=== PATIENT | female | born 1960 | race Hispanic/Latino ===

== ENCOUNTER 2023-05-26 12:09 | Emergency (ER) | payer OTHER ==
[~2023-05-26] VITALS: Ht 157.5 cm; Wt 76.2 kg
[2023-05-26 12:48] LABS: APPEARANCE,URINE CLOUDY (CLEAR); BILIRUBIN,URINE NEGATIVE (NEGATIVE); COLOR,URINE YELLOW (YELLOW); GLUCOSE, URINE (UA) NEGATIVE (NEGATIVE); KETONES,URINE 5 mg/dL (NEGATIVE); LEUKOCYTE ESTERASE ,URINE 500 Leu/uL (NEGATIVE); NITRATE,URINE 2+ (NEGATIVE); OCCULT BLOOD,URINE MODERATE (NEGATIVE); PROTEIN,URINE 30 mg/dL (NEGATIVE); UROBILINOGEN,URINE 0.2 mg/dL (0.2-1.0)
[2023-05-26 12:52] LABS: ADD UA MICROSCOPIC YES
[2023-05-26 12:54] LABS: HEMATOCRIT 42.5 % (36-48); MEAN CORPUSCULAR HEMOGLOBIN 29.3 pg (27.0-33.0); MEAN CORPUSCULAR HGB CONC 34.4 g/dL (32.0-36.0); MEAN CORPUSCULAR VOLUME 85.3 fL (79-99); RED BLOOD CELL COUNT(AUTO) 4.98 MIL/uL (4.00-5.50); RED CELL DISTRIBUTION WIDTH 13.9 % (11.0-15.5); WHITE BLOOD COUNT (AUTO) 14.8 K/uL (4.8-10.8)
[2023-05-26 13:06] LABS: BACTERIA,URINE MANY /HPF (None Seen); MUCUS,URINE RARE LPF (None Seen); SQUAMOUS EPITHELIAL CELL,UR MANY /HPF (0-2); WBC CLUMP FEW /HPF (0-1); WBC,URINE TNTC /HPF (0-1)
[2023-05-26 13:06] LABS: CREATININE 1.2 mg/dL (0.5-1.5); POTASSIUM 3.8 mmol/L (3.5-5.1)
[2023-05-26 14:07] LABS: INR 1.07 (0.85-1.15); PROTHROMBIN TIME 12.4 SEC (9.6-11.6)
[2023-05-26 14:08] LABS: PARTIAL THROMBOPLASTIN TIME 33.6 SEC (26.3-35.5)
[2023-05-26 14:24] LABS: ALBUMIN 3.4 g/dL (3.5-5.0); BILIRUBIN,DIRECT 0.2 mg/dL (0.0-0.3); BILIRUBIN,TOTAL 0.6 mg/dL (0.2-1.0); TOTAL PROTEIN, SERUM 7.2 g/dL (6.0-8.3)
[2023-05-26] MEDS: 0.9%NACL 1000ML 1,503 ML IV ONE (15:46)
[2023-05-26] MEDS: CEFTRIAXONE 1G VIAL IVPB ONE (15:46)
[2023-05-26] MEDS: ACETAMINOPHEN 325 MG TAB PO ONE (15:47)
[2023-05-26] MEDS: TAMSULOSIN HCL 0.4 MG CAP.ER.24H PO SCH (17:00)
[2023-05-26] MEDS: IBUPROFEN 600 MG TABLET PO ONE (17:42)
[2023-05-26] MEDS: TAMSULOSIN HCL 0.4 MG CAP.ER.24H ONE (17:43)
[2023-05-26] MEDS ORDERED: IBUP-2076 PO (18:12)
[2023-05-26] MEDS ORDERED: TAMS-1 PO (18:12)
[2023-05-26] MEDS ORDERED: LEVO750T68 PO (18:12)
[2023-05-26 18:24] VITALS: BP 112/56; PULSE 94; RESP 18; O2SAT 98
== END 2023-05-26 18:50 | disposition home or self-care (01) ==
LOC: EDH 12:09
DX: N39.0 Urinary tract infection, site not specified (principal); N13.2 Hydronephrosis with renal and ureteral calculous obstruction; I10 Essential (primary) hypertension; Z90.49 Acquired absence of other specified parts of digestive tract; Z90.710 Acquired absence of both cervix and uterus
CPT/HCPCS: 99285; 74176; 96365; 82550; 80076; 84484; 80048; 85027; 85610; 85730; 87040 ×2; 87077; 87088; 87186; 83605; 81001; 36415; J7030; J0696

== ENCOUNTER 2024-08-16 13:35 | Inpatient (IN) | payer OTHER ==
[~2024-08-16] VITALS: Ht 152.4 cm; Wt 72.3 kg
[~2024-08-16 13:35] MED LIST: IBUP-2076 PO; LEVO750T68 PO; TAMS-55 PO
[2024-08-16 13:58] LABS: BASOPHILS # (AUTO) 0.06 K/uL (0.00-0.20); BASOPHILS % (AUTO) 0.7 % (0.0-5.0); HEMATOCRIT 40.2 % (36-48); IMMATURE GRANULOCYTE ABSOLUTE 0.08 K/uL (0-1); LYMPHOCYTES # (AUTO) 0.7 K/uL (1.0-4.8); LYMPHOCYTES % (AUTO) 7.7 % (21.0-51.0); MEAN CORPUSCULAR HEMOGLOBIN 28.8 pg (27.0-33.0); MEAN CORPUSCULAR HGB CONC 34.6 g/dL (32.0-36.0); MEAN CORPUSCULAR VOLUME 83.4 fL (79-99); MONOCYTES # (AUTO) 0.2 K/uL (0.1-1.0); MONOCYTES % (AUTO) 1.8 % (3.0-13.0); NEUTROPHILS % (AUTO) 88.9 % (40.0-77.0); PLATELET COUNT (AUTO) 82 K/uL (130-400); RED BLOOD CELL COUNT(AUTO) 4.82 MIL/uL (4.00-5.50); RED CELL DISTRIBUTION WIDTH 14.7 % (11.0-15.5)
[2024-08-16 14:07] LABS: RAPID GROUP A STREP negative (NEGATIVE)
[2024-08-16] MEDS: acetaMINOPHEN 500 MG TABLET PO ONE (14:09)
[2024-08-16] MEDS: 0.9%NACL 1000ML 2,448 ML IV ONE (14:09)
[2024-08-16 14:17] LABS: INFLUENZA TYPE A Negative For Type A (NEGATIVE); INFLUENZA TYPE B Negative For Type B (NEGATIVE)
[2024-08-16 14:18] LABS: COVID19 (SARS ANTIGEN RAPID) PRESUMPTIVE NEGATIVE (NEGATIVE)
[2024-08-16 14:34] LABS: CREATININE 1.2 mg/dL (0.5-1.0); POTASSIUM 3.3 mmol/L (3.5-5.1)
[2024-08-16 14:42] LABS: APPEARANCE,URINE TURBID (CLEAR); BACTERIA,URINE MOD /HPF (None Seen); BILIRUBIN,URINE NEGATIVE (NEGATIVE); COLOR,URINE YELLOW (YELLOW); GLUCOSE, URINE (UA) NEGATIVE (NEGATIVE); KETONES,URINE 10 mg/dL (NEGATIVE); LEUKOCYTE ESTERASE ,URINE 250 Leu/uL (NEGATIVE); MUCUS,URINE FEW LPF (None Seen); NITRATE,URINE NEGATIVE (NEGATIVE); OCCULT BLOOD,URINE LARGE (NEGATIVE); OTHER CASTS, URINE 9 /LPF (None Seen); PROTEIN,URINE 200 mg/dL (NEGATIVE); RBC,URINE 51-100 /HPF (0-1); SQUAMOUS EPITHELIAL CELL,UR FEW /HPF (0-2); UNCLASSIFIED CRYSTAL 5 /HPF (None Seen); YEAST,URINE BUDDING RARE /HPF (None Seen)
[2024-08-16 14:52] LABS: BAND NEUTROPHILS % (MANUAL) 14 % (0-2); EOSINOPHILS % (MANUAL) 1 % (1-6); LYMPHOCYTES % (MANUAL) 3 % (22-44); MAN.DIFF COMMENT-IMPRESSION MANUAL DIFFERENTIAL; MONOCYTES % (MANUAL) 2 % (2-9); REACTIVE LYMPHOCYTES 5 % (0-0); SEGMENTED NEUTROPHILS % 75 % (40-70); TOTAL CELLS COUNTED 100
--- NOTE | 2024-08-16 15:01 | HMCIMG ---
Exam Type: CHEST 1VW Clinical Information: SOB Comparison: None Findings: The lungs are clear of infiltrates. The heart is enlarged. Bony and soft tissue structures of the chest wall are unremarkable. IMPRESSION: Cardiomegaly. Clear lungs.
--- NOTE | 2024-08-16 16:20 | ERN ---
General Chief Complaint: Flu Symptoms Stated Complaint: FLU LIKE SYMPTOMS Time Seen by MD: 13:40 Time Seen by Midlevel: 13:40 Source: patient History of Present Illness Initial Comments 63-year-old female who presents to the emergency department referred by PCP for further evaluation. Patient was diagnosed with influenza one week ago. Patient reports decreased appetite, fever, and generalized weakness. Denies any chest pain, shortness of breath, nausea, vomiting, or further associated symptoms. PMHx HTN Allergies: Coded Allergies: No Known Drug Allergies (Unverified Allergy, Unknown, 05/26/23) Home Meds Active Scripts Ibuprofen (Ibuprofen) 400 Mg Tablet, 400 MG PO TID, #30 TAB Prov:RAMA UMANA V [facility] 05/26/23 Tamsulosin HCl (Flomax) 0.4 Mg Cap.er.24h, 0.4 MG PO DAILY, #30 CAPSULE. Prov:RAMA UMANA V [employer] 05/26/23 Levofloxacin (Levaquin 750Mg Tabs) 750 Mg Tablet, 750 MG PO DAILY for 7 Days, #7 TAB Prov:RAMA UMANA V [facility] 05/26/23 Past Medical History Past Medical History: Hypertension Past Surgical History: Hysterectomy, Cholecystectomy Surgical History Other: CATARACT ROS Dictation Constitutional: Positive for generalized weakness, decreased appetite, fever Negative for chills, and weight loss Eyes: Negative for injury, pain,redness, and discharge ENT: Negative for injury,pain or swelling Cardiovascular: Negative for chest pain, palpitations, and edema Respiratory: Negative for shortness of breath, cough, and wheezing, Abdomen/GI: Negative for abdominal pain, nausea, vomiting, diarrhea, and constipation Back: Negative for injury and pain : Negative for painful urination, bleeding or discharge MS/Extremity: Negative for injury and deformity Skin: Negative for rash, and discoloration Neuro: Negative for headache, weakness, numbness, tingling, and seizure Psych: Negative for suicide ideation, homicidal ideation, and hallucinations Physical Exam Physical Exam Dictation General: awake, alert, no acute distress Head/Face: Normocephalic, atraumatic Eyes: PERRL, EOMI, normal conjunctiva ENT: oral cavity clear, oral mucosa moist Neck: Supple, normal range of motion Cardiovascular: RRR, normal S1/S2 Respiratory: CTAB, no respiratory distress, no rales or wheezes Abdomen: Soft, non-tender, non-distended, no guarding or rebound. Skin: Warm, dry, normal turgor, no rash MS/Extremity: Pulses equal, no cyanosis, neurovascular intact, FROM Neuro: COAx4, GCS 15, strength 5/5, CN 2-12 intact, normal cerebellar exam, normal gait Psych: Normal behavior, mood, and affect normal Results Laboratory and Microbiology Lab and Micro Result Laboratory Tests Test 08/16/24 13:45 08/16/24 13:48 08/16/24 14:04 Influenza Type A Antigen Negative For Type A Influenza Type B Antigen Negative For Type B SARS-CoV-2 Antigen (Rapid) PRESUMPTIVE NEGATIVE Group A Streptococcus Rapid negative (NEGATIVE) White Blood Count 9.0 K/uL (4.8-10.8) Red Blood Count 4.82 MIL/uL (4.00-5.50) Hemoglobin 13.9 g/dL (12.0-16.0) Hematocrit 40.2 % (36-48) Mean Corpuscular Volume 83.4 fL (79-99) Mean Corpuscular Hemoglobin 28.8 pg (27.0-33.0) Mean Corpuscular Hemoglobin Concent 34.6 g/dL (32.0-36.0) Red Cell Distribution Width 14.7 % (11.0-15.5) Platelet Count 82 K/uL (130-400) L Mean Platelet Volume 12.2 fL (7.5-10.5) H Immature Granulocyte % (Auto) 0.9 % (0-1) Neutrophils (%) (Auto) 88.9 % (40.0-77.0) H Lymphocytes (%) (Auto) 7.7 % (21.0-51.0) L Monocytes (%) (Auto) 1.8 % (3.0-13.0) L Eosinophils (%) (Auto) 0.0 % (0.0-8.0) Basophils (%) (Auto) 0.7 % (0.0-5.0) Neutrophils # (Auto) 8.0 K/uL (1.8-7.7) H Lymphocytes # (Auto) 0.7 K/uL (1.0-4.8) L Monocytes # (Auto) 0.2 K/uL (0.1-1.0) Eosinophils # (Auto) 0.00 K/uL (0.00-0.70) Basophils # (Auto) 0.06 K/uL (0.00-0.20) Absolute Immature Granulocyte (auto 0.08 K/uL (0-1) Segmented Neutrophils % 75 % (40-70) H Band Neutrophils % 14 % (0-2) H Lymphocytes % (Manual) 3 % (22-44) L Monocytes % (Manual) 2 % (2-9) Eosinophils % (Manual) 1 % (1-6) Nucleated Red Blood Cells 0.0 % (0.0-0.19) Differential Comment MANUAL DIFFERENTIAL Reactive Lymphocytes 5 % (0-0) H White Cell Morphology Comment See comments Platelet Morphology Comment See comments Red Blood Cell Morphology OVALOCYTES 1+ Sodium Level 133 mmol/L (136-145) L Potassium Level 3.3 mmol/L (3.5-5.1) L Chloride Level 93 mmol/L (101-111) L Carbon Dioxide Level 29 mmol/L (21-32) Blood Urea Nitrogen 14 mg/dL (7-18) Creatinine 1.2 mg/dL (0.5-1.0) H Glomerular Filtration Rate Calc 51 mL/min (>90) Random Glucose 101 mg/dL (70-105) Lactic Acid Level 1.8 mmol/L (0.8-2.5) Total Calcium 7.8 mg/dL (8.5-10.1) L Troponin I High Sensitivity 18 ng/L (4-50) Urine Color YELLOW (YELLOW) Urine Appearance TURBID (CLEAR) Urine pH 6.0 (5.0-8.0) Urine Specific [place] 1.021 (1.001-1.031) Urine Protein 200 mg/dL (NEGATIVE) H Urine Glucose (UA) NEGATIVE mg/dL (NEGATIVE) Urine Ketones 10 mg/dL (NEGATIVE) H Urine Occult Blood LARGE (NEGATIVE) H Urine Nitrate NEGATIVE (NEGATIVE) Urine Bilirubin NEGATIVE mg/dL (NEGATIVE) Urine Urobilinogen 4.0 mg/dL (0.2-1.0) H Urine Leukocyte Esterase 250 Héctor/uL (NEGATIVE) H Urine RBC 51-100 /HPF (0-1) H Urine WBC 11-25 /HPF (0-1) H Urine Squamous Epithelial Cells FEW /HPF (0-2) Urine Other Crystals (Auto) 5 /HPF (None Seen) Urine Bacteria MOD /HPF (None Seen) Urine Granular Casts (Auto) 2-5 /LPF (None Seen) H Urine Other Casts 9 /LPF (None Seen) Urine Yeast RARE /HPF (None Seen) Labs Reviewed?: Yes EKG/XRAY/US/CT/MRI X-RAY Comment REASON: SOB ORDERING PHYSICIAN: CARLOS SHAW MD PROCEDURE: CXR1VW - CHEST 1VW Exam Type: CHEST 1VW Clinical Information: SOB Comparison: None Findings: The lungs are clear of infiltrates. The heart is enlarged. Bony and soft tissue structures of the chest wall are unremarkable. IMPRESSION: Cardiomegaly. Clear lungs. DICTATED BY: LAURA BARRAZA MD DATE: 08/16/24 1456 MDM MDM: Differential diagnosis: Sepsis, viral illness, pneumonia, dehydration, UTI Rationale: 63-year-old female who presents to the emergency department referred by PCP for further evaluation. Patient was diagnosed with influenza one week ago. Patient reports decreased appetite, fever, and generalized weakness. Denies any chest pain, shortness of breath, nausea, vomiting, or further associated symptoms. PMHx HTN Labs obtained CBC nonspecific, chemistry indicates hyponatremia 133, hypokalemia 3.3, hypochloremia 93, creatinine of 1.2, indicating dehydration. UA positive for urinary tract infection 250 leukocyte esterase with WBCs. Serology negative for influenza, SARs, strep. Chest x-ray obtained indicating cardiomegaly with clear lungs. Per patient's initial vitals sepsis criteria was met with tachycardia and fever. Patient was administered IV fluids, acetaminophen, and Rocephin. Patient was educated on findings, diagnosis, decision for admission. Patient verbalized understanding and agrees with admission. Case discussed with hospitalist who accepts admission. Previous outside records reviewed: Old ER visits. Risk of complication and/or morbidity or mortality of patient management: None Medications-Per medication reconciliation Need for hospitalization: Patient does meet criteria for hospitalization. Need for emergency major/minor surgery: No There are no social concerns with this patient. Prescription drug management Prescriptions will include symptomatic care Patient's prior external medical records from other ER visits were reviewed by me as indicated. Prior testing and results from previous visits were reviewed. Prior tests were taken into account with medical decision making and resource utilization, independent historian/historians were used to obtain complete medical history. I independently interpreted the test that were performed, results were reviewed by me and considered findings on radiology if ordered. Medical management and examination interpretation discussions were had by me with other qualified healthcare professionals as indicated for the patient's care. ED Course Orders Procedure Category Date Status Time Influenza Type A & B, LAB 08/16/24 Complete Rapid 13:39 Covid19 (Sars Antigen LAB 08/16/24 Complete Rapid) 13:39 Rapid (Group A Strep) LAB 08/16/24 Complete 13:39 Chest 1vw RAD 08/16/24 Resulted 13:39 Cbc With Differential LAB 08/16/24 Complete 13:41 Basic Metabolic Panel LAB 08/16/24 Complete 13:41 Urinalysis LAB 08/16/24 Complete W/Microscopic 13:41 Lactic Acid LAB 08/16/24 Complete 13:41 Blood Cult GILBERT 08/16/24 In Process 13:41 Troponin I High LAB 08/16/24 Complete Sensitivity 13:41 12 Lead Ekg Tracing- EKG 08/16/24 Logged Technical 13:41 0.9%Nacl 1000ml (Ns PHA 08/16/24 In Process 1000ml) 14:00 Acetaminophen 500mg PHA 08/16/24 Complete Tab (Tylenol 500mg T 14:00 Manual Differential LAB 08/16/24 Complete 13:48 Culture Urine GILBERT 08/16/24 Logged 14:47 Ceftriaxone 1g Vial PHA 08/16/24 Complete (Rocephine 1g Inj) 15:30 Vital Signs(Adult CPOE 08/16/24 Transmitted Hospitalist) 15:17 Nurse To Enter Home CPOE 08/16/24 Transmitted Medication 15:17 Admit Orders ADM 08/16/24 Transmitted 15:17 Initiate Hypoglycemia FAINA 08/16/24 In Process Protocol 16:04 Dextrose 50%-Water PHA 08/16/24 In Process (D50w) 16:30 Glucagon 1mg Kit PHA 08/16/24 In Process (Glucagon 1mg Kit) 16:30 Initiate FAINA 08/16/24 In Process Hyperglycemia Protoco 16:04 Insulin Regular, PHA 08/16/24 In Process Human 3ml (Humulin R 16:30 Initiate Hypokalemia CPOE 08/16/24 Transmitted Po Half 16:04 Potassium Chloride PHA 08/16/24 In Process 10meq/100ml ([place] 16:30 Potassium Chl 10% PHA 08/16/24 In Process Elixir 20meq (Kcl 10% 16:30 Potassium Chloride PHA 08/16/24 In Process 20meq Er (K-Dur/Klor- 16:30 Notify Physician If CPOE 08/16/24 Transmitted There Is 16:04 Notify Md On The Next CPOE 08/16/24 Transmitted 16:04 Notify Md On The CPOE 08/16/24 Transmitted Next(Cont.) 16:04 Magnesium 2gm Premix PHA 08/16/24 In Process 50ml (Magnesium 2gm 16:30 Ammonia LAB 08/17/24 Verified 04:00 B-Type Natriuretic LAB 08/17/24 Verified Peptide 04:00 Cbc With Differential LAB 08/17/24 Verified 04:00 Comprehensive LAB 08/17/24 Verified Metabolic Panel 04:00 Creatine Kinase, Total LAB 08/17/24 Verified 04:00 Hemoglobin A1c LAB 08/17/24 Verified 04:00 Hepatic Function Panel LAB 08/17/24 Verified 04:00 Lactic Acid LAB 08/17/24 Verified 04:00 Lipase LAB 08/17/24 Verified 04:00 Magnesium LAB 08/17/24 Verified 02:00 Procalcitonin LAB 08/17/24 Verified 04:00 Vital Signs(Adult CPOE 08/16/24 Transmitted Hospitalist) 16:05 Nurse To Enter Home CPOE 08/16/24 Transmitted Medication 16:05 Admit Orders ADM 08/16/24 Transmitted 16:05 Vital Signs(Adult CPOE 08/16/24 Transmitted Hospitalist) 16:05 Vital Signs(Adult CPOE 08/16/24 Transmitted Hospitalist) 16:07 Daily Weights CPOE 08/16/24 Transmitted 16:07 I&O Q Shift CPOE 08/16/24 Transmitted 16:07 Fever: Blood Cx X 2 CPOE 08/16/24 Transmitted 16:07 Diphenhydramine Hcl PHA 08/16/24 In Process (Benadryl Inj) 16:30 Acetaminophen 325 Tab PHA 08/16/24 In Process (Tylenol 325mg Tab 16:30 Acetaminophen 325 Tab PHA 08/16/24 In Process (Tylenol 325mg Tab 16:30 Ondansetron 4mg Inj PHA 08/16/24 In Process (Zofran 4mg Inj) 16:30 Zolpidem Tartrate 5 PHA 08/16/24 In Process Mg Tab (Ambien) 16:30 Mag/Alum/Simeth 30ml PHA 08/16/24 In Process (Maalox Plus 30ml) 16:30 Lactulose 20 Gm/30 Ml PHA 08/16/24 In Process Udcup (Constulose 16:30 Nitroglycerin 0.4mg PHA 08/16/24 In Process Sl Tab (Nitrostat) 16:30 Guaifenesin-Dm PHA 08/16/24 In Process 200/20mg 10ml 16:30 Famotidine 20mg Vial PHA 08/16/24 In Process (Pepcid 20mg Vial) 16:30 Nurse To Enter Home CPOE 08/16/24 Transmitted Medication 16:07 Activity: Ad Connie CPOE 08/16/24 Transmitted 16:07 Consistent Carb DIET 08/16/24 Transmitted Dinner Heparin 5,000 Unit PHA 08/16/24 In Process Vial (Heparin 5,000 U 21:00 Apply Scds CPOE 08/16/24 Transmitted 16:07 Acetaminophen 325 Tab PHA 08/16/24 In Process (Tylenol 325mg Tab 16:30 Ketorolac PHA 08/16/24 In Process Tromethamine 15mg/Ml 16:30 Oxycodone/Acetamin PHA 08/16/24 In Process 5/325mg Tab (Percocet 16:30 Echo 2-D Complete ECHO 08/16/24 Logged 16:07 Case Management CM 08/16/24 Transmitted Evaluation 16:07 Pt Eval Request PT 08/16/24 Transmitted 16:07 Vancomycin Protocol PHA 08/16/24 In Process (Vancomycin Protocol 16:30 Zosyn 3.375gm+Ns 50ml PHA 08/16/24 In Process (Zosyn 3.375gm+Ns 21:00 0.9%Nacl 1000ml (Ns PHA 08/16/24 In Process 1000ml) 16:30 Hydralazine 20mg Inj PHA 08/16/24 In Process (Apresoline 20mg In 16:30 Famotidine 20mg Vial PHA 08/16/24 In Process (Pepcid 20mg Vial) 21:00 Current Medications Medications (Trade) Dose Ordered Sig/Amy Route PRN Reason Start Time Stop Time Status Last Admin Dose Admin Acetaminophen (TYLenol 325MG TAB) 650 mg Q4H PRN PO MILD PAIN (1-3) 08/16/24 16:30 09/15/24 16:29 Acetaminophen (TYLenol 325MG TAB) 650 mg Q6H PRN PO MILD PAIN (1-3) 08/16/24 16:30 09/15/24 16:29 Acetaminophen (TYLenol 325MG TAB) 650 mg Q6H PRN PO TEMPERATURE GREATER THAN 101.5 08/16/24 16:30 09/15/24 16:29 Acetaminophen (TYLenol 500MG TAB) 1,000 mg ONCE ONCE PO 08/16/24 14:00 08/16/24 14:01 DC 08/16/24 14:09 Al Hydroxide/Mg Hydroxide (MAALox PLUS 30ML) 30 ml Q6H PRN PO INDIGESTION 08/16/24 16:30 09/15/24 16:29 Ceftriaxone Sodium (ROCEphine 1G INJ) 1 gm ONCE ONCE IVPB 08/16/24 15:30 08/16/24 15:31 DC Dextrose (D50w) 50 ml AD PRN IV HYPOGLYCEMIA PROTOCOL 08/16/24 16:30 09/15/24 16:29 Diphenhydramine HCl (BENAdryl INJ) 25 mg Q6H PRN IV SEVERE ITCHING/RASH 08/16/24 16:30 09/15/24 16:29 Famotidine (Pepcid 20mg Vial) 20 mg HS IV 08/16/24 21:00 09/15/24 20:59 Famotidine (Pepcid 20mg Vial) 20 mg HS PRN IV NAUSEA/VOMITING 08/16/24 16:30 09/15/24 16:29 Glucagon (Glucagon 1mg Kit) 1 mg AD PRN IM HYPOGLYCEMIA PROTOCOL 08/16/24 16:30 09/15/24 16:29 Guaifenesin/ Dextromethorphan (RobiTUSSin DM 200/20MG 10ML) 10 ml Q4H PRN PO COUGH 08/16/24 16:30 09/15/24 16:29 Heparin Sodium (Porcine) (HEParin 5,000 UNIT VIAL) 5,000 unit BID SQ 08/16/24 21:00 09/15/24 20:59 Hydralazine HCl (APRESOLine 20MG INJ) 10 mg Q6H PRN IV For:SBP above 160;DBP above 90 08/16/24 16:30 09/15/24 16:29 Insulin Human Regular (humuLIN R 100 UNIT/ML 3ML) INSULIN SLIDING SCAL... ACHS SQ 08/16/24 16:30 09/15/24 16:29 Ketorolac Tromethamine (toRADol) 15 mg Q8H PRN IV MODERATE PAIN (4-6) 08/16/24 16:30 08/21/24 16:29 Lactulose (Constulose 20gm/ 30ml Udcup) 20 gm BID PRN PO CONSTIPATION 08/16/24 16:30 09/15/24 16:29 Magnesium Sulfate 50 ml @ 0 mls/hr PROTOCOL PRN IV other 08/16/24 16:30 09/15/24 16:29 Nitroglycerin (Nitrostat) 0.4 mg PROTOCOL PRN SL CHEST PAIN 08/16/24 16:30 09/15/24 16:29 Ondansetron HCl (zoFRAN 4MG INJ) 4 mg Q6H PRN IV NAUSEA/VOMITING 08/16/24 16:30 09/15/24 16:29 Oxycodone/ Acetaminophen (perCOCET) 1 tab Q6H PRN PO SEVERE PAIN (7-10) 08/16/24 16:30 08/23/24 16:29 Piperacillin Sod/ Tazobactam Sod 50 ml @ 12.5 mls/hr ZOSY8 IV 08/16/24 21:00 08/26/24 20:59 Potassium Chloride 100 ml @ 100 mls/hr AD PRN IV POTASSIUM PROTOCOL 08/16/24 16:30 09/15/24 16:29 Potassium Chloride (K-Dur/Klor-Con 20meq) 10 meq AD PRN PO POTASSIUM PROTOCOL 08/16/24 16:30 09/15/24 16:29 Potassium Chloride (KCl 10% Elixir 20meq/15ml) 10 meq AD PRN PO POTASSIUM PROTOCOL 08/16/24 16:30 09/15/24 16:29 Sodium Chloride 1,000 ml @ 100 mls/hr Q10H IV 08/16/24 16:30 09/15/24 16:29 Sodium Chloride 2,448 ml @ 816 mls/hr ONCE ONCE IV 08/16/24 14:00 08/16/24 16:59 08/16/24 14:09 Vancomycin HCl (Vancomycin Protocol) 1 each PROTOCOL PRN IV VANCOMYCIN PROTOCOL 08/16/24 16:30 08/30/24 16:29 Zolpidem Tartrate (AmbIEN) 5 mg HS PRN PO INSOMNIA 08/16/24 16:30 09/15/24 16:29 Vital Signs Date Time Temp Pulse Resp B/P (MAP) Pulse Ox O2 Delivery O2 Flow Rate FiO2 08/16/24 13:36 102.9 122 20 128/60 96 Room Air 0 Critical Care Note Critical Time: 30 minutes Comments Critical Care Procedure Note Authorized and Performed by: me Total critical care time: Approximately 36 minutes Due to a high probability of clinically significant, life threatening deterioration, the patient required my highest level of preparedness to intervene emergently and I personally spent this critical care time directly and personally managing the patient. This critical care time included obtaining a history; examining the patient; pulse oximetry; ordering and review of studies; arranging urgent treatment with development of a management plan; evaluation of patient's response to treatment; frequent reassessment; and, discussions with other providers. This critical care time was performed to assess and manage the high probability of imminent, life-threatening deterioration that could result in multi-organ failure. It was exclusive of separately billable procedures and treating other patients and teaching time. Please see MDM section and the rest of the note for further information on patient assessment and treatment. DX & DISP Disposition: Inpatient Decision to Admit Date: August 16, 2024 Departure Impression: Primary Impression: UTI (urinary tract infection) Additional Impression: Dehydration Condition: Stable Referrals: CAN FARRIS (PCP) I performed the substantive portion of the visit. I have reviewed and personally made and approve the management plan that is documented in the notes by myself or the LUZ MARINA. I acknowledge full responsibility for the patient's m anagement plan. CADENCE SOLOMON August 16, 2024 16:20
[2024-08-16] MEDS ORDERED: NITROGLYCERIN 0.4 MG SL TAB SL PRN (16:30)
[2024-08-16] MEDS: INSULIN humuLIN R 100 UNIT/ML 3ML SQ SCH (16:30)
[2024-08-16] MEDS ORDERED: guaiFENesin-DM 200/20MG 10ML PO PRN (16:30)
[2024-08-16] MEDS ORDERED: LACTULOSE 20 GM/30 ML UDCUP PO PRN (16:30)
[2024-08-16] MEDS ORDERED: FAMOTIDINE 20MG VIAL IV PRN (16:30)
[2024-08-16] MEDS ORDERED: GLUCAGON 1MG KIT 1 MG ML IM PRN (16:30)
[2024-08-16] MEDS ORDERED: DEXTROSE 50%-WATER 50 ML DISP.SYRIN IV PRN (16:30)
[2024-08-16] MEDS ORDERED: hydrALAZine 20MG/ML VIAL IV PRN (16:30)
[2024-08-16] MEDS ORDERED: MAG/ALUM/SIMETH 30 ML UDCUP PO PRN (16:30)
[2024-08-16] MEDS ORDERED: VANCOMYCIN PROTOCOL PER PHARMACY IV PRN (16:30)
[2024-08-16] MEDS ORDERED: ZOLPidem TARTrate 5 MG TAB PO PRN (16:30)
[2024-08-16] MEDS ORDERED: acetaMINOPHEN 325 MG TAB PO PRN ×2 (16:30)
[2024-08-16] MEDS: cefTRIAXone 1G VIAL IVPB ONE (16:48)
[2024-08-16] MEDS: 0.9%NACL 1000ML 1,000 ML IV SCH (16:48)
[2024-08-16] MEDS: PoTASSium chloRIDE 20MEQ ER 20 MEQ ERTAB PO PRN (16:54)
[2024-08-16] MEDS: VANCOMYCIN 1.25 GM/250 ML BAG 250 ML IV SCH (17:40)
--- NOTE | 2024-08-16 18:30 | HP ---
[facility] HISTORY AND PHYSICAL Date of Service: August 16, 2024 Time of Service: 18:17 PCP:DR BRENTON GARCÍA Admitting: Dr Garvin, Allergies: No Allergy Information Available, No Known Drug Allergies HISTORY OF PRESENT ILLNESS: [PATIENT IS 63 YEARS OLD FEMALE WITH A PAST MEDICAL HISTORY OF HYPERTENSION, FLU, CATARACT, CHOLECYSTECTOMY, HYSTERECTOMY, WHO CAME TO EMERGENCY DEPARTMENT WITH A COMPLAINT OF DECREASED APPETITE, FEVER, GENERALIZED BODY WEAKNESS. PATIENT STATED THAT SHE WENT TO HER PCP AFTER SHE WAS DIAGNOSED WITH INFLUENZA ABOUT A WEEK AGO, WHERE SHE COMPLAINED ABOUT ABOVE-STATED COMPLAINTS AND SHE WAS SENT TO EMERGENCY DEPARTMENT FOR FURTHER EVALUATION/RECOMMENDATION. PATIENT DENIES ANY CHEST PAIN, NAUSEA, VOMITING, SHORTNESS OF BREATHS OR ANY OTHER SYMPTOMS OTHER THAN STATED ABOVE. ] MOST RECENT VITAL SIGNS TEMPERATURE 97.9 ON ADMISSION IN ER WAS 102.9, PULSE 84 RESPIRATION 22 BLOOD PRESSURE 90/50 PATIENT IS ON ROOM AIR SATTING 93%. UA POSITIVE FOR LEUKOCYTOSIS. WBC 9.0 HEMATOCRIT 40.2 HEMOGLOBIN 13.9 PLATELETS 82. SODIUM 133 POTASSIUM 3.3 CO2 29 BUN 14 CREATININE 1.2 GFR 5 GLUCOS 106 LACTIC 1.8 CALCIUM 7.8 TROPONIN NEGATIVE X1. CHEST X-RAY SHOWED CLEAR LUNGS CARDIOMEGALY. 2D ECHO IS PENDING. PATIENT WILL BE ADMITTED UNDER HOSPITALIST CARE FOR FURTHER EVALUATION/RECOMMENDATION. PATIENT WAS PLACED ON VANCOMYCIN AND ZOSYN FOR THE SEPSIS. A.M. LABS. REVIEW OF SYSTEMS CONSTITUTIONAL: Denies , chills, or night sweats. No unintentional weight loss reported. GENERALIZED BODY WEAKNESS ,FEVERS AND DECREASED APPETITE NEUROLOGICAL: Denies headache, amaurosis fugax, motor weakness, sensory deficit, vertigo/spinning sensation, gait abnormalities, or tremors. ENT: No hearing loss, otalgia, otorrhea, rhinitis, rhinorrhea, hoarseness, or sore throat. CARDIOVASCULAR: Denies any exertional angina, dyspnea on exertion, orthopnea, paroxysmal nocturnal dyspnea, palpitations, life-threatening arrhythmias, claudication. PULMONARY: Denies any shortness of breath, cough, phlegm/sputum, hemoptysis, pleuritic chest pain. SLEEP: Denies morning headaches, daytime somnolence or napping. Denies difficulty falling asleep, staying asleep, waking from sleep. Denies knowledge of snoring. GASTROINTESTINAL: Denies any type of dysphagia to either liquids or solids. Denies nausea, vomiting, pyrosis, early satiety, abdominal pain, diarrhea, constipation, or changes in stool consistency or caliber. Denies coffee-ground emesis, hematemesis, hematochezia, or melanotic stools. GENITOURINARY: Denies frequency, urgency, nocturia, hematuria or incontinence (Storage/Irritative symptoms.) Low urinary stream, straining to void, urinary intermittency or hesitancy, splitting of the voiding stream, terminal dribbling. ENDOCRINOLOGIC: Denies polyuria, polydipsia, polyphagia or heat/cold intolerances. HEMATOLOGIC: Denies thrombophilia/previous clots, or coagulopathy/bleeding disorders. ONCOLOGIC: Denies personal history of malignancy. DERMATOLOGIC: Denies rashes or pruritus. PSYCHIATRIC: Denies any suicidal or homicidal ideation. Denies hallucinations. PAST MEDICAL HISTORY: [ HYPERTENSION, FLU ] PAST SURGICAL HISTORY: [CATARACT, CHOLECYSTECTOMY, HYSTERECTOMY ] PAST SOCIAL HISTORY: [ PATIENT DENIES SMOKING. PATIENT DENIES ANY DRUG ILLICIT. PATIENT DENIES ANY ALCOHOL USE ] FAMILY HISTORY: [ PATIENT LIVES AT HOME WITH THE FAMILY ] Coded Allergies: No Known Drug Allergies (Unverified Allergy, Unknown, 05/26/23) PHYSICAL EXAM GENERAL APPEARANCE: The patient is awake, alert, and oriented, in no acute cardiopulmonary distress. NEUROLOGICAL: Cranial nerves II-XII grossly intact. Motor is 5/5 in bilateral upper and lower extremities proximal to distal. No sensory deficits. HEENT: Face is symmetric. Pupils are equal and reactive. Extraocular movements are intact. NECK: Supple. No JVD. No thyromegaly. No submental, submandibular, pre- /postauricular, occipital or supraclavicular lymphadenopathy. CHEST: Normal chest expansion. No Telemetry. LUNGS: Absence of any rales, rhonchi or any wheezing. CARDIOVASCULAR: Regular. S1 and S2 normal. No appreciable rubs, murmurs or gallops. ABDOMEN: Soft, nontender, and nondistended. There is no rebound, voluntary guarding, or rigidity. : Deferred. No Hobbs. EXTREMITIES: Non-edematous and not cyanotic. No clubbing. Good capillary r efill. SKIN: No skin breakdown. Vital Sign (Last 24 Hours) 08/16/24 16:36 Temp 97.7 Pulse 84 Resp 22 B/P (MAP) 90/50 Pulse Ox 93 O2 Delivery Room Air* O2 Flow Rate 0 FiO2 21 LABS: Laboratory: Test 08/16/24 16:47 08/16/24 14:04 08/16/24 13:48 08/16/24 13:45 Range/Units Whole Blood Glucose 106 70-110 MG/DL Urine Color YELLOW YELLOW Urine Appearance TURBID CLEAR Urine pH 6.0 5.0-8.0 Urine Specific [place] 1.021 1.001-1.031 Urine Protein 200 H NEGATIVE mg/dL Urine Glucose (UA) NEGATIVE NEGATIVE mg/dL Urine Ketones 10 H NEGATIVE mg/dL Urine Occult Blood LARGE H NEGATIVE Urine Nitrate NEGATIVE NEGATIVE Urine Bilirubin NEGATIVE NEGATIVE mg/dL Urine Urobilinogen 4.0 H 0.2-1.0 mg/dL Urine Leukocyte Esterase 250 H NEGATIVE Héctor/uL Urine RBC 51-100 H 0-1 /HPF Urine WBC 11-25 H 0-1 /HPF Urine Squamous Epithelial Cells FEW 0-2 /HPF Urine Other Crystals (Auto) 5 None Seen /HPF Urine Bacteria MOD None Seen /HPF Urine Granular Casts (Auto) 2-5 H None Seen /LPF Urine Other Casts 9 None Seen /LPF Urine Yeast RARE None Seen /HPF White Blood Count 9.0 4.8-10.8 K/uL Red Blood Count 4.82 4.00-5.50 MIL/uL Hemoglobin 13.9 12.0-16.0 g/dL Hematocrit 40.2 36-48 % Mean Corpuscular Volume 83.4 79-99 fL Mean Corpuscular Hemoglobin 28.8 27.0-33.0 pg Mean Corpuscular Hemoglobin Concent 34.6 32.0-36.0 g/dL Red Cell Distribution Width 14.7 11.0-15.5 % Platelet Count 82 L 130-400 K/uL Mean Platelet Volume 12.2 H 7.5-10.5 fL Immature Granulocyte % (Auto) 0.9 0-1 % Neutrophils (%) (Auto) 88.9 H 40.0-77.0 % Lymphocytes (%) (Auto) 7.7 L 21.0-51.0 % Monocytes (%) (Auto) 1.8 L 3.0-13.0 % Eosinophils (%) (Auto) 0.0 0.0-8.0 % Basophils (%) (Auto) 0.7 0.0-5.0 % Neutrophils # (Auto) 8.0 H 1.8-7.7 K/uL Lymphocytes # (Auto) 0.7 L 1.0-4.8 K/uL Monocytes # (Auto) 0.2 0.1-1.0 K/uL Eosinophils # (Auto) 0.00 0.00-0.70 K/uL Basophils # (Auto) 0.06 0.00-0.20 K/uL Absolute Immature Granulocyte (auto 0.08 0-1 K/uL Segmented Neutrophils % 75 H 40-70 % Band Neutrophils % 14 H 0-2 % Lymphocytes % (Manual) 3 L 22-44 % Monocytes % (Manual) 2 2-9 % Eosinophils % (Manual) 1 1-6 % Nucleated Red Blood Cells 0.0 0.0-0.19 % Differential Comment MANUAL DIFFERENTIAL Reactive Lymphocytes 5 H 0-0 % White Cell Morphology Comment See comments Platelet Morphology Comment See comments Red Blood Cell Morphology OVALOCYTES 1+ Sodium Level 133 L 136-145 mmol/L Potassium Level 3.3 L 3.5-5.1 mmol/L Chloride Level 93 L 101-111 mmol/L Carbon Dioxide Level 29 21-32 mmol/L Blood Urea Nitrogen 14 7-18 mg/dL Creatinine 1.2 H 0.5-1.0 mg/dL Glomerular Filtration Rate Calc 51 >90 mL/min Random Glucose 101 70-105 mg/dL Lactic Acid Level 1.8 0.8-2.5 mmol/L Total Calcium 7.8 L 8.5-10.1 mg/dL Troponin I High Sensitivity 18 4-50 ng/L Influenza Type A Antigen Negative For Type A NEGATIVE Influenza Type B Antigen Negative For Type B NEGATIVE SARS-CoV-2 Antigen (Rapid) PRESUMPTIVE NEGATIVE NEGATIVE Group A Streptococcus Rapid negative NEGATIVE Current Medications Medications (Trade) Dose Ordered Sig/Amy Route PRN Reason Start Time Stop Time Status Last Admin Dose Admin Acetaminophen (TYLenol 325MG TAB) 650 mg Q4H PRN PO MILD PAIN (1-3) 08/16/24 16:30 09/15/24 16:29 Acetaminophen (TYLenol 325MG TAB) 650 mg Q6H PRN PO MILD PAIN (1-3) 08/16/24 16:30 09/15/24 16:29 Acetaminophen (TYLenol 325MG TAB) 650 mg Q6H PRN PO TEMPERATURE GREATER THAN 101.5 08/16/24 16:30 09/15/24 16:29 Al Hydroxide/Mg Hydroxide (MAALox PLUS 30ML) 30 ml Q6H PRN PO INDIGESTION 08/16/24 16:30 09/15/24 16:29 Dextrose (D50w) 50 ml AD PRN IV HYPOGLYCEMIA PROTOCOL 08/16/24 16:30 09/15/24 16:29 Diphenhydramine HCl (BENAdryl INJ) 25 mg Q6H PRN IV SEVERE ITCHING/RASH 08/16/24 16:30 09/15/24 16:29 Famotidine (Pepcid 20mg Vial) 20 mg HS IV 08/16/24 21:00 09/15/24 20:59 Famotidine (Pepcid 20mg Vial) 20 mg HS PRN IV NAUSEA/VOMITING 08/16/24 16:30 09/15/24 16:29 Glucagon (Glucagon 1mg Kit) 1 mg AD PRN IM HYPOGLYCEMIA PROTOCOL 08/16/24 16:30 09/15/24 16:29 Guaifenesin/ Dextromethorphan (RobiTUSSin DM 200/20MG 10ML) 10 ml Q4H PRN PO COUGH 08/16/24 16:30 09/15/24 16:29 Heparin Sodium (Porcine) (HEParin 5,000 UNIT VIAL) 5,000 unit BID SQ 08/16/24 21:00 09/15/24 20:59 Hydralazine HCl (APRESOLine 20MG INJ) 10 mg Q6H PRN IV For:SBP above 160;DBP above 90 08/16/24 16:30 09/15/24 16:29 Insulin Human Regular (humuLIN R 100 UNIT/ML 3ML) INSULIN SLIDING SCAL... ACHS SQ 08/16/24 16:30 09/15/24 16:29 Ketorolac Tromethamine (toRADol) 15 mg Q8H PRN IV MODERATE PAIN (4-6) 08/16/24 16:30 08/21/24 16:29 Lactulose (Constulose 20gm/ 30ml Udcup) 20 gm BID PRN PO CONSTIPATION 08/16/24 16:30 09/15/24 16:29 Magnesium Sulfate 50 ml @ 0 mls/hr PROTOCOL PRN IV other 08/16/24 16:30 09/15/24 16:29 Nitroglycerin (Nitrostat) 0.4 mg PROTOCOL PRN SL CHEST PAIN 08/16/24 16:30 09/15/24 16:29 Ondansetron HCl (zoFRAN 4MG INJ) 4 mg Q6H PRN IV NAUSEA/VOMITING 08/16/24 16:30 09/15/24 16:29 Oxycodone/ Acetaminophen (perCOCET) 1 tab Q6H PRN PO SEVERE PAIN (7-10) 08/16/24 16:30 08/23/24 16:29 Piperacillin Sod/ Tazobactam Sod 50 ml @ 12.5 mls/hr ZOSY8 IV 08/16/24 21:00 08/26/24 20:59 Potassium Chloride 100 ml @ 100 mls/hr AD PRN IV POTASSIUM PROTOCOL 08/16/24 16:30 09/15/24 16:29 Potassium Chloride (K-Dur/Klor-Con 20meq) 10 meq AD PRN PO POTASSIUM PROTOCOL 08/16/24 16:30 09/15/24 16:29 08/16/24 16:54 10 MEQ Potassium Chloride (KCl 10% Elixir 20meq/15ml) 10 meq AD PRN PO POTASSIUM PROTOCOL 08/16/24 16:30 09/15/24 16:29 Sodium Chloride 1,000 ml @ 100 mls/hr Q10H IV 08/16/24 16:30 09/15/24 16:29 08/16/24 16:48 100 MLS/HR Vancomycin HCl 250 ml @ 125 mls/hr Q24H IV 08/16/24 17:00 08/26/24 16:59 08/16/24 17:40 125 MLS/HR Vancomycin HCl (Vancomycin Protocol) 1 each PROTOCOL PRN IV VANCOMYCIN PROTOCOL 08/16/24 16:30 08/30/24 16:29 Zolpidem Tartrate (AmbIEN) 5 mg HS PRN PO INSOMNIA 08/16/24 16:30 09/15/24 16:29 DIAGNOSTICS / RADIOLOGY: [ ] ASSESSMENT: [ ACUTE SEPSIS POA GENERALIZED BODY WEAKNESS POA ACUTE KIDNEY INJURY POA ACUTE DEHYDRATION POA ACUTE COMPLICATED CYSTITIS POA ELECTROLYTE IMBALANCE HYPONATREMIA NA 133, HYPOKALEMIA 3.3 HYPOCALCEMIA 7.8 POA UNCONTROLLED HYPERTENSION POA THROMBOCYTOPENIA POA HISTORY OF CATARACT HISTORY OF CHOLECYSTECTOMY HISTORY OF HYSTERECTOMY HISTORY OF KIDNEY STONES HISTORY OF HYDRONEPHROSIS] PLAN: [ ADMIT TO: MEDICAL-SURGICAL FLOOR WITH TELEMETRY CONSULTS: NONE ANTIBIOTICS: VANCOMYCIN, ZOSYN TESTS: 2D ECHO FLUIDS NORMAL SALINE AT 100 ML/HOUR NEURO: MINIMIZE CENTRAL ACTING MEDICATIONS POSSIBLE. FALL PRECAUTIONS. WELL LIGHTED ROOM THROUGH THE DAY AND MINIMIZE INTERRUPTIONS THROUGH THE NIGHT TO PREVENT ACUTE DELIRIUM. PULMONARY: CHEST X-RAY CLEARED CARDIOMEGALY SUPPLEMENTAL 02 NEEDED BIPAP NECESSARY, FOR RESPIRATORY DISTRESS TITRATE FIO2 TO KEEP SPO2 > OR = 90% DUONEBS AND CPT NEEDED IS HOURLY WHILE AWAKE FOR PULMONARY HYGIENE OUT OF BED TO CHAIR TOLERATED VAP BUNDLE MAINTAIN ASPIRATION PRECAUTIONS AT ALL TIMES CARDIOVASCULAR: FOLLOW HEMODYNAMICS. VITAL SIGNS PER FACILITY PROTOCOL GI & NUTRITION: CONTINUE NUTRITIONAL SUPPORT ASPIRATIONS PRECAUTIONS PROKINETIC AGENTS AND LAXATIVES NEEDED KIDNEYS & ELECTROLYTES: STRICT MONITORING OF INTAKE AND OUTPUT DAILY WEIGHTS AVOID NEPHROTOXIC AGENTS MONITOR ELECTROLYTES AND REPLACE NEEDED GOAL URINE OUTPUT OF 30ML/HR OR 0.5ML/KG/HR MEDICATIONS TO BE DOSED ACCORDING TO RENAL FUNCTION. AVOID CONTRAST IF POSSIBLE ENDOCRINE: MAINTAIN BLOOD GLUCOSE BETWEEN 100-180 AT ALL TIMES. INSULIN SLIDING SCALE FOR BLOOD GLUCOSE MANAGEMENT HYPOGLYCEMIA AND HYPERGLYCEMIA PROTOCOL IN PLACE INFECTIOUS DISEASE: TREND TEMPERATURE, WBC AND PROCALCITONIN LEVEL FOLLOW CULTURES, DEESCALATE ANTIBIOTICS SOON POSSIBLE. PANCULTURE IF NEW ONSET FEVER HEMATOLOGY & COAGULATION: MONITOR H&H. KEEP HGB > 7 TRANSFUSE 1 UNIT OF PRBC FOR HGB < 7 TRANSFUSE 1 PACK OF PLATELETS OF PLATELETS < 20, 000 WATCH FOR ANY SIGNS AND SYMPTOMS OF BLEEDING SKIN: PRESSURE ULCER PREVENTION PER FACILITY PROTOCOL SPECIALTY MATTRESS NEEDED TREATMENT PLAN DISCUSSED WITH PATIENT AND FAMILY AT THE BEDSIDE MEDICATIONS TO BE RECONCILED ONCE OBTAINED BY PATIENT AND/OR FAMILY AND AVAILABLE TO BE RECONCILED IN COMPUTER P.R.N. MEDICATION FOR PAIN NAUSEA AND VOMITING QUESTIONS WERE ANSWERED WE WILL CONTINUE TO MONITOR THE PATIENT CLOSELY SAP ARCHITECT FOR DISPOSITION REHAB: PT/OT GI: PPI DVT: SCD'S CODE STATUS: FULL RESUSCITATION DISPOSITION: TBD PROGNOSIS: GUARDED] ADVANCED CARE PLANNING 1. Which of the following were discussed? Hospice Care - Yes / No Therapeutic options - Yes / No Advance Directives - Yes / No Other discussions - 2. Discussed with who? PATIENT 3. Voluntary nature of this service was explained to the patient? Yes / No 4. Amount of time spent - __ MORE THAN 35 MINUTES 5. Reviewed by Physician? (if this service was performed by NPP) Yes / No ADDENDUM: ATTENDING PHYSICIAN ATTESTATION: I have reviewed the [facility]'s plan. I have independently seen, reviewed the chart and made my own assessment of the patient. See my addendum for updates to the [facility]'s medical plan MD ALEX Bell KATARZYNA B STEELWORKER August 16, 2024 18:30 CARY GARVIN MD August 18, 2024 12:46
[2024-08-16] MEDS ORDERED: PHEN-308 PO (21:32)
[2024-08-16] MEDS ORDERED: OLME40TA18 PO (21:32)
[2024-08-16] MEDS ORDERED: PREG50CA64 PO (21:32)
[2024-08-16] MEDS ORDERED: MELO5CAP PO (21:32)
[2024-08-16] MEDS ORDERED: TRAZ-187 PO (21:32)
--- NOTE | 2024-08-16 21:32 | NUR ---
REPORT GIVEN TO LUKAS FITZGERALD
[2024-08-16] MEDS: ZOSYN 3.375GM+NS 50ML 50 ML IV SCH (21:34)
[2024-08-16] MEDS: FAMOTIDINE 20MG VIAL IV SCH (21:35)
[2024-08-16] MEDS: HEParin 5,000 UNIT VIAL SQ SCH (21:35)
[2024-08-16 21:45] VITALS: BP 125/41; PULSE 43; RESP 20; TEMP 98
[2024-08-16] MEDS: oxyCODONE/aceTAMIN 5/325MG TAB PO PRN (23:04)
[2024-08-17] VITALS (7 sets, daily range): BP systolic 85–141; BP diastolic 45–63; PULSE 74–118; RESP 18–20; TEMP 97.4–100.6; O2SAT 90–92
[2024-08-17] MEDS: acetaMINOPHEN 325 MG TAB PO PRN (03:32)
[2024-08-17 04:56] LABS: BASOPHILS # (AUTO) 0.07 K/uL (0.00-0.20); BASOPHILS % (AUTO) 0.7 % (0.0-5.0); EOSINOPHILS # (AUTO) 0.03 K/uL (0.00-0.70); EOSINOPHILS % (AUTO) 0.3 % (0.0-8.0); HEMATOCRIT 35.4 % (36-48); IMMATURE GRANULOCYTE ABSOLUTE 0.17 K/uL (0-1); LYMPHOCYTES # (AUTO) 0.7 K/uL (1.0-4.8); LYMPHOCYTES % (AUTO) 6.8 % (21.0-51.0); MEAN CORPUSCULAR HEMOGLOBIN 28.4 pg (27.0-33.0); MEAN CORPUSCULAR HGB CONC 34.5 g/dL (32.0-36.0); MEAN CORPUSCULAR VOLUME 82.5 fL (79-99); MONOCYTES # (AUTO) 0.1 K/uL (0.1-1.0); MONOCYTES % (AUTO) 1.3 % (3.0-13.0); NEUTROPHILS # (AUTO) 8.7 K/uL (1.8-7.7); NEUTROPHILS % (AUTO) 89.2 % (40.0-77.0); PLATELET COUNT (AUTO) 52 K/uL (130-400); RED BLOOD CELL COUNT(AUTO) 4.29 MIL/uL (4.00-5.50); RED CELL DISTRIBUTION WIDTH 14.6 % (11.0-15.5); WHITE BLOOD COUNT (AUTO) 9.8 K/uL (4.8-10.8)
[2024-08-17 05:13] LABS: ALANINE AMINOTRANSFERASE 71 U/L (12-78); ASPARTATE AMINOTRANSFERASE 116 U/L (10-37); BILIRUBIN,DIRECT 0.6 mg/dL (0.0-0.3); BILIRUBIN,TOTAL 0.9 mg/dL (0.2-1.0); CARBON DIOXIDE 26 mmol/L (21-32); CHLORIDE 100 mmol/L (101-111); CREATINE KINASE, TOTAL 199 U/L (21-232); CREATININE 1.2 mg/dL (0.5-1.0); GLOMERULAR FILTR. RATE CALC 51 mL/min (>90); GLUCOSE,RANDOM 99 mg/dL (70-105); SODIUM SERUM 137 mmol/L (136-145); UREA NITROGEN, BLOOD 19 mg/dL (7-18)
[2024-08-17 05:24] LABS: AMMONIA < 10 umol/L (11-32); POTASSIUM 2.8 mmol/L (3.5-5.1)
[2024-08-17] MEDS: PoTASSium chloRIDE 10MEQ/100ML 100 ML IV PRN (05:28)
[2024-08-17 05:40] LABS: HEMOGLOBIN A1C 5.8 % (4.0-6.0)
--- NOTE | 2024-08-17 10:06 | NUR ---
DCP: HOME SW was able to get information from sister Esha Turpin [phone]. Pt currently lives alone in her home. Pt does not have any DME, provider, or home health services. Pt is currently working and is able to complete ADLs independently. PCP is Harris Rankin. At [place] pt will return home and family will assist with transportation. Addendum: 08/17/24 at 1010 by WALESKA SOTO SS Amended: Links added.
[2024-08-17] MEDS: PoTASSium chloRIDE 20MEQ ER 20 MEQ ERTAB PO ONE ×2 (11:00→13:27)
--- NOTE | 2024-08-17 13:16 | PN ---
[facility] PROGRESS NOTE Date of Service: August 17, 2024 Time of Service: 13:13 Attending doctor Tip SUBJECTIVE: [ PATIENT IS 63 YEARS OLD FEMALE WITH A PAST MEDICAL HISTORY OF HYPERTENSION, FLU, CATARACT, CHOLECYSTECTOMY, HYSTERECTOMY, WHO CAME TO [facility] WITH A COMPLAINT OF DECREASED APPETITE, FEVER, GENERALIZED BODY WEAKNESS. PATIENT STATED THAT SHE WENT TO HER PCP AFTER SHE WAS DIAGNOSED WITH INFLUENZA ABOUT A WEEK AGO, WHERE SHE COMPLAINED ABOUT ABOVE-STATED COMPLAINTS AND SHE WAS SENT TO EMERGENCY DEPARTMENT FOR FURTHER EVALUATION/RECOMMENDATION. PATIENT DENIES ANY CHEST PAIN, NAUSEA, VOMITING, SHORTNESS OF BREATHS OR ANY OTHER SYMPTOMS OTHER THAN STATED ABOVE. ] MOST RECENT VITAL SIGNS TEMPERATURE 97.9 ON ADMISSION IN ER WAS 102.9, PULSE 84 RESPIRATION 22 BLOOD PRESSURE 90/50 PATIENT IS ON ROOM AIR SATTING 93%. UA POSITIVE FOR LEUKOCYTOSIS. WBC 9.0 HEMATOCRIT 40.2 HEMOGLOBIN 13.9 PLATELETS 82. SODIUM 133 POTASSIUM 3.3 CO2 29 BUN 14 CREATININE 1.2 GFR 5 GLUCOS 106 LACTIC 1.8 CALCIUM 7.8 TROPONIN NEGATIVE X1. CHEST X-RAY SHOWED CLEAR LUNGS CARDIOMEGALY. 2D ECHO IS PENDING. PATIENT WILL BE ADMITTED UNDER HOSPITALIST CARE FOR FURTHER EVALUATION/RECOMMENDATION. PATIENT WAS PLACED ON VANCOMYCIN AND ZOSYN FOR THE SEPSIS. A.M. LABS. 08/17 patient was seen by nurse practitioner and physician during rounding in room 304. Urinalysis was positive on admission. Blood culture and urine culture pending at this moment. Patient continues to be on Zosyn and vancomycin. We will increase fluids from 100 mL/hour 220 mL/hour. Patient's A1c is 5.8. We will discontinue insulin sliding scale per protocol. Also patient's blood pressure has been on lower side. We will discontinue losartan. Home medication reconciled. 2D echo showed EF 55 to 60% normal diastolic function no pericardial effusion. Potassium today is 2.8. Patient received already two 20 mEq through IV potassium. Patient will also receive 40 mEq of potassium as well. We will continue to monitor patient in the meantime. A.m. labs. ] REVIEW OF SYSTEMS CONSTITUTIONAL: Denies , chills, or night sweats. No unintentional weight loss reported. GENERALIZED BODY WEAKNESS ,fevers AND DECREASED APPETITE NEUROLOGICAL: Denies headache, amaurosis fugax, motor weakness, sensory deficit, vertigo/spinning sensation, gait abnormalities, or tremors. ENT: No hearing loss, otalgia, otorrhea, rhinitis, rhinorrhea, hoarseness, or sore throat. CARDIOVASCULAR: Denies any exertional angina, dyspnea on exertion, orthopnea, paroxysmal nocturnal dyspnea, palpitations, life-threatening arrhythmias, claudication. PULMONARY: Denies any shortness of breath, cough, phlegm/sputum, hemoptysis, pleuritic chest pain. SLEEP: Denies morning headaches, daytime somnolence or napping. Denies difficulty falling asleep, staying asleep, waking from sleep. Denies knowledge of snoring. GASTROINTESTINAL: Denies any type of dysphagia to either liquids or solids. Denies nausea, vomiting, pyrosis, early satiety, abdominal pain, diarrhea, constipation, or changes in stool consistency or caliber. Denies coffee-ground emesis, hematemesis, hematochezia, or melanotic stools. GENITOURINARY: Denies frequency, urgency, nocturia, hematuria or incontinence (Storage/Irritative symptoms.) Low urinary stream, straining to void, urinary intermittency or hesitancy, splitting of the voiding stream, terminal dribbling. ENDOCRINOLOGIC: Denies polyuria, polydipsia, polyphagia or heat/cold intolerances. HEMATOLOGIC: Denies thrombophilia/previous clots, or coagulopathy/bleeding disorders. ONCOLOGIC: Denies personal history of malignancy. DERMATOLOGIC: Denies rashes or pruritus. PSYCHIATRIC: Denies any suicidal or homicidal ideation. Denies hallucinations. PHYSICAL EXAM GENERAL APPEARANCE: The patient is awake, alert, and oriented, in no acute cardiopulmonary distress. NEUROLOGICAL: Cranial nerves II-XII grossly intact. Motor is 5/5 in bilateral upper and lower extremities proximal to distal. No sensory deficits. HEENT: Face is symmetric. Pupils are equal and reactive. Extraocular movements are intact. NECK: Supple. No JVD. No thyromegaly. No submental, submandibular, pre-/postauricular, occipital or supraclavicular lymphadenopathy. CHEST: Normal chest expansion. No Telemetry. LUNGS: Absence of any rales, rhonchi or any wheezing. CARDIOVASCULAR: Regular. S1 and S2 normal. No appreciable rubs, murmurs or gallops. ABDOMEN: Soft, nontender, and nondistended. There is no rebound, voluntary guarding, or rigidity. : Deferred. No Hobbs. EXTREMITIES: Non-edematous and not cyanotic. No clubbing. Good capillary refill. SKIN: No skin breakdown. Vital Signs (last 8hr) Date Time Temp Pulse Resp B/P (MAP) Pulse Ox O2 Delivery O2 Flow Rate FiO2 08/17/24 12:00 97.9 89 18 109/51 92 Room Air 21 08/17/24 08:00 97.3 79 18 85/45 91 Room Air 21 LABS: Laboratory: Test 08/17/24 11:24 08/17/24 04:43 08/16/24 14:04 08/16/24 13:48 Range/Units Whole Blood Glucose 104 70-110 MG/DL White Blood Count 9.8 4.8-10.8 K/uL Red Blood Count 4.29 4.00-5.50 MIL/uL Hemoglobin 12.2 12.0-16.0 g/dL Hematocrit 35.4 L 36-48 % Mean Corpuscular Volume 82.5 79-99 fL Mean Corpuscular Hemoglobin 28.4 27.0-33.0 pg Mean Corpuscular Hemoglobin Concent 34.5 32.0-36.0 g/dL Red Cell Distribution Width 14.6 11.0-15.5 % Platelet Count 52 #L 130-400 K/uL Mean Platelet Volume 12.4 H 7.5-10.5 fL Immature Granulocyte % (Auto) 1.7 H 0-1 % Neutrophils (%) (Auto) 89.2 H 40.0-77.0 % Lymphocytes (%) (Auto) 6.8 L 21.0-51.0 % Monocytes (%) (Auto) 1.3 L 3.0-13.0 % Eosinophils (%) (Auto) 0.3 0.0-8.0 % Basophils (%) (Auto) 0.7 0.0-5.0 % Neutrophils # (Auto) 8.7 H 1.8-7.7 K/uL Lymphocytes # (Auto) 0.7 L 1.0-4.8 K/uL Monocytes # (Auto) 0.1 0.1-1.0 K/uL Eosinophils # (Auto) 0.03 0.00-0.70 K/uL Basophils # (Auto) 0.07 0.00-0.20 K/uL Absolute Immature Granulocyte (auto 0.17 0-1 K/uL Nucleated Red Blood Cells 0.0 0.0-0.19 % Sodium Level 137 136-145 mmol/L Potassium Level 2.8 *L 3.5-5.1 mmol/L Chloride Level 100 L 101-111 mmol/L Carbon Dioxide Level 26 21-32 mmol/L Blood Urea Nitrogen 19 H 7-18 mg/dL Creatinine 1.2 H 0.5-1.0 mg/dL Glomerular Filtration Rate Calc 51 >90 mL/min Random Glucose 99 70-105 mg/dL Hemoglobin A1c 5.8 4.0-6.0 % Estimated Average Glucose (eAG) 120 70-126 mg/dL Lactic Acid Level 1.6 0.8-2.5 mmol/L Total Calcium 7.5 L 8.5-10.1 mg/dL Magnesium Level 1.90 1.80-2.40 mg/dL Total Bilirubin 0.9 0.2-1.0 mg/dL Direct Bilirubin 0.6 H 0.0-0.3 mg/dL Aspartate Amino Transf (AST/SGOT) 116 H 10-37 U/L Alanine Aminotransferase (ALT/SGPT) 71 12-78 U/L Alkaline Phosphatase 91 50-136 U/L Ammonia < 10 L 11-32 umol/L Total Creatine Kinase 199 # 21-232 U/L B-Type Natriuretic Peptide 26 0-100 pg/mL Total Protein 6.0 6.0-8.3 g/dL Albumin 2.0 L 3.5-5.0 g/dL Lipase 62 16-77 U/L Procalcitonin 9.44 H 0.05-0.5 ng/mL Urine Color YELLOW YELLOW Urine Appearance TURBID CLEAR Urine pH 6.0 5.0-8.0 Urine Specific [place] 1.021 1.001-1.031 Urine Protein 200 H NEGATIVE mg/dL Urine Glucose (UA) NEGATIVE NEGATIVE mg/dL Urine Ketones 10 H NEGATIVE mg/dL Urine Occult Blood LARGE H NEGATIVE Urine Nitrate NEGATIVE NEGATIVE Urine Bilirubin NEGATIVE NEGATIVE mg/dL Urine Urobilinogen 4.0 H 0.2-1.0 mg/dL Urine Leukocyte Esterase 250 H NEGATIVE Héctor/uL Urine RBC 51-100 H 0-1 /HPF Urine WBC 11-25 H 0-1 /HPF Urine Squamous Epithelial Cells FEW 0-2 /HPF Urine Other Crystals (Auto) 5 None Seen /HPF Urine Bacteria MOD None Seen /HPF Urine Granular Casts (Auto) 2-5 H None Seen /LPF Urine Other Casts 9 None Seen /LPF Urine Yeast RARE None Seen /HPF Segmented Neutrophils % 75 H 40-70 % Band Neutrophils % 14 H 0-2 % Lymphocytes % (Manual) 3 L 22-44 % Monocytes % (Manual) 2 2-9 % Eosinophils % (Manual) 1 1-6 % Differential Comment MANUAL DIFFERENTIAL Reactive Lymphocytes 5 H 0-0 % White Cell Morphology Comment See comments Platelet Morphology Comment See comments Red Blood Cell Morphology OVALOCYTES 1+ Troponin I High Sensitivity 18 4-50 ng/L Test 08/16/24 13:45 Range/Units Influenza Type A Antigen Negative For Type A NEGATIVE Influenza Type B Antigen Negative For Type B NEGATIVE SARS-CoV-2 Antigen (Rapid) PRESUMPTIVE NEGATIVE NEGATIVE Group A Streptococcus Rapid negative NEGATIVE Current Medications Medications (Trade) Dose Ordered Sig/Amy Route PRN Reason Start Time Stop Time Status Last Admin Dose Admin Acetaminophen (TYLenol 325MG TAB) 650 mg Q4H PRN PO MILD PAIN (1-3) 08/16/24 16:30 09/15/24 16:29 Acetaminophen (TYLenol 325MG TAB) 650 mg Q6H PRN PO MILD PAIN (1-3) 08/16/24 16:30 08/17/24 09:03 DC Acetaminophen (TYLenol 325MG TAB) 650 mg Q6H PRN PO TEMPERATURE GREATER THAN 101.5 08/16/24 16:30 09/15/24 16:29 08/17/24 03:32 650 MG Al Hydroxide/Mg Hydroxide (MAALox PLUS 30ML) 30 ml Q6H PRN PO INDIGESTION 08/16/24 16:30 09/15/24 16:29 Dextrose (D50w) 50 ml AD PRN IV HYPOGLYCEMIA PROTOCOL 08/16/24 16:30 09/15/24 16:29 Diphenhydramine HCl (BENAdryl INJ) 25 mg Q6H PRN IV SEVERE ITCHING/RASH 08/16/24 16:30 09/15/24 16:29 Famotidine (Pepcid 20mg Vial) 20 mg HS IV 08/16/24 21:00 09/15/24 20:59 08/16/24 21:35 20 MG Famotidine (Pepcid 20mg Vial) 20 mg HS PRN IV NAUSEA/VOMITING 08/16/24 16:30 08/17/24 09:03 DC Glucagon (Glucagon 1mg Kit) 1 mg AD PRN IM HYPOGLYCEMIA PROTOCOL 08/16/24 16:30 09/15/24 16:29 Guaifenesin/ Dextromethorphan (RobiTUSSin DM 200/20MG 10ML) 10 ml Q4H PRN PO COUGH 08/16/24 16:30 09/15/24 16:29 Heparin Sodium (Porcine) (HEParin 5,000 UNIT VIAL) 5,000 unit BID SQ 08/16/24 21:00 09/15/24 20:59 08/16/24 21:35 5,000 UNIT Home Med (Home Medication) (Meloxicam, Submicronized (Vivlodex... DAILY PO 08/18/24 09:00 09/17/24 08:59 Hydralazine HCl (APRESOLine 20MG INJ) 10 mg Q6H PRN IV For:SBP above 160;DBP above 90 08/16/24 16:30 09/15/24 16:29 Insulin Human Regular (humuLIN R 100 UNIT/ML 3ML) INSULIN SLIDING SCAL... ACHS SQ 08/16/24 16:30 09/15/24 16:29 Ketorolac Tromethamine (toRADol) 15 mg Q8H PRN IV MODERATE PAIN (4-6) 08/16/24 16:30 08/21/24 16:29 Lactulose (Constulose 20gm/ 30ml Udcup) 20 gm BID PRN PO CONSTIPATION 08/16/24 16:30 09/15/24 16:29 Losartan Potassium (CozAAR 100MG TAB) 100 mg DAILY PO 08/18/24 09:00 08/17/24 13:09 DC Magnesium Sulfate 50 ml @ 0 mls/hr PROTOCOL PRN IV other 08/16/24 16:30 09/15/24 16:29 Nitroglycerin (Nitrostat) 0.4 mg PROTOCOL PRN SL CHEST PAIN 08/16/24 16:30 09/15/24 16:29 Ondansetron HCl (zoFRAN 4MG INJ) 4 mg Q6H PRN IV NAUSEA/VOMITING 08/16/24 16:30 09/15/24 16:29 Oxycodone/ Acetaminophen (perCOCET) 1 tab Q6H PRN PO SEVERE PAIN (7-10) 08/16/24 16:30 08/23/24 16:29 08/16/24 23:04 1 TAB Piperacillin Sod/ Tazobactam Sod 50 ml @ 12.5 mls/hr ZOSY8 IV 08/16/24 21:00 08/26/24 20:59 08/17/24 05:18 12.5 MLS/HR Potassium Chloride 100 ml @ 100 mls/hr AD PRN IV POTASSIUM PROTOCOL 08/16/24 16:30 09/15/24 16:29 08/17/24 05:28 100 MLS/HR Potassium Chloride (K-Dur 10meq Sr Tab) 10 meq AD PRN PO POTASSIUM PROTOCOL 08/17/24 09:30 09/15/24 16:29 Potassium Chloride (K-Dur/Klor-Con 20meq) 10 meq AD PRN PO POTASSIUM PROTOCOL 08/16/24 16:30 08/17/24 09:04 DC 08/17/24 08:12 10 MEQ Potassium Chloride (KCl 10% Elixir 20meq/15ml) 10 meq AD PRN PO POTASSIUM PROTOCOL 08/16/24 16:30 09/15/24 16:29 Pregabalin (LYRica 25MG) 50 mg BID PO 08/17/24 21:00 09/16/24 20:59 Sodium Chloride 1,000 ml @ 120 mls/hr Q8H20M IV 08/16/24 16:30 09/15/24 16:29 08/16/24 16:48 100 MLS/HR Trazodone HCl (DesyREL/OlepTRO) 100 mg HS PO 08/17/24 21:00 09/16/24 20:59 Vancomycin HCl 250 ml @ 125 mls/hr Q24H IV 08/16/24 17:00 08/26/24 16:59 08/16/24 17:40 125 MLS/HR Vancomycin HCl (Vancomycin Protocol) 1 each PROTOCOL PRN IV VANCOMYCIN PROTOCOL 08/16/24 16:30 08/30/24 16:29 Zolpidem Tartrate (AmbIEN) 5 mg HS PRN PO INSOMNIA 08/16/24 16:30 09/15/24 16:29 DIAGNOSTICS / RADIOLOGY: [ ] ASSESSMENT: [ ACUTE SEPSIS POA GENERALIZED BODY WEAKNESS POA ACUTE KIDNEY INJURY POA ACUTE DEHYDRATION POA ACUTE COMPLICATED CYSTITIS POA ELECTROLYTE IMBALANCE HYPONATREMIA NA 133, HYPOKALEMIA 3.3 HYPOCALCEMIA 7.8 POA UNCONTROLLED HYPERTENSION POA THROMBOCYTOPENIA POA HISTORY OF CATARACT HISTORY OF CHOLECYSTECTOMY HISTORY OF HYSTERECTOMY HISTORY OF KIDNEY STONES HISTORY OF HYDRONEPHROSIS] PLAN: [ ADMIT TO: MEDICAL-SURGICAL FLOOR WITH TELEMETRY CONSULTS: NONE ANTIBIOTICS: VANCOMYCIN, ZOSYN TESTS: None at this moment FLUIDS NORMAL SALINE AT 120 ML/HOUR NEURO: MINIMIZE CENTRAL ACTING MEDICATIONS POSSIBLE. FALL PRECAUTIONS. WELL LIGHTED ROOM THROUGH THE DAY AND MINIMIZE INTERRUPTIONS THROUGH THE NIGHT TO PREVENT ACUTE DELIRIUM. PULMONARY: CHEST X-RAY CLEARED CARDIOMEGALY SUPPLEMENTAL 02 NEEDED BIPAP NECESSARY, FOR RESPIRATORY DISTRESS TITRATE FIO2 TO KEEP SPO2 > OR = 90% DUONEBS AND CPT NEEDED IS HOURLY WHILE AWAKE FOR PULMONARY HYGIENE OUT OF BED TO CHAIR TOLERATED VAP BUNDLE MAINTAIN ASPIRATION PRECAUTIONS AT ALL TIMES CARDIOVASCULAR: 2D echo EF 55 to 60% normal diastolic function FOLLOW HEMODYNAMICS. VITAL SIGNS PER FACILITY PROTOCOL GI & NUTRITION: CONTINUE NUTRITIONAL SUPPORT ASPIRATIONS PRECAUTIONS PROKINETIC AGENTS AND LAXATIVES NEEDED KIDNEYS & ELECTROLYTES: STRICT MONITORING OF INTAKE AND OUTPUT DAILY WEIGHTS AVOID NEPHROTOXIC AGENTS MONITOR ELECTROLYTES AND REPLACE NEEDED GOAL URINE OUTPUT OF 30ML/HR OR 0.5ML/KG/HR MEDICATIONS TO BE DOSED ACCORDING TO RENAL FUNCTION. AVOID CONTRAST IF POSSIBLE ENDOCRINE: MAINTAIN BLOOD GLUCOSE BETWEEN 100-180 AT ALL TIMES. INSULIN SLIDING SCALE FOR BLOOD GLUCOSE MANAGEMENT HYPOGLYCEMIA AND HYPERGLYCEMIA PROTOCOL IN PLACE INFECTIOUS DISEASE: Pending blood culture Pending urine culture TREND TEMPERATURE, WBC AND PROCALCITONIN LEVEL FOLLOW CULTURES, DEESCALATE ANTIBIOTICS SOON POSSIBLE. PANCULTURE IF NEW ONSET FEVER HEMATOLOGY & COAGULATION: MONITOR H&H. KEEP HGB > 7 TRANSFUSE 1 UNIT OF PRBC FOR HGB < 7 TRANSFUSE 1 PACK OF PLATELETS OF PLATELETS < 20, 000 WATCH FOR ANY SIGNS AND SYMPTOMS OF BLEEDING SKIN: PRESSURE ULCER PREVENTION PER FACILITY PROTOCOL SPECIALTY MATTRESS NEEDED TREATMENT PLAN DISCUSSED WITH PATIENT AND FAMILY AT THE BEDSIDE MEDICATIONS TO BE RECONCILED ONCE OBTAINED BY PATIENT AND/OR FAMILY AND AVAILABLE TO BE RECONCILED IN COMPUTER P.R.N. MEDICATION FOR PAIN NAUSEA AND VOMITING QUESTIONS WERE ANSWERED WE WILL CONTINUE TO MONITOR THE PATIENT CLOSELY NURSE INSTRUCTOR FOR DISPOSITION REHAB: PT/OT GI: PPI DVT: SCD'S CODE STATUS: FULL RESUSCITATION DISPOSITION: Home ADDENDUM: ATTENDING PHYSICIAN ATTESTATION: I have reviewed the midlevel's plan. I have independently seen, reviewed the chart and made my own assessment of the patient. See my addendum for updates to the midlevel's medical plan MD ALEX Bell KATARZYNA B APRN August 17, 2024 13:16 CARY GARVIN MD August 18, 2024 12:46
--- NOTE | 2024-08-17 16:30 | NUR ---
SPEECH TRIGGER COMPLETED / SEPSIS Pt IS A 63 Y.O. FEMALE ADMITTED SECONDARY TO SEPSIS AND UTI. Pt HAS A PAST MEDICAL HISTORY SIGNIFICANT FOR HYPERTENSION, FLU, CATARACT, CHOLECYSTECTOMY, AND HYSTERECTOMY. PATIENT PRESENTED WITH NO PULMONARY INFILTRATES ON MOST RECENT CHEST X-RAY (08/16/2024). Pt CURRENTLY ON CONSISTENT CARB DIET (REGULAR TEXTURE AND THIN LIQUIDS). PER NURSE TONG, Pt TOLERATING DIET WITH NO OVERT S/S OF ASPIRATION. PLEASE REQUEST SPEECH THERAPY SERVICES FOR SKILLED BEDSIDE SWALLOW EVALUATION IF Pt PRESENTS WITH +S/S OF ASPIRATION SUCH COUGH RESPONSE, THROAT CLEAR, OR WET VOCAL QUALITY DURING ORAL INTAKE. ALL QUESTIONS ANSWERED AT THIS TIME. Addendum: 08/17/[address] LORENA WEEMS Amended: Links added.
--- NOTE | 2024-08-17 20:15 | HMCSR ---
APPROVED REPORT EXAM: Two-dimensional and M-mode echocardiogram with Doppler and color Doppler. INDICATION ICD: Congestive heart failure 2D Dimensions RVDd2.8 cmLVEF(%)58.8 (>50%)LVED Vol(simp.)52.0 mL IVSd0.8 (0.7-1.1cm)FS(%)31 %LVES Vol(simp.)22.0 mL LVDd4.4 (3.8-5.6cm)LA (2D)3.4 (1.6-4.0cm)LVEF(%, simp.)58 % PWd0.8 (0.7-1.1cm)Ao Root(2D)2.8 (2.0-3.7cm)LA ESV INDEX (BP)17.84 mL/m2 IVSs0.8 cmLVOT diam2.0 (1.8-2.4cm) LVDs3.0 (2.5-4.0cm)IVC diam1.2 cm PWs1.1 cm Deformation Strain Apical 4-22.5 % Apical 2-18.2 % Apical 3-18.5 % Global Strain-19.8 % M-Mode Dimensions EPSS0.5 cm LA (MM)3.3 (1.6-4.0cm) Ao Root(MM)3.1 (2.0-3.7cm) Aortic Valve AoV Vmax1.4 m/Loly Peak GR7.4 mmHgLVOT Vmax1.3 m/s AoV VTI0.3 mAo Mean GR3.8 mmHgLVOT VTI0.23 m B[place] (VMAX)2.82 cm2AVA (VTI) 2.3 cm2 Mitral Valve MV E Vmax76.1 cm/sDECEL Gtgf915 ms MV A Vmax66.8 cm/sP 1/2 T66 ms E/A ratio1.1MVA (PHT)3.3 cm2 TDI E/E' Medial9.3E/E' Lateral6.6 Medial E' Peak V8.14 cm/sLateral E' Peak V11.46 cm/s Pulmonary Valve PV Vmax0.7 m/sPV VTI0.12 mPV Mean GR1.3 mmHg PV Peak GR2.2 mmHgPI End Ree. Stefano 110.0 cm/s Tricuspid Valve TR Vmax1.6 m/sRAP (EST) 3 khHlGMVR50.8 mmHg TR Peak GR10.8 mmHg Left Ventricle The left ventricle is normal size. There is normal left ventricular wall thickness. LVEF is 55-60%. T he left ventricular diastolic function is normal. Right Ventricle The right ventricle is normal size. The right ventricular systolic function is normal. Atria The left atrium size is normal. The right atrium size is normal. Aortic Valve The aortic valve is normal in structure. No aortic regurgitation is present. There is no aortic valvu lar stenosis. Mitral Valve The mitral valve is normal in structure. There is no mitral valve regurgitation noted. There is no mi tral valve stenosis. Tricuspid Valve The tricuspid valve is normal in structure. There is trace of tricuspid valve regurgitation noted. Pulmonic Valve The pulmonary valve is normal in structure. There is no pulmonic valvular regurgitation. Great Vessels The aortic root is normal in size. The IVC is normal in size and collapses >50% with inspiration. Pericardium There is no pericardial effusion. Other Information Quality : Adequate Conclusion The left ventricle is normal size. LVEF is 55-60%. The left ventricular diastolic function is normal. The right ventricle is normal size. The right ventricular systolic function is normal. The left atrium size is normal. The right atrium size is normal. No valvular pathology. There is no pericardial effusion.
[2024-08-17] MEDS: trAZOdone HCL 100 MG TABLET PO SCH (20:26)
[2024-08-17] MEDS: pregABALin 25 MG CAP PO SCH (20:26)
[2024-08-18] VITALS (9 sets, daily range): BP systolic 92–121; BP diastolic 46–73; PULSE 89–121; RESP 18–21; TEMP 98–99.2; O2SAT 94–97
[2024-08-18 06:38] LABS: BASOPHILS # (AUTO) 0.06 K/uL (0.00-0.20); BASOPHILS % (AUTO) 0.7 % (0.0-5.0); EOSINOPHILS # (AUTO) 0.05 K/uL (0.00-0.70); EOSINOPHILS % (AUTO) 0.6 % (0.0-8.0); IMMATURE GRANULOCYTE ABSOLUTE 0.15 K/uL (0-1); LYMPHOCYTES # (AUTO) 0.7 K/uL (1.0-4.8); LYMPHOCYTES % (AUTO) 8.3 % (21.0-51.0); MEAN CORPUSCULAR HEMOGLOBIN 28.5 pg (27.0-33.0); MEAN CORPUSCULAR HGB CONC 34.6 g/dL (32.0-36.0); MEAN CORPUSCULAR VOLUME 82.4 fL (79-99); MONOCYTES # (AUTO) 0.1 K/uL (0.1-1.0); MONOCYTES % (AUTO) 1.6 % (3.0-13.0); NEUTROPHILS # (AUTO) 7.8 K/uL (1.8-7.7); NEUTROPHILS % (AUTO) 87.1 % (40.0-77.0); PLATELET COUNT (AUTO) 37 K/uL (130-400); RED BLOOD CELL COUNT(AUTO) 4.25 MIL/uL (4.00-5.50); RED CELL DISTRIBUTION WIDTH 15.2 % (11.0-15.5)
[2024-08-18 07:08] LABS: ALBUMIN 1.8 g/dL (3.5-5.0); CREATININE 1.5 mg/dL (0.5-1.0); MAGNESIUM 2.1 mg/dL (1.80-2.40); POTASSIUM 3.7 mmol/L (3.5-5.1); THYROID STIMULATING HORMONE 0.76 uIU/mL (0.36-3.74); TOTAL PROTEIN, SERUM 5.6 g/dL (6.0-8.3)
[2024-08-18] MEDS: PoTASSium chloRIDE 10MEQ SR 10 MEQ/TAB TAB.SR.24H PO PRN (08:26)
[2024-08-18 08:29] LABS: BAND NEUTROPHILS % (MANUAL) 6 % (0-2); LYMPHOCYTES % (MANUAL) 4 % (22-44); MAN.DIFF COMMENT-IMPRESSION MANUAL DIFFERENTIAL; MONOCYTES % (MANUAL) 1 % (2-9); SEGMENTED NEUTROPHILS % 89 % (40-70); TOTAL CELLS COUNTED 100
[2024-08-18 08:30] LABS: PLATELET MORPHOLOGY COMMENT DECREASED
[2024-08-18] MEDS ORDERED: MELOXICAM SUBMICRONIZED PO SCH (09:00)
[2024-08-18] MEDS ORDERED: LoSARTan 100 MG TABLET PO SCH (09:00)
--- NOTE | 2024-08-18 09:03 | NUR ---
Pt's HR at rest while sitting in chair was 124 bpm and notified LIA Weiner. Pt requested assistance to transfer back to bed. PT provided assistance and checked HR again in supine while pt was in bed. HR was 108 bpm.
--- NOTE | 2024-08-18 09:24 | HMCIMG ---
PORTABLE CHEST RADIOGRAPH INDICATION: shortness of breath COMPARISON: 08/16/2024 FINDINGS: court recording monitor leads overlie the field of view. Heart size is normal. Mild calcific plaque is present along the aortic arch reyes. The pulmonary vascularity and ann appear normal. No abnormal pulmonary parenchymal opacity or consolidation identified. No significant pleural effusion noted. No pneumothorax detected. IMPRESSION: No radiographic evidence for any acute cardiopulmonary process.
[2024-08-18] MEDS: DOXYCYCLINE 100MG+NS 250ML 250 ML IV SCH (09:57)
[2024-08-18] MEDS: miDODRine HCL 5 MG TABLET PO SCH (13:06)
--- NOTE | 2024-08-18 13:34 | PN ---
[facility] PROGRESS NOTE Date of Service: August 18, 2024 Time of Service: 12:47 SUBJECTIVE: [ PATIENT IS 63 YEARS OLD FEMALE WITH A PAST MEDICAL HISTORY OF HYPERTENSION, FLU, CATARACT, CHOLECYSTECTOMY, HYSTERECTOMY, WHO CAME TO EMERGENCY DEPARTMENT WITH A COMPLAINT OF DECREASED APPETITE, FEVER, GENERALIZED BODY WEAKNESS. PATIENT STATED THAT SHE WENT TO HER PCP AFTER SHE WAS DIAGNOSED WITH INFLUENZA ABOUT A WEEK AGO, WHERE SHE COMPLAINED ABOUT ABOVE-STATED COMPLAINTS AND SHE WAS SENT TO EMERGENCY DEPARTMENT FOR FURTHER EVALUATION/RECOMMENDATION. PATIENT DENIES ANY CHEST PAIN, NAUSEA, VOMITING, SHORTNESS OF BREATHS OR ANY OTHER SYMPTOMS OTHER THAN STATED ABOVE. ] MOST RECENT VITAL SIGNS TEMPERATURE 97.9 ON ADMISSION IN ER WAS 102.9, PULSE 84 RESPIRATION 22 BLOOD PRESSURE 90/50 PATIENT IS ON ROOM AIR SATTING 93%. UA POSITIVE FOR LEUKOCYTOSIS. WBC 9.0 HEMATOCRIT 40.2 HEMOGLOBIN 13.9 PLATELETS 82. SODIUM 133 POTASSIUM 3.3 CO2 29 BUN 14 CREATININE 1.2 GFR 5 GLUCOS 106 LACTIC 1.8 CALCIUM 7.8 TROPONIN NEGATIVE X1. CHEST X-RAY SHOWED CLEAR LUNGS CARDIOMEGALY. 2D ECHO IS PENDING. PATIENT WILL BE ADMITTED UNDER HOSPITALIST CARE FOR FURTHER EVALUATION/RECOMMENDATION. PATIENT WAS PLACED ON VANCOMYCIN AND ZOSYN FOR THE SEPSIS. A.M. LABS. 08/17 patient was seen by nurse practitioner and physician during rounding in room 304. Urinalysis was positive on admission. Blood culture and urine cul ture pending at this moment. Patient continues to be on Zosyn and vancomycin. We will increase fluids from 100 mL/hour 220 mL/hour. Patient's A1c is 5.8. We will discontinue insulin sliding scale per protocol. Also patient's blood pressure has been on lower side. We will discontinue losartan. Home medication reconciled. 2D echo showed EF 55 to 60% normal diastolic function no pericardial effusion. Potassium today is 2.8. Patient received already two 20 mEq through IV potassium. Patient will also receive 40 mEq of potassium as well. We will continue to monitor patient in the meantime. A.m. labs. 08/18 at bedside, she had a low-grade fever overnight, this morning she is tachycardic. Urine and blood cultures have been no growth to date, platelets have decreased from 52 down to 37, AST mildly elevated, creatinine increased from 1.2 up to 1.5. Given that she is still having fevers on vancomycin and Zosyn she may have an atypical infection, we will order a murine typhus panel and start doxycycline. Discontinue vancomycin at this time. Infectious workup has been negative this time we will assess for possible underlying PE or DIC, we will order D-dimer, V/Q scan, fibrinogen, PT and PTT and follow up REVIEW OF SYSTEMS CONSTITUTIONAL: Denies , chills, or night sweats. No unintentional weight loss reported. GENERALIZED BODY WEAKNESS ,fevers AND DECREASED APPETITE NEUROLOGICAL: Denies headache, amaurosis fugax, motor weakness, sensory deficit, vertigo/spinning sensation, gait abnormalities, or tremors. ENT: No hearing loss, otalgia, otorrhea, rhinitis, rhinorrhea, hoarseness, or sore throat. CARDIOVASCULAR: Denies any exertional angina, dyspnea on exertion, orthopnea, paroxysmal nocturnal dyspnea, palpitations, life-threatening arrhythmias, claudication. PULMONARY: Denies any shortness of breath, cough, phlegm/sputum, hemoptysis, pleuritic chest pain. SLEEP: Denies morning headaches, daytime somnolence or napping. Denies difficulty falling asleep, staying asleep, waking from sleep. Denies knowledge of snoring. GASTROINTESTINAL: Denies any type of dysphagia to either liquids or solids. Denies nausea, vomiting, pyrosis, early satiety, abdominal pain, diarrhea, constipation, or changes in stool consistency or caliber. Denies coffee-ground emesis, hematemesis, hematochezia, or melanotic stools. GENITOURINARY: Denies frequency, urgency, nocturia, hematuria or incontinence (Storage/Irritative symptoms.) Low urinary stream, straining to void, urinary intermittency or hesitancy, splitting of the voiding stream, terminal dribbling. ENDOCRINOLOGIC: Denies polyuria, polydipsia, polyphagia or heat/cold intolerances. HEMATOLOGIC: Denies thrombophilia/previous clots, or coagulopathy/bleeding disorders. ONCOLOGIC: Denies personal history of malignancy. DERMATOLOGIC: Denies rashes or pruritus. PSYCHIATRIC: Denies any suicidal or homicidal ideation. Denies hallucinations. PHYSICAL EXAM GENERAL APPEARANCE: The patient is awake, alert, and oriented, in no acute cardiopulmonary distress. NEUROLOGICAL: Cranial nerves II-XII grossly intact. Motor is 5/5 in bilateral upper and lower extremities proximal to distal. No sensory deficits. HEENT: Face is symmetric. Pupils are equal and reactive. Extraocular movements are intact. NECK: Supple. No JVD. No thyromegaly. No submental, submandibular, pre- /postauricular, occipital or supraclavicular lymphadenopathy. CHEST: Normal chest expansion. No Telemetry. LUNGS: Absence of any rales, rhonchi or any wheezing. CARDIOVASCULAR: Regular. S1 and S2 normal. No appreciable rubs, murmurs or gallops. ABDOMEN: Soft, nontender, and nondistended. There is no rebound, voluntary guarding, or rigidity. : Deferred. No Hobbs. EXTREMITIES: Non-edematous and not cyanotic. No clubbing. Good capillary refill. SKIN: No skin breakdown. Vital Signs (last 8hr) Date Time Temp Pulse Resp B/P (MAP) Pulse Ox O2 Delivery O2 Flow Rate FiO2 08/18/24 11:35 98.8 103 19 93/46 93 Nasal Cannula 2.0 08/18/24 08:00 99.1 121 19 99/47 94 Nasal Cannula 2.0 LABS: Laboratory: Test 08/18/24 11:08 08/18/24 06:30 08/17/24 04:43 08/16/24 14:04 Range/Units Whole Blood Glucose 159 #H 70-110 MG/DL White Blood Count 9.0 4.8-10.8 K/uL Red Blood Count 4.25 4.00-5.50 MIL/uL Hemoglobin 12.1 12.0-16.0 g/dL Hematocrit 35.0 L 36-48 % Mean Corpuscular Volume 82.4 79-99 fL Mean Corpuscular Hemoglobin 28.5 27.0-33.0 pg Mean Corpuscular Hemoglobin Concent 34.6 32.0-36.0 g/dL Red Cell Distribution Width 15.2 11.0-15.5 % Platelet Count 37 #L 130-400 K/uL Mean Platelet Volume 13.4 H 7.5-10.5 fL Immature Granulocyte % (Auto) 1.7 H 0-1 % Neutrophils (%) (Auto) 87.1 H 40.0-77.0 % Lymphocytes (%) (Auto) 8.3 L 21.0-51.0 % Monocytes (%) (Auto) 1.6 L 3.0-13.0 % Eosinophils (%) (Auto) 0.6 0.0-8.0 % Basophils (%) (Auto) 0.7 0.0-5.0 % Neutrophils # (Auto) 7.8 H 1.8-7.7 K/uL Lymphocytes # (Auto) 0.7 L 1.0-4.8 K/uL Monocytes # (Auto) 0.1 0.1-1.0 K/uL Eosinophils # (Auto) 0.05 0.00-0.70 K/uL Basophils # (Auto) 0.06 0.00-0.20 K/uL Absolute Immature Granulocyte (auto 0.15 0-1 K/uL Segmented Neutrophils % 89 H 40-70 % Band Neutrophils % 6 H 0-2 % Lymphocytes % (Manual) 4 L 22-44 % Monocytes % (Manual) 1 L 2-9 % Nucleated Red Blood Cells 0.0 0.0-0.19 % Differential Comment MANUAL DIFFERENTIAL White Cell Morphology Comment Platelet Morphology Comment DECREASED Red Blood Cell Morphology ANISO 1+ Sodium Level 137 136-145 mmol/L Potassium Level 3.7 3.5-5.1 mmol/L Chloride Level 103 101-111 mmol/L Carbon Dioxide Level 28 21-32 mmol/L Blood Urea Nitrogen 21 H 7-18 mg/dL Creatinine 1.5 H 0.5-1.0 mg/dL Glomerular Filtration Rate Calc 39 >90 mL/min Random Glucose 90 70-105 mg/dL Total Calcium 7.5 L 8.5-10.1 mg/dL Magnesium Level 2.10 1.80-2.40 mg/dL Total Bilirubin 1.0 0.2-1.0 mg/dL Aspartate Amino Transf (AST/SGOT) 96 H 10-37 U/L Alanine Aminotransferase (ALT/SGPT) 54 12-78 U/L Alkaline Phosphatase 96 50-136 U/L Total Protein 5.6 L 6.0-8.3 g/dL Albumin 1.8 L 3.5-5.0 g/dL Thyroid Stimulating Hormone (TSH) 0.76 0.36-3.74 uIU/mL Hemoglobin A1c 5.8 4.0-6.0 % Estimated Average Glucose (eAG) 120 70-126 mg/dL Lactic Acid Level 1.6 0.8-2.5 mmol/L Direct Bilirubin 0.6 H 0.0-0.3 mg/dL Ammonia < 10 L 11-32 umol/L Total Creatine Kinase 199 # 21-232 U/L B-Type Natriuretic Peptide 26 0-100 pg/mL Lipase 62 16-77 U/L Procalcitonin 9.44 H 0.05-0.5 ng/mL Urine Color YELLOW YELLOW Urine Appearance TURBID CLEAR Urine pH 6.0 5.0-8.0 Urine Specific [place] 1.021 1.001-1.031 Urine Protein 200 H NEGATIVE mg/dL Urine Glucose (UA) NEGATIVE NEGATIVE mg/dL Urine Ketones 10 H NEGATIVE mg/dL Urine Occult Blood LARGE H NEGATIVE Urine Nitrate NEGATIVE NEGATIVE Urine Bilirubin NEGATIVE NEGATIVE mg/dL Urine Urobilinogen 4.0 H 0.2-1.0 mg/dL Urine Leukocyte Esterase 250 H NEGATIVE Héctor/uL Urine RBC 51-100 H 0-1 /HPF Urine WBC 11-25 H 0-1 /HPF Urine Squamous Epithelial Cells FEW 0-2 /HPF Urine Other Crystals (Auto) 5 None Seen /HPF Urine Bacteria MOD None Seen /HPF Urine Granular Casts (Auto) 2-5 H None Seen /LPF Urine Other Casts 9 None Seen /LPF Urine Yeast RARE None Seen /HPF Test 08/16/24 13:48 08/16/24 13:45 Range/Units Eosinophils % (Manual) 1 1-6 % Reactive Lymphocytes 5 H 0-0 % Troponin I High Sensitivity 18 4-50 ng/L Influenza Type A Antigen Negative For Type A NEGATIVE Influenza Type B Antigen Negative For Type B NEGATIVE SARS-CoV-2 Antigen (Rapid) PRESUMPTIVE NEGATIVE NEGATIVE Group A Streptococcus Rapid negative NEGATIVE Current Medications Medications (Trade) Dose Ordered Sig/Amy Route PRN Reason Start Time Stop Time Status Last Admin Dose Admin Acetaminophen (TYLenol 325MG TAB) 650 mg Q4H PRN PO MILD PAIN (1-3) 08/16/24 16:30 09/15/24 16:29 Acetaminophen (TYLenol 325MG TAB) 650 mg Q6H PRN PO MILD PAIN (1-3) 08/16/24 16:30 08/17/24 09:03 DC Acetaminophen (TYLenol 325MG TAB) 650 mg Q6H PRN PO TEMPERATURE GREATER THAN 101.5 08/16/24 16:30 09/15/24 16:29 08/17/24 03:32 650 MG Al Hydroxide/Mg Hydroxide (MAALox PLUS 30ML) 30 ml Q6H PRN PO INDIGESTION 08/16/24 16:30 09/15/24 16:29 Dextrose (D50w) 50 ml AD PRN IV HYPOGLYCEMIA PROTOCOL 08/16/24 16:30 09/15/24 16:29 Diphenhydramine HCl (BENAdryl INJ) 25 mg Q6H PRN IV SEVERE ITCHING/RASH 08/16/24 16:30 09/15/24 16:29 Doxycycline Hyclate 250 ml @ 125 mls/hr Q12H IV 08/18/24 09:00 08/28/24 08:59 08/18/24 09:57 125 MLS/HR Famotidine (Pepcid 20mg Vial) 20 mg HS IV 08/16/24 21:00 09/15/24 20:59 08/17/24 20:26 20 MG Famotidine (Pepcid 20mg Vial) 20 mg HS PRN IV NAUSEA/VOMITING 08/16/24 16:30 08/17/24 09:03 DC Glucagon (Glucagon 1mg Kit) 1 mg AD PRN IM HYPOGLYCEMIA PROTOCOL 08/16/24 16:30 09/15/24 16:29 Guaifenesin/ Dextromethorphan (RobiTUSSin DM 200/20MG 10ML) 10 ml Q4H PRN PO COUGH 08/16/24 16:30 09/15/24 16:29 Heparin Sodium (Porcine) (HEParin 5,000 UNIT VIAL) 5,000 unit BID SQ 08/16/24 21:00 08/18/24 07:05 DC 08/16/24 21:35 5,000 UNIT Home Med (Home Medication) (Meloxicam, Submicronized (Vivlodex... DAILY PO 08/18/24 09:00 08/18/24 07:05 DC Hydralazine HCl (APRESOLine 20MG INJ) 10 mg Q6H PRN IV For:SBP above 160;DBP above 90 08/16/24 16:30 09/15/24 16:29 Insulin Human Regular (humuLIN R 100 UNIT/ML 3ML) INSULIN SLIDING SCAL... ACHS SQ 08/16/24 16:30 09/15/24 16:29 Ketorolac Tromethamine (toRADol) 15 mg Q8H PRN IV MODERATE PAIN (4-6) 08/16/24 16:30 08/21/24 16:29 Lactulose (Constulose 20gm/ 30ml Udcup) 20 gm BID PRN PO CONSTIPATION 08/16/24 16:30 09/15/24 16:29 Losartan Potassium (CozAAR 100MG TAB) 100 mg DAILY PO 08/18/24 09:00 08/17/24 13:09 DC Magnesium Sulfate 50 ml @ 0 mls/hr PROTOCOL PRN IV other 08/16/24 16:30 09/15/24 16:29 Nitroglycerin (Nitrostat) 0.4 mg PROTOCOL PRN SL CHEST PAIN 08/16/24 16:30 09/15/24 16:29 Ondansetron HCl (zoFRAN 4MG INJ) 4 mg Q6H PRN IV NAUSEA/VOMITING 08/16/24 16:30 09/15/24 16:29 Oxycodone/ Acetaminophen (perCOCET) 1 tab Q6H PRN PO SEVERE PAIN (7-10) 08/16/24 16:30 08/23/24 16:29 08/16/24 23:04 1 TAB Piperacillin Sod/ Tazobactam Sod 50 ml @ 12.5 mls/hr ZOSY8 IV 08/16/24 21:00 08/26/24 20:59 08/18/24 04:42 12.5 MLS/HR Potassium Chloride 100 ml @ 100 mls/hr AD PRN IV POTASSIUM PROTOCOL 08/16/24 16:30 09/15/24 16:29 08/17/24 05:28 100 MLS/HR Potassium Chloride (K-Dur 10meq Sr Tab) 10 meq AD PRN PO POTASSIUM PROTOCOL 08/17/24 09:30 09/15/24 16:29 08/18/24 08:26 10 MEQ Potassium Chloride (K-Dur/Klor-Con 20meq) 10 meq AD PRN PO POTASSIUM PROTOCOL 08/16/24 16:30 08/17/24 09:04 DC 08/17/24 08:12 10 MEQ Potassium Chloride (KCl 10% Elixir 20meq/15ml) 10 meq AD PRN PO POTASSIUM PROTOCOL 08/16/24 16:30 09/15/24 16:29 Pregabalin (LYRica 25MG) 50 mg BID PO 08/17/24 21:00 6/15/25 20:59 08/18/24 08:25 50 MG Sodium Chloride 1,000 ml @ 120 mls/hr Q8H20M IV 08/16/24 16:30 09/15/24 16:29 08/18/24 04:42 120 MLS/HR Trazodone HCl (DesyREL/OlepTRO) 100 mg HS PO 08/17/24 21:00 09/16/24 20:59 08/17/24 20:26 100 MG Vancomycin HCl 250 ml @ 125 mls/hr Q24H IV 08/16/24 17:00 08/18/24 08:48 DC 08/17/24 18:11 125 MLS/HR Vancomycin HCl (Vancomycin Protocol) 1 each PROTOCOL PRN IV VANCOMYCIN PROTOCOL 08/16/24 16:30 08/18/24 08:48 DC Zolpidem Tartrate (AmbIEN) 5 mg HS PRN PO INSOMNIA 08/16/24 16:30 09/15/24 16:29 DIAGNOSTICS / RADIOLOGY: [ ] ASSESSMENT: [ ACUTE SEPSIS POA GENERALIZED BODY WEAKNESS POA ACUTE KIDNEY INJURY POA ACUTE DEHYDRATION POA ACUTE COMPLICATED CYSTITIS POA ELECTROLYTE IMBALANCE HYPONATREMIA NA 133, HYPOKALEMIA 3.3 HYPOCALCEMIA 7.8 POA UNCONTROLLED HYPERTENSION POA THROMBOCYTOPENIA POA HISTORY OF CATARACT HISTORY OF CHOLECYSTECTOMY HISTORY OF HYSTERECTOMY HISTORY OF KIDNEY STONES HISTORY OF HYDRONEPHROSIS] PLAN: Discontinue vancomycin Start doxycycline 100 mg b.i.d. Continue Zosyn We will order D-dimer, fibrinogen and PT/PTT Start midodrine five t.i.d. V/Q scan ordered, we will follow up Continue IV fluids at 120 cc/hour Continue to follow up with urine and blood cultures We will order a murine typhus panel Disposition: Pending improvement in clinical status CARY GARVIN MD August 18, 2024 13:34
[2024-08-18 14:20] LABS: FIBRINOGEN 339 mg/dL (180-350)
[2024-08-18 14:21] LABS: INR 1.28 (0.85-1.15); PROTHROMBIN TIME 13.2 SEC (9.6-11.6)
[2024-08-18 14:22] LABS: PARTIAL THROMBOPLASTIN TIME 40.4 SEC (26.3-35.5)
--- NOTE | 2024-08-18 15:01 | EKG ---
[facility] Test Date: 2024-08-17 Test Time: 15:26:51 Pat Name: ANTHONY CAAL Department: [facility] Room: 216 Gender: F Line Up Worker: [id number] [phone] [id number] Requested By: CADENCE SOLOMON Order Number: [id number] Reading MD: Lola Crawley Measurements Intervals [place] Rate: 122 P: 47 GA: 102 QRS: 38 QRSD: 76 T: 25 QT: 298 QTc: 424 Interpretive Statements Sinus tachycardia with short GA with premature supraventricular complexes No previous ECG available for comparison Electronically Signed On 08-20-2024 14:19:41 CDT by Lola Crawley Please click the below link to view image of tracing.
[2024-08-18 15:13] LABS: D-DIMER > 10000 ng/mL (0-500)
[2024-08-18] MEDS: HEParin 25,000 UNITS/250ML D5W 250 ML IV SCH (16:20)
[2024-08-18] MEDS: HEParin 5,000 UNIT VIAL IV PRN (16:21)
--- NOTE | 2024-08-18 16:47 | NUR ---
RAD V/Q @ 1640HRS PER LIA GERONIMO; HEAPRIN DRIP HAS BEEN INITIATED. ONLY ONE LIVE AVAILABLE. CENTRAL LINE SCHEDULED FOR INSERTION. PER LIA GERONIMO; MANAGER OF SUSTAINABILITY WILL CALL MANUFACTURING CHIEF ENGINEER TECH WHEN LINE IS INSERTED. DEMETRIO
[2024-08-18] MEDS: ketOROlac 15MG/ML VIAL (15MG/ML) IV PRN (19:15)
--- NOTE | 2024-08-18 19:50 | NUR ---
VQ SCAN PATIENT ALERT AND ORIENTED, CRUZ NEELY HERE TO SENIOR COMPUTER SPECIALIST PATIENT FOR VQ SCAN, FAMILY AT BEDSIDE MADE AWARE, PLAN OF CARE ONGOING AT THIS TIME
--- NOTE | 2024-08-18 20:37 | NUR ---
NURSING NOTE PATIENT BROUGHT BACK FROM V/Q SCAN PROCEDURE, PATIENT ALERT AND ORIENTED, BED LOCKED IN LOWEST POSITION, SIDE RAILS UP X 2, CALL LIGHT LEFT WITHIN REACH, PLAN OF CARE ONGOING
--- NOTE | 2024-08-18 20:54 | NUR ---
UPDATE AT 1253 PTS BP WAS 85/43 HR 93 93% O2 ON 2L NC. PATIENT WAS RUNNING NS AT 120MLS/HR. PATIENT WAS ALERT AND ORIENTED, FOLLOWING COMMANDS, WITH NO COMPLAINTS OF PAIN. PATIENT WAS SITTING IN BED EATING HER LUNCH. SHE ATE IT LATE DUE TO BEING ASLEEP PRIOR. MIDODRINE WAS ORDERED AND ADMINISTERED. AT 1328 DR. GARVIN ORDERED A NM VQSCAN. [facility] NOTIFIED CA TECH MEDICAL RECORD LIBRARIAN. IT WOULD TAKE AT LEAST 2 HOURS TO OBTAIN THE ISOTOPES FOR THE NM SCAN. AT [address] GARVIN OF A D DIMER > 10,000. HE ORDERED A HEPARIN DRIP, HE WAS AWARE OF THE PLATELET COUNT OF 37. I ASKED HIM IF HE WANTED TO WAIT FOR THE HEPARIN DRIP AFTER THE VQ SCAN OR PRIOR SINCE WE ONLY HAD ONE PIV AND THE PATIENT IS A HARD STICK. SHAHIDA FITZGERALD AND I HAD TRIED SEVERAL TIMES TO PLACE A PIV AND WERE UNSUCCESSFUL. DR. GARVIN ORDERED A MIDLINE. HEPARIN DRIP AND BOLUS WERE ADMINISTERED AT 1620. SHORTLY AFTER STARTING THE HEPARIN DRIP CA CALLED TO TAKE THE PATIENT AROUND 1640. PATIENT WAS RUNNING THE HEPARIN DRIP ON HER SOLE IV ON THE RIGHT HAND. THE CA TECH ASKED IF HE COULD FLUSH THE LINE AND THEN ADMINISTER THE ISOTOPE AND CONTINUE THE DRIP TO WHICH I NOTIFIED HIM THAT WE CANNOT FLUSH THE LINE BECAUSE THEN THE PATIENT WOULD BE RECEIVING A BOLUS OF HEPARIN THAT IS CURRENTLY IN THE LINE. TAIL EDGER WAS NOTIFIED THAT I NEEDED TO WAIT UNTIL I HAD ANOTHER ACCESS PRIOR TO SENDING THE PATIENT TO CA. AT 1814 I CHARTED THE CHARGE FOR THE MIDLINE SO BY THAT TIME THE MIDLINE WAS PLACED AND CARDWELL HAD NOTIFIED THE CA TECH THAT THE PATIENT WAS READY TO GO DOWN FOR THE VQ SCAN.
--- NOTE | 2024-08-18 20:57 | HMCIMG ---
NM PULMONARY/LUNG VQ SCAN HISTORY: Pulmonary embolism COMPARISON: None TECHNIQUE: Ventilation study was performed with 6.5 mCi of Xenon gas through inhalation route. Perfusion lung imaging study was performed with 4.5 mCi of technetium macroaggregated through intravenous route. FINDINGS: There is no evidence of segmental or subsegmental perfusion defect. Nonsegmental perfusion defects are also present. IMPRESSION: 1. Normal ventilation perfusion lung imaging study.
[2024-08-19] VITALS (89 sets, daily range): BP systolic 79–133; BP diastolic 31–79; PULSE 72–108; RESP 13–37; TEMP 96.5–97.9; O2SAT 95–98
--- NOTE | 2024-08-19 00:14 | NUR ---
HEPARIN DRIP NEW PTT BACK AT 50.3, PER PROTOCOL, NO CHANGES NEEDED AT THIS TIME, HEPARIN BAG AMOUNT ADEQUATE, NEXT PTT DRAW ON 08/19/24 AT 0600
[2024-08-19] MEDS: ALBUMIN HUMAN 25% 100 ML IV ONE (01:26)
[2024-08-19] MEDS: PHARMACY COMMUNICATION MISC ONE (01:30)
[2024-08-19] MEDS ORDERED: ALBUMIN (HUMAN) 25% 50 ML IV SCH (01:30)
--- NOTE | 2024-08-19 01:30 | NUR ---
LATE ENTRY TANK RIVETER PHYSICIAN MADE AWARE OF PATIENT'S STATUS AT THIS TIME, SBP REMAINING LOW, ORDERS FOR ALBUMIN 25GMS X 1 DOSE RECEIVED AND CARRIED OUT, PATIENT ALERT AND AROUSABLE, PLAN OF CARE ONGOING
[2024-08-19] MEDS: NOREPINEPHRIN 4MG/NS 250ML 250 ML IV SCH (03:59)
[2024-08-19 05:08] LABS: ABG BASE EXCESS -2.6 mmol/L (-2.0-3.0); ABG HCO3 21.7 mmol/L (21.0-28.0); ABG OXYGEN SATURATION 97.3 % (94.0-98.0); ABG PCO2 36 mmHg (32-45); ABG PH 7.398 (7.350-7.450); CARBON MONOXIDE 0.5 % (0.5-1.5); DEVICE COMMENT RR; HHb 2.7; PO2, ARTERIAL BG 94.5 mmHg (83.0-108.0); VENT MODE, BG CANNULA (ROOM AIR)
[2024-08-19 06:42] LABS: BASOPHILS # (AUTO) 0.09 K/uL (0.00-0.20); EOSINOPHILS # (AUTO) 0.08 K/uL (0.00-0.70); EOSINOPHILS % (AUTO) 0.9 % (0.0-8.0); HEMATOCRIT 34.5 % (36-48); IMMATURE GRANULOCYTE ABSOLUTE 0.14 K/uL (0-1); LYMPHOCYTES # (AUTO) 1.1 K/uL (1.0-4.8); MEAN CORPUSCULAR HEMOGLOBIN 28.3 pg (27.0-33.0); MEAN CORPUSCULAR VOLUME 85.6 fL (79-99); MONOCYTES # (AUTO) 0.1 K/uL (0.1-1.0); MONOCYTES % (AUTO) 1.4 % (3.0-13.0); NEUTROPHILS # (AUTO) 7.6 K/uL (1.8-7.7); NEUTROPHILS % (AUTO) 83.2 % (40.0-77.0); NUCLEATED RED BLOOD CELLS 0.3 % (0.0-0.19); PLATELET COUNT (AUTO) 48 K/uL (130-400); RED BLOOD CELL COUNT(AUTO) 4.03 MIL/uL (4.00-5.50); WHITE BLOOD COUNT (AUTO) 9.2 K/uL (4.8-10.8)
[2024-08-19 06:50] LABS: INR 1.14 (0.85-1.15); PROTHROMBIN TIME 11.9 SEC (9.6-11.6)
[2024-08-19 06:52] LABS: ALBUMIN 1.9 g/dL (3.5-5.0); BILIRUBIN,TOTAL 0.9 mg/dL (0.2-1.0); CREATININE 2.2 mg/dL (0.5-1.0); POTASSIUM 3.5 mmol/L (3.5-5.1); TOTAL PROTEIN, SERUM 5.5 g/dL (6.0-8.3)
[2024-08-19 07:15] LABS: PARTIAL THROMBOPLASTIN TIME > 139.0 SEC (26.3-35.5)
--- NOTE | 2024-08-19 07:54 | NUR ---
LATE ENTRY 08/19/24 025 SPOKE WITH MARINE PROPULSION TECHNICIAN PHYSICIAN ABOUT POST ALBUMIN ADMINISTRATION AND PATIENT'S STATUS AT THIS TIME, ORDERS RECEIVED TO UPGRADE PATIENT TO ICU FOR HIGHER LEVEL OF CARE, AND LEVOPHED TO BE STARTED IN ICU PER PROTOCOL 08/19/24 025 NIGHT HOUSE AND NIGHT CN MADE AWARE OF NEW ORDERS 08/19/24 025 MARINE PROPULSION TECHNICIAN PHYSICIAN AT BEDSIDE ROUNDING ON PATIENT, MARINE PROPULSION TECHNICIAN PHYSICIAN EXPLAINED TO PATIENT AND FAMILY MEMBER OF NEED TO UPGRADE TO ICU, BOTH VERBALIZED UNDERSTANDING 08/19/24 0301 REPORT GIVEN TO DEPUTY COUNTY CLERK LAURA AT THIS TIME, PATIENT ALERT AND ORIENTED, PATIENT AND FAMILY MADE AWARE OF UPGRADE STATUS FOR HIGHER LEVEL OF CARE, PATIENT AND FAMILY MEMBER VERBALIZED UNDERSTANDING 08/19/24 0330 PATIENT TRANSFERRED TO ICU RM 216, ALL PATIENT BELONGINGS TAKEN WITH PATIENT
[2024-08-19 08:47] LABS: HIV 1&2 ANTIBODY Non-Reactive (Negative); HIV-1 p24 Antigen Non-Reactive (Negative)
--- NOTE | 2024-08-19 11:30 | HMCIMG ---
ULTRASOUND VENOUS DOPPLER, BILATERAL LOWER EXTREMITIES INDICATION: Bilateral lower extremity pain and swelling TECHNIQUE: Routine grayscale and color Doppler ultrasound of the bilateral lower extremity veins performed. COMPARISON: No priors. FINDINGS: The demonstrated veins of the bilateral lower extremity including the common femoral vein, femoral vein, and popliteal vein are associated with normal compressibility, augmentation, and flow. Normal respiratory variation was identified. No evidence for echogenic intraluminal thrombus formation. IMPRESSION: No sonographic evidence for deep venous thrombosis within the bilateral lower extremity veins.
--- NOTE | 2024-08-19 11:30 | HMCIMG ---
ULTRASOUND VENOUS DOPPLER LEFT UPPER EXTREMITY INDICATION: Swelling. TECHNIQUE: Routine grayscale and color and spectral Doppler ultrasound of the left upper extremity veins performed in real-time, and images subsequently made available for review. COMPARISON: None FINDINGS: PICC is present. Normal compression, vascular antegrade flow, respiratory variation and spectral waveforms identified within the left internal jugular vein, subclavian vein, axillary vein, brachial vein, cephalic vein, and basilic vein. No evidence for an intraluminal thrombus. No soft tissue abnormalities demonstrated. IMPRESSION: No evidence for left upper extremity venous thrombosis.
--- NOTE | 2024-08-19 11:32 | HMCIMG ---
ULTRASOUND ABDOMEN COMPLETE INDICATION: Abdominal Pain COMPARISON: None. FINDINGS: The liver is normal in size and increased in echogenicity; no focal lesion demonstrated. Main portal vein is patent, and normal direction of vascular flow demonstrated. The common bile duct caliber measures 5.0 mm. Gallbladder is surgically absent. The spleen is normal in size and echotexture. The spleen measures 11.1 cm. Pancreas is obscured by overlying bowel gas. The right kidney measures 10.4 x 5.1 x 4.5 cm,and is normal in echogenicity, without evidence for hydronephrosis or shadowing stones. The left kidney measures 11.4 x 5.8 x 4.1 cm,and is normal in echogenicity, without evidence for hydronephrosis. Multiple subcentimeter nonobstructing calculi within the left kidney, largest of which measures up to 1.8 cm. Visible portions of the abdominal aorta are within normal limits. Visible portions of the inferior vena cava are within normal limits. No free fluid demonstrated. IMPRESSION: Limitations as reported. Nonobstructing left nephrolithiasis.
--- NOTE | 2024-08-19 12:28 | PN ---
[facility] PROGRESS NOTE Date of Service: August 19, 2024 Time of Service: 12:21 SUBJECTIVE: [ PATIENT IS 63 YEARS OLD FEMALE WITH A PAST MEDICAL HISTORY OF HYPERTENSION, FLU, CATARACT, CHOLECYSTECTOMY, HYSTERECTOMY, WHO CAME TO EMERGENCY DEPARTMENT WITH A COMPLAINT OF DECREASED APPETITE, FEVER, GENERALIZED BODY WEAKNESS. PATIENT STATED THAT SHE WENT TO HER PCP AFTER SHE WAS DIAGNOSED WITH INFLUENZA ABOUT A WEEK AGO, WHERE SHE COMPLAINED ABOUT ABOVE-STATED COMPLAINTS AND SHE WAS SENT TO EMERGENCY DEPARTMENT FOR FURTHER EVALUATION/RECOMMENDATION. PATIENT DENIES ANY CHEST PAIN, NAUSEA, VOMITING, SHORTNESS OF BREATHS OR ANY OTHER SYMPTOMS OTHER THAN STATED ABOVE. ] MOST RECENT VITAL SIGNS TEMPERATURE 97.9 ON ADMISSION IN ER WAS 102.9, PULSE 84 RESPIRATION 22 BLOOD PRESSURE 90/50 PATIENT IS ON ROOM AIR SATTING 93%. UA POSITIVE FOR LEUKOCYTOSIS. WBC 9.0 HEMATOCRIT 40.2 HEMOGLOBIN 13.9 PLATELETS 82. SODIUM 133 POTASSIUM 3.3 CO2 29 BUN 14 CREATININE 1.2 GFR 5 GLUCOS 106 LACTIC 1.8 CALCIUM 7.8 TROPONIN NEGATIVE X1. CHEST X-RAY SHOWED CLEAR LUNGS CARDIOMEGALY. 2D ECHO IS PENDING. PATIENT WILL BE ADMITTED UNDER HOSPITALIST CARE FOR FURTHER EVALUATION/RECOMMENDATION. PATIENT WAS PLACED ON VANCOMYCIN AND ZOSYN FOR THE SEPSIS. A.M. LABS. 08/17 patient was seen by nurse practitioner and physician during rounding in room 304. Urinalysis was positive on admission. Blood culture and urine cul ture pending at this moment. Patient continues to be on Zosyn and vancomycin. We will increase fluids from 100 mL/hour 220 mL/hour. Patient's A1c is 5.8. We will discontinue insulin sliding scale per protocol. Also patient's blood pressure has been on lower side. We will discontinue losartan. Home medication reconciled. 2D echo showed EF 55 to 60% normal diastolic function no pericardial effusion. Potassium today is 2.8. Patient received already two 20 mEq through IV potassium. Patient will also receive 40 mEq of potassium as well. We will continue to monitor patient in the meantime. A.m. labs. 08/18 at bedside, she had a low-grade fever overnight, this morning she is tachycardic. Urine and blood cultures have been no growth to date, platelets have decreased from 52 down to 37, AST mildly elevated, creatinine increased from 1.2 up to 1.5. Given that she is still having fevers on vancomycin and Zosyn she may have an atypical infection, we will order a murine typhus panel and start doxycycline. Discontinue vancomycin at this time. Infectious workup has been negative this time we will assess for possible underlying PE or DIC, we will order D-dimer, V/Q scan, fibrinogen, PT and PTT and follow up 08/19 patient seen at bedside, yesterday her blood pressure started to drop despite being on fluids and broad-spectrum antibiotics. She was also tachycardic. D-dimer was elevated as her platelets were low and she was assessed for DIC however fibrinogen was normal. A V/Q scan was done that did not show evidence of pulmonary embolism. She was moved to the ICU and started on pressor support. Creatinine increased from 1.5 up to 2.2 however she has been adequately perfused and she has not been receiving any nephrotoxic medications, bladder scan was ordered showing greater than 500 cc within the bladder concerning for postobstructive uropathy. Borges catheter was placed and approximately 800 cc drained immediately. She has swelling and bruising to the left upper extremity where the midline was placed, we will order a venous Doppler to rule out DVT. REVIEW OF SYSTEMS 12 point ROS negative unless noted in HPI PHYSICAL EXAM GENERAL APPEARANCE: The patient is awake, alert, and oriented, in no acute cardiopulmonary distress. NEUROLOGICAL: Cranial nerves II-XII grossly intact. Motor is 5/5 in bilateral upper and lower extremities proximal to distal. No sensory deficits. HEENT: Face is symmetric. Pupils are equal and reactive. Extraocular movements are intact. NECK: Supple. No JVD. No thyromegaly. No submental, submandibular, pre- /postauricular, occipital or supraclavicular lymphadenopathy. CHEST: Normal chest expansion. No Telemetry. LUNGS: Absence of any rales, rhonchi or any wheezing. CARDIOVASCULAR: Regular. S1 and S2 normal. No appreciable rubs, murmurs or gallops. ABDOMEN: Soft, nontender, and nondistended. There is no rebound, voluntary guarding, or rigidity. : Deferred. No Borges. EXTREMITIES: Non-edematous and not cyanotic. No clubbing. Good capillary refill. SKIN: No skin breakdown. Vital Signs (last 8hr) Date Time Temp Pulse Resp B/P (MAP) Pulse Ox O2 Delivery O2 Flow Rate FiO2 5/18/25 10:30 89 17 104/52 (69) 98 08/19/24 10:15 88 18 99/48 (65) 99 08/19/24 10:00 86 15 102/57 (72) 99 08/19/24 09:45 84 16 115/50 (71) 98 08/19/24 09:30 83 14 117/51 (73) 98 08/19/24 09:15 83 17 133/50 (77) 99 08/19/24 09:00 87 16 110/52 (71) 99 08/19/24 08:45 85 13 131/54 (79) 98 08/19/24 08:30 89 17 132/79 (96) 99 08/19/24 08:15 87 18 109/55 (73) 99 08/19/24 08:00 96.6 84 16 114/66 (82) 98 08/19/24 08:00 98 Nasal Cannula* 2 28 08/19/24 07:45 84 17 102/51 (68) 99 08/19/24 07:30 91 17 120/65 (83) 97 08/19/24 07:15 83 24 121/57 (78) 99 08/19/24 07:00 86 19 117/55 (75) 96 08/19/24 06:45 84 33 110/54 (72) 96 08/19/24 06:30 86 21 118/58 (78) 97 08/19/24 06:15 84 20 109/49 (69) 97 08/19/24 06:00 83 18 111/52 (71) 96 08/19/24 05:45 82 17 90/45 (60) 96 08/19/24 05:30 76 17 105/49 (67) 95 08/19/24 05:15 76 17 105/49 (67) 96 08/19/24 05:00 79 20 113/57 (75) 95 08/19/24 04:45 77 20 101/49 (66) 95 08/19/24 04:30 76 20 106/50 (68) 94 LABS: Laboratory: Test 08/19/24 11:27 08/19/24 07:52 08/19/24 06:28 08/19/24 05:07 Range/Units Whole Blood Glucose 106 70-110 MG/DL HIV (1&2) Antibody Non-Reactive Negative HIV P24 Antigen, Qualitative Non-Reactive Negative White Blood Count 9.2 4.8-10.8 K/uL Red Blood Count 4.03 4.00-5.50 MIL/uL Hemoglobin 11.4 L 12.0-16.0 g/dL Hematocrit 34.5 L 36-48 % Mean Corpuscular Volume 85.6 79-99 fL Mean Corpuscular Hemoglobin 28.3 27.0-33.0 pg Mean Corpuscular Hemoglobin Concent 33.0 32.0-36.0 g/dL Red Cell Distribution Width 16.0 H 11.0-15.5 % Platelet Count 48 #L 130-400 K/uL Mean Platelet Volume 7.5-10.5 fL Immature Granulocyte % (Auto) 1.5 H 0-1 % Neutrophils (%) (Auto) 83.2 H 40.0-77.0 % Lymphocytes (%) (Auto) 12.0 L 21.0-51.0 % Monocytes (%) (Auto) 1.4 L 3.0-13.0 % Eosinophils (%) (Auto) 0.9 0.0-8.0 % Basophils (%) (Auto) 1.0 0.0-5.0 % Neutrophils # (Auto) 7.6 1.8-7.7 K/uL Lymphocytes # (Auto) 1.1 1.0-4.8 K/uL Monocytes # (Auto) 0.1 0.1-1.0 K/uL Eosinophils # (Auto) 0.08 0.00-0.70 K/uL Basophils # (Auto) 0.09 0.00-0.20 K/uL Absolute Immature Granulocyte (auto 0.14 0-1 K/uL Nucleated Red Blood Cells 0.3 H 0.0-0.19 % Prothrombin Time 11.9 H 9.6-11.6 SEC Prothromb Time International Ratio 1.14 0.85-1.15 Activated Partial Thromboplast Time > 139.0 #*H 26.3-35.5 SEC Sodium Level 134 L 136-145 mmol/L Potassium Level 3.5 3.5-5.1 mmol/L Chloride Level 102 101-111 mmol/L Carbon Dioxide Level 21 21-32 mmol/L Blood Urea Nitrogen 32 H 7-18 mg/dL Creatinine 2.2 H 0.5-1.0 mg/dL Glomerular Filtration Rate Calc 24 >90 mL/min Random Glucose 104 70-105 mg/dL Lactic Acid Level 1.5 0.8-2.5 mmol/L Total Calcium 7.5 L 8.5-10.1 mg/dL Total Bilirubin 0.9 0.2-1.0 mg/dL Aspartate Amino Transf (AST/SGOT) 119 H 10-37 U/L Alanine Aminotransferase (ALT/SGPT) 52 12-78 U/L Alkaline Phosphatase 93 50-136 U/L Total Protein 5.5 L 6.0-8.3 g/dL Albumin 1.9 L 3.5-5.0 g/dL Blood Gas Specimen Type Arterial Arterial Blood pH 7.398 7.350-7.450 Arterial Blood Partial Pressure CO2 36 32-45 mmHg Arterial Blood Partial Pressure O2 94.5 83.0-108.0 mmHg Arterial Blood HCO3 21.7 21.0-28.0 mmol/L Arterial Blood Oxygen Saturation 97.3 94.0-98.0 % Arterial Blood Base Excess -2.6 L -2.0-3.0 mmol/L Hemoglobin (Blood Gas) 12.3 12.0-16.0 g/dL Sodium (Blood Gas) 132 L 136-145 MMOL/L Bedside Potassium (Blood Gas) 3.1 L 3.4-4.5 MMOL/L Bedside Chloride (Blood Gas) 103 98-107 MMOL/L Bedside Glucose (Blood Gas) 111 H 65-95 MG/DL Bedside Ionized Calcium (Blood Gas) 1.10 L 1.15-1.33 MMOL/L Bedside Lactic Acid (Blood Gas) 1.11 H 0.36-0.75 MMOL/L Blood Gas Temperature 37.0 35.5-37.0 CELSIUS Blood Gas Flow-by 2.00 0.00-15.00 L/min Blood Gas Vent Mode CANNULA ROOM AIR FiO2 28.0 % Blood Gas Specimen Comment RR Test 08/18/24 13:58 08/18/24 06:30 Range/Units Fibrinogen 339 180-350 mg/dL D-Dimer Quantitative (PE/DVT) > 28020 *H 0-500 ng/mL Segmented Neutrophils % 89 H 40-70 % Band Neutrophils % 6 H 0-2 % Lymphocytes % (Manual) 4 L 22-44 % Monocytes % (Manual) 1 L 2-9 % Differential Comment MANUAL DIFFERENTIAL White Cell Morphology Comment Platelet Morphology Comment DECREASED Red Blood Cell Morphology ANISO 1+ Magnesium Level 2.10 1.80-2.40 mg/dL Thyroid Stimulating Hormone (TSH) 0.76 0.36-3.74 uIU/mL Current Medications Medications (Trade) Dose Ordered Sig/Amy Route PRN Reason Start Time Stop Time Status Last Admin Dose Admin Acetaminophen (TYLenol 325MG TAB) 650 mg Q4H PRN PO MILD PAIN (1-3) 08/16/24 16:30 09/15/24 16:29 Acetaminophen (TYLenol 325MG TAB) 650 mg Q6H PRN PO MILD PAIN (1-3) 08/16/24 16:30 08/17/24 09:03 DC Acetaminophen (TYLenol 325MG TAB) 650 mg Q6H PRN PO TEMPERATURE GREATER THAN 101.5 08/16/24 16:30 09/15/24 16:29 08/17/24 03:32 650 MG Al Hydroxide/Mg Hydroxide (MAALox PLUS 30ML) 30 ml Q6H PRN PO INDIGESTION 08/16/24 16:30 09/15/24 16:29 Albumin Human 50 ml @ 100 mls/hr AD IV 08/19/24 01:30 08/19/24 01:21 DC Dextrose (D50w) 50 ml AD PRN IV HYPOGLYCEMIA PROTOCOL 08/16/24 16:30 09/15/24 16:29 Diphenhydramine HCl (BENAdryl INJ) 25 mg Q6H PRN IV SEVERE ITCHING/RASH 08/16/24 16:30 09/15/24 16:29 Doxycycline Hyclate 250 ml @ 125 mls/hr Q12H IV 08/18/24 09:00 08/28/24 08:59 08/19/24 08:31 125 MLS/HR Famotidine (Pepcid 20mg Vial) 20 mg HS IV 08/16/24 21:00 09/15/24 20:59 08/18/24 22:02 20 MG Famotidine (Pepcid 20mg Vial) 20 mg HS PRN IV NAUSEA/VOMITING 08/16/24 16:30 08/17/24 09:03 DC Glucagon (Glucagon 1mg Kit) 1 mg AD PRN IM HYPOGLYCEMIA PROTOCOL 08/16/24 16:30 09/15/24 16:29 Guaifenesin/ Dextromethorphan (RobiTUSSin DM 200/20MG 10ML) 10 ml Q4H PRN PO COUGH 08/16/24 16:30 09/15/24 16:29 Heparin Sodium (Porcine) (HEParin 5,000 UNIT VIAL) *calculation based on ACTUAL B... AD PRN IV HEPARIN PROTOCOL 08/18/24 16:30 08/19/24 04:54 DC 08/18/24 16:21 6,000 UNIT Heparin Sodium (Porcine) (HEParin 5,000 UNIT VIAL) 5,000 unit BID SQ 08/16/24 21:00 08/18/24 07:05 DC 08/16/24 21:35 5,000 UNIT Heparin Sodium/ Dextrose 250 ml @ 0 mls/hr Q6H IV 08/18/24 16:30 08/19/24 06:01 DC 08/18/24 16:20 13.98 MLS/HR Home Med (Home Medication) (Meloxicam, Submicronized (Vivlodex... DAILY PO 08/18/24 09:00 08/18/24 07:05 DC Hydralazine HCl (APRESOLine 20MG INJ) 10 mg Q6H PRN IV For:SBP above 160;DBP above 90 08/16/24 16:30 09/15/24 16:29 Insulin Human Regular (humuLIN R 100 UNIT/ML 3ML) INSULIN SLIDING SCAL... ACHS SQ 08/16/24 16:30 09/15/24 16:29 Ketorolac Tromethamine (toRADol) 15 mg Q8H PRN IV MODERATE PAIN (4-6) 08/16/24 16:30 08/21/24 16:29 08/18/24 19:15 15 MG Lactulose (Constulose 20gm/ 30ml Udcup) 20 gm BID PRN PO CONSTIPATION 08/16/24 16:30 09/15/24 16:29 Losartan Potassium (CozAAR 100MG TAB) 100 mg DAILY PO 08/18/24 09:00 08/17/24 13:09 DC Magnesium Sulfate 50 ml @ 0 mls/hr PROTOCOL PRN IV other 08/16/24 16:30 09/15/24 16:29 Midodrine (PROAMatine 5 MG TABLET) 5 mg TID PO 08/18/24 13:00 09/17/24 12:59 08/19/24 08:32 5 MG Nitroglycerin (Nitrostat) 0.4 mg PROTOCOL PRN SL CHEST PAIN 08/16/24 16:30 09/15/24 16:29 Norepinephrine 250 ml @ 0 mls/hr PROTOCOL IV 08/19/24 03:00 09/18/24 02:59 08/19/24 03:59 30.63 MLS/HR Ondansetron HCl (zoFRAN 4MG INJ) 4 mg Q6H PRN IV NAUSEA/VOMITING 08/16/24 16:30 09/15/24 16:29 Oxycodone/ Acetaminophen (perCOCET) 1 tab Q6H PRN PO SEVERE PAIN (7-10) 08/16/24 16:30 08/23/24 16:29 08/16/24 23:04 1 TAB Piperacillin Sod/ Tazobactam Sod 50 ml @ 12.5 mls/hr ZOSY8 IV 08/16/24 21:00 08/26/24 20:59 08/19/24 05:07 12.5 MLS/HR Potassium Chloride 100 ml @ 100 mls/hr AD PRN IV POTASSIUM PROTOCOL 08/16/24 16:30 09/15/24 16:29 08/17/24 05:28 100 MLS/HR Potassium Chloride (K-Dur 10meq Sr Tab) 10 meq AD PRN PO POTASSIUM PROTOCOL 08/17/24 09:30 09/15/24 16:29 08/18/24 08:26 10 MEQ Potassium Chloride (K-Dur/Klor-Con 20meq) 10 meq AD PRN PO POTASSIUM PROTOCOL 08/16/24 16:30 08/17/24 09:04 DC 08/17/24 08:12 10 MEQ Potassium Chloride (KCl 10% Elixir 20meq/15ml) 10 meq AD PRN PO POTASSIUM PROTOCOL 08/16/24 16:30 09/15/24 16:29 Pregabalin (LYRica 25MG) 50 mg BID PO 08/17/24 21:00 09/16/24 20:59 08/19/24 08:32 50 MG Sodium Chloride 1,000 ml @ 120 mls/hr Q8H20M IV 08/16/24 16:30 09/15/24 16:29 08/18/24 13:08 120 MLS/HR Trazodone HCl (DesyREL/OlepTRO) 100 mg HS PO 08/17/24 21:00 09/16/24 20:59 08/17/24 20:26 100 MG Vancomycin HCl 250 ml @ 125 mls/hr Q24H IV 08/16/24 17:00 08/18/24 08:48 DC 08/17/24 18:11 125 MLS/HR Vancomycin HCl (Vancomycin Protocol) 1 each PROTOCOL PRN IV VANCOMYCIN PROTOCOL 08/16/24 16:30 08/18/24 08:48 DC Zolpidem Tartrate (AmbIEN) 5 mg HS PRN PO INSOMNIA 08/16/24 16:30 09/15/24 16:29 DIAGNOSTICS / RADIOLOGY: [ ] ASSESSMENT: ACUTE SEPSIS POA GENERALIZED BODY WEAKNESS POA ACUTE KIDNEY INJURY POA urinary retention Post obstructive uropathy ACUTE DEHYDRATION POA ACUTE COMPLICATED CYSTITIS POA ELECTROLYTE IMBALANCE HYPONATREMIA NA 133, HYPOKALEMIA 3.3 HYPOCALCEMIA 7.8 POA UNCONTROLLED HYPERTENSION POA THROMBOCYTOPENIA POA HISTORY OF CATARACT HISTORY OF CHOLECYSTECTOMY HISTORY OF HYSTERECTOMY HISTORY OF KIDNEY STONES HISTORY OF HYDRONEPHROSIS] PLAN: Insert borges catheter, monitor urine output Continue pressors, wean as able Continue doxycycline 100 mg b.i.d. Continue Zosyn V/Q scan normal Discontinue heparin drip Continue IV fluids at 120 cc/hour Continue to follow up with urine and blood cultures We will order a murine typhus panel Disposition: Pending improvement in clinical status CARY GARVIN MD August 19, 2024 12:28
[2024-08-19] MEDS: miDODRine HCL 5 MG TABLET PO SCH (13:13)
[2024-08-19] MEDS: miDODRine HCL 5 MG TABLET ONE (13:26)
--- NOTE | 2024-08-19 19:51 | CONS ---
[facility] CONSULTATION NOTE Date Patient Seen: August 19, 2024 Time of Visit: 19:47 Supervising Physician: Dr. Leonardo Reason for Consultation: Acute sepsis and shock Primary Care Physician: Harris Rankin Outpatient Specialists: [ ] Inpatient Consults: [ ] PROBLEM LIST Acute sepsis and shock suspected from the urinary tract source. Acute complicated cystitis, final culture showing mixed franci contamination. Acute urinary retention status post Hobbs catheter insertion. Elevated D-dimer V/Q scan negative for PE. YULIA subtherapeutic from obstructive uropathy. Electrolyte imbalance. Hypertension. Thrombocytopenia. Recent diagnosis of influenza, repeat serology was negative. HPI: This is a 63-year-old female patient who has past medical history that is significant for hypertension,. She initially presented to the emergency department with complaint of generalized body weakness with decreased appetite and fever. Per the patient report, she initially went to visit with her PCP where she was diagnosed with influenza and was started on management. The patient was subsequently admitted with diagnosis of sepsis suspected from the urinary tract source, acute dehydration leading to YULIA and electrolyte imbalance. The patient was started on antibiotic therapy for management and was also given IV fluid resuscitation. During his stay, the patient began to drop her blood pressure despite fluid resuscitation and broad-spectrum antibiotic therapy. D-dimer was collected and resulted elevated for which pulmonary embolism was ruled out via a V/Q scan. The patient was later moved to ICU to start pressor therapy. Upon assessment in the ICU a bladder scan was ordered and showed retention greater than 500 cc for which a Hobbs catheter was inserted and drained 800 cc. At the time of my visit, the patient was lying in bed. The staff nurse reports no acute events otherwise. No other complaint. PAST MEDICAL HX: see above PAST SURGICAL HX: noncontributory SOCIAL HISTORY: No tobacco, ETOH, or illicit drug use Coded Allergies: No Known Drug Allergies (Unverified Allergy, Unknown, 05/26/23) REVIEW OF SYSTEMS: 12 point ROS reviewed with patient. Pertinent positives mentioned above. Otherwise negative. PHYSICAL EXAM: GENERAL: alert, weak, awake oriented x 3 HEENT: EOMI, Sclera non icteric, moist mucosa NECK: Supple, no JVD, trachea midline LUNGS: Clear breath sounds bilaterally. No wheezes HEART: Regular rate and rhythm. Normal S1 and S2, without murmurs ABD: Abdomen soft, nontender. Bowel sounds present EXT: No clubbing cyanosis or edema NEURO: Alert and oriented to person, follows commands Vital Signs (last 8hr) Date Time Temp Pulse Resp B/P (MAP) Pulse Ox O2 Delivery O2 Flow Rate FiO2 08/19/24 18:45 89 16 107/50 (69) 97 08/19/24 18:30 89 17 104/57 (73) 96 08/19/24 18:15 83 17 107/54 (71) 96 08/19/24 18:00 94 17 110/60 (77) 96 08/19/24 17:45 91 18 113/61 (78) 96 08/19/24 17:30 96 17 111/57 (75) 96 08/19/24 17:15 90 16 98/45 (62) 94 08/19/24 17:00 97 17 95/56 (69) 97 08/19/24 16:45 88 15 86/45 (59) 99 08/19/24 16:30 88 16 87/53 (64) 99 08/19/24 16:15 92 17 96/51 (66) 99 08/19/24 16:00 97.9 85 18 112/56 (74) 99 08/19/24 16:00 97 Nasal Cannula* 2 28 08/19/24 15:45 90 16 98/58 (71) 97 08/19/24 15:30 93 18 127/54 (78) 97 08/19/24 15:15 95 18 105/52 (69) 96 08/19/24 15:00 97 16 112/58 (76) 96 08/19/24 14:45 96 17 115/64 (81) 98 08/19/24 14:30 101 16 105/62 (76) 97 08/19/24 14:15 95 17 111/55 (73) 96 08/19/24 14:00 98 17 107/53 (71) 97 08/19/24 13:45 105 16 117/57 (77) 97 08/19/24 13:30 107 17 106/41 (62) 96 08/19/24 13:15 108 18 108/57 (74) 96 08/19/24 13:00 99 17 105/52 (69) 100 08/19/24 12:45 102 16 96/58 (71) 99 08/19/24 12:30 97 18 99/54 (69) 99 5/18/25 12:15 103 17 103/59 (74) 99 08/19/24 12:00 98 Nasal Cannula* 2 28 08/19/24 12:00 97.3 99 18 103/53 (70) 99 LABS: Hematology Labs: Test 08/19/24 06:28 08/18/24 06:30 Range/Units White Blood Count 9.2 4.8-10.8 K/uL Red Blood Count 4.03 4.00-5.50 MIL/uL Hemoglobin 11.4 L 12.0-16.0 g/dL Hematocrit 34.5 L 36-48 % Mean Corpuscular Volume 85.6 79-99 fL Mean Corpuscular Hemoglobin 28.3 27.0-33.0 pg Mean Corpuscular Hemoglobin Concent 33.0 32.0-36.0 g/dL Red Cell Distribution Width 16.0 H 11.0-15.5 % Platelet Count 48 #L 130-400 K/uL Mean Platelet Volume 7.5-10.5 fL Immature Granulocyte % (Auto) 1.5 H 0-1 % Neutrophils (%) (Auto) 83.2 H 40.0-77.0 % Lymphocytes (%) (Auto) 12.0 L 21.0-51.0 % Monocytes (%) (Auto) 1.4 L 3.0-13.0 % Eosinophils (%) (Auto) 0.9 0.0-8.0 % Basophils (%) (Auto) 1.0 0.0-5.0 % Neutrophils # (Auto) 7.6 1.8-7.7 K/uL Lymphocytes # (Auto) 1.1 1.0-4.8 K/uL Monocytes # (Auto) 0.1 0.1-1.0 K/uL Eosinophils # (Auto) 0.08 0.00-0.70 K/uL Basophils # (Auto) 0.09 0.00-0.20 K/uL Absolute Immature Granulocyte (auto 0.14 0-1 K/uL Nucleated Red Blood Cells 0.3 H 0.0-0.19 % Segmented Neutrophils % 89 H 40-70 % Band Neutrophils % 6 H 0-2 % Lymphocytes % (Manual) 4 L 22-44 % Monocytes % (Manual) 1 L 2-9 % Differential Comment MANUAL DIFFERENTIAL White Cell Morphology Comment Platelet Morphology Comment DECREASED Red Blood Cell Morphology ANISO 1+ Chemistry Labs: Test 08/19/24 15:46 08/19/24 06:28 08/18/24 06:30 Range/Units Whole Blood Glucose 119 H 70-110 MG/DL Sodium Level 134 L 136-145 mmol/L Potassium Level 3.5 3.5-5.1 mmol/L Chloride Level 102 101-111 mmol/L Carbon Dioxide Level 21 21-32 mmol/L Blood Urea Nitrogen 32 H 7-18 mg/dL Creatinine 2.2 H 0.5-1.0 mg/dL Glomerular Filtration Rate Calc 24 >90 mL/min Random Glucose 104 70-105 mg/dL Lactic Acid Level 1.5 0.8-2.5 mmol/L Total Calcium 7.5 L 8.5-10.1 mg/dL Total Bilirubin 0.9 0.2-1.0 mg/dL Aspartate Amino Transf (AST/SGOT) 119 H 10-37 U/L Alanine Aminotransferase (ALT/SGPT) 52 12-78 U/L Alkaline Phosphatase 93 50-136 U/L Total Protein 5.5 L 6.0-8.3 g/dL Albumin 1.9 L 3.5-5.0 g/dL Magnesium Level 2.10 1.80-2.40 mg/dL Thyroid Stimulating Hormone (TSH) 0.76 0.36-3.74 uIU/mL Coagulation Labs: Test 08/19/24 06:28 08/18/24 13:58 Range/Units Prothrombin Time 11.9 H 9.6-11.6 SEC Prothromb Time International Ratio 1.14 0.85-1.15 Activated Partial Thromboplast Time > 139.0 #*H 26.3-35.5 SEC Fibrinogen 339 180-350 mg/dL D-Dimer Quantitative (PE/DVT) > 70150 *H 0-500 ng/mL DIAGNOSTICS / RADIOLOGY RESULTS: [ ] PLAN For now, we are going to continue current management for the patient. We are going to to continue pressor therapy and we will add midodrine 20 mg p.o. t.i.d. and once blood pressure stabilized we will wean off the pressor therapy. The patient is going to continue on antibiotic coverage with Zosyn and doxy. We will continue assessing the renal parameters for improvement. Hobbs catheter will remain in place. We will replace electrolyte imbalance as necessary. We will monitor the patient's progress and response to management. We will continue to provide general supportive care, GI and DVT prophylaxis. Thank you for allowing us to participate in patient care. NEURO: Minimize central acting medications as possible. Fall Precautions. Well lighted room through the day and minimize interruptions through the night to prevent acute delirium. PULMONARY: Supplemental 02 as needed Titrate Fio2 to keep Spo2 > or = 90% DuoNebs and CPT as needed IS hourly while awake for pulmonary hygiene Out of bed to chair as tolerated VAP Bundle CARDIOVASCULAR: Follow hemodynamics. Titrate vasopressor to keep MAP >65 or systolic blood pressure >95mmHg DIPS: Levophed LINES: Zosyn/Doxy GI & NUTRITION: Continue nutritional support Aspirations precautions Prokinetic agents and laxatives as needed KIDNEYS & ELECTROLYTES: Strict monitoring of intake and output Daily weights Avoid nephrotoxic agents Monitor electrolytes and replace as needed Goal urine output of 30mL/hr or 0.5mL/kg/hr Urine output: [ ] Fluid Balance: [ ] ENDOCRINE: Maintain blood glucose between 100-180 at all times. Insulin sliding scale for blood glucose management INFECTIOUS DISEASE: Trend temperature. Spencer-culture if febrile. Micro: [ ] Antibiotics: [ ] HEMATOLOGY & COAGULATION: Monitor H&H. Keep Hgb > 7 Transfuse 1 unit of PRBC for Hgb < 7 Transfuse 1 pack of platelets of platelets < 20, 000 Watch for any signs and symptoms of bleeding SKIN: Pressure ulcer prevention per facility protocol Rehab: PT/OT Prophylaxis: GI: [ ] DVT: [ ] Code Status: Full Resuscitation Disposition: ICU Other: I personally spent 50 minutes of critical care time in treatment of this patient. This includes patient management, time at bedside, time reviewing tests, labs, appropriate images and studies, documentation, and patient care coordination. This time excludes separately billable procedures. Patient was seen and case discussed with shanelle TAYLOR. Plan of care was discussed and agreed upon REYMUNDO WALKER NP August 19, 2024 19:51
[2024-08-19] MEDS: SIMETHICONE 80 MG TAB.CHEW PO PRN (21:43)
[2024-08-20] VITALS (71 sets, daily range): BP systolic 82–140; BP diastolic 39–77; PULSE 69–99; RESP 15–36; TEMP 97.5–98.8; O2SAT 96–99
--- NOTE | 2024-08-20 10:27 | NUR ---
Nutritional Note: Pt reported poor appetite for one week prior to admit. Pt currently on 75gm cc diet and tolerating. No s/s of PCM as evidence by no unintentional wt loss(as per pt ) and no physical s/s of significant muscle/fat loss. Pt is at risk of malnutrition due to poor energy intake > 1 week. Recommend: -Glucenra 1 can PRN and/or if PO intake <75% of meals taken. -ProStat BID (30 ml) JELLO to improve kcal and protein intake. - Electrolyte replacements per protocol -Monitor feeding tolerance, %, wt, and labs -Document PO intake and wt daily. -If No BM >3days consider bowel stimulant. -Schedule outpatient RD f/u for long-term nutrition care. - Notify RD if additional nutrition concerns arise. SEE RD Nutritional Assessment for additional assessment information. Addendum: 08/20/24 at [address] Amended: Links added.
[2024-08-20 10:33] LABS: HEMATOCRIT 33.7 % (36-48); MEAN CORPUSCULAR HEMOGLOBIN 28.3 pg (27.0-33.0); MEAN CORPUSCULAR HGB CONC 33.2 g/dL (32.0-36.0); MEAN CORPUSCULAR VOLUME 85.1 fL (79-99); RED BLOOD CELL COUNT(AUTO) 3.96 MIL/uL (4.00-5.50); RED CELL DISTRIBUTION WIDTH 16.4 % (11.0-15.5); WHITE BLOOD COUNT (AUTO) 11.3 K/uL (4.8-10.8)
[2024-08-20 10:43] LABS: CREATININE 2.4 mg/dL (0.5-1.0); MAGNESIUM 1.9 mg/dL (1.80-2.40); POTASSIUM 3.6 mmol/L (3.5-5.1)
[2024-08-20] MEDS: MAGNESIUM 2GM PREMIX 50ML 50 ML IV PRN (10:49)
--- NOTE | 2024-08-20 11:15 | PN ---
[facility] PROGRESS NOTE Date of Service: August 20, 2024 Time of Service: 11:09 SUBJECTIVE: [ PATIENT IS 63 YEARS OLD FEMALE WITH A PAST MEDICAL HISTORY OF HYPERTENSION, FLU, CATARACT, CHOLECYSTECTOMY, HYSTERECTOMY, WHO CAME TO EMERGENCY DEPARTMENT WITH A COMPLAINT OF DECREASED APPETITE, FEVER, GENERALIZED BODY WEAKNESS. PATIENT STATED THAT SHE WENT TO HER PCP AFTER SHE WAS DIAGNOSED WITH INFLUENZA ABOUT A WEEK AGO, WHERE SHE COMPLAINED ABOUT ABOVE-STATED COMPLAINTS AND SHE WAS SENT TO EMERGENCY DEPARTMENT FOR FURTHER EVALUATION/RECOMMENDATION. PATIENT DENIES ANY CHEST PAIN, NAUSEA, VOMITING, SHORTNESS OF BREATHS OR ANY OTHER SYMPTOMS OTHER THAN STATED ABOVE. ] MOST RECENT VITAL SIGNS TEMPERATURE 97.9 ON ADMISSION IN ER WAS 102.9, PULSE 84 RESPIRATION 22 BLOOD PRESSURE 90/50 PATIENT IS ON ROOM AIR SATTING 93%. UA POSITIVE FOR LEUKOCYTOSIS. WBC 9.0 HEMATOCRIT 40.2 HEMOGLOBIN 13.9 PLATELETS 82. SODIUM 133 POTASSIUM 3.3 CO2 29 BUN 14 CREATININE 1.2 GFR 5 GLUCOS 106 LACTIC 1.8 CALCIUM 7.8 TROPONIN NEGATIVE X1. CHEST X-RAY SHOWED CLEAR LUNGS CARDIOMEGALY. 2D ECHO IS PENDING. PATIENT WILL BE ADMITTED UNDER HOSPITALIST CARE FOR FURTHER EVALUATION/RECOMMENDATION. PATIENT WAS PLACED ON VANCOMYCIN AND ZOSYN FOR THE SEPSIS. A.M. LABS. 08/17 patient was seen by nurse practitioner and physician during rounding in room 304. Urinalysis was positive on admission. Blood culture and urine cul ture pending at this moment. Patient continues to be on Zosyn and vancomycin. We will increase fluids from 100 mL/hour 220 mL/hour. Patient's A1c is 5.8. We will discontinue insulin sliding scale per protocol. Also patient's blood pressure has been on lower side. We will discontinue losartan. Home medication reconciled. 2D echo showed EF 55 to 60% normal diastolic function no pericardial effusion. Potassium today is 2.8. Patient received already two 20 mEq through IV potassium. Patient will also receive 40 mEq of potassium as well. We will continue to monitor patient in the meantime. A.m. labs. 08/18 at bedside, she had a low-grade fever overnight, this morning she is tachycardic. Urine and blood cultures have been no growth to date, platelets have decreased from 52 down to 37, AST mildly elevated, creatinine increased from 1.2 up to 1.5. Given that she is still having fevers on vancomycin and Zosyn she may have an atypical infection, we will order a murine typhus panel and start doxycycline. Discontinue vancomycin at this time. Infectious workup has been negative this time we will assess for possible underlying PE or DIC, we will order D-dimer, V/Q scan, fibrinogen, PT and PTT and follow up 08/19 patient seen at bedside, yesterday her blood pressure started to drop despite being on fluids and broad-spectrum antibiotics. She was also tachycardic. D-dimer was elevated as her platelets were low and she was assessed for DIC however fibrinogen was normal. A V/Q scan was done that did not show evidence of pulmonary embolism. She was moved to the ICU and started on pressor support. Creatinine increased from 1.5 up to 2.2 however she has been adequately perfused and she has not been receiving any nephrotoxic medications, bladder scan was ordered showing greater than 500 cc within the bladder concerning for postobstructive uropathy. Hobbs catheter was placed and approximately 800 cc drained immediately. She has swelling and bruising to the left upper extremity where the midline was placed, we will order a venous Doppler to rule out DVT. 08/20 patient is seen and examined, power chart reviewed, vital signs, laboratory tests and imaging tests reviewed. Discussed with the RN, patient off Levophed since earlier this morning. She is awake, following commands, alert oriented x3. Patient noted to have elevated D-dimer and thrombocytopenia, concern for DIC was raised, however fibrinogen was normal. A V/Q scan was negative for PE. The patient was upgraded to the ICU as the patient was getting tachycardic, with a hypotension. Patient had a maximum temperature 102.9 08/16/2024. Patient noted to have worsening renal function with a creatinine of 2.2 as of yesterday, bladder scan was done, showing greater than 500 cc of urine concerning for possible obstructive uropathy, Hobbs catheter inserted, proximally 800 cc was drained immediately. Today still elevated at 2.4, bicarbonate of 23. Patient is also noted to have some swollen and present to left upper extremity we will midline was placed, a venous Doppler of left upper extremity was done, no evidence of DVT. Doppler of both lower extremities also negative for DVT. Urine culture negative, blood culture negative. Patient had loose stools yesterday. at bedside. REVIEW OF SYSTEMS 12 point ROS negative unless noted in HPI PHYSICAL EXAM GENERAL APPEARANCE: The patient is awake, alert, and oriented, in no acute cardiopulmonary distress. NEUROLOGICAL: Cranial nerves II-XII grossly intact. Motor is 5/5 in bilateral upper and lower extremities proximal to distal. No sensory deficits. HEENT: Face is symmetric. Pupils are equal and reactive. Extraocular movements are intact. NECK: Supple. No JVD. No thyromegaly. No submental, submandibular, pre-/postauricular, occipital or supraclavicular lymphadenopathy. CHEST: Normal chest expansion. No Telemetry. LUNGS: Absence of any rales, rhonchi or any wheezing. CARDIOVASCULAR: Regular. S1 and S2 normal. No appreciable rubs, murmurs or gallops. ABDOMEN: Soft, nontender, and nondistended. There is no rebound, voluntary guarding, or rigidity. : Deferred. No Hobbs. EXTREMITIES: Non-edematous and not cyanotic. No clubbing. Good capillary refill. SKIN: No skin breakdown. Vital Signs (last 8hr) Date Time Temp Pulse Resp B/P (MAP) Pulse Ox O2 Delivery O2 Flow Rate FiO2 08/20/24 10:30 74 16 106/61 (76) 96 08/20/24 10:15 75 15 123/60 (81) 98 08/20/24 10:05 77 20 129/59 (82) 97 08/20/24 10:00 87 18 123/67 (85) 97 08/20/24 09:45 82 19 120/61 (80) 97 08/20/24 09:40 78 18 130/66 (87) 97 08/20/24 09:25 87 19 111/54 (73) 97 08/20/24 09:20 79 18 132/63 (86) 96 08/20/24 09:15 81 18 124/62 (82) 96 08/20/24 09:05 79 19 119/61 (80) 95 08/20/24 09:00 78 18 122/55 (77) 96 08/20/24 08:50 85 18 120/58 (78) 96 08/20/24 08:45 84 19 122/61 (81) 96 08/20/24 08:35 86 18 124/61 (82) 95 08/20/24 08:30 87 19 127/65 (85) 96 08/20/24 08:15 88 19 112/56 (74) 95 08/20/24 08:00 98.8 08/20/24 08:00 98.8 83 20 125/63 (83) 98 08/20/24 08:00 96 Room Air* 0 21 08/20/24 07:45 84 17 122/68 (86) 97 08/20/24 07:30 86 23 112/60 (77) 96 08/20/24 07:15 85 18 117/57 (77) 96 08/20/24 07:00 91 18 109/64 (79) 97 08/20/24 06:45 85 22 111/64 (80) 96 08/20/24 06:30 82 16 96/49 (65) 97 08/20/24 06:15 85 17 104/53 (70) 96 08/20/24 06:00 93 19 119/63 (81) 97 08/20/24 05:45 84 15 106/57 (73) 97 08/20/24 05:30 85 19 113/59 (77) 96 08/20/24 05:15 87 20 116/60 (78) 97 08/20/24 05:00 99 36 110/55 (73) 95 08/20/24 04:45 91 28 96/52 (67) 95 08/20/24 04:30 92 32 105/48 (67) 95 08/20/24 04:15 98 27 92/39 (56) 95 08/20/24 04:00 96 Room Air* 0 21 08/20/24 04:00 89 21 94/42 (59) 95 08/20/24 04:00 97.9 08/20/24 03:45 91 24 99/39 (59) 94 08/20/24 03:30 91 24 97/48 (64) 95 08/20/24 03:15 92 26 100/50 (67) 95 LABS: Laboratory: Test 08/20/24 10:26 08/19/24 19:33 08/19/24 07:52 08/19/24 06:28 Range/Units White Blood Count 11.3 H 4.8-10.8 K/uL Red Blood Count 3.96 L 4.00-5.50 MIL/uL Hemoglobin 11.2 L 12.0-16.0 g/dL Hematocrit 33.7 L 36-48 % Mean Corpuscular Volume 85.1 79-99 fL Mean Corpuscular Hemoglobin 28.3 27.0-33.0 pg Mean Corpuscular Hemoglobin Concent 33.2 32.0-36.0 g/dL Red Cell Distribution Width 16.4 H 11.0-15.5 % Platelet Count 53 L 130-400 K/uL Mean Platelet Volume 12.8 H 7.5-10.5 fL Nucleated Red Blood Cells 0.0 0.0-0.19 % Sodium Level 143 136-145 mmol/L Potassium Level 3.6 3.5-5.1 mmol/L Chloride Level 110 101-111 mmol/L Carbon Dioxide Level 23 21-32 mmol/L Blood Urea Nitrogen 32 H 7-18 mg/dL Creatinine 2.4 H 0.5-1.0 mg/dL Glomerular Filtration Rate Calc 22 >90 mL/min Random Glucose 97 70-105 mg/dL Total Calcium 7.6 L 8.5-10.1 mg/dL Magnesium Level 1.90 1.80-2.40 mg/dL Whole Blood Glucose 120 H 70-110 MG/DL HIV (1&2) Antibody Non-Reactive Negative HIV P24 Antigen, Qualitative Non-Reactive Negative Immature Granulocyte % (Auto) 1.5 H 0-1 % Neutrophils (%) (Auto) 83.2 H 40.0-77.0 % Lymphocytes (%) (Auto) 12.0 L 21.0-51.0 % Monocytes (%) (Auto) 1.4 L 3.0-13.0 % Eosinophils (%) (Auto) 0.9 0.0-8.0 % Basophils (%) (Auto) 1.0 0.0-5.0 % Neutrophils # (Auto) 7.6 1.8-7.7 K/uL Lymphocytes # (Auto) 1.1 1.0-4.8 K/uL Monocytes # (Auto) 0.1 0.1-1.0 K/uL Eosinophils # (Auto) 0.08 0.00-0.70 K/uL Basophils # (Auto) 0.09 0.00-0.20 K/uL Absolute Immature Granulocyte (auto 0.14 0-1 K/uL Prothrombin Time 11.9 H 9.6-11.6 SEC Prothromb Time International Ratio 1.14 0.85-1.15 Activated Partial Thromboplast Time > 139.0 #*H 26.3-35.5 SEC Lactic Acid Level 1.5 0.8-2.5 mmol/L Total Bilirubin 0.9 0.2-1.0 mg/dL Aspartate Amino Transf (AST/SGOT) 119 H 10-37 U/L Alanine Aminotransferase (ALT/SGPT) 52 12-78 U/L Alkaline Phosphatase 93 50-136 U/L Total Protein 5.5 L 6.0-8.3 g/dL Albumin 1.9 L 3.5-5.0 g/dL Test 08/19/24 05:07 08/18/24 13:58 Range/Units Blood Gas Specimen Type Arterial Arterial Blood pH 7.398 7.350-7.450 Arterial Blood Partial Pressure CO2 36 32-45 mmHg Arterial Blood Partial Pressure O2 94.5 83.0-108.0 mmHg Arterial Blood HCO3 21.7 21.0-28.0 mmol/L Arterial Blood Oxygen Saturation 97.3 94.0-98.0 % Arterial Blood Base Excess -2.6 L -2.0-3.0 mmol/L Hemoglobin (Blood Gas) 12.3 12.0-16.0 g/dL Sodium (Blood Gas) 132 L 136-145 MMOL/L Bedside Potassium (Blood Gas) 3.1 L 3.4-4.5 MMOL/L Bedside Chloride (Blood Gas) 103 98-107 MMOL/L Bedside Glucose (Blood Gas) 111 H 65-95 MG/DL Bedside Ionized Calcium (Blood Gas) 1.10 L 1.15-1.33 MMOL/L Bedside Lactic Acid (Blood Gas) 1.11 H 0.36-0.75 MMOL/L Blood Gas Temperature 37.0 35.5-37.0 CELSIUS Blood Gas Flow-by 2.00 0.00-15.00 L/min Blood Gas Vent Mode CANNULA ROOM AIR FiO2 28.0 % Blood Gas Specimen Comment RR Fibrinogen 339 180-350 mg/dL D-Dimer Quantitative (PE/DVT) > 93639 *H 0-500 ng/mL Current Medications Medications (Trade) Dose Ordered Sig/Amy Route PRN Reason Start Time Stop Time Status Last Admin Dose Admin Acetaminophen (TYLenol 325MG TAB) 650 mg Q4H PRN PO MILD PAIN (1-3) 08/16/24 16:30 09/15/24 16:29 Acetaminophen (TYLenol 325MG TAB) 650 mg Q6H PRN PO MILD PAIN (1-3) 08/16/24 16:30 08/17/24 09:03 DC Acetaminophen (TYLenol 325MG TAB) 650 mg Q6H PRN PO TEMPERATURE GREATER THAN 101.5 08/16/24 16:30 09/15/24 16:29 08/17/24 03:32 650 MG Al Hydroxide/Mg Hydroxide (MAALox PLUS 30ML) 30 ml Q6H PRN PO INDIGESTION 08/16/24 16:30 09/15/24 16:29 Albumin Human 50 ml @ 100 mls/hr AD IV 08/19/24 01:30 08/19/24 01:21 DC Dextrose (D50w) 50 ml AD PRN IV HYPOGLYCEMIA PROTOCOL 08/16/24 16:30 09/15/24 16:29 Diphenhydramine HCl (BENAdryl INJ) 25 mg Q6H PRN IV SEVERE ITCHING/RASH 08/16/24 16:30 09/15/24 16:29 Doxycycline Hyclate 250 ml @ 125 mls/hr Q12H IV 08/18/24 09:00 08/28/24 08:59 08/20/24 08:43 125 MLS/HR Famotidine (Pepcid 20mg Vial) 20 mg HS IV 08/16/24 21:00 09/15/24 20:59 08/19/24 20:26 20 MG Famotidine (Pepcid 20mg Vial) 20 mg HS PRN IV NAUSEA/VOMITING 08/16/24 16:30 08/17/24 09:03 DC Glucagon (Glucagon 1mg Kit) 1 mg AD PRN IM HYPOGLYCEMIA PROTOCOL 08/16/24 16:30 09/15/24 16:29 Guaifenesin/ Dextromethorphan (RobiTUSSin DM 200/20MG 10ML) 10 ml Q4H PRN PO COUGH 08/16/24 16:30 09/15/24 16:29 Heparin Sodium (Porcine) (HEParin 5,000 UNIT VIAL) *calculation based on ACTUAL B... AD PRN IV HEPARIN PROTOCOL 08/18/24 16:30 08/19/24 04:54 DC 08/18/24 16:21 6,000 UNIT Heparin Sodium (Porcine) (HEParin 5,000 UNIT VIAL) 5,000 unit BID SQ 08/16/24 21:00 08/18/24 07:05 DC 08/16/24 21:35 5,000 UNIT Heparin Sodium/ Dextrose 250 ml @ 0 mls/hr Q6H IV 08/18/24 16:30 08/19/24 06:01 DC 08/18/24 16:20 13.98 MLS/HR Home Med (Home Medication) (Meloxicam, Submicronized (Vivlodex... DAILY PO 08/18/24 09:00 08/18/24 07:05 DC Hydralazine HCl (APRESOLine 20MG INJ) 10 mg Q6H PRN IV For:SBP above 160;DBP above 90 08/16/24 16:30 09/15/24 16:29 Insulin Human Regular (humuLIN R 100 UNIT/ML 3ML) INSULIN SLIDING SCAL... ACHS SQ 08/16/24 16:30 09/15/24 16:29 Ketorolac Tromethamine (toRADol) 15 mg Q8H PRN IV MODERATE PAIN (4-6) 08/16/24 16:30 08/21/24 16:29 08/18/24 19:15 15 MG Lactulose (Constulose 20gm/ 30ml Udcup) 20 gm BID PRN PO CONSTIPATION 08/16/24 16:30 09/15/24 16:29 Losartan Potassium (CozAAR 100MG TAB) 100 mg DAILY PO 08/18/24 09:00 08/17/24 13:09 DC Magnesium Sulfate 50 ml @ 0 mls/hr PROTOCOL PRN IV other 08/16/24 16:30 09/15/24 16:29 08/20/24 10:49 25 MLS/HR Midodrine (PROAMatine 5 MG TABLET) 5 mg TID PO 08/18/24 13:00 08/19/24 13:02 DC 08/19/24 08:32 5 MG Midodrine (PROAMatine 5 MG TABLET) 20 mg TID PO 08/19/24 13:30 09/18/24 13:29 08/20/24 08:42 20 MG Nitroglycerin (Nitrostat) 0.4 mg PROTOCOL PRN SL CHEST PAIN 08/16/24 16:30 09/15/24 16:29 Norepinephrine 250 ml @ 0 mls/hr PROTOCOL IV 08/19/24 03:00 09/18/24 02:59 08/19/24 15:55 15.31 MLS/HR Ondansetron HCl (zoFRAN 4MG INJ) 4 mg Q6H PRN IV NAUSEA/VOMITING 08/16/24 16:30 09/15/24 16:29 Oxycodone/ Acetaminophen (perCOCET) 1 tab Q6H PRN PO SEVERE PAIN (7-10) 08/16/24 16:30 08/23/24 16:29 08/16/24 23:04 1 TAB Piperacillin Sod/ Tazobactam Sod 50 ml @ 12.5 mls/hr ZOSY8 IV 08/16/24 21:00 08/26/24 20:59 08/20/24 05:26 12.5 MLS/HR Potassium Chloride 100 ml @ 100 mls/hr AD PRN IV POTASSIUM PROTOCOL 08/16/24 16:30 09/15/24 16:29 08/17/24 05:28 100 MLS/HR Potassium Chloride (K-Dur 10meq Sr Tab) 10 meq AD PRN PO POTASSIUM PROTOCOL 08/17/24 09:30 09/15/24 16:29 08/18/24 08:26 10 MEQ Potassium Chloride (K-Dur/Klor-Con 20meq) 10 meq AD PRN PO POTASSIUM PROTOCOL 08/16/24 16:30 08/17/24 09:04 DC 08/17/24 08:12 10 MEQ Potassium Chloride (KCl 10% Elixir 20meq/15ml) 10 meq AD PRN PO POTASSIUM PROTOCOL 08/16/24 16:30 09/15/24 16:29 Pregabalin (LYRica 25MG) 50 mg BID PO 08/17/24 21:00 09/16/24 20:59 08/19/24 20:27 50 MG Simethicone (Mylicon) 80 mg Q8H PRN PO GI GAS 08/19/24 21:00 09/18/24 20:59 08/19/24 21:43 80 MG Sodium Chloride 1,000 ml @ 120 mls/hr Q8H20M IV 08/16/24 16:30 09/15/24 16:29 08/20/24 05:26 120 MLS/HR Trazodone HCl (DesyREL/OlepTRO) 100 mg HS PO 08/17/24 21:00 09/16/24 20:59 08/19/24 20:27 100 MG Vancomycin HCl 250 ml @ 125 mls/hr Q24H IV 08/16/24 17:00 08/18/24 08:48 DC 08/17/24 18:11 125 MLS/HR Vancomycin HCl (Vancomycin Protocol) 1 each PROTOCOL PRN IV VANCOMYCIN PROTOCOL 08/16/24 16:30 08/18/24 08:48 DC Zolpidem Tartrate (AmbIEN) 5 mg HS PRN PO INSOMNIA 08/16/24 16:30 09/15/24 16:29 DIAGNOSTICS / RADIOLOGY: [ ] ASSESSMENT: ACUTE SEPSIS POA SEPTIC SHOCK GENERALIZED BODY WEAKNESS POA ACUTE KIDNEY INJURY POA URINARY RETENTION POSTOBSTRUCTIVE UROPATHY ACUTE DEHYDRATION POA ACUTE COMPLICATED CYSTITIS POA ELECTROLYTE IMBALANCE HYPONATREMIA NA 133, HYPOKALEMIA 3.3 HYPOCALCEMIA 7.8 POA UNCONTROLLED HYPERTENSION POA THROMBOCYTOPENIA POA HISTORY OF CATARACT HISTORY OF CHOLECYSTECTOMY HISTORY OF HYSTERECTOMY HISTORY OF KIDNEY STONES HISTORY OF HYDRONEPHROSIS PLAN: PATIENT REMAINS ADMITTED TO THE ICU CRITICAL CARE CONSULTATION REQUESTED, INPUT NOTED AND APPRECIATED WEAN OFF PRESSORS NEEDED CONTINUE BROAD-SPECTRUM IV ANTIBIOTICS REQUEST ID CONSULTATION FOR CONCERNS OF POSSIBLE SEPTIC SHOCK ULTRASOUND ABDOMEN NONOBSTRUCTING LEFT NEPHROLITHIASIS ECHOCARDIOGRAM LVEF 55-60%. REQUESTED STOOL STUDIES. NEURO: MINIMIZE CENTRAL ACTING MEDICATIONS POSSIBLE. FALL PRECAUTIONS. WELL LIGHTED ROOM THROUGH THE DAY AND MINIMIZE INTERRUPTIONS THROUGH THE NIGHT TO PREVENT ACUTE DELIRIUM. PULMONARY: SUPPLEMENTAL 02 NEEDED BIPAP NECESSARY, FOR RESPIRATORY DISTRESS TITRATE FIO2 TO KEEP SPO2 > OR = 90% DUONEBS AND CPT NEEDED IS HOURLY WHILE AWAKE FOR PULMONARY HYGIENE PRN OUT OF BED TO CHAIR TOLERATED MAINTAIN ASPIRATION PRECAUTIONS AT ALL TIMES CARDIOVASCULAR: FOLLOW HEMODYNAMICS. VITAL SIGNS PER FACILITY PROTOCOL GI & NUTRITION: CONTINUE NUTRITIONAL SUPPORT ASPIRATIONS PRECAUTIONS PROKINETIC AGENTS AND LAXATIVES NEEDED KIDNEYS & ELECTROLYTES: STRICT MONITORING OF INTAKE AND OUTPUT DAILY WEIGHTS AVOID NEPHROTOXIC AGENTS MONITOR ELECTROLYTES AND REPLACE NEEDED GOAL URINE OUTPUT OF 30ML/HR OR 0.5ML/KG/HR MEDICATIONS TO BE DOSED ACCORDING TO RENAL FUNCTION. AVOID CONTRAST IF POSSIBLE ENDOCRINE: MAINTAIN BLOOD GLUCOSE BETWEEN 100-180 AT ALL TIMES. INSULIN SLIDING SCALE FOR BLOOD GLUCOSE MANAGEMENT HYPOGLYCEMIA AND HYPERGLYCEMIA PROTOCOL IN PLACE INFECTIOUS DISEASE: TREND TEMPERATURE, WBC AND PROCALCITONIN LEVEL FOLLOW CULTURES, DEESCALATE ANTIBIOTICS SOON POSSIBLE. PANCULTURE IF NEW ONSET FEVER HEMATOLOGY & COAGULATION: MONITOR H&H. KEEP HGB > 7 TRANSFUSE 1 UNIT OF PRBC FOR HGB < 7 TRANSFUSE 1 PACK OF PLATELETS OF PLATELETS < 20, 000 WATCH FOR ANY SIGNS AND SYMPTOMS OF BLEEDING SKIN: PRESSURE ULCER PREVENTION PER FACILITY PROTOCOL SPECIALTY MATTRESS NEEDED ORTHO/REHAB CONTINUE PT/OT PRN: MEDICATIONS TYLENOL 650 MG PO EVERY 4 HRS FOR FEVER ZOFRAN 4 MG IV EVERY 6 HRS FOR N/V HYDRALAZINE 5 MG IV EVERY 4 HRS SYSTOLIC PRESSURE > 160 BOWEL REGIMENT: LACTULOSE 20 GM PO BID PRN CONSTIPATION SUPPORTIVE MEASURES: CONTINUE GI AND DVT PROPHYLAXIS DISPOSITION: PENDING IMPROVEMENT IN CLINICAL CONDITION ALL QUESTIONS ANSWERED TIME SPENT: > 35 MIN JUANITO PENNY MD August 20, 2024 11:15
[2024-08-20] MEDS ORDERED: [UNRECOGNIZED DRUG - CODE] PO (11:36)
[2024-08-20] MEDS ORDERED: VITAD50000 PO (11:36)
[2024-08-20] MEDS ORDERED: OSEL75CA17 PO (11:36)
[2024-08-20] MEDS ORDERED: AMOX500C2 PO (11:36)
[2024-08-20] MEDS: furoSEMIDE 40MG VIAL IV ONE (12:42)
--- NOTE | 2024-08-20 13:00 | PN ---
[facility] PROGRESS NOTE Date Patient Seen: August 20, 2024 Time of Visit: 13:00 Supervising Physician: Dr. Castellon Primary Care Physician: Harris Rankin Outpatient Specialists: [ ] Inpatient Consults: [ ] PROBLEM LIST Acute sepsis and shock suspected from the urinary tract source. Acute complicated cystitis, final culture showing mixed franci contamination. Acute urinary retention status post Hobbs catheter insertion. Elevated D-dimer V/Q scan negative for PE. YULIA subtherapeutic from obstructive uropathy. Electrolyte imbalance. Hypertension. Thrombocytopenia. Recent diagnosis of influenza, repeat serology was negative. INTERVAL HISTORY: 08/20/2024: At the time of my evaluation, the patient was lying in bed. The staff nurse reports no acute events overnight. Blood pressure macias, the major changes of concern. Laboratory data showed no changes of concern. Chest x-ray today showed small bilateral pleural effusion. Cultures are in progress. Patient on levophed and on p.o. midodrine. She is also on antibiotic therapy as ordered. No other complaint REVIEW OF SYSTEMS: 12 point ROS reviewed with patient. Pertinent positives mentioned above. Othe rwise negative. PHYSICAL EXAM: GENERAL: alert, weak, awake oriented x 3 HEENT: EOMI, Sclera non icteric, moist mucosa NECK: Supple, no JVD, trachea midline LUNGS: Clear breath sounds bilaterally. No wheezes HEART: Regular rate and rhythm. Normal S1 and S2, without murmurs ABD: Abdomen soft, nontender. Bowel sounds present EXT: No clubbing cyanosis or edema NEURO: Alert and oriented to person, follows commands Vital Signs (last 8hr) Date Time Temp Pulse Resp B/P (MAP) Pulse Ox O2 Delivery O2 Flow Rate FiO2 08/20/24 12:43 82 19 135/67 99 Room Air 08/20/24 12:00 84 18 140/66 99 Room Air 08/20/24 12:00 99 Room Air* 0 21 08/20/24 11:45 83 19 126/74 98 Room Air 08/20/24 11:30 97.5 80 17 119/58 99 Room Air 08/20/24 11:15 86 18 125/68 97 Room Air 08/20/24 11:00 82 18 122/72 (89) 97 08/20/24 10:45 80 17 129/55 (79) 97 08/20/24 10:30 74 16 106/61 (76) 96 08/20/24 10:15 75 15 123/60 (81) 98 08/20/24 10:05 77 20 129/59 (82) 97 08/20/24 10:00 87 18 123/67 (85) 97 08/20/24 09:45 82 19 120/61 (80) 97 08/20/24 09:40 78 18 130/66 (87) 97 08/20/24 09:25 87 19 111/54 (73) 97 08/20/24 09:20 79 18 132/63 (86) 96 08/20/24 09:15 81 18 124/62 (82) 96 08/20/24 09:05 79 19 119/61 (80) 95 08/20/24 09:00 78 18 122/55 (77) 96 08/20/24 08:50 85 18 120/58 (78) 96 08/20/24 08:45 84 19 122/61 (81) 96 08/20/24 08:35 86 18 124/61 (82) 95 08/20/24 08:30 87 19 127/65 (85) 96 08/20/24 08:15 88 19 112/56 (74) 95 08/20/24 08:00 98.8 08/20/24 08:00 98.8 83 20 125/63 (83) 98 08/20/24 08:00 96 Room Air* 0 21 08/20/24 07:45 84 17 122/68 (86) 97 08/20/24 07:30 86 23 112/60 (77) 96 08/20/24 07:15 85 18 117/57 (77) 96 08/20/24 07:00 91 18 109/64 (79) 97 08/20/24 06:45 85 22 111/64 (80) 96 08/20/24 06:30 82 16 96/49 (65) 97 08/20/24 06:15 85 17 104/53 (70) 96 08/20/24 06:00 93 19 119/63 (81) 97 08/20/24 05:45 84 15 106/57 (73) 97 08/20/24 05:30 85 19 113/59 (77) 96 08/20/24 05:15 87 20 116/60 (78) 97 LABS: Hematology Labs: Test 08/20/24 10:26 08/19/24 06:28 Range/Units White Blood Count 11.3 H 4.8-10.8 K/uL Red Blood Count 3.96 L 4.00-5.50 MIL/uL Hemoglobin 11.2 L 12.0-16.0 g/dL Hematocrit 33.7 L 36-48 % Mean Corpuscular Volume 85.1 79-99 fL Mean Corpuscular Hemoglobin 28.3 27.0-33.0 pg Mean Corpuscular Hemoglobin Concent 33.2 32.0-36.0 g/dL Red Cell Distribution Width 16.4 H 11.0-15.5 % Platelet Count 53 L 130-400 K/uL Mean Platelet Volume 12.8 H 7.5-10.5 fL Nucleated Red Blood Cells 0.0 0.0-0.19 % Immature Granulocyte % (Auto) 1.5 H 0-1 % Neutrophils (%) (Auto) 83.2 H 40.0-77.0 % Lymphocytes (%) (Auto) 12.0 L 21.0-51.0 % Monocytes (%) (Auto) 1.4 L 3.0-13.0 % Eosinophils (%) (Auto) 0.9 0.0-8.0 % Basophils (%) (Auto) 1.0 0.0-5.0 % Neutrophils # (Auto) 7.6 1.8-7.7 K/uL Lymphocytes # (Auto) 1.1 1.0-4.8 K/uL Monocytes # (Auto) 0.1 0.1-1.0 K/uL Eosinophils # (Auto) 0.08 0.00-0.70 K/uL Basophils # (Auto) 0.09 0.00-0.20 K/uL Absolute Immature Granulocyte (auto 0.14 0-1 K/uL Chemistry Labs: Test 08/20/24 10:26 08/19/24 19:33 08/19/24 06:28 Range/Units Sodium Level 143 136-145 mmol/L Potassium Level 3.6 3.5-5.1 mmol/L Chloride Level 110 101-111 mmol/L Carbon Dioxide Level 23 21-32 mmol/L Blood Urea Nitrogen 32 H 7-18 mg/dL Creatinine 2.4 H 0.5-1.0 mg/dL Glomerular Filtration Rate Calc 22 >90 mL/min Random Glucose 97 70-105 mg/dL Total Calcium 7.6 L 8.5-10.1 mg/dL Magnesium Level 1.90 1.80-2.40 mg/dL Whole Blood Glucose 120 H 70-110 MG/DL Lactic Acid Level 1.5 0.8-2.5 mmol/L Total Bilirubin 0.9 0.2-1.0 mg/dL Aspartate Amino Transf (AST/SGOT) 119 H 10-37 U/L Alanine Aminotransferase (ALT/SGPT) 52 12-78 U/L Alkaline Phosphatase 93 50-136 U/L Total Protein 5.5 L 6.0-8.3 g/dL Albumin 1.9 L 3.5-5.0 g/dL Coagulation Labs: Test 08/19/24 06:28 08/18/24 13:58 Range/Units Prothrombin Time 11.9 H 9.6-11.6 SEC Prothromb Time International Ratio 1.14 0.85-1.15 Activated Partial Thromboplast Time > 139.0 #*H 26.3-35.5 SEC Fibrinogen 339 180-350 mg/dL D-Dimer Quantitative (PE/DVT) > 01567 *H 0-500 ng/mL DIAGNOSTICS / RADIOLOGY RESULTS: [ ] PLAN For now, we are going to continue current management for the patient. We are going to to continue pressor therapy and we will add midodrine 20 mg p.o. t.i.d. and once blood pressure stabilized we will wean off the pressor therapy. The patient is going to continue on antibiotic coverage with Zosyn and doxy. We will continue assessing the renal parameters for improvement. Hobbs catheter will remain in place. We will replace electrolyte imbalance as necessary. We will monitor the patient's progress and response to management. We will continue to provide general supportive care, GI and DVT prophylaxis. Thank you for allowing us to participate in patient care. 08/20/2024: For now, we are going to continue current management for the patient. Patient will discontinue levophed and continue on midodrine. We will monitor the blood pressure trend. We are going to continue antibiotic therapy as ordered. We will repeat surveillance labs in the morning. We will monitor the patient's progress and response to management. We will continue to provide general supportive care, GI and DVT prophylaxis. Further orders per attending MD and hospital course. NEURO: Minimize central acting medications as possible. Fall Precautions. Well lighted room through the day and minimize interruptions through the night to prevent acute delirium. PULMONARY: Supplemental 02 as needed Titrate Fio2 to keep Spo2 > or = 90% DuoNebs and CPT as needed IS hourly while awake for pulmonary hygiene Out of bed to chair as tolerated VAP Bundle CARDIOVASCULAR: Follow hemodynamics. Titrate vasopressor to keep MAP >65 or systolic blood pressure >95mmHg DIPS: Levophed LINES: Zosyn/Doxy GI & NUTRITION: Continue nutritional support Aspirations precautions Prokinetic agents and laxatives as needed KIDNEYS & ELECTROLYTES: Strict monitoring of intake and output Daily weights Avoid nephrotoxic agents Monitor electrolytes and replace as needed Goal urine output of 30mL/hr or 0.5mL/kg/hr Urine output: [ ] Fluid Balance: [ ] ENDOCRINE: Maintain blood glucose between 100-180 at all times. Insulin sliding scale for blood glucose management INFECTIOUS DISEASE: Trend temperature. Spencer-culture if febrile. Micro: [ ] Antibiotics: [ ] HEMATOLOGY & COAGULATION: Monitor H&H. Keep Hgb > 7 Transfuse 1 unit of PRBC for Hgb < 7 Transfuse 1 pack of platelets of platelets < 20, 000 Watch for any signs and symptoms of bleeding SKIN: Pressure ulcer prevention per facility protocol Rehab: PT/OT Prophylaxis: GI: [ ] DVT: [ ] Code Status: Full Resuscitation Disposition: ICU Other: I personally spent 40 minutes of critical care time in treatment of this patient. This includes patient management, time at bedside, time reviewing tests, labs, appropriate images and studies, documentation, and patient care coordination. This time excludes separately billable procedures. Patient was seen and case discussed with shanelle TAYLOR. Plan of care was discussed and agreed upon REYMUNDO WALKER NP August 20, 2024 13:00
--- NOTE | 2024-08-20 14:34 | HMCIMG ---
Exam Type: CHEST 1VW Clinical Information: SOB Comparison: None Findings and impression: Cardiomegaly. Small bilateral pleural effusions. Lungs clear of infiltrates.
--- NOTE | 2024-08-20 14:57 | PN ---
INFECTIOUS DISEASE PROGRESS NOTE SUBJECTIVE: [ ] Vital Sign (Last 12 Hours) 08/20/24 08/20/24 08/20/24 08/20/24 03:00 03:15 03:30 03:45 Pulse 81 92 91 91 Resp 17 26 24 24 B/P (MAP) 92/48 (63) 100/50 (67) 97/48 (64) 99/39 (59) Pulse Ox 95 95 95 94 08/20/24 08/20/24 08/20/24 08/20/24 04:00 04:00 04:00 04:15 Temp 97.9 Pulse 89 98 Resp 21 27 B/P (MAP) 94/42 (59) 92/39 (56) Pulse Ox 95 96 95 O2 Delivery Room Air* O2 Flow Rate 0 FiO2 21 08/20/24 08/20/24 08/20/24 08/20/24 04:30 04:45 05:00 05:15 Pulse 92 91 99 87 Resp 32 28 36 20 B/P (MAP) 105/48 (67) 96/52 (67) 110/55 (73) 116/60 (78) Pulse Ox 95 95 95 97 08/20/24 08/20/24 08/20/24 08/20/24 05:30 05:45 06:00 06:15 Pulse 85 84 93 85 Resp 19 15 19 17 B/P (MAP) 113/59 (77) 106/57 (73) 119/63 (81) 104/53 (70) Pulse Ox 96 97 97 96 08/20/24 08/20/24 08/20/24 08/20/24 06:30 06:45 07:00 07:15 Pulse 82 85 91 85 Resp 16 22 18 18 B/P (MAP) 96/49 (65) 111/64 (80) 109/64 (79) 117/57 (77) Pulse Ox 97 96 97 96 08/20/24 08/20/24 08/20/24 08/20/24 07:30 07:45 08:00 08:00 Temp 98.8 Pulse 86 84 83 Resp 23 17 20 B/P (MAP) 112/60 (77) 122/68 (86) 125/63 (83) Pulse Ox 96 97 96 98 O2 Delivery Room Air* O2 Flow Rate 0 FiO2 21 08/20/24 08/20/24 08/20/24 08/20/24 08:00 08:15 08:30 08:35 Temp 98.8 Pulse 88 87 86 Resp 19 19 18 B/P (MAP) 112/56 (74) 127/65 (85) 124/61 (82) Pulse Ox 95 96 95 08/20/24 08/20/24 08/20/24 08/20/24 08:45 08:50 09:00 09:05 Pulse 84 85 78 79 Resp 19 18 18 19 B/P (MAP) 122/61 (81) 120/58 (78) 122/55 (77) 119/61 (80) Pulse Ox 96 96 96 95 08/20/24 08/20/24 08/20/24 08/20/24 09:15 09:20 09:25 09:40 Pulse 81 79 87 78 Resp 18 18 19 18 B/P (MAP) 124/62 (82) 132/63 (86) 111/54 (73) 130/66 (87) Pulse Ox 96 96 97 97 08/20/24 08/20/24 08/20/24 08/20/24 09:45 10:00 10:05 10:15 Pulse 82 87 77 75 Resp 19 18 20 15 B/P (MAP) 120/61 (80) 123/67 (85) 129/59 (82) 123/60 (81) Pulse Ox 97 97 97 98 08/20/24 08/20/24 08/20/24 08/20/24 10:30 10:45 11:00 11:15 Pulse 74 80 82 86 Resp 16 17 18 18 B/P (MAP) 106/61 (76) 129/55 (79) 122/72 (89) 125/68 Pulse Ox 96 97 97 97 O2 Delivery Room Air 08/20/24 08/20/24 08/20/24 08/20/24 11:30 11:45 12:00 12:00 Temp 97.5 Pulse 80 83 84 Resp 17 19 18 B/P (MAP) 119/58 126/74 140/66 Pulse Ox 99 98 99 99 O2 Delivery Room Air Room Air Room Air* Room Air O2 Flow Rate 0 FiO2 21 08/20/24 08/20/24 08/20/24 08/20/24 12:43 12:45 13:00 13:15 Pulse 82 76 85 85 Resp 19 16 19 18 B/P (MAP) 135/67 133/68 132/66 131/63 Pulse Ox 99 98 97 97 O2 Delivery Room Air Room Air Room Air Room Air Intake & Output (last 24hrs) 08/19/24 08/19/24 08/20/24 15:00 23:00 07:00 Intake Total 1851.5 ml 1619.4 ml 1082.8 ml Output Total 1300 ml 700 ml Balance 1851.5 ml 319.4 ml 382.8 ml LABS: Laboratory: Test 08/20/24 10:26 08/19/24 19:33 08/19/24 07:52 08/19/24 06:28 Range/Units White Blood Count 11.3 H 4.8-10.8 K/uL Red Blood Count 3.96 L 4.00-5.50 MIL/uL Hemoglobin 11.2 L 12.0-16.0 g/dL Hematocrit 33.7 L 36-48 % Mean Corpuscular Volume 85.1 79-99 fL Mean Corpuscular Hemoglobin 28.3 27.0-33.0 pg Mean Corpuscular Hemoglobin Concent 33.2 32.0-36.0 g/dL Red Cell Distribution Width 16.4 H 11.0-15.5 % Platelet Count 53 L 130-400 K/uL Mean Platelet Volume 12.8 H 7.5-10.5 fL Nucleated Red Blood Cells 0.0 0.0-0.19 % Sodium Level 143 136-145 mmol/L Potassium Level 3.6 3.5-5.1 mmol/L Chloride Level 110 101-111 mmol/L Carbon Dioxide Level 23 21-32 mmol/L Blood Urea Nitrogen 32 H 7-18 mg/dL Creatinine 2.4 H 0.5-1.0 mg/dL Glomerular Filtration Rate Calc 22 >90 mL/min Random Glucose 97 70-105 mg/dL Total Calcium 7.6 L 8.5-10.1 mg/dL Magnesium Level 1.90 1.80-2.40 mg/dL Whole Blood Glucose 120 H 70-110 MG/DL HIV (1&2) Antibody Non-Reactive Negative HIV P24 Antigen, Qualitative Non-Reactive Negative Immature Granulocyte % (Auto) 1.5 H 0-1 % Neutrophils (%) (Auto) 83.2 H 40.0-77.0 % Lymphocytes (%) (Auto) 12.0 L 21.0-51.0 % Monocytes (%) (Auto) 1.4 L 3.0-13.0 % Eosinophils (%) (Auto) 0.9 0.0-8.0 % Basophils (%) (Auto) 1.0 0.0-5.0 % Neutrophils # (Auto) 7.6 1.8-7.7 K/uL Lymphocytes # (Auto) 1.1 1.0-4.8 K/uL Monocytes # (Auto) 0.1 0.1-1.0 K/uL Eosinophils # (Auto) 0.08 0.00-0.70 K/uL Basophils # (Auto) 0.09 0.00-0.20 K/uL Absolute Immature Granulocyte (auto 0.14 0-1 K/uL Prothrombin Time 11.9 H 9.6-11.6 SEC Prothromb Time International Ratio 1.14 0.85-1.15 Activated Partial Thromboplast Time > 139.0 #*H 26.3-35.5 SEC Lactic Acid Level 1.5 0.8-2.5 mmol/L Total Bilirubin 0.9 0.2-1.0 mg/dL Aspartate Amino Transf (AST/SGOT) 119 H 10-37 U/L Alanine Aminotransferase (ALT/SGPT) 52 12-78 U/L Alkaline Phosphatase 93 50-136 U/L Total Protein 5.5 L 6.0-8.3 g/dL Albumin 1.9 L 3.5-5.0 g/dL Test 08/19/24 05:07 Range/Units Blood Gas Specimen Type Arterial Arterial Blood pH 7.398 7.350-7.450 Arterial Blood Partial Pressure CO2 36 32-45 mmHg Arterial Blood Partial Pressure O2 94.5 83.0-108.0 mmHg Arterial Blood HCO3 21.7 21.0-28.0 mmol/L Arterial Blood Oxygen Saturation 97.3 94.0-98.0 % Arterial Blood Base Excess -2.6 L -2.0-3.0 mmol/L Hemoglobin (Blood Gas) 12.3 12.0-16.0 g/dL Sodium (Blood Gas) 132 L 136-145 MMOL/L Bedside Potassium (Blood Gas) 3.1 L 3.4-4.5 MMOL/L Bedside Chloride (Blood Gas) 103 98-107 MMOL/L Bedside Glucose (Blood Gas) 111 H 65-95 MG/DL Bedside Ionized Calcium (Blood Gas) 1.10 L 1.15-1.33 MMOL/L Bedside Lactic Acid (Blood Gas) 1.11 H 0.36-0.75 MMOL/L Blood Gas Temperature 37.0 35.5-37.0 CELSIUS Blood Gas Flow-by 2.00 0.00-15.00 L/min Blood Gas Vent Mode CANNULA ROOM AIR FiO2 28.0 % Blood Gas Specimen Comment RR DIAGNOSTICS / RADIOLOGY: [ ] S[employer] August 20, 2024 14:56
--- NOTE | 2024-08-20 15:13 | CONS ---
INFECTIOUS DISEASE CONSULTATION NOTE Date of Service: August 20, 2024 Reason for Consultation: Septic shock. Requesting Physician: Dr. Pollo Emery. HISTORY OF PRESENT ILLNESS: This is a 63-year-old female patient with past medical history of hypertension and fibromyalgia who presented to the emergency room for chief complaint of fever, generalized body weakness and decreased appetite. Patient reported having frequent urination and nonproductive cough. Patient had seen her PCP a week prior to this admission and was diagnosed with influenza viral infection and was prescribed Tamiflu but did not completed the course of treatment. On admission to the hospital patient had a fever of 102.9, the WBC was 9.0 and a lactic acid of 1.8. [place] [address], a V/Q scan was negative for PE and a venous Doppler was negative for DVT. A urinalysis was positive. On the patient was transferred to the ICU for vasopressor support which was stopped this morning. Patient has been started on doxycycline and Zosyn. On examination today in the ICU room 216 patient is awake, alert and oriented x3. Observed patient has a maculopapular rash to upper and lower extremities, chest and her back area. Denied having pets at home or being bitten by fleas. Stated that she recently went on a cruise trip back in June to [facility] and [facility] but does not recall being bitten by mosquitoes while on the trip. Patient's WBC this morning was 11.3 but has remained afebrile for the past 48 hours, current temperature is 97.5. We will continue doxycycline and Zosyn as currently ordered and start [id number] mg p.o. b.i.d. Will obtain [place] and spotted fever IgG and IgM serology and we will follow up on the blood cultures and urine cultures results. REVIEW OF SYSTEMS CONSTITUTIONAL: Positive for fever and chills. HEAD/FACE: No signs of trauma. EENT: Denies eye pain, blurred vision, double vision, or light sensitivity. RESPIRATORY: Denies shortness of breath, cough, wheezing. Nonproductive cough POA. CARDIOVASCULAR: Denies chest pain, palpitation, syncope GASTROINTESTINAL/ABDOMINAL: Denies abdominal pain, constipation, diarrhea, nausea or vomiting GENITOURINARY: Denies dysuria or hematuria. Frequent urination. MUSCULOSKELETAL: Denies joint pain, tenderness, or trauma. Weakness. INTEGUMENTARY: Denies rash or itchiness NEUROLOGICAL/PSYCH: Denies anxiety, depression, heat or cold intolerance. PAST MEDICAL HISTORY: Fibromyalgia. Hypertension. PAST SURGICAL HISTORY: Cholecystectomy. Hysterectomy. Cataract surgery lateral. PAST SOCIAL HISTORY: Denies current use of tobacco, alcohol or any other illicit drug. FAMILY HISTORY: Noncontributory. Coded Allergies: No Known Drug Allergies (Unverified Allergy, Unknown, 05/26/23) PHYSICAL EXAM EYES: Anicteric. Pupils equal and reactive. HENT: No oral thrush seen, moist Oral mucosa. NECK: Supple, no JVD or thyromegaly. LUNGS: Good air entry. No rales, no rhonchi. Nonproductive cough. CARDIOVASCULAR: S1, S2 regular. No murmur heard. ABDOMEN: Soft, non tender, bowel sounds present, no organomegaly. CENTRAL NERVOUS SYSTEM: Awake, alert, oriented x 3. SKIN: No rashes, no swelling. Maculopapular rash. LYMPHATICS: No peripheral lymphadenopathy. MUSCULOSKELETAL: No joint swelling, erythema or tenderness. EXTREMITIES: No cyanosis or clubbing. BACK: No deformity, no pressure ulcer. GENITOURINARY: No dysuria or hematuria. Vital Sign (Last 24 Hours) 08/20/24 08/20/24 08/20/24 11:30 12:00 13:15 Temp 97.5 Pulse 85 Resp 18 B/P (MAP) 131/63 Pulse Ox 97 O2 Delivery Room Air O2 Flow Rate 0 FiO2 21 Intake & Output (last 24hrs) 08/19/24 08/19/24 08/20/24 15:00 23:00 07:00 Intake Total 1851.5 ml 1619.4 ml 1082.8 ml Output Total 1300 ml 700 ml Balance 1851.5 ml 319.4 ml 382.8 ml LABS: Laboratory: Test 08/20/24 10:26 08/19/24 19:33 08/19/24 07:52 08/19/24 06:28 Range/Units White Blood Count 11.3 H 4.8-10.8 K/uL Red Blood Count 3.96 L 4.00-5.50 MIL/uL Hemoglobin 11.2 L 12.0-16.0 g/dL Hematocrit 33.7 L 36-48 % Mean Corpuscular Volume 85.1 79-99 fL Mean Corpuscular Hemoglobin 28.3 27.0-33.0 pg Mean Corpuscular Hemoglobin Concent 33.2 32.0-36.0 g/dL Red Cell Distribution Width 16.4 H 11.0-15.5 % Platelet Count 53 L 130-400 K/uL Mean Platelet Volume 12.8 H 7.5-10.5 fL Nucleated Red Blood Cells 0.0 0.0-0.19 % Sodium Level 143 136-145 mmol/L Potassium Level 3.6 3.5-5.1 mmol/L Chloride Level 110 101-111 mmol/L Carbon Dioxide Level 23 21-32 mmol/L Blood Urea Nitrogen 32 H 7-18 mg/dL Creatinine 2.4 H 0.5-1.0 mg/dL Glomerular Filtration Rate Calc 22 >90 mL/min Random Glucose 97 70-105 mg/dL Total Calcium 7.6 L 8.5-10.1 mg/dL Magnesium Level 1.90 1.80-2.40 mg/dL Whole Blood Glucose 120 H 70-110 MG/DL HIV (1&2) Antibody Non-Reactive Negative HIV P24 Antigen, Qualitative Non-Reactive Negative Immature Granulocyte % (Auto) 1.5 H 0-1 % Neutrophils (%) (Auto) 83.2 H 40.0-77.0 % Lymphocytes (%) (Auto) 12.0 L 21.0-51.0 % Monocytes (%) (Auto) 1.4 L 3.0-13.0 % Eosinophils (%) (Auto) 0.9 0.0-8.0 % Basophils (%) (Auto) 1.0 0.0-5.0 % Neutrophils # (Auto) 7.6 1.8-7.7 K/uL Lymphocytes # (Auto) 1.1 1.0-4.8 K/uL Monocytes # (Auto) 0.1 0.1-1.0 K/uL Eosinophils # (Auto) 0.08 0.00-0.70 K/uL Basophils # (Auto) 0.09 0.00-0.20 K/uL Absolute Immature Granulocyte (auto 0.14 0-1 K/uL Prothrombin Time 11.9 H 9.6-11.6 SEC Prothromb Time International Ratio 1.14 0.85-1.15 Activated Partial Thromboplast Time > 139.0 #*H 26.3-35.5 SEC Lactic Acid Level 1.5 0.8-2.5 mmol/L Total Bilirubin 0.9 0.2-1.0 mg/dL Aspartate Amino Transf (AST/SGOT) 119 H 10-37 U/L Alanine Aminotransferase (ALT/SGPT) 52 12-78 U/L Alkaline Phosphatase 93 50-136 U/L Total Protein 5.5 L 6.0-8.3 g/dL Albumin 1.9 L 3.5-5.0 g/dL Test 08/19/24 05:07 Range/Units Blood Gas Specimen Type Arterial Arterial Blood pH 7.398 7.350-7.450 Arterial Blood Partial Pressure CO2 36 32-45 mmHg Arterial Blood Partial Pressure O2 94.5 83.0-108.0 mmHg Arterial Blood HCO3 21.7 21.0-28.0 mmol/L Arterial Blood Oxygen Saturation 97.3 94.0-98.0 % Arterial Blood Base Excess -2.6 L -2.0-3.0 mmol/L Hemoglobin (Blood Gas) 12.3 12.0-16.0 g/dL Sodium (Blood Gas) 132 L 136-145 MMOL/L Bedside Potassium (Blood Gas) 3.1 L 3.4-4.5 MMOL/L Bedside Chloride (Blood Gas) 103 98-107 MMOL/L Bedside Glucose (Blood Gas) 111 H 65-95 MG/DL Bedside Ionized Calcium (Blood Gas) 1.10 L 1.15-1.33 MMOL/L Bedside Lactic Acid (Blood Gas) 1.11 H 0.36-0.75 MMOL/L Blood Gas Temperature 37.0 35.5-37.0 CELSIUS Blood Gas Flow-by 2.00 0.00-15.00 L/min Blood Gas Vent Mode CANNULA ROOM AIR FiO2 28.0 % Blood Gas Specimen Comment RR ASSESSMENT: Urinary tract infection. Leukocytosis. Maculopapular rash. Recent viral Influenza infection as outpatient. Acute renal failure. Thrombocytopenia. Fibromyalgia. Hypertension. Debility. PLAN: Continue doxycycline as currently ordered. Continue Zosyn IV. Start on Tamiflu 75 mg p.o. b.i.d. Continue GI prophylaxis. Obtain [place] and spotted fever IgG and IgM serology. Avoid nephrotoxic medications. Continue physical therapy. We will monitor electrolytes. Thank you for allowing [facility] to participate in the care of this patient. This case was reviewed and discussed with my supervising physician and the above assessment and plan was formulated and agreed upon. ATTESTATION BY PHYSICIAN I have seen and examined the patient. I reviewed the documentation, medical decision making, and treatment plan as noted by the mid-level provider above. I agree with the findings and plan of care. CRISELDA JACQUES MD, [facility] August 20, 2024 15:13
--- NOTE | 2024-08-20 17:26 | NUR ---
patient had BMs x5 today, all BMs soft and brown.
[2024-08-20] MEDS: DiphenhydrAMINE HCL 50 MG/ML VIAL IV PRN (20:08)
[2024-08-20] MEDS: OSELTAMIVIR PHOSPHATE 75 MG CAP PO SCH (20:09)
[2024-08-21] VITALS (14 sets, daily range): BP systolic 100–143; BP diastolic 49–86; PULSE 77–96; RESP 14–25; TEMP 97.4–98.3; O2SAT 97–99
[2024-08-21 04:18] LABS: HEMATOCRIT 31.6 % (36-48); MEAN CORPUSCULAR HEMOGLOBIN 28.5 pg (27.0-33.0); MEAN CORPUSCULAR HGB CONC 34.5 g/dL (32.0-36.0); MEAN CORPUSCULAR VOLUME 82.5 fL (79-99); RED BLOOD CELL COUNT(AUTO) 3.83 MIL/uL (4.00-5.50); WHITE BLOOD COUNT (AUTO) 9.2 K/uL (4.8-10.8)
[2024-08-21 04:39] LABS: ALBUMIN 1.5 g/dL (3.5-5.0); BILIRUBIN,TOTAL 0.6 mg/dL (0.2-1.0); CREATININE 2.6 mg/dL (0.5-1.0); POTASSIUM 3.7 mmol/L (3.5-5.1); TOTAL PROTEIN, SERUM 5.4 g/dL (6.0-8.3)
--- NOTE | 2024-08-21 09:00 | PN ---
[facility] PROGRESS NOTE Date of Service: August 21, 2024 Time of Service: 08:57 SUBJECTIVE: [ PATIENT IS 63 YEARS OLD FEMALE WITH A PAST MEDICAL HISTORY OF HYPERTENSION, FLU, CATARACT, CHOLECYSTECTOMY, HYSTERECTOMY, WHO CAME TO EMERGENCY DEPARTMENT WITH A COMPLAINT OF DECREASED APPETITE, FEVER, GENERALIZED BODY WEAKNESS. PATIENT STATED THAT SHE WENT TO HER PCP AFTER SHE WAS DIAGNOSED WITH INFLUENZA ABOUT A WEEK AGO, WHERE SHE COMPLAINED ABOUT ABOVE-STATED COMPLAINTS AND SHE WAS SENT TO EMERGENCY DEPARTMENT FOR FURTHER EVALUATION/RECOMMENDATION. PATIENT DENIES ANY CHEST PAIN, NAUSEA, VOMITING, SHORTNESS OF BREATHS OR ANY OTHER SYMPTOMS OTHER THAN STATED ABOVE. ] MOST RECENT VITAL SIGNS TEMPERATURE 97.9 ON ADMISSION IN ER WAS 102.9, PULSE 84 RESPIRATION 22 BLOOD PRESSURE 90/50 PATIENT IS ON ROOM AIR SATTING 93%. UA POSITIVE FOR LEUKOCYTOSIS. WBC 9.0 HEMATOCRIT 40.2 HEMOGLOBIN 13.9 PLATELETS 82. SODIUM 133 POTASSIUM 3.3 CO2 29 BUN 14 CREATININE 1.2 GFR 5 GLUCOS 106 LACTIC 1.8 CALCIUM 7.8 TROPONIN NEGATIVE X1. CHEST X-RAY SHOWED CLEAR LUNGS CARDIOMEGALY. 2D ECHO IS PENDING. PATIENT WILL BE ADMITTED UNDER HOSPITALIST CARE FOR FURTHER EVALUATION/RECOMMENDATION. PATIENT WAS PLACED ON VANCOMYCIN AND ZOSYN FOR THE SEPSIS. A.M. LABS. 08/17 patient was seen by nurse practitioner and physician during rounding in room 304. Urinalysis was positive on admission. Blood culture and urine cul ture pending at this moment. Patient continues to be on Zosyn and vancomycin. We will increase fluids from 100 mL/hour 220 mL/hour. Patient's A1c is 5.8. We will discontinue insulin sliding scale per protocol. Also patient's blood pressure has been on lower side. We will discontinue losartan. Home medication reconciled. 2D echo showed EF 55 to 60% normal diastolic function no pericardial effusion. Potassium today is 2.8. Patient received already two 20 mEq through IV potassium. Patient will also receive 40 mEq of potassium as well. We will continue to monitor patient in the meantime. A.m. labs. 08/18 at bedside, she had a low-grade fever overnight, this morning she is tachycardic. Urine and blood cultures have been no growth to date, platelets have decreased from 52 down to 37, AST mildly elevated, creatinine increased from 1.2 up to 1.5. Given that she is still having fevers on vancomycin and Zosyn she may have an atypical infection, we will order a murine typhus panel and start doxycycline. Discontinue vancomycin at this time. Infectious workup has been negative this time we will assess for possible underlying PE or DIC, we will order D-dimer, V/Q scan, fibrinogen, PT and PTT and follow up 08/19 patient seen at bedside, yesterday her blood pressure started to drop despite being on fluids and broad-spectrum antibiotics. She was also tachycardic. D-dimer was elevated as her platelets were low and she was assessed for DIC however fibrinogen was normal. A V/Q scan was done that did not show evidence of pulmonary embolism. She was moved to the ICU and started on pressor support. Creatinine increased from 1.5 up to 2.2 however she has been adequately perfused and she has not been receiving any nephrotoxic medications, bladder scan was ordered showing greater than 500 cc within the bladder concerning for postobstructive uropathy. Hobbs catheter was placed and approximately 800 cc drained immediately. She has swelling and bruising to the left upper extremity where the midline was placed, we will order a venous Doppler to rule out DVT. 08/20 patient is seen and examined, power chart reviewed, vital signs, laboratory tests and imaging tests reviewed. Discussed with the RN, patient off Levophed since earlier this morning. She is awake, following commands, alert oriented x3. Patient noted to have elevated D-dimer and thrombocytopenia, concern for DIC was raised, however fibrinogen was normal. A V/Q scan was negative for PE. The patient was upgraded to the ICU as the patient was getting tachycardic, with a hypotension. Patient had a maximum temperature 102.9 08/16/2024. Patient noted to have worsening renal function with a creatinine of 2.2 as of yesterday, bladder scan was done, showing greater than 500 cc of urine concerning for possible obstructive uropathy, Hobbs catheter inserted, proximally 800 cc was drained immediately. Today still elevated at 2.4, bicarbonate of 23. Patient is also noted to have some swollen and present to left upper extremity we will midline was placed, a venous Doppler of left upper extremity was done, no evidence of DVT. Doppler of both lower extremities also negative for DVT. Urine culture negative, blood culture negative. Patient had loose stools yesterday. at bedside. 08/21 remains hemodynamically stable, BP 109/52, afebrile, saturating normal on room air. During my visit the patient is sitting comfortable in the chair, eating lunch, Laboratory data, WBC 9.2, hemoglobin 10.9, hematocrit 31.6, platelet count of 94 (discussed with the patient. She has not been told about low platelet count in the past). Repeat urine culture 08/19/2024 no growth. Patient evaluated by ID, patient is here with a UTI, had: Papular rash, recent viral influenza infection treated as an outpatient, continue doxycycline, contin ue IV Zosyn, started on Tamiflu 75 mg p.o. b.i.d.. Obtain routine mountain and spotted fever IgG and IgM serology. Results of stool studies Patient noted to have thrombocytopenia, we will request Hematology consult. Patient is still looks mildly edematous, puffiness still the below both eyes, she is on Bumex 1 mg IV b.i.d., Hobbs catheter in place, we will continue with daily weight, strict monitoring of intake and output. Doppler of the legs negative for DVT. REVIEW OF SYSTEMS 12 point ROS negative unless noted in HPI PHYSICAL EXAM GENERAL APPEARANCE: The patient is awake, alert, and oriented, in no acute cardiopulmonary distress. NEUROLOGICAL: Cranial nerves II-XII grossly intact. Motor is 5/5 in bilateral upper and lower extremities proximal to distal. No sensory deficits. HEENT: Face is symmetric. Pupils are equal and reactive. Extraocular movements are intact. NECK: Supple. No JVD. No thyromegaly. No submental, submandibular, pre- /postauricular, occipital or supraclavicular lymphadenopathy. CHEST: Normal chest expansion. No Telemetry. LUNGS: Absence of any rales, rhonchi or any wheezing. CARDIOVASCULAR: Regular. S1 and S2 normal. No appreciable rubs, murmurs or gallops. ABDOMEN: Soft, nontender, and nondistended. There is no rebound, voluntary guarding, or rigidity. : Deferred. No Hobbs. EXTREMITIES: Non-edematous and not cyanotic. No clubbing. Good capillary refill. SKIN: No skin breakdown. Vital Signs (last 8hr) Date Time Temp Pulse Resp B/P (MAP) Pulse Ox O2 Delivery O2 Flow Rate FiO2 08/21/24 08:00 98.2 91 15 109/52 96 Room Air 08/21/24 05:00 87 18 107/49 94 Room Air 08/21/24 04:00 81 14 100/56 95 Room Air 08/21/24 04:00 97 Room Air* 0 21 08/21/24 04:00 98.2 08/21/24 03:00 88 25 116/54 97 Room Air 08/21/24 02:00 84 15 105/54 96 Room Air 08/21/24 01:00 83 17 105/52 96 Room Air LABS: Laboratory: Test 08/21/24 04:05 08/20/24 15:02 Range/Units White Blood Count 9.2 4.8-10.8 K/uL Red Blood Count 3.83 L 4.00-5.50 MIL/uL Hemoglobin 10.9 L 12.0-16.0 g/dL Hematocrit 31.6 L 36-48 % Mean Corpuscular Volume 82.5 79-99 fL Mean Corpuscular Hemoglobin 28.5 27.0-33.0 pg Mean Corpuscular Hemoglobin Concent 34.5 32.0-36.0 g/dL Red Cell Distribution Width 16.0 H 11.0-15.5 % Platelet Count 94 #L 130-400 K/uL Mean Platelet Volume 12.7 H 7.5-10.5 fL Nucleated Red Blood Cells 0.0 0.0-0.19 % Sodium Level 145 136-145 mmol/L Potassium Level 3.7 3.5-5.1 mmol/L Chloride Level 109 101-111 mmol/L Carbon Dioxide Level 21 21-32 mmol/L Blood Urea Nitrogen 35 H 7-18 mg/dL Creatinine 2.6 H 0.5-1.0 mg/dL Glomerular Filtration Rate Calc 20 >90 mL/min Random Glucose 91 70-105 mg/dL Total Calcium 7.9 L 8.5-10.1 mg/dL Magnesium Level 2.00 1.80-2.40 mg/dL Total Bilirubin 0.6 0.2-1.0 mg/dL Aspartate Amino Transf (AST/SGOT) 78 H 10-37 U/L Alanine Aminotransferase (ALT/SGPT) 46 12-78 U/L Alkaline Phosphatase 97 50-136 U/L Total Protein 5.4 L 6.0-8.3 g/dL Albumin 1.5 L 3.5-5.0 g/dL Whole Blood Glucose 114 H 70-110 MG/DL Current Medications Medications (Trade) Dose Ordered Sig/Amy Route PRN Reason Start Time Stop Time Status Last Admin Dose Admin Acetaminophen (TYLenol 325MG TAB) 650 mg Q4H PRN PO MILD PAIN (1-3) 08/16/24 16:30 09/15/24 16:29 Acetaminophen (TYLenol 325MG TAB) 650 mg Q6H PRN PO MILD PAIN (1-3) 08/16/24 16:30 08/17/24 09:03 DC Acetaminophen (TYLenol 325MG TAB) 650 mg Q6H PRN PO TEMPERATURE GREATER THAN 101.5 08/16/24 16:30 09/15/24 16:29 08/21/24 03:44 650 MG Al Hydroxide/Mg Hydroxide (MAALox PLUS 30ML) 30 ml Q6H PRN PO INDIGESTION 08/16/24 16:30 09/15/24 16:29 Albumin Human 50 ml @ 100 mls/hr AD IV 08/19/24 01:30 08/19/24 01:21 DC Dextrose (D50w) 50 ml AD PRN IV HYPOGLYCEMIA PROTOCOL 08/16/24 16:30 09/15/24 16:29 Diphenhydramine HCl (BENAdryl INJ) 25 mg Q6H PRN IV SEVERE ITCHING/RASH 08/16/24 16:30 09/15/24 16:29 08/20/24 20:08 25 MG Doxycycline Hyclate 250 ml @ 125 mls/hr Q12H IV 08/18/24 09:00 08/28/24 08:59 08/21/24 08:33 125 MLS/HR Famotidine (Pepcid 20mg Vial) 20 mg HS IV 08/16/24 21:00 09/15/24 20:59 08/20/24 19:57 20 MG Famotidine (Pepcid 20mg Vial) 20 mg HS PRN IV NAUSEA/VOMITING 08/16/24 16:30 08/17/24 09:03 DC Glucagon (Glucagon 1mg Kit) 1 mg AD PRN IM HYPOGLYCEMIA PROTOCOL 08/16/24 16:30 09/15/24 16:29 Guaifenesin/ Dextromethorphan (RobiTUSSin DM 200/20MG 10ML) 10 ml Q4H PRN PO COUGH 08/16/24 16:30 09/15/24 16:29 Heparin Sodium (Porcine) (HEParin 5,000 UNIT VIAL) *calculation based on ACTUAL B... AD PRN IV HEPARIN PROTOCOL 08/18/24 16:30 08/19/24 04:54 DC 08/18/24 16:21 6,000 UNIT Heparin Sodium (Porcine) (HEParin 5,000 UNIT VIAL) 5,000 unit BID SQ 08/16/24 21:00 08/18/24 07:05 DC 08/16/24 21:35 5,000 UNIT Heparin Sodium/ Dextrose 250 ml @ 0 mls/hr Q6H IV 08/18/24 16:30 08/19/24 06:01 DC 08/18/24 16:20 13.98 MLS/HR Home Med (Home Medication) (Meloxicam, Submicronized (Vivlodex... DAILY PO 08/18/24 09:00 08/18/24 07:05 DC Hydralazine HCl (APRESOLine 20MG INJ) 10 mg Q6H PRN IV For:SBP above 160;DBP above 90 08/16/24 16:30 09/15/24 16:29 Insulin Human Regular (humuLIN R 100 UNIT/ML 3ML) INSULIN SLIDING SCAL... ACHS SQ 08/16/24 16:30 08/20/24 15:55 DC Ketorolac Tromethamine (toRADol) 15 mg Q8H PRN IV MODERATE PAIN (4-6) 08/16/24 16:30 08/20/24 12:39 DC 08/18/24 19:15 15 MG Lactulose (Constulose 20gm/ 30ml Udcup) 20 gm BID PRN PO CONSTIPATION 08/16/24 16:30 09/15/24 16:29 Losartan Potassium (CozAAR 100MG TAB) 100 mg DAILY PO 08/18/24 09:00 08/17/24 13:09 DC Magnesium Sulfate 50 ml @ 0 mls/hr PROTOCOL PRN IV other 08/16/24 16:30 09/15/24 16:29 08/20/24 10:49 25 MLS/HR Midodrine (PROAMatine 5 MG TABLET) 5 mg TID PO 08/18/24 13:00 08/19/24 13:02 DC 08/19/24 08:32 5 MG Midodrine (PROAMatine 5 MG TABLET) 20 mg TID PO 08/19/24 13:30 09/18/24 13:29 08/21/24 08:33 20 MG Nitroglycerin (Nitrostat) 0.4 mg PROTOCOL PRN SL CHEST PAIN 08/16/24 16:30 09/15/24 16:29 Norepinephrine 250 ml @ 0 mls/hr PROTOCOL IV 08/19/24 03:00 09/18/24 02:59 08/19/24 15:55 15.31 MLS/HR Ondansetron HCl (zoFRAN 4MG INJ) 4 mg Q6H PRN IV NAUSEA/VOMITING 08/16/24 16:30 09/15/24 16:29 Oseltamivir Phosphate (Tamiflu) 75 mg Q24H PO 08/20/24 21:00 08/25/24 20:59 08/20/24 20:09 75 MG Oxycodone/ Acetaminophen (perCOCET) 1 tab Q6H PRN PO SEVERE PAIN (7-10) 08/16/24 16:30 08/23/24 16:29 08/16/24 23:04 1 TAB Piperacillin Sod/ Tazobactam Sod 50 ml @ 12.5 mls/hr ZOSY8 IV 08/16/24 21:00 08/26/24 20:59 08/21/24 05:03 12.5 MLS/HR Potassium Chloride 100 ml @ 100 mls/hr AD PRN IV POTASSIUM PROTOCOL 08/16/24 16:30 09/15/24 16:29 08/17/24 05:28 100 MLS/HR Potassium Chloride (K-Dur 10meq Sr Tab) 10 meq AD PRN PO POTASSIUM PROTOCOL 08/17/24 09:30 09/15/24 16:29 08/18/24 08:26 10 MEQ Potassium Chloride (K-Dur/Klor-Con 20meq) 10 meq AD PRN PO POTASSIUM PROTOCOL 08/16/24 16:30 08/17/24 09:04 DC 08/17/24 08:12 10 MEQ Potassium Chloride (KCl 10% Elixir 20meq/15ml) 10 meq AD PRN PO POTASSIUM PROTOCOL 08/16/24 16:30 09/15/24 16:29 Pregabalin (LYRica 25MG) 50 mg BID PO 08/17/24 21:00 09/16/24 20:59 08/21/24 08:33 50 MG Simethicone (Mylicon) 80 mg Q8H PRN PO GI GAS 08/19/24 21:00 09/18/24 20:59 08/19/24 21:43 80 MG Sodium Chloride 1,000 ml @ 120 mls/hr Q8H20M IV 08/16/24 16:30 08/20/24 12:38 DC 08/20/24 05:26 120 MLS/HR Trazodone HCl (DesyREL/OlepTRO) 100 mg HS PO 08/17/24 21:00 09/16/24 20:59 08/20/24 20:09 100 MG Vancomycin HCl 250 ml @ 125 mls/hr Q24H IV 08/16/24 17:00 08/18/24 08:48 DC 08/17/24 18:11 125 MLS/HR Vancomycin HCl (Vancomycin Protocol) 1 each PROTOCOL PRN IV VANCOMYCIN PROTOCOL 08/16/24 16:30 08/18/24 08:48 DC Zolpidem Tartrate (AmbIEN) 5 mg HS PRN PO INSOMNIA 08/16/24 16:30 09/15/24 16:29 DIAGNOSTICS / RADIOLOGY: [ ] ASSESSMENT: ACUTE SEPSIS POA SEPTIC SHOCK GENERALIZED BODY WEAKNESS POA ACUTE KIDNEY INJURY POA URINARY RETENTION POSTOBSTRUCTIVE UROPATHY ACUTE DEHYDRATION POA ACUTE COMPLICATED CYSTITIS POA ELECTROLYTE IMBALANCE HYPONATREMIA NA 133, HYPOKALEMIA 3.3 HYPOCALCEMIA 7.8 POA UNCONTROLLED HYPERTENSION POA THROMBOCYTOPENIA POA HISTORY OF CATARACT HISTORY OF CHOLECYSTECTOMY HISTORY OF HYSTERECTOMY HISTORY OF KIDNEY STONES HISTORY OF HYDRONEPHROSIS PLAN: Downgraded the patient to the PCU Laboratory data, WBC 9.2, hemoglobin 10.9, hematocrit 31.6, platelet count of 90 full. Repeat urine culture 08/19/2024 no growth. Patient evaluated by ID, patient is here with a UTI, had: maculopapular rash, recent viral influenza infection treated as an outpatient, continue doxycycline, continue IV Zosyn, started on Tamiflu 75 mg p.o. b.i.d.. Obtain routine mountain and spotted fever IgG and IgM serology. Follow Results of stool studies Patient noted to have thrombocytopenia, we will request Hematology consult. NEURO: MINIMIZE CENTRAL ACTING MEDICATIONS POSSIBLE. FALL PRECAUTIONS. WELL LIGHTED ROOM THROUGH THE DAY AND MINIMIZE INTERRUPTIONS THROUGH THE NIGHT TO PREVENT ACUTE DELIRIUM. PULMONARY: SUPPLEMENTAL 02 NEEDED BIPAP NECESSARY, FOR RESPIRATORY DISTRESS TITRATE FIO2 TO KEEP SPO2 > OR = 90% DUONEBS AND CPT NEEDED IS HOURLY WHILE AWAKE FOR PULMONARY HYGIENE PRN OUT OF BED TO CHAIR TOLERATED MAINTAIN ASPIRATION PRECAUTIONS AT ALL TIMES CARDIOVASCULAR: FOLLOW HEMODYNAMICS. VITAL SIGNS PER FACILITY PROTOCOL GI & NUTRITION: CONTINUE NUTRITIONAL SUPPORT ASPIRATIONS PRECAUTIONS PROKINETIC AGENTS AND LAXATIVES NEEDED KIDNEYS & ELECTROLYTES: STRICT MONITORING OF INTAKE AND OUTPUT DAILY WEIGHTS AVOID NEPHROTOXIC AGENTS MONITOR ELECTROLYTES AND REPLACE NEEDED GOAL URINE OUTPUT OF 30ML/HR OR 0.5ML/KG/HR MEDICATIONS TO BE DOSED ACCORDING TO RENAL FUNCTION. AVOID CONTRAST IF POSSIBLE ENDOCRINE: MAINTAIN BLOOD GLUCOSE BETWEEN 100-180 AT ALL TIMES. INSULIN SLIDING SCALE FOR BLOOD GLUCOSE MANAGEMENT HYPOGLYCEMIA AND HYPERGLYCEMIA PROTOCOL IN PLACE INFECTIOUS DISEASE: TREND TEMPERATURE, WBC AND PROCALCITONIN LEVEL FOLLOW CULTURES, DEESCALATE ANTIBIOTICS SOON POSSIBLE. PANCULTURE IF NEW ONSET FEVER HEMATOLOGY & COAGULATION: MONITOR H&H. KEEP HGB > 7 TRANSFUSE 1 UNIT OF PRBC FOR HGB < 7 TRANSFUSE 1 PACK OF PLATELETS OF PLATELETS < 20, 000 WATCH FOR ANY SIGNS AND SYMPTOMS OF BLEEDING SKIN: PRESSURE ULCER PREVENTION PER FACILITY PROTOCOL SPECIALTY MATTRESS NEEDED ORTHO/REHAB CONTINUE PT/OT PRN: MEDICATIONS TYLENOL 650 MG PO EVERY 4 HRS FOR FEVER ZOFRAN 4 MG IV EVERY 6 HRS FOR N/V HYDRALAZINE 5 MG IV EVERY 4 HRS SYSTOLIC PRESSURE > 160 BOWEL REGIMENT: LACTULOSE 20 GM PO BID PRN CONSTIPATION SUPPORTIVE MEASURES: CONTINUE GI AND DVT PROPHYLAXIS DISPOSITION: PENDING IMPROVEMENT IN CLINICAL CONDITION ALL QUESTIONS ANSWERED TIME SPENT: > 35 MIN JUANITO PENNY MD August 21, 2024 09:00
[2024-08-21 09:31] LABS: % IRON SATURATION 64.6 % (22-44)
--- NOTE | 2024-08-21 10:16 | PN ---
[facility] PROGRESS NOTE Date Patient Seen: August 21, 2024 Time of Visit: 10:16 Supervising Physician: Rad Castellon MD Primary Care Physician: Harris Rankin Outpatient Specialists: [ ] Inpatient Consults: [ ] PROBLEM LIST Septic shock requiring pressors POA resolved 2/2 from below Acute complicated cystitis, pending CT Abdomen and pelvis Acute urinary retention status post Hobbs catheter insertion. Elevated D-dimer V/Q scan negative for PE. YULIA subtherapeutic from obstructive uropathy. Electrolyte imbalance. Hypertension. Acute Thrombocytopenia. Rule out systemic disease such as lupus, rheumatoid arthritis or vasculitis. Recent diagnosis of influenza, repeat serology was negative. INTERVAL HISTORY: No major overnight events per RN. Pt is off pressors. She is hemodynamically stable and may downgrade from ICU. Kidneys are not doing better. CR 2.6 and GFR of 20, CT abdomen and pelvis without contrast ordered and pending results. Urine output is minimal and she appears to be edematous, Started Bumex 1mg IVP BID and noted pt diuresing well. HH is stable 10.9/31.6 plt count 94K. Albumin 1.6. She is pending autoimmune panel. She continues on IV antibiotics. we will continue to follow closely along side primary team but she is able to downgrade from ICU. REVIEW OF SYSTEMS: 12 point ROS reviewed with patient. Pertinent positives mentioned above. Otherwise negative. PHYSICAL EXAM: GENERAL: alert, weak, awake oriented x 3 HEENT: EOMI, Sclera non icteric, moist mucosa NECK: Supple, no JVD, trachea midline LUNGS: Clear breath sounds bilaterally. No wheezes HEART: Regular rate and rhythm. Normal S1 and S2, without murmurs ABD: Abdomen soft, nontender. Bowel sounds present EXT: No clubbing cyanosis or edema NEURO: Alert and oriented to person, follows commands Vital Signs (last 8hr) Date Time Temp Pulse Resp B/P (MAP) Pulse Ox O2 Delivery O2 Flow Rate FiO2 08/21/24 10:00 81 15 128/68 98 Room Air 08/21/24 09:00 79 23 131/67 97 Room Air 08/21/24 08:00 98 Room Air* 0 21 08/21/24 08:00 98.2 91 15 109/52 96 Room Air 08/21/24 05:00 87 18 107/49 94 Room Air 08/21/24 04:00 81 14 100/56 95 Room Air 08/21/24 04:00 97 Room Air* 0 21 08/21/24 04:00 98.2 08/21/24 03:00 88 25 116/54 97 Room Air LABS: Hematology Labs: Test 08/21/24 04:05 Range/Units White Blood Count 9.2 4.8-10.8 K/uL Red Blood Count 3.83 L 4.00-5.50 MIL/uL Hemoglobin 10.9 L 12.0-16.0 g/dL Hematocrit 31.6 L 36-48 % Mean Corpuscular Volume 82.5 79-99 fL Mean Corpuscular Hemoglobin 28.5 27.0-33.0 pg Mean Corpuscular Hemoglobin Concent 34.5 32.0-36.0 g/dL Red Cell Distribution Width 16.0 H 11.0-15.5 % Platelet Count 94 #L 130-400 K/uL Mean Platelet Volume 12.7 H 7.5-10.5 fL Nucleated Red Blood Cells 0.0 0.0-0.19 % Chemistry Labs: Test 08/21/24 04:05 08/20/24 15:02 Range/Units Sodium Level 145 136-145 mmol/L Potassium Level 3.7 3.5-5.1 mmol/L Chloride Level 109 101-111 mmol/L Carbon Dioxide Level 21 21-32 mmol/L Blood Urea Nitrogen 35 H 7-18 mg/dL Creatinine 2.6 H 0.5-1.0 mg/dL Glomerular Filtration Rate Calc 20 >90 mL/min Random Glucose 91 70-105 mg/dL Total Calcium 7.9 L 8.5-10.1 mg/dL Magnesium Level 2.00 1.80-2.40 mg/dL Iron Level 64 50-170 mcg/dL Total Iron Binding Capacity 99 L 250-450 mcg/dL Percent Iron Saturation 64.6 H 22-44 % Total Bilirubin 0.6 0.2-1.0 mg/dL Aspartate Amino Transf (AST/SGOT) 78 H 10-37 U/L Alanine Aminotransferase (ALT/SGPT) 46 12-78 U/L Alkaline Phosphatase 97 50-136 U/L Total Protein 5.4 L 6.0-8.3 g/dL Albumin 1.5 L 3.5-5.0 g/dL Whole Blood Glucose 114 H 70-110 MG/DL DIAGNOSTICS / RADIOLOGY RESULTS: [ ] PLAN dose medications to renal function she has been weaned off Levophed monitor kidney function closely, follow hematology recommendations edwige mountain spotted fever testing pending results CT Abdomen and pelvis without contrast urine lytes NEURO: Minimize central acting medications as possible. Fall Precautions. Well lighted room through the day and minimize interruptions through the night to prevent acute delirium. PULMONARY: Supplemental 02 as needed Titrate Fio2 to keep Spo2 > or = 90% DuoNebs and CPT as needed IS hourly while awake for pulmonary hygiene Out of bed to chair as tolerated VAP Bundle CARDIOVASCULAR: Follow hemodynamics. Titrate vasopressor to keep MAP >65 or systolic blood pressure >95mmHg DIPS: Levophed off LINES: Zosyn/Doxy GI & NUTRITION: Continue nutritional support Aspirations precautions Prokinetic agents and laxatives as needed KIDNEYS & ELECTROLYTES: Strict monitoring of intake and output Daily weights Avoid nephrotoxic agents Monitor electrolytes and replace as needed Goal urine output of 30mL/hr or 0.5mL/kg/hr Urine output: [ ] Fluid Balance: [ ] ENDOCRINE: Maintain blood glucose between 100-180 at all times. Insulin sliding scale for blood glucose management INFECTIOUS DISEASE: Trend temperature. Spencer-culture if febrile. Micro: [ ] Antibiotics: [ ] HEMATOLOGY & COAGULATION: Monitor H&H. Keep Hgb > 7 Transfuse 1 unit of PRBC for Hgb < 7 Transfuse 1 pack of platelets of platelets < 20, 000 Watch for any signs and symptoms of bleeding SKIN: Pressure ulcer prevention per facility protocol Rehab: PT/OT Prophylaxis: GI: Protonix DVT: SCDs Code Status: Full Resuscitation Disposition: ICU Other: I personally spent 50 minutes of critical care time in treatment of this patient. This includes patient management, time at bedside, time reviewing tests, labs, appropriate images and studies, documentation, and patient care coordination. This time excludes separately billable procedures. Patient was seen and case discussed with shanelle TAYLOR. Plan of care was discussed and agreed upon ATTESTATION BY PHYSICIAN I reviewed the documentation, medical decision making, and treatment plan as noted by the mid-level provider above. I agree with the findings and plan of care. Rad Castellon MD, NELLY J ARNP August 21, 2024 10:16
[2024-08-21] MEDS: BUMETANIDE 1MG/4ML VIAL IVP SCH (11:09)
[2024-08-21 11:32] LABS: CREATININE,URINE RANDOM 64.27 mg/dL (30-135)
[2024-08-21 13:08] LABS: ALBUMIN 1.6 g/dL (3.5-5.0); BILIRUBIN,DIRECT 0.3 mg/dL (0.0-0.3); BILIRUBIN,TOTAL 0.6 mg/dL (0.2-1.0); TOTAL PROTEIN, SERUM 5.8 g/dL (6.0-8.3)
--- NOTE | 2024-08-21 14:34 | CONS ---
CONSULT NOTE: [PATIENT IS 63 YEARS OLD FEMALE WITH A PAST MEDICAL HISTORY OF HYPERTENSION, FLU, CATARACT, CHOLECYSTECTOMY, HYSTERECTOMY, WHO CAME TO EMERGENCY DEPARTMENT WITH A COMPLAINT OF DECREASED APPETITE, FEVER, GENERALIZED BODY WEAKNESS. PATIENT STATED THAT SHE WENT TO HER PCP AFTER SHE WAS DIAGNOSED WITH INFLUENZA ABOUT A WEEK AGO, WHERE SHE COMPLAINED ABOUT ABOVE-STATED COMPLAINTS AND SHE WAS SENT TO EMERGENCY DEPARTMENT FOR FURTHER EVALUATION/RECOMMENDATION. PATIENT DENIES ANY CHEST PAIN, NAUSEA, VOMITING, SHORTNESS OF BREATHS OR ANY OTHER SYMPTOMS OTHER THAN STATED ABOVE. ] Patient was admitted for sepsis with the patient was started on antibiotic treatment. This patient was found to have thrombocytopenia and anemia. There is no obvious bleeding. Blood cultures so far continue to be negative. REVIEW OF SYSTEMS CONSTITUTIONAL: Denies , chills, or night sweats. No unintentional weight loss reported. GENERALIZED BODY WEAKNESS ,FEVERS AND DECREASED APPETITE NEUROLOGICAL: Denies headache, amaurosis fugax, motor weakness, sensory def icit, vertigo/spinning sensation, gait abnormalities, or tremors. ENT: No hearing loss, otalgia, otorrhea, rhinitis, rhinorrhea, hoarseness, or sore throat. CARDIOVASCULAR: Denies any exertional angina, dyspnea on exertion, orthopnea, paroxysmal nocturnal dyspnea, palpitations, life-threatening arrhythmias, claudication. PULMONARY: Denies any shortness of breath, cough, phlegm/sputum, hemoptysis, pleuritic chest pain. SLEEP: Denies morning headaches, daytime somnolence or napping. Denies difficulty falling asleep, staying asleep, waking from sleep. Denies knowledge of snoring. GASTROINTESTINAL: Denies any type of dysphagia to either liquids or solids. Denies nausea, vomiting, pyrosis, early satiety, abdominal pain, diarrhea, constipation, or changes in stool consistency or caliber. Denies coffee-ground emesis, hematemesis, hematochezia, or melanotic stools. GENITOURINARY: Denies frequency, urgency, nocturia, hematuria or incontinence (Storage/Irritative symptoms.) Low urinary stream, straining to void, urinary intermittency or hesitancy, splitting of the voiding stream, terminal dribbling. ENDOCRINOLOGIC: Denies polyuria, polydipsia, polyphagia or heat/cold intolerances. HEMATOLOGIC: Denies thrombophilia/previous clots, or coagulopathy/bleeding disorders. ONCOLOGIC: Denies personal history of malignancy. DERMATOLOGIC: Denies rashes or pruritus. PSYCHIATRIC: Denies any suicidal or homicidal ideation. Denies hallucinations. PAST MEDICAL HISTORY: [ HYPERTENSION, FLU ] PAST SURGICAL HISTORY: [CATARACT, CHOLECYSTECTOMY, HYSTERECTOMY ] PAST SOCIAL HISTORY: [ PATIENT DENIES SMOKING. PATIENT DENIES ANY DRUG ILLICIT. PATIENT DENIES ANY ALCOHOL USE ] FAMILY HISTORY: [ PATIENT LIVES AT HOME WITH THE FAMILY ] Coded Allergies: No Known Drug Allergies (Unverified Allergy, Unknown, 05/26/23) PHYSICAL EXAM GENERAL APPEARANCE: The patient is awake, alert, and oriented, in no acute cardiopulmonary distress. NEUROLOGICAL: Cranial nerves II-XII grossly intact. Motor is 5/5 in bilateral upper and lower extremities proximal to distal. No sensory deficits. HEENT: Face is symmetric. Pupils are equal and reactive. Extraocular movements are intact. NECK: Supple. No JVD. No thyromegaly. No submental, submandibular, pre- /postauricular, occipital or supraclavicular lymphadenopathy. CHEST: Normal chest expansion. No Telemetry. LUNGS: Absence of any rales, rhonchi or any wheezing. CARDIOVASCULAR: Regular. S1 and S2 normal. No appreciable rubs, murmurs or gallops. ABDOMEN: Soft, nontender, and nondistended. There is no rebound, voluntary guarding, or rigidity. : Deferred. No Hobbs. EXTREMITIES: Non-edematous and not cyanotic. No clubbing. Good capillary refill. SKIN: No skin breakdown. Assessment 1. Anemia 2. Thrombocytopenia 3. Hypertension 4. Possible atypical infection 5. Acute on chronic renal failure 6. History of hysterectomy 7. Possible systemic disease such as lupus, rheumatoid arthritis or vasculitis. Plan 1. Peripheral blood smear showed red blood cells to be normocytic normochromic. There was no fragment cell or schistocyte. There is no teardrop cell. There is no rouleaux phenomena. There is no pelger-Huet cell. White blood cell with no blasts. Platelet was normal in morphology and count. 2. There was hypersegmented neutrophils. This patient to be started on folic acid 1 mg p.o. daily and vitamin B12 1000 mcg p.o. daily. 3. There is rouleaux phenomena. We will ask for SPEP, UPEP and free light chain. If there is monoclonal protein we will do a bone marrow biopsy. 4. There is increased number of large glandular lymphocyte which could be due to leukemia or chronic disease or atypical infection. Will ask for flow cytometry of peripheral blood. If flow cytometry positive this patient will need bone marrow biopsy 5. This patient could have atypical infection. This patient may be should be on doxycycline part of her regimen for antibiotics. 6. We will ask for iron study to be done on this patient. 7. We will ask for direct Ulysses test to be done also. If it is positive then this patient need to start on high-dose dexamethasone Laboratory Tests Test 08/20/24 15:02 08/20/24 15:03 08/21/24 04:05 08/21/24 11:20 Whole Blood Glucose 114 MG/DL (70-110) H Anti-Nuclear Antibody Screen Negative (Negative) Anti-Nuclear Antibody Interpret Pending JENNA-1 Antibody SS-A/Ro Antibody SS-B/La Antibody Sm (Ramirez) IgG Antibody, Quant [employer] IgG Antibody, Quantitative Scl-70 (Scleroderma) Antibody Anti-Double Strand DNA Antibody Chromatin Antibody Pending Anti-Centromere IgG Antibody White Blood Count 9.2 K/uL (4.8-10.8) Red Blood Count 3.83 MIL/uL (4.00-5.50) L Hemoglobin 10.9 g/dL (12.0-16.0) L Hematocrit 31.6 % (36-48) L Mean Corpuscular Volume 82.5 fL (79-99) Mean Corpuscular Hemoglobin 28.5 pg (27.0-33.0) Mean Corpuscular Hemoglobin Concent 34.5 g/dL (32.0-36.0) Red Cell Distribution Width 16.0 % (11.0-15.5) H Platelet Count 94 K/uL (130-400) #L Mean Platelet Volume 12.7 fL (7.5-10.5) H Nucleated Red Blood Cells 0.0 % (0.0-0.19) Sodium Level 145 mmol/L (136-145) Potassium Level 3.7 mmol/L (3.5-5.1) Chloride Level 109 mmol/L (101-111) Carbon Dioxide Level 21 mmol/L (21-32) Blood Urea Nitrogen 35 mg/dL (7-18) H Creatinine 2.6 mg/dL (0.5-1.0) H Glomerular Filtration Rate Calc 20 mL/min (>90) Random Glucose 91 mg/dL (70-105) Total Calcium 7.9 mg/dL (8.5-10.1) L Magnesium Level 2.00 mg/dL (1.80-2.40) Iron Level 64 mcg/dL (50-170) Total Iron Binding Capacity 99 mcg/dL (250-450) L Percent Iron Saturation 64.6 % (22-44) H Total Bilirubin 0.6 mg/dL (0.2-1.0) Aspartate Amino Transf (AST/SGOT) 78 U/L (10-37) H Alanine Aminotransferase (ALT/SGPT) 46 U/L (12-78) Alkaline Phosphatase 97 U/L (50-136) Total Protein 5.4 g/dL (6.0-8.3) L Albumin 1.5 g/dL (3.5-5.0) L Urine Random Creatinine 64.27 mg/dL (30-135) Urine Random Sodium 60 mmol/l (40-220) Test 08/21/24 11:30 Total Bilirubin 0.6 mg/dL (0.2-1.0) Direct Bilirubin 0.3 mg/dL (0.0-0.3) Aspartate Amino Transf (AST/SGOT) 83 U/L (10-37) H Alanine Aminotransferase (ALT/SGPT) 52 U/L (12-78) Alkaline Phosphatase 103 U/L (50-136) Ammonia 16 umol/L (11-32) Total Protein 5.8 g/dL (6.0-8.3) L Albumin 1.6 g/dL (3.5-5.0) L LAB RESULTS 08/21/24 11:30: Total Bilirubin 0.6, Direct Bilirubin 0.3, Aspartate Amino Transf (AST/SGOT) 83H, Alanine Aminotransferase (ALT/SGPT) 52, Alkaline Phosphatase 103, Ammonia 16, Total Protein 5.8L, Albumin 1.6L 08/21/24 11:20: Urine Random Creatinine 64.27, Urine Random Sodium 60 08/21/24 04:05: White Blood Count 9.2, Red Blood Count 3.83L, Hemoglobin 10.9L, Hematocrit 31.6L, Mean Corpuscular Volume 82.5, Mean Corpuscular Hemoglobin 28.5, Mean Corpuscular Hemoglobin Concent 34.5, Red Cell Distribution Width 16.0H, Platelet Count 94#L, Mean Platelet Volume 12.7H, Nucleated Red Blood Cells 0.0, Sodium Level 145, Potassium Level 3.7, Chloride Level 109, Carbon Dioxide Level 21, Blood Urea Nitrogen 35H, Creatinine 2.6H, Glomerular Filtration Rate Calc 20, Random Glucose 91, Total Calcium 7.9L, Magnesium Level 2.00, Iron Level 64, Total Iron Binding Capacity 99L, Percent Iron Saturation 64.6H 08/20/24 15:03: Anti-Nuclear Antibody Screen Negative, JENNA-1 Antibody , SS-A/Ro Antibody , SS- B/La Antibody , Sm (Ramirez) IgG Antibody, Quant , [employer] IgG Antibody, Quantitative , Scl-70 (Scleroderma) Antibody , Anti-Double Strand DNA Antibody , Anti- Centromere IgG Antibody 08/20/24 15:02: Whole Blood Glucose 114H GERALDO YAERS MD August 21, 2024 14:34
[2024-08-21] MEDS: ZOSYN 3.375GM+NS 50ML 50 ML IV SCH (18:17)
[2024-08-21] MEDS ORDERED: miDODRine HCL 5 MG TABLET PO PRN (22:00)
--- NOTE | 2024-08-21 22:30 | PN ---
INFECTIOUS DISEASE PROGRESS NOTE Date of Service: August 21, 2024 SUBJECTIVE: Patient was downgraded to medical surgical unit and was seen and examined at bedside in room 304. Patient is awake, alert and oriented x3. Patient is sitting up to the bedside chair. Renal function continues to decline, BUN of 35 and creatinine of 2.6. No dyspnea observed. Patient is afebrile, temperature is 98.2 and the WBC has trended down to 9.2. We will continue on Zosyn and doxycycline as well as Tamiflu. Platelet improved to 94. Mr Teacher following patient. No other issues reported by nursing. PHYSICAL EXAM EYES: Anicteric. Pupils equal and reactive. HENT: No oral thrush seen, moist Oral mucosa. NECK: Supple, no JVD or thyromegaly. LUNGS: Good air entry. No rales, no rhonchi. Nonproductive cough. CARDIOVASCULAR: S1, S2 regular. No murmur heard. ABDOMEN: Soft, non tender, bowel sounds present, no organomegaly. CENTRAL NERVOUS SYSTEM: Awake, alert, oriented x 3. SKIN: No rashes, no swelling. Maculopapular rash. LYMPHATICS: No peripheral lymphadenopathy. MUSCULOSKELETAL: No joint swelling, erythema or tenderness. EXTREMITIES: No cyanosis or clubbing. BACK: No deformity, no pressure ulcer. GENITOURINARY: No dysuria or hematuria. Vital Sign (Last 12 Hours) 08/21/24 08/21/24 08/21/24 08/21/24 11:00 11:15 16:00 20:32 Temp 97.3 97.5 Pulse 79 80 77 96 Resp B/P (MAP) 133/65 143/67 133/61 141/86 Pulse Ox 96 100 100 99 O2 Delivery Room Air Room Air Room Air Room Air Intake & Output (last 24hrs) 08/20/24 08/20/24 08/21/24 15:00 23:00 07:00 Intake Total 934.3 ml 325.0 ml Output Total 850 ml 650 ml Balance 84.3 ml -325.0 ml LABS: Laboratory: Test 08/21/24 11:30 08/21/24 11:20 08/21/24 04:05 08/20/24 15:03 Range/Units Total Bilirubin 0.6 0.2-1.0 mg/dL Direct Bilirubin 0.3 0.0-0.3 mg/dL Aspartate Amino Transf (AST/SGOT) 83 H 10-37 U/L Alanine Aminotransferase (ALT/SGPT) 52 12-78 U/L Alkaline Phosphatase 103 50-136 U/L Ammonia 16 11-32 umol/L Total Protein 5.8 L 6.0-8.3 g/dL Albumin 1.6 L 3.5-5.0 g/dL Urine Random Creatinine 64.27 30-135 mg/dL Urine Random Sodium 60 40-220 mmol/l White Blood Count 9.2 4.8-10.8 K/uL Red Blood Count 3.83 L 4.00-5.50 MIL/uL Hemoglobin 10.9 L 12.0-16.0 g/dL Hematocrit 31.6 L 36-48 % Mean Corpuscular Volume 82.5 79-99 fL Mean Corpuscular Hemoglobin 28.5 27.0-33.0 pg Mean Corpuscular Hemoglobin Concent 34.5 32.0-36.0 g/dL Red Cell Distribution Width 16.0 H 11.0-15.5 % Platelet Count 94 #L 130-400 K/uL Mean Platelet Volume 12.7 H 7.5-10.5 fL Nucleated Red Blood Cells 0.0 0.0-0.19 % Sodium Level 145 136-145 mmol/L Potassium Level 3.7 3.5-5.1 mmol/L Chloride Level 109 101-111 mmol/L Carbon Dioxide Level 21 21-32 mmol/L Blood Urea Nitrogen 35 H 7-18 mg/dL Creatinine 2.6 H 0.5-1.0 mg/dL Glomerular Filtration Rate Calc 20 >90 mL/min Random Glucose 91 70-105 mg/dL Total Calcium 7.9 L 8.5-10.1 mg/dL Magnesium Level 2.00 1.80-2.40 mg/dL Iron Level 64 50-170 mcg/dL Total Iron Binding Capacity 99 L 250-450 mcg/dL Percent Iron Saturation 64.6 H 22-44 % Anti-Nuclear Antibody Screen Negative Negative Anti-Nuclear Antibody Interpret JENNA-1 Antibody SS-A/Ro Antibody SS-B/La Antibody Sm (Ramirez) IgG Antibody, Quant [employer] IgG Antibody, Quantitative Scl-70 (Scleroderma) Antibody Anti-Double Strand DNA Antibody Anti-Centromere IgG Antibody Test 08/20/24 15:02 Range/Units Whole Blood Glucose 114 H 70-110 MG/DL ASSESSMENT: Urinary tract infection. Leukocytosis. Maculopapular rash. Recent viral Influenza infection as outpatient. Acute renal failure. Thrombocytopenia. Fibromyalgia. Hypertension. Debility. PLAN: Continue doxycycline. Continue Zosyn IV. Continue Tamiflu. Continue GI prophylaxis. We will follow up on serology. Avoid nephrotoxic medications. Continue physical therapy. We will monitor electrolytes. This case was reviewed and discussed with my supervising physician and the above assessment and plan was formulated and agreed upon. ATTESTATION BY PHYSICIAN I have seen and examined the patient. I reviewed the documentation, medical decision making, and treatment plan as noted by the mid-level provider above. I agree with the findings and plan of care. CRISELDA JACQUES MD, [facility] August 21, 2024 22:30
[2024-08-22] VITALS (8 sets, daily range): BP systolic 106–148; BP diastolic 50–75; PULSE 82–97; RESP 17–20; TEMP 97.5–98; O2SAT 95–98
[2024-08-22 04:58] LABS: BASOPHILS # (AUTO) 0.05 K/uL (0.00-0.20); BASOPHILS % (AUTO) 0.6 % (0.0-5.0); EOSINOPHILS % (AUTO) 1.3 % (0.0-8.0); IMMATURE GRANULOCYTE ABSOLUTE 0.12 K/uL (0-1); LYMPHOCYTES # (AUTO) 2.8 K/uL (1.0-4.8); LYMPHOCYTES % (AUTO) 35.1 % (21.0-51.0); MEAN CORPUSCULAR HEMOGLOBIN 28.6 pg (27.0-33.0); MEAN CORPUSCULAR HGB CONC 34.5 g/dL (32.0-36.0); MEAN CORPUSCULAR VOLUME 82.9 fL (79-99); MONOCYTES # (AUTO) 0.3 K/uL (0.1-1.0); MONOCYTES % (AUTO) 4.2 % (3.0-13.0); NEUTROPHILS # (AUTO) 4.6 K/uL (1.8-7.7); NEUTROPHILS % (AUTO) 57.3 % (40.0-77.0); PLATELET COUNT (AUTO) 128 K/uL (130-400); RED CELL DISTRIBUTION WIDTH 16.4 % (11.0-15.5); WHITE BLOOD COUNT (AUTO) 7.9 K/uL (4.8-10.8)
[2024-08-22 05:16] LABS: ALBUMIN 1.6 g/dL (3.5-5.0); BILIRUBIN,TOTAL 0.6 mg/dL (0.2-1.0); CREATININE 2.8 mg/dL (0.5-1.0); MAGNESIUM 1.8 mg/dL (1.80-2.40); POTASSIUM 3.6 mmol/L (3.5-5.1); TOTAL PROTEIN, SERUM 5.7 g/dL (6.0-8.3)
[2024-08-22 05:44] LABS: BAND NEUTROPHILS % (MANUAL) 1 % (0-2); EOSINOPHILS % (MANUAL) 1 % (1-6); LYMPHOCYTES % (MANUAL) 15 % (22-44); MAN.DIFF COMMENT-IMPRESSION MANUAL DIFFERENTIAL; METAMYELOCYTES % 1 % (0-0); MONOCYTES % (MANUAL) 2 % (2-9); REACTIVE LYMPHOCYTES 4 % (0-0); SEGMENTED NEUTROPHILS % 76 % (40-70); TOTAL CELLS COUNTED 100
[2024-08-22 05:46] LABS: PLATELET MORPHOLOGY COMMENT ADEQUATE
[2024-08-22] MEDS: PANTOPrazole 40 MG TAB DR PO SCH (08:55)
[2024-08-22] MEDS: pregABALin 25 MG CAP PO ONE (08:56)
--- NOTE | 2024-08-22 10:10 | HMCIMG ---
CT ABDOMEN/PELVIS W/O CONTRAST HISTORY: Acute renal insufficiency COMPARISON: 05/26/2023 TECHNIQUE: Multiple sequential axial images of the abdomen and pelvis were obtained from the dome of the diaphragm through symphysis pubis. Patient was not given contrast through intravenous route. Oral contrast was not given. FINDINGS: Mild bilateral pleural effusions are seen. There is no evidence of parenchymal disease or pulmonary nodule of the visualized lower lungs. Degenerative changes of the thoracolumbar spine are present. The heart is not enlarged. Liver measures 15 cm. Postcholecystectomy changes are seen. Pancreas is enlarged with peripancreatic fat stranding suggestive of acute pancreatitis in a proper clinical setting. Colonic distention is also seen. There is diverticulosis. The liver, spleen, adrenal glands are unremarkable. No hydronephrosis is seen on the right. There is mild left hydronephrosis with multiple left renal pelvic stones with the largest measuring 3 x 2.5 cm. Fecal material is seen in the colon. There are normal size retroperitoneal and mesenteric lymph nodes. No ascites is seen. No CT evidence of acute appendicitis is seen. Pelvic sidewalls are symmetric bilaterally. Bladder is poorly distended with Hobbs catheter. IMPRESSION: 1. There is mild left hydronephrosis with multiple left renal pelvic stones with the largest measuring 3 x 2.5 cm. Small bilateral pleural effusions. 2. Pancreas is enlarged with peripancreatic fat stranding suggestive of acute pancreatitis in a proper clinical setting. Colonic distention is also seen. There is diverticulosis. CT was performed with one or more following dose reduction techniques: automated exposure control, adjustment of the mA and kv according to patient's size, or use of a iterative reconstruction technique.
--- NOTE | 2024-08-22 12:14 | PN ---
[facility] PROGRESS NOTE Date of Service: August 22, 2024 Time of Service: 12:09 SUBJECTIVE: [ PATIENT IS 63 YEARS OLD FEMALE WITH A PAST MEDICAL HISTORY OF HYPERTENSION, FLU, CATARACT, CHOLECYSTECTOMY, HYSTERECTOMY, WHO CAME TO EMERGENCY DEPARTMENT WITH A COMPLAINT OF DECREASED APPETITE, FEVER, GENERALIZED BODY WEAKNESS. PATIENT STATED THAT SHE WENT TO HER PCP AFTER SHE WAS DIAGNOSED WITH INFLUENZA ABOUT A WEEK AGO, WHERE SHE COMPLAINED ABOUT ABOVE-STATED COMPLAINTS AND SHE WAS SENT TO EMERGENCY DEPARTMENT FOR FURTHER EVALUATION/RECOMMENDATION. PATIENT DENIES ANY CHEST PAIN, NAUSEA, VOMITING, SHORTNESS OF BREATHS OR ANY OTHER SYMPTOMS OTHER THAN STATED ABOVE. ] MOST RECENT VITAL SIGNS TEMPERATURE 97.9 ON ADMISSION IN ER WAS 102.9, PULSE 84 RESPIRATION 22 BLOOD PRESSURE 90/50 PATIENT IS ON ROOM AIR SATTING 93%. UA POSITIVE FOR LEUKOCYTOSIS. WBC 9.0 HEMATOCRIT 40.2 HEMOGLOBIN 13.9 PLATELETS 82. SODIUM 133 POTASSIUM 3.3 CO2 29 BUN 14 CREATININE 1.2 GFR 5 GLUCOS 106 LACTIC 1.8 CALCIUM 7.8 TROPONIN NEGATIVE X1. CHEST X-RAY SHOWED CLEAR LUNGS CARDIOMEGALY. 2D ECHO IS PENDING. PATIENT WILL BE ADMITTED UNDER HOSPITALIST CARE FOR FURTHER EVALUATION/RECOMMENDATION. PATIENT WAS PLACED ON VANCOMYCIN AND ZOSYN FOR THE SEPSIS. A.M. LABS. 08/17 patient was seen by nurse practitioner and physician during rounding in room 304. Urinalysis was positive on admission. Blood culture and urine cul ture pending at this moment. Patient continues to be on Zosyn and vancomycin. We will increase fluids from 100 mL/hour 220 mL/hour. Patient's A1c is 5.8. We will discontinue insulin sliding scale per protocol. Also patient's blood pressure has been on lower side. We will discontinue losartan. Home medication reconciled. 2D echo showed EF 55 to 60% normal diastolic function no pericardial effusion. Potassium today is 2.8. Patient received already two 20 mEq through IV potassium. Patient will also receive 40 mEq of potassium as well. We will continue to monitor patient in the meantime. A.m. labs. 08/18 at bedside, she had a low-grade fever overnight, this morning she is tachycardic. Urine and blood cultures have been no growth to date, platelets have decreased from 52 down to 37, AST mildly elevated, creatinine increased from 1.2 up to 1.5. Given that she is still having fevers on vancomycin and Zosyn she may have an atypical infection, we will order a murine typhus panel and start doxycycline. Discontinue vancomycin at this time. Infectious workup has been negative this time we will assess for possible underlying PE or DIC, we will order D-dimer, V/Q scan, fibrinogen, PT and PTT and follow up 08/19 patient seen at bedside, yesterday her blood pressure started to drop despite being on fluids and broad-spectrum antibiotics. She was also tachycardic. D-dimer was elevated as her platelets were low and she was assessed for DIC however fibrinogen was normal. A V/Q scan was done that did not show evidence of pulmonary embolism. She was moved to the ICU and started on pressor support. Creatinine increased from 1.5 up to 2.2 however she has been adequately perfused and she has not been receiving any nephrotoxic medications, bladder scan was ordered showing greater than 500 cc within the bladder concerning for postobstructive uropathy. Hobbs catheter was placed and approximately 800 cc drained immediately. She has swelling and bruising to the left upper extremity where the midline was placed, we will order a venous Doppler to rule out DVT. 08/20 patient is seen and examined, power chart reviewed, vital signs, laboratory tests and imaging tests reviewed. Discussed with the RN, patient off Levophed since earlier this morning. She is awake, following commands, alert oriented x3. Patient noted to have elevated D-dimer and thrombocytopenia, concern for DIC was raised, however fibrinogen was normal. A V/Q scan was negative for PE. The patient was upgraded to the ICU as the patient was getting tachycardic, with a hypotension. Patient had a maximum temperature 102.9 08/16/2024. Patient noted to have worsening renal function with a creatinine of 2.2 as of yesterday, bladder scan was done, showing greater than 500 cc of urine concerning for possible obstructive uropathy, Hobbs catheter inserted, proximally 800 cc was drained immediately. Today still elevated at 2.4, bicarbonate of 23. Patient is also noted to have some swollen and present to left upper extremity we will midline was placed, a venous Doppler of left upper extremity was done, no evidence of DVT. Doppler of both lower extremities also negative for DVT. Urine culture negative, blood culture negative. Patient had loose stools yesterday. at bedside. 08/21 remains hemodynamically stable, BP 109/52, afebrile, saturating normal on room air. During my visit the patient is sitting comfortable in the chair, eating lunch, Laboratory data, WBC 9.2, hemoglobin 10.9, hematocrit 31.6, platelet count of 94 (discussed with the patient. She has not been told about low platelet count in the past). Repeat urine culture 08/19/2024 no growth. Patient evaluated by ID, patient is here with a UTI, had: Papular rash, recent viral influenza infection treated as an outpatient, continue doxycycline, contin ue IV Zosyn, started on Tamiflu 75 mg p.o. b.i.d.. Obtain routine mountain and spotted fever IgG and IgM serology. Results of stool studies Patient noted to have thrombocytopenia, we will request Hematology consult. Patient is still looks mildly edematous, puffiness still the below both eyes, she is on Bumex 1 mg IV b.i.d., Hobbs catheter in place, we will continue with daily weight, strict monitoring of intake and output. Doppler of the legs negative for DVT. 08/22 patient is seen and examined at bedside, downgraded from the PCU to the medical floor, remains alert oriented x3, getting IV antibiotics, admitted 2-3 loose stools yesterday. Today blood pressure 135/59, afebrile, saturating normal on room air, denies nausea, no vomiting, no abdominal discomfort, she is still feels swollen. Currently on Bumex 1 mg IV b.i.d.. Hemoglobin 10.0, hematocrit 29.0, platelet count improving to 128 today. Creatinine worse at 2.8. Patient will remain admitted to the medical floor Continue the patient on antibiotics, continue to follow ID input and recommendation. Continue Bumex 1 mg IV b.i.d. Renal ultrasound requested Nephrology consultation requested as well Follow mountain and spotted fever IgG and IgM serology Hematology input noted and appreciated, start the patient on folic acid 1 mg p.o. daily and vitamin B12 1000 mcg p.o. daily. There is rule out phenomena, we will ask for SPEP, UPEP and free light chain, if there is monoclonal protein we will do bone marrow biopsy. WBC increased number of large granular lymphocyte which could be due to leukemia or chronic disease or atypical infection. We will ask for flow cytometry of peripheral blood, if flow cytometry positive this patient will need bone marrow biopsy. REVIEW OF SYSTEMS 12 point ROS negative unless noted in HPI PHYSICAL EXAM GENERAL APPEARANCE: The patient is awake, alert, and oriented, in no acute cardiopulmonary distress. NEUROLOGICAL: Cranial nerves II-XII grossly intact. Motor is 5/5 in bilateral upper and lower extremities proximal to distal. No sensory deficits. HEENT: Face is symmetric. Pupils are equal and reactive. Extraocular movements are intact. NECK: Supple. No JVD. No thyromegaly. No submental, submandibular, pre- /postauricular, occipital or supraclavicular lymphadenopathy. CHEST: Normal chest expansion. No Telemetry. LUNGS: Absence of any rales, rhonchi or any wheezing. CARDIOVASCULAR: Regular. S1 and S2 normal. No appreciable rubs, murmurs or gallops. ABDOMEN: Soft, nontender, and nondistended. There is no rebound, voluntary guarding, or rigidity. : Deferred. No Hobbs. EXTREMITIES: BOTH UPPER AND LOWER EXTREMITIES ARE EDEMATOUS. SKIN: No skin breakdown. Vital Signs (last 8hr) Date Time Temp Pulse Resp B/P (MAP) Pulse Ox O2 Delivery O2 Flow Rate FiO2 08/22/24 11:40 97.5 83 19 125/59 99 Room Air 08/22/24 11:07 95 Room Air* 0 21 08/22/24 08:00 97.7 87 17 106/50 95 Room Air 08/22/24 04:20 98.1 97 19 106/51 97 Room Air LABS: Laboratory: Test 08/22/24 04:32 08/21/24 11:30 08/21/24 11:20 08/21/24 04:05 Range/Units White Blood Count 7.9 4.8-10.8 K/uL Red Blood Count 3.50 L 4.00-5.50 MIL/uL Hemoglobin 10.0 L 12.0-16.0 g/dL Hematocrit 29.0 L 36-48 % Mean Corpuscular Volume 82.9 79-99 fL Mean Corpuscular Hemoglobin 28.6 27.0-33.0 pg Mean Corpuscular Hemoglobin Concent 34.5 32.0-36.0 g/dL Red Cell Distribution Width 16.4 H 11.0-15.5 % Platelet Count 128 #L 130-400 K/uL Mean Platelet Volume 11.7 H 7.5-10.5 fL Immature Granulocyte % (Auto) 1.5 H 0-1 % Neutrophils (%) (Auto) 57.3 40.0-77.0 % Lymphocytes (%) (Auto) 35.1 21.0-51.0 % Monocytes (%) (Auto) 4.2 3.0-13.0 % Eosinophils (%) (Auto) 1.3 0.0-8.0 % Basophils (%) (Auto) 0.6 0.0-5.0 % Neutrophils # (Auto) 4.6 1.8-7.7 K/uL Lymphocytes # (Auto) 2.8 1.0-4.8 K/uL Monocytes # (Auto) 0.3 0.1-1.0 K/uL Eosinophils # (Auto) 0.10 0.00-0.70 K/uL Basophils # (Auto) 0.05 0.00-0.20 K/uL Absolute Immature Granulocyte (auto 0.12 0-1 K/uL Segmented Neutrophils % 76 H 40-70 % Band Neutrophils % 1 0-2 % Lymphocytes % (Manual) 15 L 22-44 % Monocytes % (Manual) 2 2-9 % Eosinophils % (Manual) 1 1-6 % Metamyelocytes % 1 H 0-0 % Nucleated Red Blood Cells 0.0 0.0-0.19 % Differential Comment MANUAL DIFFERENTIAL Reactive Lymphocytes 4 H 0-0 % White Cell Morphology Comment See comments Platelet Morphology Comment ADEQUATE Red Blood Cell Morphology NORMAL Sodium Level 143 136-145 mmol/L Potassium Level 3.6 3.5-5.1 mmol/L Chloride Level 110 101-111 mmol/L Carbon Dioxide Level 23 21-32 mmol/L Blood Urea Nitrogen 36 H 7-18 mg/dL Creatinine 2.8 H 0.5-1.0 mg/dL Glomerular Filtration Rate Calc 18 >90 mL/min Random Glucose 86 70-105 mg/dL Total Calcium 7.7 L 8.5-10.1 mg/dL Magnesium Level 1.80 1.80-2.40 mg/dL Total Bilirubin 0.6 0.2-1.0 mg/dL Aspartate Amino Transf (AST/SGOT) 62 H 10-37 U/L Alanine Aminotransferase (ALT/SGPT) 44 12-78 U/L Alkaline Phosphatase 91 50-136 U/L Total Protein 5.7 L 6.0-8.3 g/dL Albumin 1.6 L 3.5-5.0 g/dL Direct Bilirubin 0.3 0.0-0.3 mg/dL Ammonia 16 11-32 umol/L Urine Random Creatinine 64.27 30-135 mg/dL Urine Random Sodium 60 40-220 mmol/l Iron Level 64 50-170 mcg/dL Total Iron Binding Capacity 99 L 250-450 mcg/dL Percent Iron Saturation 64.6 H 22-44 % Test 08/20/24 15:03 08/20/24 15:02 Range/Units Anti-Nuclear Antibody Screen Negative Negative Anti-Nuclear Antibody Interpret JENNA-1 Antibody SS-A/Ro Antibody SS-B/La Antibody Sm (Ramirez) IgG Antibody, Quant LINK TRAINER IgG Antibody, Quantitative Scl-70 (Scleroderma) Antibody Anti-Double Strand DNA Antibody Anti-Centromere IgG Antibody Whole Blood Glucose 114 H 70-110 MG/DL Current Medications Medications (Trade) Dose Ordered Sig/Amy Route PRN Reason Start Time Stop Time Status Last Admin Dose Admin Acetaminophen (TYLenol 325MG TAB) 650 mg Q4H PRN PO MILD PAIN (1-3) 08/16/24 16:30 09/15/24 16:29 Acetaminophen (TYLenol 325MG TAB) 650 mg Q6H PRN PO MILD PAIN (1-3) 08/16/24 16:30 08/17/24 09:03 DC Acetaminophen (TYLenol 325MG TAB) 650 mg Q6H PRN PO TEMPERATURE GREATER THAN 101.5 08/16/24 16:30 09/15/24 16:29 08/22/24 04:15 650 MG Al Hydroxide/Mg Hydroxide (MAALox PLUS 30ML) 30 ml Q6H PRN PO INDIGESTION 08/16/24 16:30 09/15/24 16:29 Albumin Human 50 ml @ 100 mls/hr AD IV 08/19/24 01:30 08/19/24 01:21 DC Bumetanide (Bumex 1mg Vial) 1 mg BID IVP 08/21/24 11:00 09/20/24 10:59 08/22/24 08:54 1 MG Dextrose (D50w) 50 ml AD PRN IV HYPOGLYCEMIA PROTOCOL 08/16/24 16:30 09/15/24 16:29 Diphenhydramine HCl (BENAdryl INJ) 25 mg Q6H PRN IV SEVERE ITCHING/RASH 08/16/24 16:30 09/15/24 16:29 08/20/24 20:08 25 MG Doxycycline Hyclate 250 ml @ 125 mls/hr Q12H IV 08/18/24 09:00 08/28/24 08:59 08/22/24 08:54 125 MLS/HR Famotidine (Pepcid 20mg Vial) 20 mg HS IV 08/16/24 21:00 08/21/24 21:44 DC 08/21/24 20:52 20 MG Famotidine (Pepcid 20mg Vial) 20 mg HS PRN IV NAUSEA/VOMITING 08/16/24 16:30 08/17/24 09:03 DC Folic Acid (FOLic ACID 1 MG TABLET) 1 mg DAILY PO 08/22/24 15:00 09/21/24 14:59 Glucagon (Glucagon 1mg Kit) 1 mg AD PRN IM HYPOGLYCEMIA PROTOCOL 08/16/24 16:30 09/15/24 16:29 Guaifenesin/ Dextromethorphan (RobiTUSSin DM 200/20MG 10ML) 10 ml Q4H PRN PO COUGH 08/16/24 16:30 09/15/24 16:29 Heparin Sodium (Porcine) (HEParin 5,000 UNIT VIAL) *calculation based on ACTUAL B... AD PRN IV HEPARIN PROTOCOL 08/18/24 16:30 08/19/24 04:54 DC 08/18/24 16:21 6,000 UNIT Heparin Sodium (Porcine) (HEParin 5,000 UNIT VIAL) 5,000 unit BID SQ 08/16/24 21:00 08/18/24 07:05 DC 08/16/24 21:35 5,000 UNIT Heparin Sodium/ Dextrose 250 ml @ 0 mls/hr Q6H IV 08/18/24 16:30 08/19/24 06:01 DC 08/18/24 16:20 13.98 MLS/HR Home Med (Home Medication) (Meloxicam, Submicronized (Vivlodex... DAILY PO 08/18/24 09:00 08/18/24 07:05 DC Hydralazine HCl (APRESOLine 20MG INJ) 10 mg Q6H PRN IV For:SBP above 160;DBP above 90 08/16/24 16:30 09/15/24 16:29 Insulin Human Regular (humuLIN R 100 UNIT/ML 3ML) INSULIN SLIDING SCAL... ACHS SQ 08/16/24 16:30 08/20/24 15:55 DC Ketorolac Tromethamine (toRADol) 15 mg Q8H PRN IV MODERATE PAIN (4-6) 08/16/24 16:30 08/20/24 12:39 DC 08/18/24 19:15 15 MG Lactulose (Constulose 20gm/ 30ml Udcup) 20 gm BID PRN PO CONSTIPATION 08/16/24 16:30 09/15/24 16:29 Losartan Potassium (CozAAR 100MG TAB) 100 mg DAILY PO 08/18/24 09:00 08/17/24 13:09 DC Magnesium Sulfate 50 ml @ 0 mls/hr PROTOCOL PRN IV other 08/16/24 16:30 09/15/24 16:29 08/22/24 06:22 20 MLS/HR Midodrine (PROAMatine 5 MG TABLET) 5 mg TID PO 08/18/24 13:00 08/19/24 13:02 DC 08/19/24 08:32 5 MG Midodrine (PROAMatine 5 MG TABLET) 10 mg TID PRN PO SBP < 90 08/21/24 22:00 09/18/24 13:29 Midodrine (PROAMatine 5 MG TABLET) 20 mg TID PO 08/19/24 13:30 08/21/24 21:35 DC 08/21/24 08:33 20 MG Nitroglycerin (Nitrostat) 0.4 mg PROTOCOL PRN SL CHEST PAIN 08/16/24 16:30 09/15/24 16:29 Norepinephrine 250 ml @ 0 mls/hr PROTOCOL IV 08/19/24 03:00 08/22/24 07:20 DC 08/19/24 15:55 15.31 MLS/HR Ondansetron HCl (zoFRAN 4MG INJ) 4 mg Q6H PRN IV NAUSEA/VOMITING 08/16/24 16:30 09/15/24 16:29 Oseltamivir Phosphate (Tamiflu) 75 mg Q24H PO 08/20/24 21:00 08/25/24 20:59 08/21/24 20:53 75 MG Oxycodone/ Acetaminophen (perCOCET) 1 tab Q6H PRN PO SEVERE PAIN (7-10) 08/16/24 16:30 08/21/24 19:29 DC 08/16/24 23:04 1 TAB Pantoprazole Sodium (PROTonix 40MG TAB) 40 mg DAILY PO 08/22/24 09:00 09/21/24 08:59 08/22/24 08:55 40 MG Piperacillin Sod/ Tazobactam Sod 50 ml @ 12.5 mls/hr Q12H IV 08/21/24 17:00 08/31/24 16:59 08/22/24 04:10 12.5 MLS/HR Piperacillin Sod/ Tazobactam Sod 50 ml @ 12.5 mls/hr ZOSY8 IV 08/16/24 21:00 08/21/24 10:27 DC 08/21/24 05:03 12.5 MLS/HR Potassium Chloride 100 ml @ 100 mls/hr AD PRN IV POTASSIUM PROTOCOL 08/16/24 16:30 09/15/24 16:29 08/17/24 05:28 100 MLS/HR Potassium Chloride (K-Dur 10meq Sr Tab) 10 meq AD PRN PO POTASSIUM PROTOCOL 08/17/24 09:30 09/15/24 16:29 08/22/24 08:56 10 MEQ Potassium Chloride (K-Dur/Klor-Con 20meq) 10 meq AD PRN PO POTASSIUM PROTOCOL 08/16/24 16:30 08/17/24 09:04 DC 08/17/24 08:12 10 MEQ Potassium Chloride (KCl 10% Elixir 20meq/15ml) 10 meq AD PRN PO POTASSIUM PROTOCOL 08/16/24 16:30 09/15/24 16:29 Pregabalin (LYRica 25MG) 50 mg BID PO 08/17/24 21:00 08/21/24 10:27 DC 08/21/24 08:33 50 MG Simethicone (Mylicon) 80 mg Q8H PRN PO GI GAS 08/19/24 21:00 09/18/24 20:59 08/19/24 21:43 80 MG Sodium Chloride 1,000 ml @ 120 mls/hr Q8H20M IV 08/16/24 16:30 08/20/24 12:38 DC 08/20/24 05:26 120 MLS/HR Trazodone HCl (DesyREL/OlepTRO) 100 mg HS PO 08/17/24 21:00 09/16/24 20:59 08/21/24 20:52 100 MG Vancomycin HCl 250 ml @ 125 mls/hr Q24H IV 08/16/24 17:00 08/18/24 08:48 DC 08/17/24 18:11 125 MLS/HR Vancomycin HCl (Vancomycin Protocol) 1 each PROTOCOL PRN IV VANCOMYCIN PROTOCOL 08/16/24 16:30 08/18/24 08:48 DC Vitamin B Complex (Vitamin B-12) 1,000 mcg DAILY PO 08/22/24 15:00 09/21/24 14:59 Zolpidem Tartrate (AmbIEN) 5 mg HS PRN PO INSOMNIA 08/16/24 16:30 08/21/24 21:35 DC DIAGNOSTICS / RADIOLOGY: [ ] ASSESSMENT: ACUTE SEPSIS POA SEPTIC SHOCK GENERALIZED BODY WEAKNESS POA ACUTE KIDNEY INJURY POA URINARY RETENTION POSTOBSTRUCTIVE UROPATHY ACUTE DEHYDRATION POA ACUTE COMPLICATED CYSTITIS POA ELECTROLYTE IMBALANCE HYPONATREMIA NA 133, HYPOKALEMIA 3.3 HYPOCALCEMIA 7.8 POA UNCONTROLLED HYPERTENSION POA THROMBOCYTOPENIA POA HISTORY OF CATARACT HISTORY OF CHOLECYSTECTOMY HISTORY OF HYSTERECTOMY HISTORY OF KIDNEY STONES HISTORY OF HYDRONEPHROSIS RECENT INFLUENZA INFECTION THROMBOCYTOPENIA PLAN: Patient will remain admitted to the medical floor Continue the patient on antibiotics, continue to follow ID input and recommendation. Continue Bumex 1 mg IV b.i.d. Renal ultrasound requested Nephrology consultation requested as well Follow mountain and spotted fever IgG and IgM serology Hematology input noted and appreciated, start the patient on folic acid 1 mg p.o. daily and vitamin B12 1000 mcg p.o. daily. There is rule out phenomena, we will ask for SPEP, UPEP and free light chain, if there is monoclonal protein we will do bone marrow biopsy. WBC increased number of large granular lymphocyte which could be due to leukemia or chronic disease or atypical infection. We will ask for flow cytometry of peripheral blood, if flow cytometry positive this patient will need bone marrow biopsy. NEURO: MINIMIZE CENTRAL ACTING MEDICATIONS POSSIBLE. FALL PRECAUTIONS. WELL LIGHTED ROOM THROUGH THE DAY AND MINIMIZE INTERRUPTIONS THROUGH THE NIGHT TO PREVENT ACUTE DELIRIUM. PULMONARY: SUPPLEMENTAL 02 NEEDED BIPAP NECESSARY, FOR RESPIRATORY DISTRESS TITRATE FIO2 TO KEEP SPO2 > OR = 90% DUONEBS AND CPT NEEDED IS HOURLY WHILE AWAKE FOR PULMONARY HYGIENE PRN OUT OF BED TO CHAIR TOLERATED MAINTAIN ASPIRATION PRECAUTIONS AT ALL TIMES CARDIOVASCULAR: FOLLOW HEMODYNAMICS. VITAL SIGNS PER FACILITY PROTOCOL GI & NUTRITION: CONTINUE NUTRITIONAL SUPPORT ASPIRATIONS PRECAUTIONS PROKINETIC AGENTS AND LAXATIVES NEEDED KIDNEYS & ELECTROLYTES: STRICT MONITORING OF INTAKE AND OUTPUT DAILY WEIGHTS AVOID NEPHROTOXIC AGENTS MONITOR ELECTROLYTES AND REPLACE NEEDED GOAL URINE OUTPUT OF 30ML/HR OR 0.5ML/KG/HR MEDICATIONS TO BE DOSED ACCORDING TO RENAL FUNCTION. AVOID CONTRAST IF POSSIBLE ENDOCRINE: MAINTAIN BLOOD GLUCOSE BETWEEN 100-180 AT ALL TIMES. INSULIN SLIDING SCALE FOR BLOOD GLUCOSE MANAGEMENT HYPOGLYCEMIA AND HYPERGLYCEMIA PROTOCOL IN PLACE INFECTIOUS DISEASE: TREND TEMPERATURE, WBC AND PROCALCITONIN LEVEL FOLLOW CULTURES, DEESCALATE ANTIBIOTICS SOON POSSIBLE. PANCULTURE IF NEW ONSET FEVER HEMATOLOGY & COAGULATION: MONITOR H&H. KEEP HGB > 7 TRANSFUSE 1 UNIT OF PRBC FOR HGB < 7 TRANSFUSE 1 PACK OF PLATELETS OF PLATELETS < 20, 000 WATCH FOR ANY SIGNS AND SYMPTOMS OF BLEEDING SKIN: PRESSURE ULCER PREVENTION PER FACILITY PROTOCOL SPECIALTY MATTRESS NEEDED ORTHO/REHAB CONTINUE PT/OT PRN: MEDICATIONS TYLENOL 650 MG PO EVERY 4 HRS FOR FEVER ZOFRAN 4 MG IV EVERY 6 HRS FOR N/V HYDRALAZINE 5 MG IV EVERY 4 HRS SYSTOLIC PRESSURE > 160 BOWEL REGIMENT: LACTULOSE 20 GM PO BID PRN CONSTIPATION SUPPORTIVE MEASURES: CONTINUE GI AND DVT PROPHYLAXIS DISPOSITION: PENDING IMPROVEMENT IN CLINICAL CONDITION ALL QUESTIONS ANSWERED TIME SPENT: > 35 MIN JUANITO PENNY MD August 22, 2024 12:14
[2024-08-22] MEDS ORDERED: CYANOCOBALAMIN (VITAMIN B-12) 1,000 MCG TABLET PO SCH (12:30)
[2024-08-22] MEDS ORDERED: FOLic ACID 1 MG TABLET PO SCH (12:30)
--- NOTE | 2024-08-22 13:23 | CONS ---
NEPHROLOGY CONSULTATION NOTE Date/Time Patient Seen: August 22, 2024 1220 Reason for Consultation: Generalized body weakness, renal failure HISTORY OF PRESENT ILLNESS: This is a 63-year-old female with a past medical history of hypertension, cataract, recent influenza. She presented to emergency room with complaints of decreased appetite, fever, generalized body weakness. She has been in the hospital for several days She continues on antibiotics, Tamiflu and Bumex. Blood cultures has been negative CT of the abdomen and pelvis was noted. She was noted to have elevated BUN/creatinine We have been consulted for renal failure. Renal function remains elevated Electrolytes are stable. Iron panel was noted She was seen in the medical floor, continues to complain of generalized edema No family at the bedside Prognosis remains guarded REVIEW OF SYSTEMS: GENERAL: Positive for generalized weakness and edema NEUROLOGIC: Negative for any blurry vision, blind spots, double vision, facial asymmetry, dysphagia, dysarthria, hemiparesis, hemisensory deficits, vertigo, ataxia. HEENT: Negative for any head trauma, neck trauma, neck stiffness, photophobia, phonophobia, sinusitis, rhinitis. CARDIAC: Negative for any chest pain, dyspnea on exertion, paroxysmal nocturnal dyspnea, peripheral edema. PULMONARY: Negative for any shortness of breath, wheezing, COPD, or TB exposure. GASTROINTESTINAL: Negative for any abdominal pain, nausea, vomiting, bright red blood per rectum, melena. GENITOURINARY: Negative for any dysuria, hematuria, incontinence. INTEGUMENTARY: Negative for any rashes, cuts, insect bites. RHEUMATOLOGIC: Negative for any joint pains, photosensitive rashes, history of vasculitis or kidney problems. HEMATOLOGIC: Negative for any abnormal bruising, frequent infections or bleeding. PAST MEDICAL HISTORY: Hypertension, flu PAST SURGICAL HISTORY: Cholecystectomy Hysterectomy PAST SOCIAL HISTORY: Denies use of alcohol, tobacco or illicit drugs FAMILY HISTORY: Noncontributory PHYSICAL EXAM: GENERAL: Alert and oriented x 3. No acute distress. Well-nourished. EYES: EOMI. Anicteric. HENT: Moist mucous membranes. No scleral icterus. No cervical lymphadenopathy. LUNGS: Clear to auscultation bilaterally. No accessory muscle use. CARDIOVASCULAR: Regular rate and rhythm. No murmur. No JVD. ABDOMEN: Soft, non-tender and non-distended. No palpable masses. EXTREMITIES: 2+ edema. Non-tender. SKIN: No rashes or lesions. Warm. NEUROLOGIC: No focal neurological deficits. CN II-XII grossly intact, but not individually tested. PSYCHIATRIC: Cooperative. Appropriate mood and affect. MEDICATIONS: [ ] Current Medications Medications (Trade) Dose Ordered Sig/Amy Route PRN Reason Start Time Stop Time Status Last Admin Dose Admin Acetaminophen (TYLenol 325MG TAB) 650 mg Q4H PRN PO MILD PAIN (1-3) 08/16/24 16:30 09/15/24 16:29 Acetaminophen (TYLenol 325MG TAB) 650 mg Q6H PRN PO MILD PAIN (1-3) 08/16/24 16:30 08/17/24 09:03 DC Acetaminophen (TYLenol 325MG TAB) 650 mg Q6H PRN PO TEMPERATURE GREATER THAN 101.5 08/16/24 16:30 09/15/24 16:29 08/22/24 04:15 650 MG Al Hydroxide/Mg Hydroxide (MAALox PLUS 30ML) 30 ml Q6H PRN PO INDIGESTION 08/16/24 16:30 09/15/24 16:29 Albumin Human 50 ml @ 100 mls/hr AD IV 08/19/24 01:30 08/19/24 01:21 DC Bumetanide (Bumex 1mg Vial) 1 mg BID IVP 08/21/24 11:00 09/20/24 10:59 08/22/24 08:54 1 MG Dextrose (D50w) 50 ml AD PRN IV HYPOGLYCEMIA PROTOCOL 08/16/24 16:30 09/15/24 16:29 Diphenhydramine HCl (BENAdryl INJ) 25 mg Q6H PRN IV SEVERE ITCHING/RASH 08/16/24 16:30 09/15/24 16:29 08/20/24 20:08 25 MG Doxycycline Hyclate 250 ml @ 125 mls/hr Q12H IV 08/18/24 09:00 08/28/24 08:59 08/22/24 08:54 125 MLS/HR Famotidine (Pepcid 20mg Vial) 20 mg HS IV 08/16/24 21:00 08/21/24 21:44 DC 08/21/24 20:52 20 MG Famotidine (Pepcid 20mg Vial) 20 mg HS PRN IV NAUSEA/VOMITING 08/16/24 16:30 08/17/24 09:03 DC Folic Acid (FOLic ACID 1 MG TABLET) 1 mg DAILY PO 08/22/24 12:30 08/22/24 12:25 DC Folic Acid (FOLic ACID 1 MG TABLET) 1 mg DAILY PO 08/22/24 15:00 09/21/24 14:59 Glucagon (Glucagon 1mg Kit) 1 mg AD PRN IM HYPOGLYCEMIA PROTOCOL 08/16/24 16:30 09/15/24 16:29 Guaifenesin/ Dextromethorphan (RobiTUSSin DM 200/20MG 10ML) 10 ml Q4H PRN PO COUGH 08/16/24 16:30 09/15/24 16:29 Heparin Sodium (Porcine) (HEParin 5,000 UNIT VIAL) *calculation based on ACTUAL B... AD PRN IV HEPARIN PROTOCOL 08/18/24 16:30 08/19/24 04:54 DC 08/18/24 16:21 6,000 UNIT Heparin Sodium (Porcine) (HEParin 5,000 UNIT VIAL) 5,000 unit BID SQ 08/16/24 21:00 08/18/24 07:05 DC 08/16/24 21:35 5,000 UNIT Heparin Sodium/ Dextrose 250 ml @ 0 mls/hr Q6H IV 08/18/24 16:30 08/19/24 06:01 DC 08/18/24 16:20 13.98 MLS/HR Home Med (Home Medication) (Meloxicam, Submicronized (Vivlodex... DAILY PO 08/18/24 09:00 08/18/24 07:05 DC Hydralazine HCl (APRESOLine 20MG INJ) 10 mg Q6H PRN IV For:SBP above 160;DBP above 90 08/16/24 16:30 09/15/24 16:29 Insulin Human Regular (humuLIN R 100 UNIT/ML 3ML) INSULIN SLIDING SCAL... ACHS SQ 08/16/24 16:30 08/20/24 15:55 DC Ketorolac Tromethamine (toRADol) 15 mg Q8H PRN IV MODERATE PAIN (4-6) 08/16/24 16:30 08/20/24 12:39 DC 08/18/24 19:15 15 MG Lactulose (Constulose 20gm/ 30ml Udcup) 20 gm BID PRN PO CONSTIPATION 08/16/24 16:30 09/15/24 16:29 Losartan Potassium (CozAAR 100MG TAB) 100 mg DAILY PO 08/18/24 09:00 08/17/24 13:09 DC Magnesium Sulfate 50 ml @ 0 mls/hr PROTOCOL PRN IV other 08/16/24 16:30 09/15/24 16:29 08/22/24 06:22 20 MLS/HR Midodrine (PROAMatine 5 MG TABLET) 5 mg TID PO 08/18/24 13:00 08/19/24 13:02 DC 08/19/24 08:32 5 MG Midodrine (PROAMatine 5 MG TABLET) 10 mg TID PRN PO SBP < 90 08/21/24 22:00 09/18/24 13:29 Midodrine (PROAMatine 5 MG TABLET) 20 mg TID PO 08/19/24 13:30 08/21/24 21:35 DC 08/21/24 08:33 20 MG Nitroglycerin (Nitrostat) 0.4 mg PROTOCOL PRN SL CHEST PAIN 08/16/24 16:30 09/15/24 16:29 Norepinephrine 250 ml @ 0 mls/hr PROTOCOL IV 08/19/24 03:00 08/22/24 07:20 DC 08/19/24 15:55 15.31 MLS/HR Ondansetron HCl (zoFRAN 4MG INJ) 4 mg Q6H PRN IV NAUSEA/VOMITING 08/16/24 16:30 09/15/24 16:29 Oseltamivir Phosphate (Tamiflu) 75 mg Q24H PO 08/20/24 21:00 08/25/24 20:59 08/21/24 20:53 75 MG Oxycodone/ Acetaminophen (perCOCET) 1 tab Q6H PRN PO SEVERE PAIN (7-10) 08/16/24 16:30 08/21/24 19:29 DC 08/16/24 23:04 1 TAB Pantoprazole Sodium (PROTonix 40MG TAB) 40 mg DAILY PO 08/22/24 09:00 09/21/24 08:59 08/22/24 08:55 40 MG Piperacillin Sod/ Tazobactam Sod 50 ml @ 12.5 mls/hr Q12H IV 08/21/24 17:00 08/31/24 16:59 08/22/24 04:10 12.5 MLS/HR Piperacillin Sod/ Tazobactam Sod 50 ml @ 12.5 mls/hr ZOSY8 IV 08/16/24 21:00 08/21/24 10:27 DC 08/21/24 05:03 12.5 MLS/HR Potassium Chloride 100 ml @ 100 mls/hr AD PRN IV POTASSIUM PROTOCOL 08/16/24 16:30 09/15/24 16:29 08/17/24 05:28 100 MLS/HR Potassium Chloride (K-Dur 10meq Sr Tab) 10 meq AD PRN PO POTASSIUM PROTOCOL 08/17/24 09:30 09/15/24 16:29 08/22/24 08:56 10 MEQ Potassium Chloride (K-Dur/Klor-Con 20meq) 10 meq AD PRN PO POTASSIUM PROTOCOL 08/16/24 16:30 08/17/24 09:04 DC 08/17/24 08:12 10 MEQ Potassium Chloride (KCl 10% Elixir 20meq/15ml) 10 meq AD PRN PO POTASSIUM PROTOCOL 08/16/24 16:30 09/15/24 16:29 Pregabalin (LYRica 25MG) 50 mg BID PO 08/17/24 21:00 08/21/24 10:27 DC 08/21/24 08:33 50 MG Simethicone (Mylicon) 80 mg Q8H PRN PO GI GAS 08/19/24 21:00 09/18/24 20:59 08/19/24 21:43 80 MG Sodium Chloride 1,000 ml @ 120 mls/hr Q8H20M IV 08/16/24 16:30 08/20/24 12:38 DC 08/20/24 05:26 120 MLS/HR Trazodone HCl (DesyREL/OlepTRO) 100 mg HS PO 08/17/24 21:00 09/16/24 20:59 08/21/24 20:52 100 MG Vancomycin HCl 250 ml @ 125 mls/hr Q24H IV 08/16/24 17:00 08/18/24 08:48 DC 08/17/24 18:11 125 MLS/HR Vancomycin HCl (Vancomycin Protocol) 1 each PROTOCOL PRN IV VANCOMYCIN PROTOCOL 08/16/24 16:30 08/18/24 08:48 DC Vitamin B Complex (Vitamin B-12) 1,000 mcg DAILY PO 08/22/24 12:30 08/22/24 12:25 DC Vitamin B Complex (Vitamin B-12) 1,000 mcg DAILY PO 08/22/24 15:00 09/21/24 14:59 Zolpidem Tartrate (AmbIEN) 5 mg HS PRN PO INSOMNIA 08/16/24 16:30 08/21/24 21:35 DC Vital Signs (last 8hr) Date Time Temp Pulse Resp B/P (MAP) Pulse Ox O2 Delivery O2 Flow Rate FiO2 08/22/24 11:40 97.5 83 19 125/59 99 Room Air 08/22/24 11:07 95 Room Air* 0 21 08/22/24 08:00 97.7 87 17 106/50 95 Room Air DIAGNOSTICS / RADIOLOGY: REASON: YULIA ORDERING PHYSICIAN: KALEIGH CEJA PROCEDURE: ABD PEL WO - CT ABDOMEN/PELVIS W/O CONTRAST CT ABDOMEN/PELVIS W/O CONTRAST HISTORY: Acute renal insufficiency COMPARISON: 05/26/2023 TECHNIQUE: Multiple sequential axial images of the abdomen and pelvis were obtained from the dome of the diaphragm through symphysis pubis. Patient was not given contrast through intravenous route. Oral contrast was not given. FINDINGS: Mild bilateral pleural effusions are seen. There is no evidence of parenchymal disease or pulmonary nodule of the visualized lower lungs. Degenerative changes of the thoracolumbar spine are present. The heart is not enlarged. Liver measures 15 cm. Postcholecystectomy changes are seen. Pancreas is enlarged with peripancreatic fat stranding suggestive of acute pancreatitis in a proper clinical setting. Colonic distention is also seen. There is diverticulosis. The liver, spleen, adrenal glands are unremarkable. No hydronephrosis is seen on the right. There is mild left hydronephrosis with multiple left renal pelvic stones with the largest measuring 3 x 2.5 cm. Fecal material is seen in the colon. There are normal size retroperitoneal and mesenteric lymph nodes. No ascites is seen. No CT evidence of acute appendicitis is seen. Pelvic sidewalls are symmetric bilaterally. Bladder is poorly distended with Hobbs catheter. IMPRESSION: 1. There is mild left hydronephrosis with multiple left renal pelvic stones with the largest measuring 3 x 2.5 cm. Small bilateral pleural effusions. 2. Pancreas is enlarged with peripancreatic fat stranding suggestive of acute pancreatitis in a proper clinical setting. Colonic distention is also seen. There is diverticulosis. CT was performed with one or more following dose reduction techniques: automated exposure control, adjustment of the mA and kv according to patient's size, or use of a iterative reconstruction technique. DICTATED BY: CALIXTO HUGHES MD DATE: 08/22/24 1005 REASON: SOB ORDERING PHYSICIAN: REYMUNDO WALKER NP PROCEDURE: CXR1VW - CHEST 1VW Exam Type: CHEST 1VW Clinical Information: SOB Comparison: None Findings and impression: Cardiomegaly. Small bilateral pleural effusions. Lungs clear of infiltrates. DICTATED BY: LAURA BARRAZA MD DATE: 08/20/24 1431 REASON: elevated d-dimer ORDERING PHYSICIAN: REYMUNDO WALKER NP PROCEDURE: VENOUS FRANSISCO - US VENOUS DOPPLER BILATERAL ULTRASOUND VENOUS DOPPLER, BILATERAL LOWER EXTREMITIES INDICATION: Bilateral lower extremity pain and swelling TECHNIQUE: Routine grayscale and color Doppler ultrasound of the bilateral lower extremity veins performed. COMPARISON: No priors. FINDINGS: The demonstrated veins of the bilateral lower extremity including the common femoral vein, femoral vein, and popliteal vein are associated with normal compressibility, augmentation, and flow. Normal respiratory variation was identified. No evidence for echogenic intraluminal thrombus formation. IMPRESSION: No sonographic evidence for deep venous thrombosis within the bilateral lower extremity veins. DICTATED BY: QUENTIN PALACIOS MD DATE: 08/19/24 1127 REASON: left arm swelling ORDERING PHYSICIAN: CARY GARVIN MD PROCEDURE: VENOUS UNI - US VENOUS DOPPLER UNILATERAL ULTRASOUND VENOUS DOPPLER LEFT UPPER EXTREMITY INDICATION: Swelling. TECHNIQUE: Routine grayscale and color and spectral Doppler ultrasound of the left upper extremity veins performed in real-time, and images subsequently made available for review. COMPARISON: None FINDINGS: PICC is present. Normal compression, vascular antegrade flow, respiratory variation and spectral waveforms identified within the left internal jugular vein, subclavian vein, axillary vein, brachial vein, cephalic vein, and basilic vein. No evidence for an intraluminal thrombus. No soft tissue abnormalities demonstrated. IMPRESSION: No evidence for left upper extremity venous thrombosis. DICTATED BY: QUENTIN PALACIOS MD DATE: 08/19/24 1126 REASON: abdominal discomfort ORDERING PHYSICIAN: CARY GARVIN MD PROCEDURE: ABDOMEN - US ABDOMINAL COMPLETE ULTRASOUND ABDOMEN COMPLETE INDICATION: Abdominal Pain COMPARISON: None. FINDINGS: The liver is normal in size and increased in echogenicity; no focal lesion demonstrated. Main portal vein is patent, and normal direction of vascular flow demonstrated. The common bile duct caliber measures 5.0 mm. Gallbladder is surgically absent. The spleen is normal in size and echotexture. The spleen measures 11.1 cm. Pancreas is obscured by overlying bowel gas. The right kidney measures 10.4 x 5.1 x 4.5 cm,and is normal in echogenicity, without evidence for hydronephrosis or shadowing stones. The left kidney measures 11.4 x 5.8 x 4.1 cm,and is normal in echogenicity, without evidence for hydronephrosis. Multiple subcentimeter nonobstructing calculi within the left kidney, largest of which measures up to 1.8 cm. Visible portions of the abdominal aorta are within normal limits. Visible portions of the inferior vena cava are within normal limits. No free fluid demonstrated. IMPRESSION: Limitations as reported. Nonobstructing left nephrolithiasis. DICTATED BY: QUENTIN PALACIOS MD DATE: 08/19/241127 REASON: Rule out PE ORDERING PHYSICIAN: CARY GARVIN MD PROCEDURE: PULM VQ - NM PULMONARY/LUNG VQ SCAN NM PULMONARY/LUNG VQ SCAN HISTORY: Pulmonary embolism COMPARISON: None TECHNIQUE: Ventilation study was performed with 6.5 mCi of Xenon gas through inhalation route. Perfusion lung imaging study was performed with 4.5 mCi of technetium macroaggregated through intravenous route. FINDINGS: There is no evidence of segmental or subsegmental perfusion defect. Nonsegmental perfusion defects are also present. IMPRESSION: 1. Normal ventilation perfusion lung imaging study. DICTATED BY: CALIXTO HUGHES MD DATE: 08/18/242053 REASON: shortness of breath ORDERING PHYSICIAN: CARY GARVNI MD PROCEDURE: CXR1VW - CHEST 1VW PORTABLE CHEST RADIOGRAPH INDICATION: shortness of breath COMPARISON: 08/16/2024 FINDINGS: boat ride operator leads overlie the field of view. Heart size is normal. Mild calcific plaque is present along the aortic arch reyes. The pulmonary vascularity and ann appear normal. No abnormal pulmonary parenchymal opacity or consolidation identified. No significant pleural effusion noted. No pneumothorax detected. IMPRESSION: No radiographic evidence for any acute cardiopulmonary process. DICTATED BY: QUENTIN PALACIOS MD DATE: 08/18/24 0921 REASON: chf ORDERING PHYSICIAN: LETY JOHNSON APRN PROCEDURE: ECHO CMP - ECHO 2-D COMPLETE APPROVED REPORT EXAM: Two-dimensional and M-mode echocardiogram with Doppler and color Doppler. INDICATION ICD: Congestive heart failure 2D Dimensions RVDd 2.8 cm LVEF(%) 58.8 (>50%) LVED Vol(simp.) 52.0 mL IVSd 0.8 (0.7-1.1cm) FS(%) 31 % LVES Vol(simp.) 22.0 mL LVDd 4.4 (3.8-5.6cm) LA (2D) 3.4 (1.6-4.0cm) LVEF(%, simp.) 58 % PWd 0.8 (0.7-1.1cm) Ao Root(2D) 2.8 (2.0-3.7cm) LA ESV INDEX (BP) 17.84 mL/m2 IVSs 0.8 cm LVOT diam 2.0 (1.8-2.4cm) LVDs 3.0 (2.5-4.0cm) IVC diam 1.2 cm PWs 1.1 cm Deformation Strain Apical 4 -22.5 % Apical 2 -18.2 % Apical 3 -18.5 % Global Strain -19.8 % M-Mode Dimensions EPSS 0.5 cm LA (MM) 3.3 (1.6-4.0cm) Ao Root(MM) 3.1 (2.0-3.7cm) Aortic Valve AoV Vmax 1.4 m/s Ao Peak GR 7.4 mmHg LVOT Vmax 1.3 m/s AoV VTI 0.3 m Ao Mean GR 3.8 mmHg LVOT VTI 0.23 m B[place] (VMAX) 2.82 cm2 [place] (VTI) 2.3 cm2 Mitral Valve MV E Vmax 76.1 cm/s DECEL Time 222 ms MV A Vmax 66.8 cm/s P 1/2 T 66 ms E/A ratio 1.1 MVA (PHT) 3.3 cm2 TDI E/E' Medial 9.3 E/E' Lateral 6.6 Medial E' Peak V 8.14 cm/s Lateral E' Peak V 11.46 cm/s Pulmonary Valve PV Vmax 0.7 m/s PV VTI 0.12 m PV Mean GR 1.3 mmHg PV Peak GR 2.2 mmHg PI End Ree. Stefano 110.0 cm/s Tricuspid Valve TR Vmax 1.6 m/s RAP (EST) 3 mmHg RVSP 13.8 mmHg TR Peak GR 10.8 mmHg Left Ventricle The left ventricle is normal size. There is normal left ventricular wall thickness. LVEF is 55-60%. The left ventricular diastolic function is normal. Right Ventricle The right ventricle is normal size. The right ventricular systolic function is normal. Atria The left atrium size is normal. The right atrium size is normal. Aortic Valve The aortic valve is normal in structure. No aortic regurgitation is present. There is no aortic valvular stenosis. Mitral Valve The mitral valve is normal in structure. There is no mitral valve regurgitation noted. There is no mitral valve stenosis. Tricuspid Valve The tricuspid valve is normal in structure. There is trace of tricuspid valve regurgitation noted. Pulmonic Valve The pulmonary valve is normal in structure. There is no pulmonic valvular regurgitation. Great Vessels The aortic root is normal in size. The IVC is normal in size and collapses >50% with inspiration. Pericardium There is no pericardial effusion. Other Information Quality : Adequate Conclusion The left ventricle is normal size. LVEF is 55-60%. The left ventricular diastolic function is normal. The right ventricle is normal size. The right ventricular systolic function is normal. The left atrium size is normal. The right atrium size is normal. No valvular pathology. There is no pericardial effusion. DICTATED BY: IGOR MOSQUEDA MD DATE: 08/17/24 0744 REASON: SOB ORDERING PHYSICIAN: CARLOS SHAW MD PROCEDURE: CXR1VW - CHEST 1VW Exam Type: CHEST 1VW Clinical Information: SOB Comparison: None Findings: The lungs are clear of infiltrates. The heart is enlarged. Bony and soft tissue structures of the chest wall are unremarkable. IMPRESSION: Cardiomegaly. Clear lungs. DICTATED BY: LAURA BARRAZA MD DATE: 08/16/24 1458 LABORATORY: [ ] Hematology Labs: Test 08/22/24 04:32 Range/Units White Blood Count 7.9 4.8-10.8 K/uL Red Blood Count 3.50 L 4.00-5.50 MIL/uL Hemoglobin 10.0 L 12.0-16.0 g/dL Hematocrit 29.0 L 36-48 % Mean Corpuscular Volume 82.9 79-99 fL Mean Corpuscular Hemoglobin 28.6 27.0-33.0 pg Mean Corpuscular Hemoglobin Concent 34.5 32.0-36.0 g/dL Red Cell Distribution Width 16.4 H 11.0-15.5 % Platelet Count 128 #L 130-400 K/uL Mean Platelet Volume 11.7 H 7.5-10.5 fL Immature Granulocyte % (Auto) 1.5 H 0-1 % Neutrophils (%) (Auto) 57.3 40.0-77.0 % Lymphocytes (%) (Auto) 35.1 21.0-51.0 % Monocytes (%) (Auto) 4.2 3.0-13.0 % Eosinophils (%) (Auto) 1.3 0.0-8.0 % Basophils (%) (Auto) 0.6 0.0-5.0 % Neutrophils # (Auto) 4.6 1.8-7.7 K/uL Lymphocytes # (Auto) 2.8 1.0-4.8 K/uL Monocytes # (Auto) 0.3 0.1-1.0 K/uL Eosinophils # (Auto) 0.10 0.00-0.70 K/uL Basophils # (Auto) 0.05 0.00-0.20 K/uL Absolute Immature Granulocyte (auto 0.12 0-1 K/uL Segmented Neutrophils % 76 H 40-70 % Band Neutrophils % 1 0-2 % Lymphocytes % (Manual) 15 L 22-44 % Monocytes % (Manual) 2 2-9 % Eosinophils % (Manual) 1 1-6 % Metamyelocytes % 1 H 0-0 % Nucleated Red Blood Cells 0.0 0.0-0.19 % Differential Comment MANUAL DIFFERENTIAL Reactive Lymphocytes 4 H 0-0 % White Cell Morphology Comment See comments Platelet Morphology Comment ADEQUATE Red Blood Cell Morphology NORMAL Chemistry Labs: Test 08/22/24 04:32 08/21/24 11:30 08/21/24 04:05 08/20/24 15:02 Range/Units Sodium Level 143 136-145 mmol/L Potassium Level 3.6 3.5-5.1 mmol/L Chloride Level 110 101-111 mmol/L Carbon Dioxide Level 23 21-32 mmol/L Blood Urea Nitrogen 36 H 7-18 mg/dL Creatinine 2.8 H 0.5-1.0 mg/dL Glomerular Filtration Rate Calc 18 >90 mL/min Random Glucose 86 70-105 mg/dL Total Calcium 7.7 L 8.5-10.1 mg/dL Magnesium Level 1.80 1.80-2.40 mg/dL Total Bilirubin 0.6 0.2-1.0 mg/dL Aspartate Amino Transf (AST/SGOT) 62 H 10-37 U/L Alanine Aminotransferase (ALT/SGPT) 44 12-78 U/L Alkaline Phosphatase 91 50-136 U/L Total Protein 5.7 L 6.0-8.3 g/dL Albumin 1.6 L 3.5-5.0 g/dL Direct Bilirubin 0.3 0.0-0.3 mg/dL Ammonia 16 11-32 umol/L Iron Level 64 50-170 mcg/dL Total Iron Binding Capacity 99 L 250-450 mcg/dL Percent Iron Saturation 64.6 H 22-44 % Whole Blood Glucose 114 H 70-110 MG/DL ASSESSMENT: Acute on chronic renal failure Acute sepsis Septic shock Generalized body weakness Urinary retention Postobstructive uropathy Acute dehydration Acute complicated cystitis Electrolyte imbalance Uncontrolled hypertension Thrombocytopenia History of kidney stones History of hydronephrosis Recent influenza infection PLAN: Labs, diagnostic, radiologic exams reviewed and interpreted by myself and supervising physician. We have reviewed external records in detail Obtain UA Require close monitoring of renal function and electrolytes Order CBC, CMP, complete iron panel, ferritin, uric acid, TSH and electrolytes in am IV iron/Epogen is needed BiPAP as necessary, for respiratory distress Monitor blood pressure adjust medication doses as needed Avoid hypotensive episodes May use Dilaudid 0.5 mg IV every 6 hours as needed for severe pain Monitor blood sugars Strict intake, output, and daily weight should be monitored Please renally adjust medications Avoid nephrotoxic and nonsteroidal drugs Avoid contrast if possible Will continue to monitor renal function, anemia, electrolytes Treatment plan discussed with patient Questions were answered We have discussed with the other team physicians in detail about the care plan We will continue to monitor the patient closely Thank you for allowing us to participate in the care of this patient ATTESTATION BY PHYSICIAN I have seen and examined the patient. I reviewed the documentation, medical decision making, and treatment plan as noted by the mid-level provider above. I agree with the findings and plan of care. EVAN TEIXEIRA MD, [facility] August 22, 2024 13:23 EVAN TEIXEIRA MD August 22, 2024 20:06
--- NOTE | 2024-08-22 13:23 | PN ---
INFECTIOUS DISEASE PROGRESS NOTE Date of Service: August 22, 2024 SUBJECTIVE: Patient was downgraded to medical surgical unit and was seen and examined at bedside in room 304. Patient is awake, alert and oriented. The stool culture came back positive for Lindy albicans. No growth reported yet on the urine culture. We will continue on Zosyn and doxycycline as well as Tamiflu. PHYSICAL EXAM EYES: Anicteric. Pupils equal and reactive. HENT: No oral thrush seen, moist Oral mucosa. NECK: Supple, no JVD or thyromegaly. LUNGS: Good air entry. No rales, no rhonchi. Nonproductive cough. CARDIOVASCULAR: S1, S2 regular. No murmur heard. ABDOMEN: Soft, non tender, bowel sounds present, no organomegaly. CENTRAL NERVOUS SYSTEM: Awake, alert, oriented x 3. SKIN: No rashes, no swelling. Maculopapular rash. LYMPHATICS: No peripheral lymphadenopathy. MUSCULOSKELETAL: No joint swelling, erythema or tenderness. EXTREMITIES: No cyanosis or clubbing. BACK: No deformity, no pressure ulcer. GENITOURINARY: No dysuria or hematuria. Vital Sign (Last 12 Hours) 08/22/24 08/22/24 08/22/24 08/22/24 04:20 08:00 11:07 11:40 Temp 98.1 97.7 97.5 Pulse 97 87 83 Resp 19 17 19 B/P (MAP) 106/51 106/50 125/59 Pulse Ox 97 95 95 99 O2 Delivery Room Air Room Air Room Air* Room Air O2 Flow Rate 0 FiO2 21 Intake & Output (last 24hrs) 08/21/24 08/21/24 08/22/24 15:00 23:00 07:00 Intake Total 606.0 ml 240 ml Output Total 300 ml 1300 ml Balance 306.0 ml -1060 ml LABS: Laboratory: Test 08/22/24 04:32 08/21/24 11:30 08/21/24 11:20 08/21/24 04:05 Range/Units White Blood Count 7.9 4.8-10.8 K/uL Red Blood Count 3.50 L 4.00-5.50 MIL/uL Hemoglobin 10.0 L 12.0-16.0 g/dL Hematocrit 29.0 L 36-48 % Mean Corpuscular Volume 82.9 79-99 fL Mean Corpuscular Hemoglobin 28.6 27.0-33.0 pg Mean Corpuscular Hemoglobin Concent 34.5 32.0-36.0 g/dL Red Cell Distribution Width 16.4 H 11.0-15.5 % Platelet Count 128 #L 130-400 K/uL Mean Platelet Volume 11.7 H 7.5-10.5 fL Immature Granulocyte % (Auto) 1.5 H 0-1 % Neutrophils (%) (Auto) 57.3 40.0-77.0 % Lymphocytes (%) (Auto) 35.1 21.0-51.0 % Monocytes (%) (Auto) 4.2 3.0-13.0 % Eosinophils (%) (Auto) 1.3 0.0-8.0 % Basophils (%) (Auto) 0.6 0.0-5.0 % Neutrophils # (Auto) 4.6 1.8-7.7 K/uL Lymphocytes # (Auto) 2.8 1.0-4.8 K/uL Monocytes # (Auto) 0.3 0.1-1.0 K/uL Eosinophils # (Auto) 0.10 0.00-0.70 K/uL Basophils # (Auto) 0.05 0.00-0.20 K/uL Absolute Immature Granulocyte (auto 0.12 0-1 K/uL Segmented Neutrophils % 76 H 40-70 % Band Neutrophils % 1 0-2 % Lymphocytes % (Manual) 15 L 22-44 % Monocytes % (Manual) 2 2-9 % Eosinophils % (Manual) 1 1-6 % Metamyelocytes % 1 H 0-0 % Nucleated Red Blood Cells 0.0 0.0-0.19 % Differential Comment MANUAL DIFFERENTIAL Reactive Lymphocytes 4 H 0-0 % White Cell Morphology Comment See comments Platelet Morphology Comment ADEQUATE Red Blood Cell Morphology NORMAL Sodium Level 143 136-145 mmol/L Potassium Level 3.6 3.5-5.1 mmol/L Chloride Level 110 101-111 mmol/L Carbon Dioxide Level 23 21-32 mmol/L Blood Urea Nitrogen 36 H 7-18 mg/dL Creatinine 2.8 H 0.5-1.0 mg/dL Glomerular Filtration Rate Calc 18 >90 mL/min Random Glucose 86 70-105 mg/dL Total Calcium 7.7 L 8.5-10.1 mg/dL Magnesium Level 1.80 1.80-2.40 mg/dL Total Bilirubin 0.6 0.2-1.0 mg/dL Aspartate Amino Transf (AST/SGOT) 62 H 10-37 U/L Alanine Aminotransferase (ALT/SGPT) 44 12-78 U/L Alkaline Phosphatase 91 50-136 U/L Total Protein 5.7 L 6.0-8.3 g/dL Albumin 1.6 L 3.5-5.0 g/dL Direct Bilirubin 0.3 0.0-0.3 mg/dL Ammonia 16 11-32 umol/L Urine Random Creatinine 64.27 30-135 mg/dL Urine Random Sodium 60 40-220 mmol/l Iron Level 64 50-170 mcg/dL Total Iron Binding Capacity 99 L 250-450 mcg/dL Percent Iron Saturation 64.6 H 22-44 % Test 08/20/24 15:03 08/20/24 15:02 Range/Units Anti-Nuclear Antibody Screen Negative Negative Anti-Nuclear Antibody Interpret JENNA-1 Antibody SS-A/Ro Antibody SS-B/La Antibody Sm (Ramirez) IgG Antibody, Quant PSYCHOLOGY PHYSICIAN IgG Antibody, Quantitative Scl-70 (Scleroderma) Antibody Anti-Double Strand DNA Antibody Anti-Centromere IgG Antibody Whole Blood Glucose 114 H 70-110 MG/DL ASSESSMENT: Urinary tract infection. Leukocytosis. Maculopapular rash. Recent viral Influenza infection as outpatient. Acute renal failure. Thrombocytopenia. Fibromyalgia. Hypertension. Debility. PLAN: Continue doxycycline. Continue Zosyn IV. Continue Tamiflu. Continue GI prophylaxis. We will follow up on the serology. Avoid nephrotoxic medications. Continue physical therapy. We will monitor electrolytes. This case was reviewed and discussed with my supervising physician and the above assessment and plan was formulated and agreed upon. ATTESTATION BY PHYSICIAN I have seen and examined the patient. I reviewed the documentation, medical decision making, and treatment plan as noted by the mid-level provider above. I agree with the findings and plan of care. CRISELDA JACQUES MD, [facility] August 22, 2024 13:23
--- NOTE | 2024-08-22 13:26 | PN ---
[PATIENT IS 63 YEARS OLD FEMALE WITH A PAST MEDICAL HISTORY OF HYPERTENSION, FLU, CATARACT, CHOLECYSTECTOMY, HYSTERECTOMY, WHO CAME TO EMERGENCY DEPARTMENT WITH A COMPLAINT OF DECREASED APPETITE, FEVER, GENERALIZED BODY WEAKNESS. PATIENT STATED THAT SHE WENT TO HER PCP AFTER SHE WAS DIAGNOSED WITH INFLUENZA ABOUT A WEEK AGO, WHERE SHE COMPLAINED ABOUT ABOVE-STATED COMPLAINTS AND SHE WAS SENT TO EMERGENCY DEPARTMENT FOR FURTHER EVALUATION/RECOMMENDATION. PATIENT DENIES ANY CHEST PAIN, NAUSEA, VOMITING, SHORTNESS OF BREATHS OR ANY OTHER SYMPTOMS OTHER THAN STATED ABOVE. ] Patient was admitted for sepsis with the patient was started on antibiotic treatment. This patient was found to have thrombocytopenia and anemia. There is no obvious bleeding. Blood cultures so far continue to be negative. PHYSICAL EXAM GENERAL APPEARANCE: The patient is awake, alert, and oriented, in no acute cardiopulmonary distress. NEUROLOGICAL: Cranial nerves II-XII grossly intact. Motor is 5/5 in bilateral upper and lower extremities proximal to distal. No sensory deficits. HEENT: Face is symmetric. Pupils are equal and reactive. Extraocular movements are intact. NECK: Supple. No JVD. No thyromegaly. No submental, submandibular, pre- /postauricular, occipital or supraclavicular lymphadenopathy. CHEST: Normal chest expansion. No Telemetry. LUNGS: Absence of any rales, rhonchi or any wheezing. CARDIOVASCULAR: Regular. S1 and S2 normal. No appreciable rubs, murmurs or gallops. ABDOMEN: Soft, nontender, and nondistended. There is no rebound, voluntary guarding, or rigidity. : Deferred. No Hobbs. EXTREMITIES: Non-edematous and not cyanotic. No clubbing. Good capillary refill. SKIN: No skin breakdown. Assessment 1. Anemia 2. Thrombocytopenia 3. Hypertension 4. Possible atypical infection 5. Acute on chronic renal failure 6. History of hysterectomy 7. Possible systemic disease such as lupus, rheumatoid arthritis or vasculitis. Plan 1. Peripheral blood smear showed red blood cells to be normocytic normochromic. There was no fragment cell or schistocyte. There is no teardrop cell. There is no rouleaux phenomena. There is no pelger-Huet cell. White blood cell with no blasts. Platelet was normal in morphology and count. 2. There was hypersegmented neutrophils. This patient to be started on folic acid 1 mg p.o. daily and vitamin B12 1000 mcg p.o. daily. 3. There is rouleaux phenomena. We will ask for SPEP, UPEP and free light chain. If there is monoclonal protein we will do a bone marrow biopsy. 4. There is increased number of large glandular lymphocyte which could be due to leukemia or chronic disease or atypical infection. Will ask for flow cytometry of peripheral blood. If flow cytometry positive this patient will need bone marrow biopsy 5. This patient could have atypical infection. This patient may be should be on doxycycline part of her regimen for antibiotics. 6. We will ask for iron study to be done on this patient. 7. We will ask for direct Ulysses test to be done also. If it is positive then this patient need to start on high-dose dexamethasone Vitals/Labs Vital Signs Date Time Temp Pulse Resp B/P (MAP) Pulse Ox O2 Delivery O2 Flow Rate FiO2 08/22/24 11:40 97.5 83 19 125/59 99 Room Air 08/22/24 11:07 0 21 Laboratory Tests 08/22/24 04:32 Medications Current Medications Sodium Chloride 2,448 ml @ 816 mls/hr ONCE ONCE IV Last administered on 08/16/24at 14:09; Start 08/16/24 at 14:00; Stop 08/16/24 at 16:59; Status DC Acetaminophen 1,000 mg ONCE ONCE PO Last administered on 08/16/24at 14:09; Start 08/16/24 at 14:00; Stop 08/16/24 at 14:01; Status DC Ceftriaxone Sodium 1 gm ONCE ONCE IVPB Last administered on 08/16/24at 16:48; Start 08/16/24 at 15:30; Stop 08/16/24 at 15:31; Status DC Dextrose 50 ml AD PRN IV; Start 08/16/24 at 16:30; Stop 09/15/24 at 16:29 Glucagon 1 mg AD PRN IM; Start 08/16/24 at 16:30; Stop 09/15/24 at 16:29 Insulin Human Regular INSULIN SLIDING SCAL... ACHS SQ; Start 08/16/24 at 16:30; Stop 08/20/24 at 15:55; Status DC Potassium Chloride 100 ml @ 100 mls/hr AD PRN IV Last administered on 08/17/24at 05:28; Start 08/16/24 at 16:30; Stop 09/15/24 at 16:29 Potassium Chloride 10 meq AD PRN PO; Start 08/16/24 at 16:30; Stop 09/15/24 at 16:29 Potassium Chloride 10 meq AD PRN PO Last administered on 08/17/24at 08:12; Start 08/16/24 at 16:30; Stop 08/17/24 at 09:04; Status DC Magnesium Sulfate 50 ml @ 0 mls/hr PROTOCOL PRN IV Last administered on 08/22/24at 06:22; Start 08/16/24 at 16:30; Stop 09/15/24 at 16:29 Diphenhydramine HCl 25 mg Q6H PRN IV Last administered on 08/20/24at 20:08; Start 08/16/24 at 16:30; Stop 09/15/24 at 16:29 Acetaminophen 650 mg Q6H PRN PO Last administered on 08/22/24at 04:15; Start 08/16/24 at 16:30; Stop 09/15/24 at 16:29 Acetaminophen 650 mg Q4H PRN PO; Start 08/16/24 at 16:30; Stop 09/15/24 at 16:29 Ondansetron HCl 4 mg Q6H PRN IV; Start 08/16/24 at 16:30; Stop 09/15/24 at 16:29 Zolpidem Tartrate 5 mg HS PRN PO; Start 08/16/24 at 16:30; Stop 08/21/24 at 21:35; Status DC Al Hydroxide/Mg Hydroxide 30 ml Q6H PRN PO; Start 08/16/24 at 16:30; Stop 09/15/24 at 16:29 Lactulose 20 gm BID PRN PO; Start 08/16/24 at 16:30; Stop 09/15/24 at 16:29 Nitroglycerin 0.4 mg PROTOCOL PRN SL; Start 08/16/24 at 16:30; Stop 09/15/24 at 16:29 Guaifenesin/ Dextromethorphan 10 ml Q4H PRN PO; Start 08/16/24 at 16:30; Stop 09/15/24 at 16:29 Famotidine 20 mg HS PRN IV; Start 08/16/24 at 16:30; Stop 08/17/24 at 09:03; Status DC Heparin Sodium (Porcine) 5,000 unit BID SQ Last administered on 08/16/24at 21:35; Start 08/16/24 at 21:00; Stop 08/18/24 at 07:05; Status DC Acetaminophen 650 mg Q6H PRN PO; Start 08/16/24 at 16:30; Stop 08/17/24 at 09:03; Status DC Ketorolac Tromethamine 15 mg Q8H PRN IV Last administered on 08/18/24at 19:15; Start 08/16/24 at 16:30; Stop 08/20/24 at 12:39; Status DC Oxycodone/ Acetaminophen 1 tab Q6H PRN PO Last administered on 08/16/24at 23:04; Start 08/16/24 at 16:30; Stop 08/21/24 at 19:29; Status DC Vancomycin HCl 1 each PROTOCOL PRN IV; Start 08/16/24 at 16:30; Stop 08/18/24 at 08:48; Status DC Piperacillin Sod/ Tazobactam Sod 50 ml @ 12.5 mls/hr ZOSY8 IV Last administered on 08/21/24at 05:03; Start 08/16/24 at 21:00; Stop 08/21/24 at 10:27; Status DC Sodium Chloride 1,000 ml @ 120 mls/hr Q8H20M IV Last administered on 08/20/24at 05:26; Start 08/16/24 at 16:30; Stop 08/20/24 at 12:38; Status DC Hydralazine HCl 10 mg Q6H PRN IV; Start 08/16/24 at 16:30; Stop 09/15/24 at 16:29 Famotidine 20 mg HS IV Last administered on 08/21/24at 20:52; Start 08/16/24 at 21:00; Stop 08/21/24 at 21:44; Status DC Vancomycin HCl 250 ml @ 125 mls/hr Q24H IV Last administered on 08/17/24at 18:11; Start 08/16/24 at 17:00; Stop 08/18/24 at 08:48; Status DC Potassium Chloride 40 meq ONCE ONCE PO Last administered on 08/17/24at 13:27; Start 08/17/24 at 08:30; Stop 08/17/24 at 08:31; Status DC Potassium Chloride 40 meq ONCE ONCE PO; Start 08/17/24 at 11:00; Stop 08/17/24 at 11:01; Status DC Potassium Chloride 10 meq AD PRN PO Last administered on 08/22/24at 08:56; Start 08/17/24 at 09:30; Stop 09/15/24 at 16:29 Trazodone HCl 100 mg HS PO Last administered on 08/21/24at 20:52; Start 08/17/24 at 21:00; Stop 09/16/24 at 20:59 Home Med (Meloxicam, Submicronized (Vivlodex... DAILY PO; Start 08/18/24 at 09:00; Stop 08/18/24 at 07:05; Status DC Losartan Potassium 100 mg DAILY PO; Start 08/18/24 at 09:00; Stop 08/17/24 at 13:09; Status DC Pregabalin 50 mg BID PO Last administered on 08/21/24at 08:33; Start 08/17/24 at 21:00; Stop 08/21/24 at 10:27; Status DC Doxycycline Hyclate 250 ml @ 125 mls/hr Q12H IV Last administered on 08/22/24at 08:54; Start 08/18/24 at 09:00; Stop 08/28/24 at 08:59 Midodrine 5 mg TID PO Last administered on 08/19/24at 08:32; Start 08/18/24 at 13:00; Stop 08/19/24 at 13:02; Status DC Heparin Sodium (Porcine) *calculation based on ACTUAL B... AD PRN IV Last administered on 08/18/24at 16:21; Start 08/18/24 at 16:30; Stop 08/19/24 at 04:54; Status DC Heparin Sodium/ Dextrose 250 ml @ 0 mls/hr Q6H IV Last administered on 08/18/24at 16:20; Start 08/18/24 at 16:30; Stop 08/19/24 at 06:01; Status DC Albumin Human 50 ml @ 100 mls/hr AD IV; Start 08/19/24 at 01:30; Stop 08/19/24 at 01:21; Status DC Pharmacy Profile Note 1 each ONCE ONCE MISC; Start 08/19/24 at 01:30; Stop 08/19/24 at 01:31; Status DC Albumin Human 100 ml @ 100 mls/hr ONCE ONCE IV Last administered on 08/19/24at 01:26; Start 08/19/24 at 01:30; Stop 08/19/24 at 02:29; Status DC Norepinephrine 250 ml @ 0 mls/hr PROTOCOL IV Last administered on 08/19/24at 15:55; Start 08/19/24 at 03:00; Stop 08/22/24 at 07:20; Status DC Midodrine 20 mg TID PO Last administered on 08/21/24at 08:33; Start 08/19/24 at 13:30; Stop 08/21/24 at 21:35; Status DC Midodrine 5 mg STK-MED ONCE .ROUTE; Start 08/19/24 at 13:05; Stop 08/19/24 at 13:08; Status DC Simethicone 80 mg Q8H PRN PO Last administered on 08/19/24at 21:43; Start 08/19/24 at 21:00; Stop 09/18/24 at 20:59 Furosemide 40 mg ONCE ONCE IV Last administered on 08/20/24at 12:42; Start 08/20/24 at 13:00; Stop 08/20/24 at 13:01; Status DC Oseltamivir Phosphate 75 mg Q24H PO Last administered on 08/21/24at 20:53; Start 08/20/24 at 21:00; Stop 08/25/24 at 20:59 Pregabalin 25 mg DAILY ONCE PO Last administered on 08/22/24at 08:56; Start 08/22/24 at 09:00; Stop 08/22/24 at 09:01; Status DC Piperacillin Sod/ Tazobactam Sod 50 ml @ 12.5 mls/hr Q12H IV Last administered on 08/22/24at 04:10; Start 08/21/24 at 17:00; Stop 08/31/24 at 16:59 Bumetanide 1 mg BID IVP Last administered on 08/22/24at 08:54; Start 08/21/24 at 11:00; Stop 09/20/24 at 10:59 Folic Acid 1 mg DAILY PO; Start 08/22/24 at 15:00; Stop 09/21/24 at 14:59 Vitamin B Complex 1,000 mcg DAILY PO; Start 08/22/24 at 15:00; Stop 09/21/24 at 14:59 Midodrine 10 mg TID PRN PO; Start 08/21/24 at 22:00; Stop 09/18/24 at 13:29 Pantoprazole Sodium 40 mg DAILY PO Last administered on 08/22/24at 08:55; Start 08/22/24 at 09:00; Stop 09/21/24 at 08:59 Vitamin B Complex 1,000 mcg DAILY PO; Start 08/22/24 at 12:30; Stop 08/22/24 at 12:25; Status DC Folic Acid 1 mg DAILY PO; Start 08/22/24 at 12:30; Stop 08/22/24 at 12:25; Status DC GERALDO AYERS MD August 22, 2024 13:26
--- NOTE | 2024-08-22 14:09 | PN ---
[facility] PROGRESS NOTE Date Patient Seen: August 22, 2024 Time of Visit: 1058 Supervising Physician: Dr. Castellon Primary Care Physician: Harris Rankin Outpatient Specialists: [ ] Inpatient Consults: BIS PROBLEM LIST Septic shock requiring pressors POA resolved 2/2 from below Acute complicated cystitis, pending CT Abdomen and pelvis Acute urinary retention status post Hobbs catheter insertion. Elevated D-dimer V/Q scan negative for PE. YULIA subtherapeutic from obstructive uropathy. Electrolyte imbalance. Hypertension. Acute Thrombocytopenia. Rule out systemic disease such as lupus, rheumatoid arthritis or vasculitis. Left ventricular ejection fraction 55-60% per echocardiogram 08/17/2024 Recent diagnosis of influenza, repeat serology was negative. INTERVAL HISTORY: 08/20/2024: At the time of my evaluation, the patient was lying in bed. The staff nurse reports no acute events overnight. Blood pressure macias, the major changes of concern. Laboratory data showed no changes of concern. Chest x-ray today showed small bilateral pleural effusion. Cultures are in progress. Patient on levophed and on p.o. midodrine. She is also on antibiotic therapy as ordered. No other complaint 08/22 patient was seen and examined at bedside with no family present. Patient is awake alert able answer simple questions appropriately. At time visit patient has no specific complaints. Patient noted to have worsening kidney function upon admission 1.2 this a.m. 2.8 at this time patient is currently pending evaluation from Nephrology's appreciate assistance we will follow their recommendations. Chest x-ray was reviewed by supervising physician and noted to have fine infiltrates with pulmonary edema we will continue to monitor patient's respiratory status closely. Patient's CT abdomen showing left hydronephrosis with left stone largest being x 2.5 cm and possible acute pancreatitis. REVIEW OF SYSTEMS: 12 point ROS reviewed with patient. Pertinent positives mentioned above. Otherwise negative. PHYSICAL EXAM: GENERAL: alert, weak, awake oriented x 3 HEENT: EOMI, Sclera non icteric, moist mucosa NECK: Supple, no JVD, trachea midline LUNGS: Clear breath sounds bilaterally. No wheezes HEART: Regular rate and rhythm. Normal S1 and S2, without murmurs ABD: Abdomen soft, nontender. Bowel sounds present EXT: No clubbing cyanosis or edema NEURO: Alert and oriented to person, follows commands Vital Signs (last 8hr) Date Time Temp Pulse Resp B/P (MAP) Pulse Ox O2 Delivery O2 Flow Rate FiO2 08/22/24 11:40 97.5 83 19 125/59 99 Room Air 08/22/24 11:07 95 Room Air* 0 21 08/22/24 08:00 97.7 87 17 106/50 95 Room Air LABS: Hematology Labs: Test 08/22/24 04:32 Range/Units White Blood Count 7.9 4.8-10.8 K/uL Red Blood Count 3.50 L 4.00-5.50 MIL/uL Hemoglobin 10.0 L 12.0-16.0 g/dL Hematocrit 29.0 L 36-48 % Mean Corpuscular Volume 82.9 79-99 fL Mean Corpuscular Hemoglobin 28.6 27.0-33.0 pg Mean Corpuscular Hemoglobin Concent 34.5 32.0-36.0 g/dL Red Cell Distribution Width 16.4 H 11.0-15.5 % Platelet Count 128 #L 130-400 K/uL Mean Platelet Volume 11.7 H 7.5-10.5 fL Immature Granulocyte % (Auto) 1.5 H 0-1 % Neutrophils (%) (Auto) 57.3 40.0-77.0 % Lymphocytes (%) (Auto) 35.1 21.0-51.0 % Monocytes (%) (Auto) 4.2 3.0-13.0 % Eosinophils (%) (Auto) 1.3 0.0-8.0 % Basophils (%) (Auto) 0.6 0.0-5.0 % Neutrophils # (Auto) 4.6 1.8-7.7 K/uL Lymphocytes # (Auto) 2.8 1.0-4.8 K/uL Monocytes # (Auto) 0.3 0.1-1.0 K/uL Eosinophils # (Auto) 0.10 0.00-0.70 K/uL Basophils # (Auto) 0.05 0.00-0.20 K/uL Absolute Immature Granulocyte (auto 0.12 0-1 K/uL Segmented Neutrophils % 76 H 40-70 % Band Neutrophils % 1 0-2 % Lymphocytes % (Manual) 15 L 22-44 % Monocytes % (Manual) 2 2-9 % Eosinophils % (Manual) 1 1-6 % Metamyelocytes % 1 H 0-0 % Nucleated Red Blood Cells 0.0 0.0-0.19 % Differential Comment MANUAL DIFFERENTIAL Reactive Lymphocytes 4 H 0-0 % White Cell Morphology Comment See comments Platelet Morphology Comment ADEQUATE Red Blood Cell Morphology NORMAL Chemistry Labs: Test 08/22/24 04:32 08/21/24 11:30 08/21/24 04:05 08/20/24 15:02 Range/Units Sodium Level 143 136-145 mmol/L Potassium Level 3.6 3.5-5.1 mmol/L Chloride Level 110 101-111 mmol/L Carbon Dioxide Level 23 21-32 mmol/L Blood Urea Nitrogen 36 H 7-18 mg/dL Creatinine 2.8 H 0.5-1.0 mg/dL Glomerular Filtration Rate Calc 18 >90 mL/min Random Glucose 86 70-105 mg/dL Total Calcium 7.7 L 8.5-10.1 mg/dL Magnesium Level 1.80 1.80-2.40 mg/dL Total Bilirubin 0.6 0.2-1.0 mg/dL Aspartate Amino Transf (AST/SGOT) 62 H 10-37 U/L Alanine Aminotransferase (ALT/SGPT) 44 12-78 U/L Alkaline Phosphatase 91 50-136 U/L Total Protein 5.7 L 6.0-8.3 g/dL Albumin 1.6 L 3.5-5.0 g/dL Direct Bilirubin 0.3 0.0-0.3 mg/dL Ammonia 16 11-32 umol/L Iron Level 64 50-170 mcg/dL Total Iron Binding Capacity 99 L 250-450 mcg/dL Percent Iron Saturation 64.6 H 22-44 % Whole Blood Glucose 114 H 70-110 MG/DL DIAGNOSTICS / RADIOLOGY RESULTS: na PLAN dose medications to renal function Follow up recommendations from Nephrology's monitor kidney function closely, follow hematology recommendations edwige mountain spotted fever testing pending results Continue with current IV antibiotics Continue to monitor respiratory status and maintain adequate oxygenation Keep O2 sats greater or equal to 90% NEURO: Minimize central acting medications as possible. Maintain fall precautions, adequate lighting during the day PULMONARY: Supplemental 02 as needed. Maintain aspiration precautions at all times CARDIOVASCULAR: Follow hemodynamics. Vital signs per facility protocol GI & NUTRITION: Continue with nutritional support. Continue stool softeners and laxatives as needed. KIDNEYS & ELECTROLYTES: Strict monitoring of intake, output and overall fluid balance. Avoid nephrotoxic medications to the extent possible. Medications to be dosed according to renal function. Monitor electrolytes and replace as needed ENDOCRINE: Maintain blood glucose between 100-180 at all times. Hypoglycemia protocol in place INFECTIOUS DISEASE: Trend temperature, WBC and procalcitonin level Follow cultures, deescalate antibiotics as soon as possible. Panculture if new onset fever ONCOLOGY/HEMATOLOGY/COAGULATION: Monitor for s/s of bleeding Monitor hemoglobin, coagulation studies as needed SKIN: Pressure ulcer prevention per facility protocol Specialty mattress ORTHO/REHAB: Continue PT/OT Prophylaxis: Continue GI and DVT prophylaxis Code Status: Full Resuscitation Disposition: Per primary team Other: Total patient care time 35 minutes excluding all procedures. Case discussed with supervising physician plan of care agreed upon SHAHIDA POMPA August 22, 2024 14:09
[2024-08-22] MEDS: CYANOCOBALAMIN (VITAMIN B-12) 1,000 MCG TABLET PO SCH (15:22)
[2024-08-22] MEDS: FOLic ACID 1 MG TABLET PO SCH (15:22)
--- NOTE | 2024-08-22 17:29 | PN ---
INFECTIOUS DISEASE PROGRESS NOTE Date of Service: August 22, 2024 SUBJECTIVE: Patient was downgraded to medical surgical unit and was seen and examined at bedside in room 304. Patient is awake, alert and oriented. Patient was assisted up on the bedside chair by Physical therapist and tolerating well. No growth reported on the urine culture yet. Renal function continues to decline with a BUN of 36 and a creatinine of 2.8. We will discontinue Zosyn and start patient on cefepime 1 g IV every 12 hours. Will continue on doxycycline and Tamiflu. The maculopapular rash is clearing off. No itching reported. We will continue to follow patient's care. PHYSICAL EXAM EYES: Anicteric. Pupils equal and reactive. HENT: No oral thrush seen, moist Oral mucosa. NECK: Supple, no JVD or thyromegaly. LUNGS: Good air entry. No rales, no rhonchi. Nonproductive cough. CARDIOVASCULAR: S1, S2 regular. No murmur heard. ABDOMEN: Soft, non tender, bowel sounds present, no organomegaly. CENTRAL NERVOUS SYSTEM: Awake, alert, oriented x 3. SKIN: No rashes, no swelling. Maculopapular rash. LYMPHATICS: No peripheral lymphadenopathy. MUSCULOSKELETAL: No joint swelling, erythema or tenderness. EXTREMITIES: No cyanosis or clubbing. BACK: No deformity, no pressure ulcer. GENITOURINARY: No dysuria or hematuria. Vital Sign (Last 12 Hours) 08/22/24 08/22/24 08/22/24 08/22/24 08:00 11:07 11:40 16:00 Temp 97.7 97.5 97.5 Pulse 87 83 94 Resp 17 19 18 B/P (MAP) 106/50 125/59 134/75 Pulse Ox 95 95 99 100 O2 Delivery Room Air Room Air* Room Air Room Air O2 Flow Rate 0 FiO2 21 Intake & Output (last 24hrs) 08/21/24 08/21/24 08/22/24 15:00 23:00 07:00 Intake Total 606.0 ml 240 ml Output Total 300 ml 1300 ml Balance 306.0 ml -1060 ml LABS: Laboratory: Test 08/22/24 04:32 08/21/24 11:30 08/21/24 11:20 08/21/24 04:05 Range/Units White Blood Count 7.9 4.8-10.8 K/uL Red Blood Count 3.50 L 4.00-5.50 MIL/uL Hemoglobin 10.0 L 12.0-16.0 g/dL Hematocrit 29.0 L 36-48 % Mean Corpuscular Volume 82.9 79-99 fL Mean Corpuscular Hemoglobin 28.6 27.0-33.0 pg Mean Corpuscular Hemoglobin Concent 34.5 32.0-36.0 g/dL Red Cell Distribution Width 16.4 H 11.0-15.5 % Platelet Count 128 #L 130-400 K/uL Mean Platelet Volume 11.7 H 7.5-10.5 fL Immature Granulocyte % (Auto) 1.5 H 0-1 % Neutrophils (%) (Auto) 57.3 40.0-77.0 % Lymphocytes (%) (Auto) 35.1 21.0-51.0 % Monocytes (%) (Auto) 4.2 3.0-13.0 % Eosinophils (%) (Auto) 1.3 0.0-8.0 % Basophils (%) (Auto) 0.6 0.0-5.0 % Neutrophils # (Auto) 4.6 1.8-7.7 K/uL Lymphocytes # (Auto) 2.8 1.0-4.8 K/uL Monocytes # (Auto) 0.3 0.1-1.0 K/uL Eosinophils # (Auto) 0.10 0.00-0.70 K/uL Basophils # (Auto) 0.05 0.00-0.20 K/uL Absolute Immature Granulocyte (auto 0.12 0-1 K/uL Segmented Neutrophils % 76 H 40-70 % Band Neutrophils % 1 0-2 % Lymphocytes % (Manual) 15 L 22-44 % Monocytes % (Manual) 2 2-9 % Eosinophils % (Manual) 1 1-6 % Metamyelocytes % 1 H 0-0 % Nucleated Red Blood Cells 0.0 0.0-0.19 % Differential Comment MANUAL DIFFERENTIAL Reactive Lymphocytes 4 H 0-0 % White Cell Morphology Comment See comments Platelet Morphology Comment ADEQUATE Red Blood Cell Morphology NORMAL Sodium Level 143 136-145 mmol/L Potassium Level 3.6 3.5-5.1 mmol/L Chloride Level 110 101-111 mmol/L Carbon Dioxide Level 23 21-32 mmol/L Blood Urea Nitrogen 36 H 7-18 mg/dL Creatinine 2.8 H 0.5-1.0 mg/dL Glomerular Filtration Rate Calc 18 >90 mL/min Random Glucose 86 70-105 mg/dL Total Calcium 7.7 L 8.5-10.1 mg/dL Magnesium Level 1.80 1.80-2.40 mg/dL Total Bilirubin 0.6 0.2-1.0 mg/dL Aspartate Amino Transf (AST/SGOT) 62 H 10-37 U/L Alanine Aminotransferase (ALT/SGPT) 44 12-78 U/L Alkaline Phosphatase 91 50-136 U/L Total Protein 5.7 L 6.0-8.3 g/dL Albumin 1.6 L 3.5-5.0 g/dL Direct Bilirubin 0.3 0.0-0.3 mg/dL Ammonia 16 11-32 umol/L Urine Random Creatinine 64.27 30-135 mg/dL Urine Random Sodium 60 40-220 mmol/l Iron Level 64 50-170 mcg/dL Total Iron Binding Capacity 99 L 250-450 mcg/dL Percent Iron Saturation 64.6 H 22-44 % ASSESSMENT: Urinary tract infection. Leukocytosis. Maculopapular rash. Recent viral Influenza infection as outpatient. Acute renal failure. Thrombocytopenia, resolving. Fibromyalgia. Hypertension. Debility. PLAN: Discontinue Zosyn. Start cefepime 1 g IV every 12 hours. Continue doxycycline. Continue Tamiflu. Continue GI prophylaxis. We will follow up on the serology. [employer] Systems [employer] following patient Nephrology has been consulted. Avoid nephrotoxic medications. Continue physical therapy. This case was reviewed and discussed with my supervising physician and the above assessment and plan was formulated and agreed upon. ATTESTATION BY PHYSICIAN I have seen and examined the patient. I reviewed the documentation, medical dec ision making, and treatment plan as noted by the mid-level provider above. I agree with the findings and plan of care. CRISELDA JACQUES MD, MIRTA L HISTOLOGIST August 22, 2024 17:29
[2024-08-22] MEDS: ceFEPime HCL 1 GM VIAL IVPB SCH (17:54)
[2024-08-22 19:16] LABS: APPEARANCE,URINE CLOUDY (CLEAR); BILIRUBIN,URINE NEGATIVE (NEGATIVE); COLOR,URINE LIGHT-YELLOW (YELLOW); GLUCOSE, URINE (UA) NEGATIVE (NEGATIVE); KETONES,URINE NEGATIVE (NEGATIVE); LEUKOCYTE ESTERASE ,URINE NEGATIVE Leu/uL (NEGATIVE); NITRATE,URINE NEGATIVE (NEGATIVE); PROTEIN,URINE 10 mg/dL (NEGATIVE); UROBILINOGEN,URINE 0.2 mg/dL (0.2-1.0)
[2024-08-22 19:17] LABS: ADD UA MICROSCOPIC YES
[2024-08-22 19:19] LABS: BACTERIA,URINE RARE /HPF (None Seen); MUCUS,URINE RARE LPF (None Seen); OTHER CASTS, URINE 1 /LPF (None Seen); SQUAMOUS EPITHELIAL CELL,UR RARE /HPF (0-2); YEAST,URINE BUDDING FEW /HPF (None Seen)
[2024-08-23] VITALS (8 sets, daily range): BP systolic 115–158; BP diastolic 55–83; PULSE 80–90; RESP 16–20; TEMP 97.4–98; O2SAT 93–98
[2024-08-23 05:01] LABS: HEMATOCRIT 30.5 % (36-48); MEAN CORPUSCULAR HEMOGLOBIN 28.3 pg (27.0-33.0); MEAN CORPUSCULAR HGB CONC 34.1 g/dL (32.0-36.0); MEAN CORPUSCULAR VOLUME 83.1 fL (79-99); RED BLOOD CELL COUNT(AUTO) 3.67 MIL/uL (4.00-5.50); RED CELL DISTRIBUTION WIDTH 16.1 % (11.0-15.5); WHITE BLOOD COUNT (AUTO) 6.8 K/uL (4.8-10.8)
[2024-08-23 06:01] LABS: ALBUMIN 1.7 g/dL (3.5-5.0); BILIRUBIN,TOTAL 0.6 mg/dL (0.2-1.0); CREATININE 2.6 mg/dL (0.5-1.0); MAGNESIUM 2.1 mg/dL (1.80-2.40); PHOSPHORUS 5.5 mg/dL (2.5-4.9); POTASSIUM 3.6 mmol/L (3.5-5.1); TOTAL PROTEIN, SERUM 6.1 g/dL (6.0-8.3); URIC ACID 6.2 mg/dL (2.6-7.2)
[2024-08-23 08:13] LABS: C DIFFICILE TOXIN A/B Not Detected (Not Detected); ENTEROAGGREGATIVE ECOLI Not Detected (Not Detected); GIARDIA LAMBLIA Not Detected (Not Detected); PLESIOMONAS SHIGELOIDES Not Detected (Not Detected); SAPOVIRUS Not Detected (Not Detected); SHIGELLA/ENTEROINVASIVE E COLI Not Detected (Not Detected); VIBRIO Not Detected (Not Detected); VIBRIO CHOLERAE Not Detected (Not Detected)
[2024-08-23] MEDS ORDERED: Vitamin B Complex/Vit C/Folic Acid PO SCH (09:00)
[2024-08-23 09:50] LABS: AMYLASE 56 U/L (25-115)
[2024-08-23 10:13] LABS: FREE KAPPA LIGHT CHAINS,S 151.8 mg/L (3.3-19.4)
--- NOTE | 2024-08-23 10:17 | PN ---
[facility] PROGRESS NOTE Date of Service: August 23, 2024 Time of Service: 10:11 SUBJECTIVE: [ PATIENT IS 63 YEARS OLD FEMALE WITH A PAST MEDICAL HISTORY OF HYPERTENSION, FLU, CATARACT, CHOLECYSTECTOMY, HYSTERECTOMY, WHO CAME TO EMERGENCY DEPARTMENT WITH A COMPLAINT OF DECREASED APPETITE, FEVER, GENERALIZED BODY WEAKNESS. PATIENT STATED THAT SHE WENT TO HER PCP AFTER SHE WAS DIAGNOSED WITH INFLUENZA ABOUT A WEEK AGO, WHERE SHE COMPLAINED ABOUT ABOVE-STATED COMPLAINTS AND SHE WAS SENT TO EMERGENCY DEPARTMENT FOR FURTHER EVALUATION/RECOMMENDATION. PATIENT DENIES ANY CHEST PAIN, NAUSEA, VOMITING, SHORTNESS OF BREATHS OR ANY OTHER SYMPTOMS OTHER THAN STATED ABOVE. ] MOST RECENT VITAL SIGNS TEMPERATURE 97.9 ON ADMISSION IN ER WAS 102.9, PULSE 84 RESPIRATION 22 BLOOD PRESSURE 90/50 PATIENT IS ON ROOM AIR SATTING 93%. UA POSITIVE FOR LEUKOCYTOSIS. WBC 9.0 HEMATOCRIT 40.2 HEMOGLOBIN 13.9 PLATELETS 82. SODIUM 133 POTASSIUM 3.3 CO2 29 BUN 14 CREATININE 1.2 GFR 5 GLUCOS 106 LACTIC 1.8 CALCIUM 7.8 TROPONIN NEGATIVE X1. CHEST X-RAY SHOWED CLEAR LUNGS CARDIOMEGALY. 2D ECHO IS PENDING. PATIENT WILL BE ADMITTED UNDER HOSPITALIST CARE FOR FURTHER EVALUATION/RECOMMENDATION. PATIENT WAS PLACED ON VANCOMYCIN AND ZOSYN FOR THE SEPSIS. A.M. LABS. 08/17 patient was seen by nurse practitioner and physician during rounding in room 304. Urinalysis was positive on admission. Blood culture and urine cul ture pending at this moment. Patient continues to be on Zosyn and vancomycin. We will increase fluids from 100 mL/hour 220 mL/hour. Patient's A1c is 5.8. We will discontinue insulin sliding scale per protocol. Also patient's blood pressure has been on lower side. We will discontinue losartan. Home medication reconciled. 2D echo showed EF 55 to 60% normal diastolic function no pericardial effusion. Potassium today is 2.8. Patient received already two 20 mEq through IV potassium. Patient will also receive 40 mEq of potassium as well. We will continue to monitor patient in the meantime. A.m. labs. 08/18 at bedside, she had a low-grade fever overnight, this morning she is tachycardic. Urine and blood cultures have been no growth to date, platelets have decreased from 52 down to 37, AST mildly elevated, creatinine increased from 1.2 up to 1.5. Given that she is still having fevers on vancomycin and Zosyn she may have an atypical infection, we will order a murine typhus panel and start doxycycline. Discontinue vancomycin at this time. Infectious workup has been negative this time we will assess for possible underlying PE or DIC, we will order D-dimer, V/Q scan, fibrinogen, PT and PTT and follow up 08/19 patient seen at bedside, yesterday her blood pressure started to drop despite being on fluids and broad-spectrum antibiotics. She was also tachycardic. D-dimer was elevated as her platelets were low and she was assessed for DIC however fibrinogen was normal. A V/Q scan was done that did not show evidence of pulmonary embolism. She was moved to the ICU and started on pressor support. Creatinine increased from 1.5 up to 2.2 however she has been adequately perfused and she has not been receiving any nephrotoxic medications, bladder scan was ordered showing greater than 500 cc within the bladder concerning for postobstructive uropathy. Hobbs catheter was placed and approximately 800 cc drained immediately. She has swelling and bruising to the left upper extremity where the midline was placed, we will order a venous Doppler to rule out DVT. 08/20 patient is seen and examined, power chart reviewed, vital signs, laboratory tests and imaging tests reviewed. Discussed with the RN, patient off Levophed since earlier this morning. She is awake, following commands, alert oriented x3. Patient noted to have elevated D-dimer and thrombocytopenia, concern for DIC was raised, however fibrinogen was normal. A V/Q scan was negative for PE. The patient was upgraded to the ICU as the patient was getting tachycardic, with a hypotension. Patient had a maximum temperature 102.9 08/16/2024. Patient noted to have worsening renal function with a creatinine of 2.2 as of yesterday, bladder scan was done, showing greater than 500 cc of urine concerning for possible obstructive uropathy, Hobbs catheter inserted, proximally 800 cc was drained immediately. Today still elevated at 2.4, bicarbonate of 23. Patient is also noted to have some swollen and present to left upper extremity we will midline was placed, a venous Doppler of left upper extremity was done, no evidence of DVT. Doppler of both lower extremities also negative for DVT. Urine culture negative, blood culture negative. Patient had loose stools yesterday. at bedside. 08/21 remains hemodynamically stable, BP 109/52, afebrile, saturating normal on room air. During my visit the patient is sitting comfortable in the chair, eating lunch, Laboratory data, WBC 9.2, hemoglobin 10.9, hematocrit 31.6, platelet count of 94 (discussed with the patient. She has not been told about low platelet count in the past). Repeat urine culture 08/19/2024 no growth. Patient evaluated by ID, patient is here with a UTI, had: Papular rash, recent viral influenza infection treated as an outpatient, continue doxycycline, contin ue IV Zosyn, started on Tamiflu 75 mg p.o. b.i.d.. Obtain routine mountain and spotted fever IgG and IgM serology. Results of stool studies Patient noted to have thrombocytopenia, we will request Hematology consult. Patient is still looks mildly edematous, puffiness still the below both eyes, she is on Bumex 1 mg IV b.i.d., Hobbs catheter in place, we will continue with daily weight, strict monitoring of intake and output. Doppler of the legs negative for DVT. 08/22 patient is seen and examined at bedside, downgraded from the PCU to the medical floor, remains alert oriented x3, getting IV antibiotics, admitted 2-3 loose stools yesterday. Today blood pressure 135/59, afebrile, saturating normal on room air, denies nausea, no vomiting, no abdominal discomfort, she is still feels swollen. Currently on Bumex 1 mg IV b.i.d.. Hemoglobin 10.0, hematocrit 29.0, platelet count improving to 128 today. Creatinine worse at 2.8. Patient will remain admitted to the medical floor Continue the patient on antibiotics, continue to follow ID input and recommendation. Continue Bumex 1 mg IV b.i.d. Renal ultrasound requested Nephrology consultation requested as well Follow mountain and spotted fever IgG and IgM serology Hematology input noted and appreciated, start the patient on folic acid 1 mg p.o. daily and vitamin B12 1000 mcg p.o. daily. There is rule out phenomena, we will ask for SPEP, UPEP and free light chain, if there is monoclonal protein we will do bone marrow biopsy. WBC increased number of large granular lymphocyte which could be due to leukemia or chronic disease or atypical infection. We will ask for flow cytometry of peripheral blood, if flow cytometry positive this patient will need bone marrow biopsy. 08/23 patient is seen and examined at bedside, case discussed with the RN, patient is sitting comfortable in the chair, she remains alert oriented x3, both upper extremities looks less swollen compared to yesterday. Petechia rash both upper extremities. BP 127/64, afebrile, she is saturating normal on room air. Platelet count has normalized, today 149. Creatinine slightly better today at 2.6. CT of the abdomen reviewed, mild left hydronephrosis with multiple left renal pelvic stones with the largest measuring 3 x 2.5 cm, small bilateral pleural effusion, pancreas is enlarged with the peripancreatic fat stranding suggestive of acute pancreatitis in the proper clinical setting. The patient remains admitted to the medical floor Zosyn was changed to cefepime IV. Continue to follow ID input and recommend ation Follow mountain and spotted fever IgG and IgM serology GI panel 08/20/2024 is negative Continue Bumex 1 mg IV b.i.d.. Nephrology consulted, continue to follow input and recommendation Patient with a left-sided hydronephrosis, we will request Urology consult Continue to follow Hematology input and recommendation whether the patient will require bone marrow biopsy, continue to monitor platelet count Peripancreatic fat stranding suggestive of acute pancreatitis, we will order amylase and lipase level. REVIEW OF SYSTEMS 12 point ROS negative unless noted in HPI PHYSICAL EXAM GENERAL APPEARANCE: The patient is awake, alert, and oriented, in no acute cardiopulmonary distress. NEUROLOGICAL: Cranial nerves II-XII grossly intact. Motor is 5/5 in bilateral upper and lower extremities proximal to distal. No sensory deficits. HEENT: Face is symmetric. Pupils are equal and reactive. Extraocular movements are intact. NECK: Supple. No JVD. No thyromegaly. No submental, submandibular, pre- /postauricular, occipital or supraclavicular lymphadenopathy. CHEST: Normal chest expansion. No Telemetry. LUNGS: Absence of any rales, rhonchi or any wheezing. CARDIOVASCULAR: Regular. S1 and S2 normal. No appreciable rubs, murmurs or ga llops. ABDOMEN: Soft, nontender, and nondistended. There is no rebound, voluntary guarding, or rigidity. : Deferred. No Hobbs. EXTREMITIES: BOTH UPPER AND LOWER EXTREMITIES ARE EDEMATOUS. SKIN: No skin breakdown. Vital Signs (last 8hr) Date Time Temp Pulse Resp B/P (MAP) Pulse Ox O2 Delivery O2 Flow Rate FiO2 08/23/24 07:59 97.5 87 19 127/64 93 Room Air 08/23/24 04:00 98.1 90 20 115/57 99 Room Air LABS: Laboratory: Test 08/23/24 04:50 08/22/24 18:58 08/22/24 04:32 08/21/24 11:30 Range/Units White Blood Count 6.8 4.8-10.8 K/uL Red Blood Count 3.67 L 4.00-5.50 MIL/uL Hemoglobin 10.4 L 12.0-16.0 g/dL Hematocrit 30.5 L 36-48 % Mean Corpuscular Volume 83.1 79-99 fL Mean Corpuscular Hemoglobin 28.3 27.0-33.0 pg Mean Corpuscular Hemoglobin Concent 34.1 32.0-36.0 g/dL Red Cell Distribution Width 16.1 H 11.0-15.5 % Platelet Count 149 130-400 K/uL Mean Platelet Volume 10.2 7.5-10.5 fL Nucleated Red Blood Cells 0.0 0.0-0.19 % Sodium Level 143 136-145 mmol/L Potassium Level 3.6 3.5-5.1 mmol/L Chloride Level 109 101-111 mmol/L Carbon Dioxide Level 24 21-32 mmol/L Blood Urea Nitrogen 36 H 7-18 mg/dL Creatinine 2.6 H 0.5-1.0 mg/dL Glomerular Filtration Rate Calc 20 >90 mL/min Random Glucose 91 70-105 mg/dL Uric Acid 6.2 2.6-7.2 mg/dL Total Calcium 7.9 L 8.5-10.1 mg/dL Phosphorus Level 5.5 H 2.5-4.9 mg/dL Magnesium Level 2.10 1.80-2.40 mg/dL Ferritin 1251 H 15-150 ng/mL Total Bilirubin 0.6 0.2-1.0 mg/dL Aspartate Amino Transf (AST/SGOT) 56 H 10-37 U/L Alanine Aminotransferase (ALT/SGPT) 43 12-78 U/L Alkaline Phosphatase 94 50-136 U/L Total Protein 6.1 6.0-8.3 g/dL Albumin 1.7 L 3.5-5.0 g/dL Amylase Level 56 25-115 U/L Lipase 82 H 16-77 U/L Urine Color LIGHT-YELLOW YELLOW Urine Appearance CLOUDY H CLEAR Urine pH 5.0 5.0-8.0 Urine Specific [place] 1.009 1.001-1.031 Urine Protein 10 H NEGATIVE mg/dL Urine Glucose (UA) NEGATIVE NEGATIVE mg/dL Urine Ketones NEGATIVE NEGATIVE mg/dL Urine Occult Blood +- (TRACE) H NEGATIVE Urine Nitrate NEGATIVE NEGATIVE Urine Bilirubin NEGATIVE NEGATIVE mg/dL Urine Urobilinogen 0.2 0.2-1.0 mg/dL Urine Leukocyte Esterase NEGATIVE NEGATIVE Héctor/uL Urine RBC 6-10 H 0-1 /HPF Urine WBC 2-5 H 0-1 /HPF Urine Squamous Epithelial Cells RARE 0-2 /HPF Urine Bacteria RARE None Seen /HPF Urine Granular Casts (Auto) 2-5 H None Seen /LPF Urine Other Casts 1 None Seen /LPF Urine Yeast FEW None Seen /HPF Immature Granulocyte % (Auto) 1.5 H 0-1 % Neutrophils (%) (Auto) 57.3 40.0-77.0 % Lymphocytes (%) (Auto) 35.1 21.0-51.0 % Monocytes (%) (Auto) 4.2 3.0-13.0 % Eosinophils (%) (Auto) 1.3 0.0-8.0 % Basophils (%) (Auto) 0.6 0.0-5.0 % Neutrophils # (Auto) 4.6 1.8-7.7 K/uL Lymphocytes # (Auto) 2.8 1.0-4.8 K/uL Monocytes # (Auto) 0.3 0.1-1.0 K/uL Eosinophils # (Auto) 0.10 0.00-0.70 K/uL Basophils # (Auto) 0.05 0.00-0.20 K/uL Absolute Immature Granulocyte (auto 0.12 0-1 K/uL Segmented Neutrophils % 76 H 40-70 % Band Neutrophils % 1 0-2 % Lymphocytes % (Manual) 15 L 22-44 % Monocytes % (Manual) 2 2-9 % Eosinophils % (Manual) 1 1-6 % Metamyelocytes % 1 H 0-0 % Differential Comment MANUAL DIFFERENTIAL Reactive Lymphocytes 4 H 0-0 % White Cell Morphology Comment See comments Platelet Morphology Comment ADEQUATE Red Blood Cell Morphology NORMAL Direct Bilirubin 0.3 0.0-0.3 mg/dL Ammonia 16 11-32 umol/L Test 08/21/24 11:20 Range/Units Urine Random Creatinine 64.27 30-135 mg/dL Urine Random Sodium 60 40-220 mmol/l Urine Random Urea Nitrogen 325 Not Estab. mg/dL Current Medications Medications (Trade) Dose Ordered Sig/Amy Route PRN Reason Start Time Stop Time Status Last Admin Dose Admin Acetaminophen (TYLenol 325MG TAB) 650 mg Q4H PRN PO MILD PAIN (1-3) 08/16/24 16:30 09/15/24 16:29 Acetaminophen (TYLenol 325MG TAB) 650 mg Q6H PRN PO MILD PAIN (1-3) 08/16/24 16:30 08/17/24 09:03 DC Acetaminophen (TYLenol 325MG TAB) 650 mg Q6H PRN PO TEMPERATURE GREATER THAN 101.5 08/16/24 16:30 09/15/24 16:29 08/22/24 04:15 650 MG Al Hydroxide/Mg Hydroxide (MAALox PLUS 30ML) 30 ml Q6H PRN PO INDIGESTION 08/16/24 16:30 09/15/24 16:29 Albumin Human 50 ml @ 100 mls/hr AD IV 08/19/24 01:30 08/19/24 01:21 DC Bumetanide (Bumex 1mg Vial) 1 mg BID IVP 08/21/24 11:00 09/20/24 10:59 08/23/24 08:41 1 MG Cefepime HCl (MAXipime 1 GM vial) 1 gm Q24H IVPB 08/22/24 18:00 09/01/24 17:59 08/22/24 17:54 1 GM Dextrose (D50w) 50 ml AD PRN IV HYPOGLYCEMIA PROTOCOL 08/16/24 16:30 09/15/24 16:29 Diphenhydramine HCl (BENAdryl INJ) 25 mg Q6H PRN IV SEVERE ITCHING/RASH 08/16/24 16:30 09/15/24 16:29 08/20/24 20:08 25 MG Doxycycline Hyclate 250 ml @ 125 mls/hr Q12H IV 08/18/24 09:00 08/28/24 08:59 08/23/24 08:41 125 MLS/HR Famotidine (Pepcid 20mg Vial) 20 mg HS IV 08/16/24 21:00 08/21/24 21:44 DC 08/21/24 20:52 20 MG Famotidine (Pepcid 20mg Vial) 20 mg HS PRN IV NAUSEA/VOMITING 08/16/24 16:30 08/17/24 09:03 DC Folic Acid (FOLic ACID 1 MG TABLET) 1 mg DAILY PO 08/22/24 12:30 08/22/24 12:25 DC Folic Acid (FOLic ACID 1 MG TABLET) 1 mg DAILY PO 08/22/24 15:00 09/21/24 14:59 08/23/24 08:42 1 MG Glucagon (Glucagon 1mg Kit) 1 mg AD PRN IM HYPOGLYCEMIA PROTOCOL 08/16/24 16:30 09/15/24 16:29 Guaifenesin/ Dextromethorphan (RobiTUSSin DM 200/20MG 10ML) 10 ml Q4H PRN PO COUGH 08/16/24 16:30 09/15/24 16:29 Heparin Sodium (Porcine) (HEParin 5,000 UNIT VIAL) *calculation based on ACTUAL B... AD PRN IV HEPARIN PROTOCOL 08/18/24 16:30 08/19/24 04:54 DC 08/18/24 16:21 6,000 UNIT Heparin Sodium (Porcine) (HEParin 5,000 UNIT VIAL) 5,000 unit BID SQ 08/16/24 21:00 08/18/24 07:05 DC 08/16/24 21:35 5,000 UNIT Heparin Sodium/ Dextrose 250 ml @ 0 mls/hr Q6H IV 08/18/24 16:30 08/19/24 06:01 DC 08/18/24 16:20 13.98 MLS/HR Home Med (Home Medication) (Meloxicam, Submicronized (Vivlodex... DAILY PO 08/18/24 09:00 08/18/24 07:05 DC Hydralazine HCl (APRESOLine 20MG INJ) 10 mg Q6H PRN IV For:SBP above 160;DBP above 90 08/16/24 16:30 09/15/24 16:29 Insulin Human Regular (humuLIN R 100 UNIT/ML 3ML) INSULIN SLIDING SCAL... ACHS SQ 08/16/24 16:30 08/20/24 15:55 DC Ketorolac Tromethamine (toRADol) 15 mg Q8H PRN IV MODERATE PAIN (4-6) 08/16/24 16:30 08/20/24 12:39 DC 08/18/24 19:15 15 MG Lactulose (Constulose 20gm/ 30ml Udcup) 20 gm BID PRN PO CONSTIPATION 08/16/24 16:30 09/15/24 16:29 Losartan Potassium (CozAAR 100MG TAB) 100 mg DAILY PO 08/18/24 09:00 08/17/24 13:09 DC Magnesium Sulfate 50 ml @ 0 mls/hr PROTOCOL PRN IV other 08/16/24 16:30 09/15/24 16:29 08/22/24 06:22 20 MLS/HR Midodrine (PROAMatine 5 MG TABLET) 5 mg TID PO 08/18/24 13:00 08/19/24 13:02 DC 08/19/24 08:32 5 MG Midodrine (PROAMatine 5 MG TABLET) 10 mg TID PRN PO SBP < 90 08/21/24 22:00 09/18/24 13:29 Midodrine (PROAMatine 5 MG TABLET) 20 mg TID PO 08/19/24 13:30 08/21/24 21:35 DC 08/21/24 08:33 20 MG Nitroglycerin (Nitrostat) 0.4 mg PROTOCOL PRN SL CHEST PAIN 08/16/24 16:30 09/15/24 16:29 Norepinephrine 250 ml @ 0 mls/hr PROTOCOL IV 08/19/24 03:00 08/22/24 07:20 DC 08/19/24 15:55 15.31 MLS/HR Ondansetron HCl (zoFRAN 4MG INJ) 4 mg Q6H PRN IV NAUSEA/VOMITING 08/16/24 16:30 09/15/24 16:29 Oseltamivir Phosphate (Tamiflu) 75 mg Q24H PO 08/20/24 21:00 08/25/24 20:59 08/22/24 19:56 75 MG Oxycodone/ Acetaminophen (perCOCET) 1 tab Q6H PRN PO SEVERE PAIN (7-10) 08/16/24 16:30 08/21/24 19:29 DC 08/16/24 23:04 1 TAB Pantoprazole Sodium (PROTonix 40MG TAB) 40 mg DAILY PO 08/22/24 09:00 09/21/24 08:59 08/23/24 08:42 40 MG Piperacillin Sod/ Tazobactam Sod 50 ml @ 12.5 mls/hr Q12H IV 08/21/24 17:00 08/22/24 17:46 DC 08/22/24 04:10 12.5 MLS/HR Piperacillin Sod/ Tazobactam Sod 50 ml @ 12.5 mls/hr ZOSY8 IV 08/16/24 21:00 08/21/24 10:27 DC 08/21/24 05:03 12.5 MLS/HR Potassium Chloride 100 ml @ 100 mls/hr AD PRN IV POTASSIUM PROTOCOL 08/16/24 16:30 09/15/24 16:29 08/17/24 05:28 100 MLS/HR Potassium Chloride (K-Dur 10meq Sr Tab) 10 meq AD PRN PO POTASSIUM PROTOCOL 08/17/24 09:30 09/15/24 16:29 08/23/24 06:12 10 MEQ Potassium Chloride (K-Dur/Klor-Con 20meq) 10 meq AD PRN PO POTASSIUM PROTOCOL 08/16/24 16:30 08/17/24 09:04 DC 08/17/24 08:12 10 MEQ Potassium Chloride (KCl 10% Elixir 20meq/15ml) 10 meq AD PRN PO POTASSIUM PROTOCOL 08/16/24 16:30 09/15/24 16:29 Pregabalin (LYRica 25MG) 50 mg BID PO 08/17/24 21:00 08/21/24 10:27 DC 08/21/24 08:33 50 MG Simethicone (Mylicon) 80 mg Q8H PRN PO GI GAS 08/19/24 21:00 09/18/24 20:59 08/19/24 21:43 80 MG Sodium Chloride 1,000 ml @ 120 mls/hr Q8H20M IV 08/16/24 16:30 08/20/24 12:38 DC 08/20/24 05:26 120 MLS/HR Trazodone HCl (DesyREL/OlepTRO) 100 mg HS PO 08/17/24 21:00 09/16/24 20:59 08/22/24 19:56 100 MG Vancomycin HCl 250 ml @ 125 mls/hr Q24H IV 08/16/24 17:00 08/18/24 08:48 DC 08/17/24 18:11 125 MLS/HR Vancomycin HCl (Vancomycin Protocol) 1 each PROTOCOL PRN IV VANCOMYCIN PROTOCOL 08/16/24 16:30 08/18/24 08:48 DC Vitamin B Complex (Vitamin B-12) 1,000 mcg DAILY PO 08/22/24 12:30 08/22/24 12:25 DC Vitamin B Complex (Vitamin B-12) 1,000 mcg DAILY PO 08/22/24 15:00 09/21/24 14:59 08/23/24 08:42 1,000 MCG Vitamin B Complex/ Vit C/Folic Acid (Nephrovite Tablet) 1 cap DAILY PO 08/23/24 09:00 08/22/24 15:38 DC Zolpidem Tartrate (AmbIEN) 5 mg HS PRN PO INSOMNIA 08/16/24 16:30 08/21/24 21:35 DC DIAGNOSTICS / RADIOLOGY: [ ] ASSESSMENT: ACUTE SEPSIS POA SEPTIC SHOCK GENERALIZED BODY WEAKNESS POA ACUTE KIDNEY INJURY POA URINARY RETENTION POSTOBSTRUCTIVE UROPATHY ACUTE DEHYDRATION POA ACUTE COMPLICATED CYSTITIS POA ELECTROLYTE IMBALANCE HYPONATREMIA NA 133, HYPOKALEMIA 3.3 HYPOCALCEMIA 7.8 POA UNCONTROLLED HYPERTENSION POA THROMBOCYTOPENIA POA HISTORY OF CATARACT HISTORY OF CHOLECYSTECTOMY HISTORY OF HYSTERECTOMY HISTORY OF KIDNEY STONES HISTORY OF HYDRONEPHROSIS RECENT INFLUENZA INFECTION THROMBOCYTOPENIA PLAN: The patient remains admitted to the medical floor Zosyn was changed to cefepime IV. Continue to follow ID input and recommendation Follow mountain and spotted fever IgG and IgM serology GI panel 08/20/2024 is negative Continue Bumex 1 mg IV b.i.d.. Nephrology consulted, continue to follow input and recommendation Patient with a left-sided hydronephrosis, we will request Urology consult Continue to follow Hematology input and recommendation whether the patient will require bone marrow biopsy, continue to monitor platelet count Peripancreatic fat stranding suggestive of acute pancreatitis, we will order amylase and lipase level. NEURO: MINIMIZE CENTRAL ACTING MEDICATIONS POSSIBLE. FALL PRECAUTIONS. WELL LIGHTED ROOM THROUGH THE DAY AND MINIMIZE INTERRUPTIONS THROUGH THE NIGHT TO PREVENT ACUTE DELIRIUM. PULMONARY: SUPPLEMENTAL 02 NEEDED BIPAP NECESSARY, FOR RESPIRATORY DISTRESS TITRATE FIO2 TO KEEP SPO2 > OR = 90% DUONEBS AND CPT NEEDED IS HOURLY WHILE AWAKE FOR PULMONARY HYGIENE PRN OUT OF BED TO CHAIR TOLERATED MAINTAIN ASPIRATION PRECAUTIONS AT ALL TIMES CARDIOVASCULAR: FOLLOW HEMODYNAMICS. VITAL SIGNS PER FACILITY PROTOCOL GI & NUTRITION: CONTINUE NUTRITIONAL SUPPORT ASPIRATIONS PRECAUTIONS PROKINETIC AGENTS AND LAXATIVES NEEDED KIDNEYS & ELECTROLYTES: STRICT MONITORING OF INTAKE AND OUTPUT DAILY WEIGHTS AVOID NEPHROTOXIC AGENTS MONITOR ELECTROLYTES AND REPLACE NEEDED GOAL URINE OUTPUT OF 30ML/HR OR 0.5ML/KG/HR MEDICATIONS TO BE DOSED ACCORDING TO RENAL FUNCTION. AVOID CONTRAST IF POSSIBLE ENDOCRINE: MAINTAIN BLOOD GLUCOSE BETWEEN 100-180 AT ALL TIMES. INSULIN SLIDING SCALE FOR BLOOD GLUCOSE MANAGEMENT HYPOGLYCEMIA AND HYPERGLYCEMIA PROTOCOL IN PLACE INFECTIOUS DISEASE: TREND TEMPERATURE, WBC AND PROCALCITONIN LEVEL FOLLOW CULTURES, DEESCALATE ANTIBIOTICS SOON POSSIBLE. PANCULTURE IF NEW ONSET FEVER HEMATOLOGY & COAGULATION: MONITOR H&H. KEEP HGB > 7 TRANSFUSE 1 UNIT OF PRBC FOR HGB < 7 TRANSFUSE 1 PACK OF PLATELETS OF PLATELETS < 20, 000 WATCH FOR ANY SIGNS AND SYMPTOMS OF BLEEDING SKIN: PRESSURE ULCER PREVENTION PER FACILITY PROTOCOL SPECIALTY MATTRESS NEEDED ORTHO/REHAB CONTINUE PT/OT PRN: MEDICATIONS TYLENOL 650 MG PO EVERY 4 HRS FOR FEVER ZOFRAN 4 MG IV EVERY 6 HRS FOR N/V HYDRALAZINE 5 MG IV EVERY 4 HRS SYSTOLIC PRESSURE > 160 BOWEL REGIMENT: LACTULOSE 20 GM PO BID PRN CONSTIPATION SUPPORTIVE MEASURES: CONTINUE GI AND DVT PROPHYLAXIS DISPOSITION: PENDING IMPROVEMENT IN CLINICAL CONDITION ALL QUESTIONS ANSWERED TIME SPENT: > 35 MIN JUANITO PENNY MD August 23, 2024 10:17
--- NOTE | 2024-08-23 10:37 | NUR ---
CALLED [facility]'S OFFICE TO INFORM OF CONSULT REQUESTED FROM ZOHAIB AT PATIENTS REQUEST DUE TO ALREADY BEING A PATIENT OF [facility]. PER ATOMIC SPECTROSCOPIST, PATIENT MUST SEE UROLOGIST TRANSPORTATION DISPATCHER.
[2024-08-23 13:13] LABS: ALBUMIN/GLOBULIN RATIO (IFE) 0.6 (0.7-1.7); ALPHA-1 (IFE & PEP) 0.3 g/dL (0.0-0.4); ALPHA-2 (IFE & PEP) 0.6 g/dL (0.4-1.0); BETA (IFE & ELP) 0.7 g/dL (0.7-1.3); GAMMA GLOBULINS (IFE & ELP) 1.8 g/dL (0.4-1.8); GLOBULIN TOTAL (IFE) 3.4 g/dL (2.2-3.9); IGA (IFE) 566 mg/dL (87-352); IGG (IMMUNOFIXATION) 1253 mg/dL (586-1602); IGM (IMMUNOFIXATION) 493 mg/dL (26-217); M-SPIKE (IEP) 0.4 g/dL (Not Observed); TOTAL PROTEIN 5.4 g/dL (6.0-8.5)
--- NOTE | 2024-08-23 13:47 | PN ---
NEPHROLOGY PROGRESS NOTE Date/Time Patient Seen: August 23, 2024 SUBJECTIVE: This is a 63-year-old female with a past medical history of hypertension, cataract, recent influenza. She presented to emergency room with complaints of decreased appetite, fever, generalized body weakness. She has been in the hospital for several days She continues on antibiotics, Tamiflu and Bumex. Blood cultures has been negative CT of the abdomen and pelvis was noted. She was noted to have elevated BUN/creatinine We have been consulted for renal failure. Renal function is improving Electrolytes are stable. 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 No family at the bedside Prognosis remains guarded REVIEW OF SYSTEMS: GENERAL: Positive for generalized weakness and edema NEUROLOGIC: Negative for any blurry vision, blind spots, double vision, facial asymmetry, dysphagia, dysarthria, hemiparesis, hemisensory deficits, vertigo, ataxia. HEENT: Negative for any head trauma, neck trauma, neck stiffness, photophobia, phonophobia, sinusitis, rhinitis. CARDIAC: Negative for any chest pain, dyspnea on exertion, paroxysmal nocturnal dyspnea, peripheral edema. PULMONARY: Negative for any shortness of breath, wheezing, COPD, or TB exposure. GASTROINTESTINAL: Negative for any abdominal pain, nausea, vomiting, bright red blood per rectum, melena. GENITOURINARY: Negative for any dysuria, hematuria, incontinence. INTEGUMENTARY: Negative for any rashes, cuts, insect bites. RHEUMATOLOGIC: Negative for any joint pains, photosensitive rashes, history of vasculitis or kidney problems. HEMATOLOGIC: Negative for any abnormal bruising, frequent infections or bl eeding. Current Medications Medications (Trade) Dose Ordered Sig/Amy Route Start Time Stop Time Status Last Admin Dose Admin Albumin Human 50 ml @ 100 mls/hr AD IV 08/19/24 01:30 08/19/24 01:21 DC Bumetanide (Bumex 1mg Vial) 1 mg BID IVP 08/21/24 11:00 09/20/24 10:59 08/23/24 08:41 1 MG Cefepime HCl (MAXipime 1 GM vial) 1 gm Q24H IVPB 08/22/24 18:00 09/01/24 17:59 5/21/25 17:54 1 GM Doxycycline Hyclate 250 ml @ 125 mls/hr Q12H IV 08/18/24 09:00 08/28/24 08:59 08/23/24 08:41 125 MLS/HR Famotidine (Pepcid 20mg Vial) 20 mg HS IV 08/16/24 21:00 08/21/24 21:44 DC 08/21/24 20:52 20 MG Folic Acid (FOLic ACID 1 MG TABLET) 1 mg DAILY PO 08/22/24 12:30 08/22/24 12:25 DC Folic Acid (FOLic ACID 1 MG TABLET) 1 mg DAILY PO 08/22/24 15:00 09/21/24 14:59 08/23/24 08:42 1 MG Heparin Sodium (Porcine) (HEParin 5,000 UNIT VIAL) 5,000 unit BID SQ 08/16/24 21:00 08/18/24 07:05 DC 08/16/24 21:35 5,000 UNIT Heparin Sodium/ Dextrose 250 ml @ 0 mls/hr Q6H IV 08/18/24 16:30 08/19/24 06:01 DC 08/18/24 16:20 13.98 MLS/HR Home Med (Home Medication) (Meloxicam, Submicronized (Vivlodex... DAILY PO 08/18/24 09:00 08/18/24 07:05 DC Insulin Human Regular (humuLIN R 100 UNIT/ML 3ML) INSULIN SLIDING SCAL... ACHS SQ 08/16/24 16:30 08/20/24 15:55 DC Losartan Potassium (CozAAR 100MG TAB) 100 mg DAILY PO 08/18/24 09:00 08/17/24 13:09 DC Midodrine (PROAMatine 5 MG TABLET) 5 mg TID PO 08/18/24 13:00 08/19/24 13:02 DC 08/19/24 08:32 5 MG Midodrine (PROAMatine 5 MG TABLET) 20 mg TID PO 08/19/24 13:30 08/21/24 21:35 DC 08/21/24 08:33 20 MG Norepinephrine 250 ml @ 0 mls/hr PROTOCOL IV 08/19/24 03:00 08/22/24 07:20 DC 08/19/24 15:55 15.31 MLS/HR Oseltamivir Phosphate (Tamiflu) 75 mg Q24H PO 08/20/24 21:00 08/25/24 20:59 08/22/24 19:56 75 MG Pantoprazole Sodium (PROTonix 40MG TAB) 40 mg DAILY PO 08/22/24 09:00 09/21/24 08:59 08/23/24 08:42 40 MG Piperacillin Sod/ Tazobactam Sod 50 ml @ 12.5 mls/hr Q12H IV 08/21/24 17:00 08/22/24 17:46 DC 08/22/24 04:10 12.5 MLS/HR Piperacillin Sod/ Tazobactam Sod 50 ml @ 12.5 mls/hr ZOSY8 IV 08/16/24 21:00 08/21/24 10:27 DC 08/21/24 05:03 12.5 MLS/HR Pregabalin (LYRica 25MG) 50 mg BID PO 08/17/24 21:00 08/21/24 10:27 DC 08/21/24 08:33 50 MG Sodium Chloride 1,000 ml @ 120 mls/hr Q8H20M IV 08/16/24 16:30 08/20/24 12:38 DC 08/20/24 05:26 120 MLS/HR Trazodone HCl (DesyREL/OlepTRO) 100 mg HS PO 08/17/24 21:00 09/16/24 20:59 08/22/24 19:56 100 MG Vancomycin HCl 250 ml @ 125 mls/hr Q24H IV 08/16/24 17:00 08/18/24 08:48 DC 08/17/24 18:11 125 MLS/HR Vitamin B Complex (Vitamin B-12) 1,000 mcg DAILY PO 08/22/24 12:30 08/22/24 12:25 DC Vitamin B Complex (Vitamin B-12) 1,000 mcg DAILY PO 08/22/24 15:00 09/21/24 14:59 08/23/24 08:42 1,000 MCG Vitamin B Complex/ Vit C/Folic Acid (Nephrovite Tablet) 1 cap DAILY PO 08/23/24 09:00 08/22/24 15:38 DC Vital Signs (last 8hr) Date Time Temp Pulse Resp B/P (MAP) Pulse Ox O2 Delivery O2 Flow Rate FiO2 08/23/24 12:05 97.3 87 18 158/83 97 Room Air 08/23/24 08:00 93 Room Air* 0 21 08/23/24 07:59 97.5 87 19 127/64 93 Room Air PHYSICAL EXAM: GENERAL: Alert and oriented x 3. No acute distress. Well-nourished. EYES: EOMI. Anicteric. HENT: Moist mucous membranes. No scleral icterus. No cervical lymphadenopathy. LUNGS: Clear to auscultation bilaterally. No accessory muscle use. CARDIOVASCULAR: Regular rate and rhythm. No murmur. No JVD. ABDOMEN: Soft, non-tender and non-distended. No palpable masses. EXTREMITIES: 2+ edema. Non-tender. SKIN: No rashes or lesions. Warm. NEUROLOGIC: No focal neurological deficits. CN II-XII grossly intact, but not individually tested. PSYCHIATRIC: Cooperative. Appropriate mood and affect. LABORATORY: [ ] Hematology Labs: Test 08/23/24 04:50 08/22/24 04:32 Range/Units White Blood Count 6.8 4.8-10.8 K/uL Red Blood Count 3.67 L 4.00-5.50 MIL/uL Hemoglobin 10.4 L 12.0-16.0 g/dL Hematocrit 30.5 L 36-48 % Mean Corpuscular Volume 83.1 79-99 fL Mean Corpuscular Hemoglobin 28.3 27.0-33.0 pg Mean Corpuscular Hemoglobin Concent 34.1 32.0-36.0 g/dL Red Cell Distribution Width 16.1 H 11.0-15.5 % Platelet Count 149 130-400 K/uL Mean Platelet Volume 10.2 7.5-10.5 fL Nucleated Red Blood Cells 0.0 0.0-0.19 % Immature Granulocyte % (Auto) 1.5 H 0-1 % Neutrophils (%) (Auto) 57.3 40.0-77.0 % Lymphocytes (%) (Auto) 35.1 21.0-51.0 % Monocytes (%) (Auto) 4.2 3.0-13.0 % Eosinophils (%) (Auto) 1.3 0.0-8.0 % Basophils (%) (Auto) 0.6 0.0-5.0 % Neutrophils # (Auto) 4.6 1.8-7.7 K/uL Lymphocytes # (Auto) 2.8 1.0-4.8 K/uL Monocytes # (Auto) 0.3 0.1-1.0 K/uL Eosinophils # (Auto) 0.10 0.00-0.70 K/uL Basophils # (Auto) 0.05 0.00-0.20 K/uL Absolute Immature Granulocyte (auto 0.12 0-1 K/uL Segmented Neutrophils % 76 H 40-70 % Band Neutrophils % 1 0-2 % Lymphocytes % (Manual) 15 L 22-44 % Monocytes % (Manual) 2 2-9 % Eosinophils % (Manual) 1 1-6 % Metamyelocytes % 1 H 0-0 % Differential Comment MANUAL DIFFERENTIAL Reactive Lymphocytes 4 H 0-0 % White Cell Morphology Comment See comments Platelet Morphology Comment ADEQUATE Red Blood Cell Morphology NORMAL Chemistry Labs: Test 08/23/24 04:50 Range/Units Sodium Level 143 136-145 mmol/L Potassium Level 3.6 3.5-5.1 mmol/L Chloride Level 109 101-111 mmol/L Carbon Dioxide Level 24 21-32 mmol/L Blood Urea Nitrogen 36 H 7-18 mg/dL Creatinine 2.6 H 0.5-1.0 mg/dL Glomerular Filtration Rate Calc 20 >90 mL/min Random Glucose 91 70-105 mg/dL Uric Acid 6.2 2.6-7.2 mg/dL Total Calcium 7.9 L 8.5-10.1 mg/dL Phosphorus Level 5.5 H 2.5-4.9 mg/dL Magnesium Level 2.10 1.80-2.40 mg/dL Ferritin 1251 H 15-150 ng/mL Total Bilirubin 0.6 0.2-1.0 mg/dL Aspartate Amino Transf (AST/SGOT) 56 H 10-37 U/L Alanine Aminotransferase (ALT/SGPT) 43 12-78 U/L Alkaline Phosphatase 94 50-136 U/L Total Protein 6.1 6.0-8.3 g/dL Albumin 1.7 L 3.5-5.0 g/dL Amylase Level 56 25-115 U/L Lipase 82 H 16-77 U/L DIAGNOSTICS / RADIOLOGY: REASON: YULIA ORDERING PHYSICIAN: KALEIGH CEJA PROCEDURE: ABD PEL WO - CT ABDOMEN/PELVIS W/O CONTRAST CT ABDOMEN/PELVIS W/O CONTRAST HISTORY: Acute renal insufficiency COMPARISON: 05/26/2023 TECHNIQUE: Multiple sequential axial images of the abdomen and pelvis were obtained from the dome of the diaphragm through symphysis pubis. Patient was not given contrast through intravenous route. Oral contrast was not given. FINDINGS: Mild bilateral pleural effusions are seen. There is no evidence of parenchymal disease or pulmonary nodule of the visualized lower lungs. Degenerative changes of the thoracolumbar spine are present. The heart is not enlarged. Liver measures 15 cm. Postcholecystectomy changes are seen. Pancreas is enlarged with peripancreatic fat stranding suggestive of acute pancreatitis in a proper clinical setting. Colonic distention is also seen. There is diverticulosis. The liver, spleen, adrenal glands are unremarkable. No hydronephrosis is seen on the right. There is mild left hydronephrosis with multiple left renal pelvic stones with the largest measuring 3 x 2.5 cm. Fecal material is seen in the colon. There are normal size retroperitoneal and mesenteric lymph nodes. No ascites is seen. No CT evidence of acute appendicitis is seen. Pelvic sidewalls are symmetric bilaterally. Bladder is poorly distended with Hobbs catheter. IMPRESSION: 1. There is mild left hydronephrosis with multiple left renal pelvic stones with the largest measuring 3 x 2.5 cm. Small bilateral pleural effusions. 2. Pancreas is enlarged with peripancreatic fat stranding suggestive of acute pancreatitis in a proper clinical setting. Colonic distention is also seen. There is diverticulosis. CT was performed with one or more following dose reduction techniques: automated exposure control, adjustment of the mA and kv according to patient's size, or use of a iterative reconstruction technique. DICTATED BY: CALIXTO HUGHES MD DATE: 08/22/24 1005 REASON: SOB ORDERING PHYSICIAN: REYMUNDO WALKER NP PROCEDURE: CXR1VW - CHEST 1VW Exam Type: CHEST 1VW Clinical Information: SOB Comparison: None Findings and impression: Cardiomegaly. Small bilateral pleural effusions. Lungs clear of infiltrates. DICTATED BY: LAURA BARRAZA MD DATE: 08/20/24 1431 REASON: elevated d-dimer ORDERING PHYSICIAN: REYMUNDO WALKER NP PROCEDURE: VENOUS FRANSISCO - US VENOUS DOPPLER BILATERAL ULTRASOUND VENOUS DOPPLER, BILATERAL LOWER EXTREMITIES INDICATION: Bilateral lower extremity pain and swelling TECHNIQUE: Routine grayscale and color Doppler ultrasound of the bilateral lower extremity veins performed. COMPARISON: No priors. FINDINGS: The demonstrated veins of the bilateral lower extremity including the common femoral vein, femoral vein, and popliteal vein are associated with normal compressibility, augmentation, and flow. Normal respiratory variation was identified. No evidence for echogenic intraluminal thrombus formation. IMPRESSION: No sonographic evidence for deep venous thrombosis within the bilateral lower extremity veins. DICTATED BY: QUENTIN PALACIOS MD DATE: 08/19/24 1127 REASON: left arm swelling ORDERING PHYSICIAN: CARY GARVIN MD PROCEDURE: VENOUS UNI - US VENOUS DOPPLER UNILATERAL ULTRASOUND VENOUS DOPPLER LEFT UPPER EXTREMITY INDICATION: Swelling. TECHNIQUE: Routine grayscale and color and spectral Doppler ultrasound of the left upper extremity veins performed in real-time, and images subsequently made available for review. COMPARISON: None FINDINGS: PICC is present. Normal compression, vascular antegrade flow, respiratory variation and spectral waveforms identified within the left internal jugular vein, subclavian vein, axillary vein, brachial vein, cephalic vein, and basilic vein. No evidence for an intraluminal thrombus. No soft tissue abnormalities demonstrated. IMPRESSION: No evidence for left upper extremity venous thrombosis. DICTATED BY: QUENTIN PALACIOS MD DATE: 08/19/24 1126 REASON: abdominal discomfort ORDERING PHYSICIAN: CARY GARVIN MD PROCEDURE: ABDOMEN - US ABDOMINAL COMPLETE ULTRASOUND ABDOMEN COMPLETE INDICATION: Abdominal Pain COMPARISON: None. FINDINGS: The liver is normal in size and increased in echogenicity; no focal lesion demonstrated. Main portal vein is patent, and normal direction of vascular flow demonstrated. The common bile duct caliber measures 5.0 mm. Gallbladder is surgically absent. The spleen is normal in size and echotexture. The spleen measures 11.1 cm. Pancreas is obscured by overlying bowel gas. The right kidney measures 10.4 x 5.1 x 4.5 cm,and is normal in echogenicity, without evidence for hydronephrosis or shadowing stones. The left kidney measures 11.4 x 5.8 x 4.1 cm,and is normal in echogenicity, without evidence for hydronephrosis. Multiple subcentimeter nonobstructing calculi within the left kidney, largest of which measures up to 1.8 cm. Visible portions of the abdominal aorta are within normal limits. Visible portions of the inferior vena cava are within normal limits. No free fluid demonstrated. IMPRESSION: Limitations as reported. Nonobstructing left nephrolithiasis. DICTATED BY: QUENTIN PALACIOS MD DATE: 08/19/241127 REASON: Rule out PE ORDERING PHYSICIAN: CARY GARVIN MD PROCEDURE: PULM VQ - NM PULMONARY/LUNG VQ SCAN NM PULMONARY/LUNG VQ SCAN HISTORY: Pulmonary embolism COMPARISON: None TECHNIQUE: Ventilation study was performed with 6.5 mCi of Xenon gas through inhalation route. Perfusion lung imaging study was performed with 4.5 mCi of technetium macroaggregated through intravenous route. FINDINGS: There is no evidence of segmental or subsegmental perfusion defect. Nonsegmental perfusion defects are also present. IMPRESSION: 1. Normal ventilation perfusion lung imaging study. DICTATED BY: CALIXTO HUGHES MD DATE: 08/18/242053 REASON: shortness of breath ORDERING PHYSICIAN: CARY GARVIN MD PROCEDURE: CXR1VW - CHEST 1VW PORTABLE CHEST RADIOGRAPH INDICATION: shortness of breath COMPARISON: 08/16/2024 FINDINGS: quality assurance monitor final leads overlie the field of view. Heart size is normal. Mild calcific plaque is present along the aortic arch reyes. The pulmonary vascularity and ann appear normal. No abnormal pulmonary parenchymal opacity or consolidation identified. No significant pleural effusion noted. No pneumothorax detected. IMPRESSION: No radiographic evidence for any acute cardiopulmonary process. DICTATED BY: QUENTIN PALACIOS MD DATE: 08/18/24920 REASON: chf ORDERING PHYSICIAN: LETY JOHNSON APRN PROCEDURE: ECHO CMP - ECHO 2-D COMPLETE APPROVED REPORT EXAM: Two-dimensional and M-mode echocardiogram with Doppler and color Doppler. INDICATION ICD: Congestive heart failure 2D Dimensions RVDd 2.8 cm LVEF(%) 58.8 (>50%) LVED Vol(simp.) 52.0 mL IVSd 0.8 (0.7-1.1cm) FS(%) 31 % LVES Vol(simp.) 22.0 mL LVDd 4.4 (3.8-5.6cm) LA (2D) 3.4 (1.6-4.0cm) LVEF(%, simp.) 58 % PWd 0.8 (0.7-1.1cm) Ao Root(2D) 2.8 (2.0-3.7cm) LA ESV INDEX (BP) 17.84 mL/m2 IVSs 0.8 cm LVOT diam 2.0 (1.8-2.4cm) LVDs 3.0 (2.5-4.0cm) IVC diam 1.2 cm PWs 1.1 cm Deformation Strain Apical 4 -22.5 % Apical 2 -18.2 % Apical 3 -18.5 % Global Strain -19.8 % M-Mode Dimensions EPSS 0.5 cm LA (MM) 3.3 (1.6-4.0cm) Ao Root(MM) 3.1 (2.0-3.7cm) Aortic Valve AoV Vmax 1.4 m/s Ao Peak GR 7.4 mmHg LVOT Vmax 1.3 m/s AoV VTI 0.3 m Ao Mean GR 3.8 mmHg LVOT VTI 0.23 m BIB[place] (VMAX) 2.82 cm2 B[place] (VTI) 2.3 cm2 Mitral Valve MV E Vmax 76.1 cm/s DECEL Time 222 ms MV A Vmax 66.8 cm/s P 1/2 T 66 ms E/A ratio 1.1 MVA (PHT) 3.3 cm2 TDI E/E' Medial 9.3 E/E' Lateral 6.6 Medial E' Peak V 8.14 cm/s Lateral E' Peak V 11.46 cm/s Pulmonary Valve PV Vmax 0.7 m/s PV VTI 0.12 m PV Mean GR 1.3 mmHg PV Peak GR 2.2 mmHg PI End Ree. Stefano 110.0 cm/s Tricuspid Valve TR Vmax 1.6 m/s RAP (EST) 3 mmHg RVSP 13.8 mmHg TR Peak GR 10.8 mmHg Left Ventricle The left ventricle is normal size. There is normal left ventricular wall thickness. LVEF is 55-60%. The left ventricular diastolic function is normal. Right Ventricle The right ventricle is normal size. The right ventricular systolic function is normal. Atria The left atrium size is normal. The right atrium size is normal. Aortic Valve The aortic valve is normal in structure. No aortic regurgitation is present. There is no aortic valvular stenosis. Mitral Valve The mitral valve is normal in structure. There is no mitral valve regurgitation noted. There is no mitral valve stenosis. Tricuspid Valve The tricuspid valve is normal in structure. There is trace of tricuspid valve regurgitation noted. Pulmonic Valve The pulmonary valve is normal in structure. There is no pulmonic valvular regurgitation. Great Vessels The aortic root is normal in size. The IVC is normal in size and collapses >50% with inspiration. Pericardium There is no pericardial effusion. Other Information Quality : Adequate Conclusion The left ventricle is normal size. LVEF is 55-60%. The left ventricular diastolic function is normal. The right ventricle is normal size. The right ventricular systolic function is normal. The left atrium size is normal. The right atrium size is normal. No valvular pathology. There is no pericardial effusion. DICTATED BY: IGOR MOSQUEDA MD DATE: 08/17/24 0744 REASON: SOB ORDERING PHYSICIAN: CARLOS SHAW MD PROCEDURE: CXR1VW - CHEST 1VW Exam Type: CHEST 1VW Clinical Information: SOB Comparison: None Findings: The lungs are clear of infiltrates. The heart is enlarged. Bony and soft tissue structures of the chest wall are unremarkable. IMPRESSION: Cardiomegaly. Clear lungs. DICTATED BY: LAURA BARRAZA MD DATE: 08/16/24 1458 ASSESSMENT: Acute on chronic renal failure Acute sepsis Septic shock Generalized body weakness Urinary retention Postobstructive uropathy Acute dehydration Acute complicated cystitis Electrolyte imbalance Uncontrolled hypertension Thrombocytopenia History of kidney stones History of hydronephrosis Recent influenza infection PLAN: Labs, diagnostic, radiologic exams reviewed and interpreted by myself and supervising physician. We have reviewed external records in detail Continue with the antibiotics, may be switched to p.o we will defer to primary team Require close monitoring of renal function and electrolytes Order CBC, CMP, and electrolytes in am BiPAP as necessary, for respiratory distress Monitor blood pressure adjust medication doses as needed Avoid hypotensive episodes May use Dilaudid 0.5 mg IV every 6 hours as needed for severe pain Monitor blood sugars Strict intake, output, and daily weight should be monitored Please renally adjust medications Avoid nephrotoxic and nonsteroidal drugs Avoid contrast if possible Will continue to monitor renal function, anemia, electrolytes Treatment plan discussed with patient Questions were answered We have discussed with the other team physicians in detail about the care plan We will continue to monitor the patient closely ATTESTATION BY PHYSICIAN I have seen and examined the patient. I reviewed the documentation, medical decision making, and treatment plan as noted by the mid-level provider above. I agree with the findings and plan of care. EVAN TEIXEIRA MD, [facility] [employer] August 23, 2024 13:47
--- NOTE | 2024-08-23 13:52 | NUR ---
PER DR AYERS. OKAY WITH DISCHARGE WHEN OTHER PHYSICIANS SIGN OFF. PATIENT TO FOLLOW UP IN OFFICE 7-10 AFTER DISCHARGE.
--- NOTE | 2024-08-23 13:54 | PN ---
[facility] PROGRESS NOTE Date Patient Seen: August 23, 2024 Time of Visit: 1107 Supervising Physician: Dr. Castellon Primary Care Physician: Harris Rankin Outpatient Specialists: [ ] Inpatient Consults: BIS PROBLEM LIST Septic shock requiring pressors POA resolved 2/2 from below Acute complicated cystitis Acute urinary retention status post Hobbs catheter insertion. Mild left hydronephrosis with multiple left renal pelvic stones with the largest measuring 3 x 2.[address] abdomen of 08/21/2024 Acute pancreatitis as per CT abdomen of 08/21/2024 Elevated D-dimer V/Q scan negative for PE. YULIA subtherapeutic from obstructive uropathy. Electrolyte imbalance. Hypertension. Acute Thrombocytopenia. Rule out systemic disease such as lupus, rheumatoid arthritis or vasculitis. Left ventricular ejection fraction 55-60% per echocardiogram 08/17/2024 Recent diagnosis of influenza, repeat serology was negative. INTERVAL HISTORY: 08/20/2024: At the time of my evaluation, the patient was lying in bed. The staff nurse reports no acute events overnight. Blood pressure macias, the major changes of concern. Laboratory data showed no changes of concern. Chest x-ray today showed small bilateral pleural effusion. Cultures are in progress. Patient on levophed and on p.o. midodrine. She is also on antibiotic therapy as ordered. No other complaint 08/22 patient was seen and examined at bedside with no family present. Patient is awake alert able answer simple questions appropriately. At time visit patient has no specific complaints. Patient noted to have worsening kidney function upon admission 1.2 this a.m. 2.8 at this time patient is currently pending evaluation from Nephrology's appreciate assistance we will follow their recommendations. Chest x-ray was reviewed by supervising physician and noted to have fine infiltrates with pulmonary edema we will continue to monitor patient's respiratory status closely. Patient's CT abdomen showing left hydronephrosis with left stone largest being x 2.5 cm and possible acute pancreatitis. 08/23 patient was seen and examined by bedside with family present. Patient is awake alert able to answer simple questions appropriately. At time of visit patient remains on room air is tolerating well. Patient denies any chest pain or shortness of breadth. Denies any nausea vomiting or abdominal pain. Patient currently pending evaluation from Urology we will follow recommendations. We will continue to monitor patient's closely. Patient to continue IV antibiotics. Dispo per primary team REVIEW OF SYSTEMS: 12 point ROS reviewed with patient. Pertinent positives mentioned above. Otherwise negative. PHYSICAL EXAM: GENERAL: alert, weak, awake oriented x 3 HEENT: EOMI, Sclera non icteric, moist mucosa NECK: Supple, no JVD, trachea midline LUNGS: Clear breath sounds bilaterally. No wheezes HEART: Regular rate and rhythm. Normal S1 and S2, without murmurs ABD: Abdomen soft, nontender. Bowel sounds present EXT: No clubbing cyanosis or edema NEURO: Alert and oriented to person, follows commands Vital Signs (last 8hr) Date Time Temp Pulse Resp B/P (MAP) Pulse Ox O2 Delivery O2 Flow Rate FiO2 08/23/24 12:05 97.3 87 18 158/83 97 Room Air 08/23/24 08:00 93 Room Air* 0 21 08/23/24 07:59 97.5 87 19 127/64 93 Room Air LABS: Hematology Labs: Test 08/23/24 04:50 08/22/24 04:32 Range/Units White Blood Count 6.8 4.8-10.8 K/uL Red Blood Count 3.67 L 4.00-5.50 MIL/uL Hemoglobin 10.4 L 12.0-16.0 g/dL Hematocrit 30.5 L 36-48 % Mean Corpuscular Volume 83.1 79-99 fL Mean Corpuscular Hemoglobin 28.3 27.0-33.0 pg Mean Corpuscular Hemoglobin Concent 34.1 32.0-36.0 g/dL Red Cell Distribution Width 16.1 H 11.0-15.5 % Platelet Count 149 130-400 K/uL Mean Platelet Volume 10.2 7.5-10.5 fL Nucleated Red Blood Cells 0.0 0.0-0.19 % Immature Granulocyte % (Auto) 1.5 H 0-1 % Neutrophils (%) (Auto) 57.3 40.0-77.0 % Lymphocytes (%) (Auto) 35.1 21.0-51.0 % Monocytes (%) (Auto) 4.2 3.0-13.0 % Eosinophils (%) (Auto) 1.3 0.0-8.0 % Basophils (%) (Auto) 0.6 0.0-5.0 % Neutrophils # (Auto) 4.6 1.8-7.7 K/uL Lymphocytes # (Auto) 2.8 1.0-4.8 K/uL Monocytes # (Auto) 0.3 0.1-1.0 K/uL Eosinophils # (Auto) 0.10 0.00-0.70 K/uL Basophils # (Auto) 0.05 0.00-0.20 K/uL Absolute Immature Granulocyte (auto 0.12 0-1 K/uL Segmented Neutrophils % 76 H 40-70 % Band Neutrophils % 1 0-2 % Lymphocytes % (Manual) 15 L 22-44 % Monocytes % (Manual) 2 2-9 % Eosinophils % (Manual) 1 1-6 % Metamyelocytes % 1 H 0-0 % Differential Comment MANUAL DIFFERENTIAL Reactive Lymphocytes 4 H 0-0 % White Cell Morphology Comment See comments Platelet Morphology Comment ADEQUATE Red Blood Cell Morphology NORMAL Chemistry Labs: Test 08/23/24 04:50 Range/Units Sodium Level 143 136-145 mmol/L Potassium Level 3.6 3.5-5.1 mmol/L Chloride Level 109 101-111 mmol/L Carbon Dioxide Level 24 21-32 mmol/L Blood Urea Nitrogen 36 H 7-18 mg/dL Creatinine 2.6 H 0.5-1.0 mg/dL Glomerular Filtration Rate Calc 20 >90 mL/min Random Glucose 91 70-105 mg/dL Uric Acid 6.2 2.6-7.2 mg/dL Total Calcium 7.9 L 8.5-10.1 mg/dL Phosphorus Level 5.5 H 2.5-4.9 mg/dL Magnesium Level 2.10 1.80-2.40 mg/dL Ferritin 1251 H 15-150 ng/mL Total Bilirubin 0.6 0.2-1.0 mg/dL Aspartate Amino Transf (AST/SGOT) 56 H 10-37 U/L Alanine Aminotransferase (ALT/SGPT) 43 12-78 U/L Alkaline Phosphatase 94 50-136 U/L Total Protein 6.1 6.0-8.3 g/dL Albumin 1.7 L 3.5-5.0 g/dL Amylase Level 56 25-115 U/L Lipase 82 H 16-77 U/L DIAGNOSTICS / RADIOLOGY RESULTS: na PLAN dose medications to renal function Follow up recommendations from Nephrology's monitor kidney function closely, follow hematology recommendations edwige mountain spotted fever testing pending results Continue with current IV antibiotics Continue to monitor respiratory status and maintain adequate oxygenation Keep O2 sats greater or equal to 90% Follow up with the Urology recommendation NEURO: Minimize central acting medications as possible. Maintain fall precautions, adequate lighting during the day PULMONARY: Supplemental 02 as needed. Maintain aspiration precautions at all times CARDIOVASCULAR: Follow hemodynamics. Vital signs per facility protocol GI & NUTRITION: Continue with nutritional support. Continue stool softeners and laxatives as needed. KIDNEYS & ELECTROLYTES: Strict monitoring of intake, output and overall fluid balance. Avoid nephrotoxic medications to the extent possible. Medications to be dosed according to renal function. Monitor electrolytes and replace as needed ENDOCRINE: Maintain blood glucose between 100-180 at all times. Hypoglycemia protocol in place INFECTIOUS DISEASE: Trend temperature, WBC and procalcitonin level Follow cultures, deescalate antibiotics as soon as possible. Panculture if new onset fever ONCOLOGY/HEMATOLOGY/COAGULATION: Monitor for s/s of bleeding Monitor hemoglobin, coagulation studies as needed SKIN: Pressure ulcer prevention per facility protocol Specialty mattress ORTHO/REHAB: Continue PT/OT Prophylaxis: Continue GI and DVT prophylaxis Code Status: Full Resuscitation Disposition: Per primary team Other: Total patient care time 35 minutes excluding all procedures. Case discussed with supervising physician plan of care agreed upon SHAHIDA POMPA August 23, 2024 13:54
--- NOTE | 2024-08-23 14:43 | HMCIMG ---
CT CERVICAL SPINE W/O CONTRAST HISTORY: Tremor to the upper extremity COMPARISON: None TECHNIQUE: Multiple sequential axial images of the cervical spine were obtained including post processing sagittal and coronal reconstruction images. Patient was not given contrast through intravenous route. FINDINGS: There are degenerative changes of the cervical spine spondylosis. Disc space narrowing is seen at the C5-6 level with spondylosis. There is straightening of normal lordotic cervical curvature which may be related to muscle spasm or positioning. There is no loss of vertebral height. Evaluation for disc and cord pathology is limited with CT study. No evidence of fracture or dislocation is seen. IMPRESSION: 1. No fracture is seen. 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 CT was performed with one or more following dose reduction techniques: automated exposure control, adjustment of the mA and kv according to patient's size, or use of a iterative reconstruction technique.
--- NOTE | 2024-08-23 15:32 | PN ---
INFECTIOUS DISEASE PROGRESS NOTE Date of Service: August 23, 2024 SUBJECTIVE: Patient was downgraded to medical surgical unit and was seen and examined at bedside in room 304. Patient is awake, alert and oriented. Patient reported involuntary tremors or bilateral hands. We will obtain a CT of the cervical spine. No fever, temperature is 97.5. We will continue on cefepime and doxycycline. PHYSICAL EXAM EYES: Anicteric. Pupils equal and reactive. HENT: No oral thrush seen, moist Oral mucosa. NECK: Supple, no JVD or thyromegaly. LUNGS: Good air entry. No rales, no rhonchi. Nonproductive cough. CARDIOVASCULAR: S1, S2 regular. No murmur heard. ABDOMEN: Soft, non tender, bowel sounds present, no organomegaly. CENTRAL NERVOUS SYSTEM: Awake, alert, oriented x 3. SKIN: No rashes, no swelling. Maculopapular rash. LYMPHATICS: No peripheral lymphadenopathy. MUSCULOSKELETAL: No joint swelling, erythema or tenderness. EXTREMITIES: No cyanosis or clubbing. BACK: No deformity, no pressure ulcer. GENITOURINARY: No dysuria or hematuria. Vital Sign (Last 12 Hours) 08/23/24 08/23/24 08/23/24 08/23/24 04:00 07:59 08:00 12:05 Temp 98.1 97.5 97.3 Pulse 90 87 87 Resp 20 19 18 B/P (MAP) 115/57 127/64 158/83 Pulse Ox 99 93 93 97 O2 Delivery Room Air Room Air Room Air* Room Air O2 Flow Rate 0 FiO2 21 Intake & Output (last 24hrs) 08/22/24 08/22/24 08/23/24 15:00 23:00 07:00 Intake Total 300.0 ml 250.0 ml Output Total 600 ml 1200 ml Balance -600 ml 300.0 ml -950.0 ml LABS: Laboratory: Test 08/23/24 04:50 08/22/24 18:58 08/22/24 04:32 Range/Units White Blood Count 6.8 4.8-10.8 K/uL Red Blood Count 3.67 L 4.00-5.50 MIL/uL Hemoglobin 10.4 L 12.0-16.0 g/dL Hematocrit 30.5 L 36-48 % Mean Corpuscular Volume 83.1 79-99 fL Mean Corpuscular Hemoglobin 28.3 27.0-33.0 pg Mean Corpuscular Hemoglobin Concent 34.1 32.0-36.0 g/dL Red Cell Distribution Width 16.1 H 11.0-15.5 % Platelet Count 149 130-400 K/uL Mean Platelet Volume 10.2 7.5-10.5 fL Nucleated Red Blood Cells 0.0 0.0-0.19 % Sodium Level 143 136-145 mmol/L Potassium Level 3.6 3.5-5.1 mmol/L Chloride Level 109 101-111 mmol/L Carbon Dioxide Level 24 21-32 mmol/L Blood Urea Nitrogen 36 H 7-18 mg/dL Creatinine 2.6 H 0.5-1.0 mg/dL Glomerular Filtration Rate Calc 20 >90 mL/min Random Glucose 91 70-105 mg/dL Uric Acid 6.2 2.6-7.2 mg/dL Total Calcium 7.9 L 8.5-10.1 mg/dL Phosphorus Level 5.5 H 2.5-4.9 mg/dL Magnesium Level 2.10 1.80-2.40 mg/dL Ferritin 1251 H 15-150 ng/mL Total Bilirubin 0.6 0.2-1.0 mg/dL Aspartate Amino Transf (AST/SGOT) 56 H 10-37 U/L Alanine Aminotransferase (ALT/SGPT) 43 12-78 U/L Alkaline Phosphatase 94 50-136 U/L Total Protein 6.1 6.0-8.3 g/dL Albumin 1.7 L 3.5-5.0 g/dL Amylase Level 56 25-115 U/L Lipase 82 H 16-77 U/L Urine Color LIGHT-YELLOW YELLOW Urine Appearance CLOUDY H CLEAR Urine pH 5.0 5.0-8.0 Urine Specific [place] 1.009 1.001-1.031 Urine Protein 10 H NEGATIVE mg/dL Urine Glucose (UA) NEGATIVE NEGATIVE mg/dL Urine Ketones NEGATIVE NEGATIVE mg/dL Urine Occult Blood +- (TRACE) H NEGATIVE Urine Nitrate NEGATIVE NEGATIVE Urine Bilirubin NEGATIVE NEGATIVE mg/dL Urine Urobilinogen 0.2 0.2-1.0 mg/dL Urine Leukocyte Esterase NEGATIVE NEGATIVE Héctor/uL Urine RBC 6-10 H 0-1 /HPF Urine WBC 2-5 H 0-1 /HPF Urine Squamous Epithelial Cells RARE 0-2 /HPF Urine Bacteria RARE None Seen /HPF Urine Granular Casts (Auto) 2-5 H None Seen /LPF Urine Other Casts 1 None Seen /LPF Urine Yeast FEW None Seen /HPF Immature Granulocyte % (Auto) 1.5 H 0-1 % Neutrophils (%) (Auto) 57.3 40.0-77.0 % Lymphocytes (%) (Auto) 35.1 21.0-51.0 % Monocytes (%) (Auto) 4.2 3.0-13.0 % Eosinophils (%) (Auto) 1.3 0.0-8.0 % Basophils (%) (Auto) 0.6 0.0-5.0 % Neutrophils # (Auto) 4.6 1.8-7.7 K/uL Lymphocytes # (Auto) 2.8 1.0-4.8 K/uL Monocytes # (Auto) 0.3 0.1-1.0 K/uL Eosinophils # (Auto) 0.10 0.00-0.70 K/uL Basophils # (Auto) 0.05 0.00-0.20 K/uL Absolute Immature Granulocyte (auto 0.12 0-1 K/uL Segmented Neutrophils % 76 H 40-70 % Band Neutrophils % 1 0-2 % Lymphocytes % (Manual) 15 L 22-44 % Monocytes % (Manual) 2 2-9 % Eosinophils % (Manual) 1 1-6 % Metamyelocytes % 1 H 0-0 % Differential Comment MANUAL DIFFERENTIAL Reactive Lymphocytes 4 H 0-0 % White Cell Morphology Comment See comments Platelet Morphology Comment ADEQUATE Red Blood Cell Morphology NORMAL ASSESSMENT: Urinary tract infection. Leukocytosis, resolved. Maculopapular rash. Recent viral Influenza infection as outpatient. Acute renal failure. Thrombocytopenia, resolved. Fibromyalgia. Hypertension. Debility. Hand tremors. PLAN: Obtain CT of the cervical spine. Continue cefepime 1 g IV every 12 hours. Continue doxycycline. Continue Tamiflu. Continue GI prophylaxis. We will follow up on the serology. End User Consultant following patient Nephrology has been consulted. Avoid nephrotoxic medications. Continue physical therapy. This case was reviewed and discussed with my supervising physician and the above assessment and plan was formulated and agreed upon. ATTESTATION BY PHYSICIAN I have seen and examined the patient. I reviewed the documentation, medical decision making, and treatment plan as noted by the mid-level provider above. I agree with the findings and plan of care. CRISELDA JACQUES MD, [facility] August 23, 2024 15:32
--- NOTE | 2024-08-23 17:24 | NUR ---
DR ARLETH L[address]. NO INTERVENTION AT THIS TIME. PATIENT TO FOLLOW UP IN HIS OFFICE IN 2 WEEKS. PATIENT TO GET REFERRAL FROM PCP.
--- NOTE | 2024-08-23 17:50 | PN ---
[PATIENT IS 63 YEARS OLD FEMALE WITH A PAST MEDICAL HISTORY OF HYPERTENSION, FLU, CATARACT, CHOLECYSTECTOMY, HYSTERECTOMY, WHO CAME TO EMERGENCY DEPARTMENT WITH A COMPLAINT OF DECREASED APPETITE, FEVER, GENERALIZED BODY WEAKNESS. PATIENT STATED THAT SHE WENT TO HER PCP AFTER SHE WAS DIAGNOSED WITH INFLUENZA ABOUT A WEEK AGO, WHERE SHE COMPLAINED ABOUT ABOVE-STATED COMPLAINTS AND SHE WAS SENT TO EMERGENCY DEPARTMENT FOR FURTHER EVALUATION/RECOMMENDATION. PATIENT DENIES ANY CHEST PAIN, NAUSEA, VOMITING, SHORTNESS OF BREATHS OR ANY OTHER SYMPTOMS OTHER THAN STATED ABOVE. ] Patient was admitted for sepsis with the patient was started on antibiotic treatment. This patient was found to have thrombocytopenia and anemia. There is no obvious bleeding. Blood cultures so far continue to be negative. Patient may be infection with typhus. Free light chain ratio was negative. PHYSICAL EXAM GENERAL APPEARANCE: The patient is awake, alert, and oriented, in no acute cardiopulmonary distress. NEUROLOGICAL: Cranial nerves II-XII grossly intact. Motor is 5/5 in bilateral upper and lower extremities proximal to distal. No sensory deficits. HEENT: Face is symmetric. Pupils are equal and reactive. Extraocular movements are intact. NECK: Supple. No JVD. No thyromegaly. No submental, submandibular, pre- /postauricular, occipital or supraclavicular lymphadenopathy. CHEST: Normal chest expansion. No Telemetry. LUNGS: Absence of any rales, rhonchi or any wheezing. CARDIOVASCULAR: Regular. S1 and S2 normal. No appreciable rubs, murmurs or gallops. ABDOMEN: Soft, nontender, and nondistended. There is no rebound, voluntary guarding, or rigidity. : Deferred. No Hobbs. EXTREMITIES: Non-edematous and not cyanotic. No clubbing. Good capillary refill. SKIN: No skin breakdown. Assessment 1. Anemia. Hemoglobin level 10.4 g/deciliter 2. Thrombocytopenia. Platelet count improved. 3. Hypertension 4. Possible atypical infection 5. Acute on chronic renal failure 6. History of hysterectomy 7. Possible systemic disease such as lupus, rheumatoid arthritis or vasculitis. Plan 1. This patient free light chain ratio within normal. Lab coming positive for possible typhus infection with the patient is responding well especially with adding doxycycline 2. There was hypersegmented neutrophils. This patient to Continue on folic acid 1 mg p.o. daily and vitamin B12 1000 mcg p.o. daily. 3. There is rouleaux phenomena. We will ask for SPEP, UPEP. If there is monoclonal protein we will do a bone marrow biopsy. 4. There is increased number of large glandular lymphocyte which could be due to leukemia or chronic disease or atypical infection. Will ask for flow cytometry of peripheral blood. If flow cytometry positive this patient will need bone marrow biopsy 5. This patient could have atypical infection. This patient may be should be on doxycycline part of her regimen for antibiotics. 6. Iron study within normal. There is no need for iron supplement at this time Vitals/Labs Vital Signs Date Time Temp Pulse Resp B/P (MAP) Pulse Ox O2 Delivery O2 Flow Rate FiO2 08/23/24 16:00 97.5 80 19 142/64 100 Room Air 08/23/24 08:00 0 21 Laboratory Tests 08/23/24 04:50 Medications Current Medications Sodium Chloride 2,448 ml @ 816 mls/hr ONCE ONCE IV Last administered on 08/16/24at 14:09; Start 08/16/24 at 14:00; Stop 08/16/24 at 16:59; Status DC Acetaminophen 1,000 mg ONCE ONCE PO Last administered on 08/16/24at 14:09; Start 08/16/24 at 14:00; Stop 08/16/24 at 14:01; Status DC Ceftriaxone Sodium 1 gm ONCE ONCE IVPB Last administered on 08/16/24at 16:48; Start 08/16/24 at 15:30; Stop 08/16/24 at 15:31; Status DC Dextrose 50 ml AD PRN IV; Start 08/16/24 at 16:30; Stop 09/15/24 at 16:29 Glucagon 1 mg AD PRN IM; Start 08/16/24 at 16:30; Stop 09/15/24 at 16:29 Insulin Human Regular INSULIN SLIDING SCAL... ACHS SQ; Start 08/16/24 at 16:30; Stop 08/20/24 at 15:55; Status DC Potassium Chloride 100 ml @ 100 mls/hr AD PRN IV Last administered on 08/17/24at 05:28; Start 08/16/24 at 16:30; Stop 09/15/24 at 16:29 Potassium Chloride 10 meq AD PRN PO; Start 08/16/24 at 16:30; Stop 09/15/24 at 16:29 Potassium Chloride 10 meq AD PRN PO Last administered on 08/17/24at 08:12; Start 08/16/24 at 16:30; Stop 08/17/24 at 09:04; Status DC Magnesium Sulfate 50 ml @ 0 mls/hr PROTOCOL PRN IV Last administered on 08/22/24at 06:22; Start 08/16/24 at 16:30; Stop 09/15/24 at 16:29 Diphenhydramine HCl 25 mg Q6H PRN IV Last administered on 08/20/24at 20:08; Start 08/16/24 at 16:30; Stop 09/15/24 at 16:29 Acetaminophen 650 mg Q6H PRN PO Last administered on 08/22/24at 04:15; Start 08/16/24 at 16:30; Stop 09/15/24 at 16:29 Acetaminophen 650 mg Q4H PRN PO; Start 08/16/24 at 16:30; Stop 09/15/24 at 16:29 Ondansetron HCl 4 mg Q6H PRN IV; Start 08/16/24 at 16:30; Stop 09/15/24 at 16:29 Zolpidem Tartrate 5 mg HS PRN PO; Start 08/16/24 at 16:30; Stop 08/21/24 at 21:35; Status DC Al Hydroxide/Mg Hydroxide 30 ml Q6H PRN PO; Start 08/16/24 at 16:30; Stop 09/15/24 at 16:29 Lactulose 20 gm BID PRN PO; Start 08/16/24 at 16:30; Stop 09/15/24 at 16:29 Nitroglycerin 0.4 mg PROTOCOL PRN SL; Start 08/16/24 at 16:30; Stop 09/15/24 at 16:29 Guaifenesin/ Dextromethorphan 10 ml Q4H PRN PO; Start 08/16/24 at 16:30; Stop 09/15/24 at 16:29 Famotidine 20 mg HS PRN IV; Start 08/16/24 at 16:30; Stop 08/17/24 at 09:03; Status DC Heparin Sodium (Porcine) 5,000 unit BID SQ Last administered on 08/16/24at 21:35; Start 08/16/24 at 21:00; Stop 08/18/24 at 07:05; Status DC Acetaminophen 650 mg Q6H PRN PO; Start 08/16/24 at 16:30; Stop 08/17/24 at 09:03; Status DC Ketorolac Tromethamine 15 mg Q8H PRN IV Last administered on 08/18/24at 19:15; Start 08/16/24 at 16:30; Stop 08/20/24 at 12:39; Status DC Oxycodone/ Acetaminophen 1 tab Q6H PRN PO Last administered on 08/16/24at 23:04; Start 08/16/24 at 16:30; Stop 08/21/24 at 19:29; Status DC Vancomycin HCl 1 each PROTOCOL PRN IV; Start 08/16/24 at 16:30; Stop 08/18/24 at 08:48; Status DC Piperacillin Sod/ Tazobactam Sod 50 ml @ 12.5 mls/hr ZOSY8 IV Last administered on 08/21/24at 05:03; Start 08/16/24 at 21:00; Stop 08/21/24 at 10:27; Status DC Sodium Chloride 1,000 ml @ 120 mls/hr Q8H20M IV Last administered on 08/20/24at 05:26; Start 08/16/24 at 16:30; Stop 08/20/24 at 12:38; Status DC Hydralazine HCl 10 mg Q6H PRN IV; Start 08/16/24 at 16:30; Stop 09/15/24 at 16:29 Famotidine 20 mg HS IV Last administered on 08/21/24at 20:52; Start 08/16/24 at 21:00; Stop 08/21/24 at 21:44; Status DC Vancomycin HCl 250 ml @ 125 mls/hr Q24H IV Last administered on 08/17/24at 18:11; Start 08/16/24 at 17:00; Stop 08/18/24 at 08:48; Status DC Potassium Chloride 40 meq ONCE ONCE PO Last administered on 08/17/24at 13:27; Start 08/17/24 at 08:30; Stop 08/17/24 at 08:31; Status DC Potassium Chloride 40 meq ONCE ONCE PO; Start 08/17/24 at 11:00; Stop 08/17/24 at 11:01; Status DC Potassium Chloride 10 meq AD PRN PO Last administered on 08/23/24at 06:12; Start 08/17/24 at 09:30; Stop 09/15/24 at 16:29 Trazodone HCl 100 mg HS PO Last administered on 08/22/24at 19:56; Start 08/17/24 at 21:00; Stop 09/16/24 at 20:59 Home Med (Meloxicam, Submicronized (Vivlodex... DAILY PO; Start 08/18/24 at 09:00; Stop 08/18/24 at 07:05; Status DC Losartan Potassium 100 mg DAILY PO; Start 08/18/24 at 09:00; Stop 08/17/24 at 13:09; Status DC Pregabalin 50 mg BID PO Last administered on 08/21/24at 08:33; Start 08/17/24 at 21:00; Stop 08/21/24 at 10:27; Status DC Doxycycline Hyclate 250 ml @ 125 mls/hr Q12H IV Last administered on 08/23/24at 08:41; Start 08/18/24 at 09:00; Stop 08/28/24 at 08:59 Midodrine 5 mg TID PO Last administered on 08/19/24at 08:32; Start 08/18/24 at 13:00; Stop 08/19/24 at 13:02; Status DC Heparin Sodium (Porcine) *calculation based on ACTUAL B... AD PRN IV Last administered on 08/18/24at 16:21; Start 08/18/24 at 16:30; Stop 08/19/24 at 04:54; Status DC Heparin Sodium/ Dextrose 250 ml @ 0 mls/hr Q6H IV Last administered on 08/18/24at 16:20; Start 08/18/24 at 16:30; Stop 08/19/24 at 06:01; Status DC Albumin Human 50 ml @ 100 mls/hr AD IV; Start 08/19/24 at 01:30; Stop 08/19/24 at 01:21; Status DC Pharmacy Profile Note 1 each ONCE ONCE MISC; Start 08/19/24 at 01:30; Stop 08/19/24 at 01:31; Status DC Albumin Human 100 ml @ 100 mls/hr ONCE ONCE IV Last administered on 08/19/24at 01:26; Start 08/19/24 at 01:30; Stop 08/19/24 at 02:29; Status DC Norepinephrine 250 ml @ 0 mls/hr PROTOCOL IV Last administered on 08/19/24at 15:55; Start 08/19/24 at 03:00; Stop 08/22/24 at 07:20; Status DC Midodrine 20 mg TID PO Last administered on 08/21/24at 08:33; Start 08/19/24 at 13:30; Stop 08/21/24 at 21:35; Status DC Midodrine 5 mg STK-MED ONCE .ROUTE; Start 08/19/24 at 13:05; Stop 08/19/24 at 13:08; Status DC Simethicone 80 mg Q8H PRN PO Last administered on 08/19/24at 21:43; Start 08/19/24 at 21:00; Stop 09/18/24 at 20:59 Furosemide 40 mg ONCE ONCE IV Last administered on 08/20/24at 12:42; Start 08/20/24 at 13:00; Stop 08/20/24 at 13:01; Status DC Oseltamivir Phosphate 75 mg Q24H PO Last administered on 08/22/24at 19:56; Start 08/20/24 at 21:00; Stop 08/25/24 at 20:59 Pregabalin 25 mg DAILY ONCE PO Last administered on 08/22/24at 08:56; Start 08/22/24 at 09:00; Stop 08/22/24 at 09:01; Status DC Piperacillin Sod/ Tazobactam Sod 50 ml @ 12.5 mls/hr Q12H IV Last administered on 08/22/24at 04:10; Start 08/21/24 at 17:00; Stop 08/22/24 at 17:46; Status DC Bumetanide 1 mg BID IVP Last administered on 08/23/24at 08:41; Start 08/21/24 at 11:00; Stop 09/20/24 at 10:59 Folic Acid 1 mg DAILY PO Last administered on 08/23/24at 08:42; Start 08/22/24 at 15:00; Stop 09/21/24 at 14:59 Vitamin B Complex 1,000 mcg DAILY PO Last administered on 08/23/24at 08:42; Start 08/22/24 at 15:00; Stop 09/21/24 at 14:59 Midodrine 10 mg TID PRN PO; Start 08/21/24 at 22:00; Stop 09/18/24 at 13:29 Pantoprazole Sodium 40 mg DAILY PO Last administered on 08/23/24at 08:42; Start 08/22/24 at 09:00; Stop 09/21/24 at 08:59 Vitamin B Complex 1,000 mcg DAILY PO; Start 08/22/24 at 12:30; Stop 08/22/24 at 12:25; Status DC Folic Acid 1 mg DAILY PO; Start 08/22/24 at 12:30; Stop 08/22/24 at 12:25; Status DC Vitamin B Complex/ Vit C/Folic Acid 1 cap DAILY PO; Start 08/23/24 at 09:00; Stop 08/22/24 at 15:38; Status DC Cefepime HCl 1 gm Q24H IVPB Last administered on 08/22/24at 17:54; Start 08/22/24 at 18:00; Stop 09/01/24 at 17:59 GERALDO AYERS MD August 23, 2024 17:50
[2024-08-24] VITALS (7 sets, daily range): BP systolic 121–154; BP diastolic 63–76; PULSE 74–98; RESP 18–20; TEMP 97.4–98.3; O2SAT 96–100
--- NOTE | 2024-08-24 01:00 | CONS ---
REQUESTING PHYSICIAN: Dr. Emery. REASON FOR CONSULTATION: Left kidney stone. HISTORY OF PRESENT ILLNESS: A 63-year-old female admitted to the hospital with influenza, pneumonia, sepsis, consulted Urology when CT scan demonstrated a left partial staghorn calculus. The patient has been noncompliant, known to have a left kidney stone, has failed to follow up for this, encountered lying in bed comfortably now, much improved. No flank pain, no dysuria and no gross hematuria. ALLERGIES: None. MEDICATIONS: Reviewed, include acetaminophen, magnesium, guaifenesin, famotidine, insulin, Zofran, potassium, vancomycin, and Ambien. PAST MEDICAL HISTORY: Hypertension. PAST SURGICAL HISTORY: Hysterectomy, cholecystectomy, and cataract surgery. FAMILY HISTORY: Negative for kidney stones. REVIEW OF SYSTEMS: No shortness of breath, no chest pain. Her appetite is good. No nausea, vomiting, constipation, or diarrhea. No headaches or dizziness, no nosebleed. No joint pain, joint swelling, limitation of movement, night sweats, fever, chills, or skin rash. PHYSICAL EXAMINATION: GENERAL: Well-developed female in no distress whatsoever at this time. LABORATORY DATA: The patient's current urinalysis shows cloudy yellow urine, specific gravity of 1.009, occasional rare bacteria, white cells 6-10, red cells 2-5. The patient's white count is 7.9, her hematocrit is 29, platelet count is 128. The patient's sodium 143, potassium 3.6, BUN and creatinine are 36/2.8. IMAGING STUDIES: Reviewed, include a CT scan of the abdomen and pelvis significant for mild left hydronephrosis with a 3 x 2 cm left staghorn calculus. ASSESSMENT: The patient's assessment is that of: * Noncompliance. * Left-sided kidney stone, unresolved. * Renal insufficiency. * Recovery from flu. RECOMMENDATIONS: * Complete her antibiotics as directed by her hospitalist and PCP. * Follow up with me as an outpatient. * Consultation with Nephrology regarding her renal insufficiency. * The patient's concerns ____ answered. Thank you for the opportunity for providing consultation on your patient. Sincerely, TID: [id number] RECEIPT: [id number]
[2024-08-24 05:35] LABS: HEMATOCRIT 29.1 % (36-48); MEAN CORPUSCULAR HEMOGLOBIN 27.9 pg (27.0-33.0); MEAN CORPUSCULAR HGB CONC 33.7 g/dL (32.0-36.0); MEAN CORPUSCULAR VOLUME 82.9 fL (79-99); RED BLOOD CELL COUNT(AUTO) 3.51 MIL/uL (4.00-5.50); WHITE BLOOD COUNT (AUTO) 6.9 K/uL (4.8-10.8)
[2024-08-24 05:57] LABS: ALBUMIN 1.8 g/dL (3.5-5.0); BILIRUBIN,TOTAL 0.6 mg/dL (0.2-1.0); CREATININE 2.2 mg/dL (0.5-1.0); MAGNESIUM 1.9 mg/dL (1.80-2.40); POTASSIUM 3.6 mmol/L (3.5-5.1); TOTAL PROTEIN, SERUM 6.3 g/dL (6.0-8.3)
[2024-08-24] MEDS: ondanSETRON 4MG INJ IV PRN (07:00)
--- NOTE | 2024-08-24 12:34 | PN ---
[facility] PROGRESS NOTE Date of Service: August 24, 2024 Time of Service: 12:28 SUBJECTIVE: [ PATIENT IS 63 YEARS OLD FEMALE WITH A PAST MEDICAL HISTORY OF HYPERTENSION, FLU, CATARACT, CHOLECYSTECTOMY, HYSTERECTOMY, WHO CAME TO EMERGENCY DEPARTMENT WITH A COMPLAINT OF DECREASED APPETITE, FEVER, GENERALIZED BODY WEAKNESS. PATIENT STATED THAT SHE WENT TO HER PCP AFTER SHE WAS DIAGNOSED WITH INFLUENZA ABOUT A WEEK AGO, WHERE SHE COMPLAINED ABOUT ABOVE-STATED COMPLAINTS AND SHE WAS SENT TO EMERGENCY DEPARTMENT FOR FURTHER EVALUATION/RECOMMENDATION. PATIENT DENIES ANY CHEST PAIN, NAUSEA, VOMITING, SHORTNESS OF BREATHS OR ANY OTHER SYMPTOMS OTHER THAN STATED ABOVE. ] MOST RECENT VITAL SIGNS TEMPERATURE 97.9 ON ADMISSION IN ER WAS 102.9, PULSE 84 RESPIRATION 22 BLOOD PRESSURE 90/50 PATIENT IS ON ROOM AIR SATTING 93%. UA POSITIVE FOR LEUKOCYTOSIS. WBC 9.0 HEMATOCRIT 40.2 HEMOGLOBIN 13.9 PLATELETS 82. SODIUM 133 POTASSIUM 3.3 CO2 29 BUN 14 CREATININE 1.2 GFR 5 GLUCOS 106 LACTIC 1.8 CALCIUM 7.8 TROPONIN NEGATIVE X1. CHEST X-RAY SHOWED CLEAR LUNGS CARDIOMEGALY. 2D ECHO IS PENDING. PATIENT WILL BE ADMITTED UNDER HOSPITALIST CARE FOR FURTHER EVALUATION/RECOMMENDATION. PATIENT WAS PLACED ON VANCOMYCIN AND ZOSYN FOR THE SEPSIS. A.M. LABS. 08/17 patient was seen by nurse practitioner and physician during rounding in room 304. Urinalysis was positive on admission. Blood culture and urine cul ture pending at this moment. Patient continues to be on Zosyn and vancomycin. We will increase fluids from 100 mL/hour 220 mL/hour. Patient's A1c is 5.8. We will discontinue insulin sliding scale per protocol. Also patient's blood pressure has been on lower side. We will discontinue losartan. Home medication reconciled. 2D echo showed EF 55 to 60% normal diastolic function no pericardial effusion. Potassium today is 2.8. Patient received already two 20 mEq through IV potassium. Patient will also receive 40 mEq of potassium as well. We will continue to monitor patient in the meantime. A.m. labs. 08/18 at bedside, she had a low-grade fever overnight, this morning she is tachycardic. Urine and blood cultures have been no growth to date, platelets have decreased from 52 down to 37, AST mildly elevated, creatinine increased from 1.2 up to 1.5. Given that she is still having fevers on vancomycin and Zosyn she may have an atypical infection, we will order a murine typhus panel and start doxycycline. Discontinue vancomycin at this time. Infectious workup has been negative this time we will assess for possible underlying PE or DIC, we will order D-dimer, V/Q scan, fibrinogen, PT and PTT and follow up 08/19 patient seen at bedside, yesterday her blood pressure started to drop despite being on fluids and broad-spectrum antibiotics. She was also tachycardic. D-dimer was elevated as her platelets were low and she was assessed for DIC however fibrinogen was normal. A V/Q scan was done that did not show evidence of pulmonary embolism. She was moved to the ICU and started on pressor support. Creatinine increased from 1.5 up to 2.2 however she has been adequately perfused and she has not been receiving any nephrotoxic medications, bladder scan was ordered showing greater than 500 cc within the bladder concerning for postobstructive uropathy. Hobbs catheter was placed and approximately 800 cc drained immediately. She has swelling and bruising to the left upper extremity where the midline was placed, we will order a venous Doppler to rule out DVT. 08/20 patient is seen and examined, power chart reviewed, vital signs, laboratory tests and imaging tests reviewed. Discussed with the RN, patient off Levophed since earlier this morning. She is awake, following commands, alert oriented x3. Patient noted to have elevated D-dimer and thrombocytopenia, concern for DIC was raised, however fibrinogen was normal. A V/Q scan was negative for PE. The patient was upgraded to the ICU as the patient was getting tachycardic, with a hypotension. Patient had a maximum temperature 102.9 08/16/2024. Patient noted to have worsening renal function with a creatinine of 2.2 as of yesterday, bladder scan was done, showing greater than 500 cc of urine concerning for possible obstructive uropathy, Hobbs catheter inserted, proximally 800 cc was drained immediately. Today still elevated at 2.4, bicarbonate of 23. Patient is also noted to have some swollen and present to left upper extremity we will midline was placed, a venous Doppler of left upper extremity was done, no evidence of DVT. Doppler of both lower extremities also negative for DVT. Urine culture negative, blood culture negative. Patient had loose stools yesterday. at bedside. 08/21 remains hemodynamically stable, BP 109/52, afebrile, saturating normal on room air. During my visit the patient is sitting comfortable in the chair, eating lunch, Laboratory data, WBC 9.2, hemoglobin 10.9, hematocrit 31.6, platelet count of 94 (discussed with the patient. She has not been told about low platelet count in the past). Repeat urine culture 08/19/2024 no growth. Patient evaluated by ID, patient is here with a UTI, had: Papular rash, recent viral influenza infection treated as an outpatient, continue doxycycline, contin ue IV Zosyn, started on Tamiflu 75 mg p.o. b.i.d.. Obtain routine mountain and spotted fever IgG and IgM serology. Results of stool studies Patient noted to have thrombocytopenia, we will request Hematology consult. Patient is still looks mildly edematous, puffiness still the below both eyes, she is on Bumex 1 mg IV b.i.d., Hobbs catheter in place, we will continue with daily weight, strict monitoring of intake and output. Doppler of the legs negative for DVT. 08/22 patient is seen and examined at bedside, downgraded from the PCU to the medical floor, remains alert oriented x3, getting IV antibiotics, admitted 2-3 loose stools yesterday. Today blood pressure 135/59, afebrile, saturating normal on room air, denies nausea, no vomiting, no abdominal discomfort, she is still feels swollen. Currently on Bumex 1 mg IV b.i.d.. Hemoglobin 10.0, hematocrit 29.0, platelet count improving to 128 today. Creatinine worse at 2.8. Patient will remain admitted to the medical floor Continue the patient on antibiotics, continue to follow ID input and recommendation. Continue Bumex 1 mg IV b.i.d. Renal ultrasound requested Nephrology consultation requested as well Follow mountain and spotted fever IgG and IgM serology Hematology input noted and appreciated, start the patient on folic acid 1 mg p.o. daily and vitamin B12 1000 mcg p.o. daily. There is rule out phenomena, we will ask for SPEP, UPEP and free light chain, if there is monoclonal protein we will do bone marrow biopsy. WBC increased number of large granular lymphocyte which could be due to leukemia or chronic disease or atypical infection. We will ask for flow cytometry of peripheral blood, if flow cytometry positive this patient will need bone marrow biopsy. 08/23 patient is seen and examined at bedside, case discussed with the RN, patient is sitting comfortable in the chair, she remains alert oriented x3, both upper extremities looks less swollen compared to yesterday. Petechia rash both upper extremities. BP 127/64, afebrile, she is saturating normal on room air. Platelet count has normalized, today 149. Creatinine slightly better today at 2.6. CT of the abdomen reviewed, mild left hydronephrosis with multiple left renal pelvic stones with the largest measuring 3 x 2.5 cm, small bilateral pleural effusion, pancreas is enlarged with the peripancreatic fat stranding suggestive of acute pancreatitis in the proper clinical setting. The patient remains admitted to the medical floor Zosyn was changed to cefepime IV. Continue to follow ID input and recommend ation Follow mountain and spotted fever IgG and IgM serology GI panel 08/20/2024 is negative Continue Bumex 1 mg IV b.i.d.. Nephrology consulted, continue to follow input and recommendation Patient with a left-sided hydronephrosis, we will request Urology consult Continue to follow Hematology input and recommendation whether the patient will require bone marrow biopsy, continue to monitor platelet count Peripancreatic fat stranding suggestive of acute pancreatitis, we will order amylase and lipase level. 08/24 patient is seen and examined at bedside, overall the patient feels and looks better, less edematous, improvement on upper extremity rash noted. Had two BMs yesterday, but denies abdominal discomfort, tolerating diet. Patient was having mild hand tremor yesterday. BP 135/69, afebrile, saturating normal on room air. CBC with hemoglobin at 9.8, hematocrit 29.1, WBC 6.9, platelet count of 177. Sodium 143, potassium 3.6, BUN of 32, creatinine improving at 2.2. Magnesium 1.9. Lipase slightly better today at 80. Results of free light chains ratio within normal. Serology tests for spotted fever positive. The patient on cefepime and doxycycline IV. CT cervical spine no fracture, degenerative joint disease cervical spine spondylosis The patient remains admitted to the medical floor Continue the patient on cefepime and doxycycline IV, continue to follow ID input and recommendation. GI panel 08/20/2024 is negative Continue Bumex 1 mg IV b.i.d.. Creatinine improving today at 2.2, discussed with the risk assessor, input noted and appreciated. Patient with a left-sided hydronephrosis, Urology consultation requested, case discussed, input noted and appreciated, outpatient follow up Continue to follow Hematology input and recommendation in terms of need for bone marrow biopsy during this admission. Peripancreatic fat stranding suggestive of acute pancreatitis, lipase slightly elevated at 80, continue to follow level in a.m.. REVIEW OF SYSTEMS 12 point ROS negative unless noted in HPI PHYSICAL EXAM GENERAL APPEARANCE: The patient is awake, alert, and oriented, in no acute cardiopulmonary distress. NEUROLOGICAL: Cranial nerves II-XII grossly intact. Motor is 5/5 in bilateral upper and lower extremities proximal to distal. No sensory deficits. HEENT: Face is symmetric. Pupils are equal and reactive. Extraocular movements are intact. NECK: Supple. No JVD. No thyromegaly. No submental, submandibular, pre- /postauricular, occipital or supraclavicular lymphadenopathy. CHEST: Normal chest expansion. No Telemetry. LUNGS: Absence of any rales, rhonchi or any wheezing. CARDIOVASCULAR: Regular. S1 and S2 normal. No appreciable rubs, murmurs or gallops. ABDOMEN: Soft, nontender, and nondistended. There is no rebound, voluntary guarding, or rigidity. : Deferred. No Hobbs. EXTREMITIES: BOTH UPPER AND LOWER EXTREMITIES ARE EDEMATOUS. SKIN: No skin breakdown. Vital Signs (last 8hr) Date Time Temp Pulse Resp B/P (MAP) Pulse Ox O2 Delivery O2 Flow Rate FiO2 08/24/24 12:00 97.5 82 20 135/69 97 Room Air 21 08/24/24 08:15 96 Room Air* 0 21 08/24/24 08:00 97.7 85 20 121/63 96 Room Air 21 LABS: Laboratory: Test 08/24/24 04:50 08/23/24 04:50 08/22/24 18:58 Range/Units White Blood Count 6.9 4.8-10.8 K/uL Red Blood Count 3.51 L 4.00-5.50 MIL/uL Hemoglobin 9.8 L 12.0-16.0 g/dL Hematocrit 29.1 L 36-48 % Mean Corpuscular Volume 82.9 79-99 fL Mean Corpuscular Hemoglobin 27.9 27.0-33.0 pg Mean Corpuscular Hemoglobin Concent 33.7 32.0-36.0 g/dL Red Cell Distribution Width 16.0 H 11.0-15.5 % Platelet Count 177 130-400 K/uL Mean Platelet Volume 10.6 H 7.5-10.5 fL Nucleated Red Blood Cells 0.0 0.0-0.19 % Sodium Level 143 136-145 mmol/L Potassium Level 3.6 3.5-5.1 mmol/L Chloride Level 107 101-111 mmol/L Carbon Dioxide Level 27 21-32 mmol/L Blood Urea Nitrogen 32 H 7-18 mg/dL Creatinine 2.2 H 0.5-1.0 mg/dL Glomerular Filtration Rate Calc 24 >90 mL/min Random Glucose 96 70-105 mg/dL Total Calcium 8.1 L 8.5-10.1 mg/dL Phosphorus Level 5.0 H 2.5-4.9 mg/dL Magnesium Level 1.90 1.80-2.40 mg/dL Total Bilirubin 0.6 0.2-1.0 mg/dL Aspartate Amino Transf (AST/SGOT) 73 H 10-37 U/L Alanine Aminotransferase (ALT/SGPT) 61 # 12-78 U/L Alkaline Phosphatase 94 50-136 U/L Total Protein 6.3 6.0-8.3 g/dL Albumin 1.8 L 3.5-5.0 g/dL Amylase Level 55 25-115 U/L Lipase 80 H 16-77 U/L Uric Acid 6.2 2.6-7.2 mg/dL Ferritin 1251 H 15-150 ng/mL Urine Color LIGHT-YELLOW YELLOW Urine Appearance CLOUDY H CLEAR Urine pH 5.0 5.0-8.0 Urine Specific [place] 1.009 1.001-1.031 Urine Protein 10 H NEGATIVE mg/dL Urine Glucose (UA) NEGATIVE NEGATIVE mg/dL Urine Ketones NEGATIVE NEGATIVE mg/dL Urine Occult Blood +- (TRACE) H NEGATIVE Urine Nitrate NEGATIVE NEGATIVE Urine Bilirubin NEGATIVE NEGATIVE mg/dL Urine Urobilinogen 0.2 0.2-1.0 mg/dL Urine Leukocyte Esterase NEGATIVE NEGATIVE Héctor/uL Urine RBC 6-10 H 0-1 /HPF Urine WBC 2-5 H 0-1 /HPF Urine Squamous Epithelial Cells RARE 0-2 /HPF Urine Bacteria RARE None Seen /HPF Urine Granular Casts (Auto) 2-5 H None Seen /LPF Urine Other Casts 1 None Seen /LPF Urine Yeast FEW None Seen /HPF Current Medications Medications (Trade) Dose Ordered Sig/Amy Route PRN Reason Start Time Stop Time Status Last Admin Dose Admin Acetaminophen (TYLenol 325MG TAB) 650 mg Q4H PRN PO MILD PAIN (1-3) 08/16/24 16:30 09/15/24 16:29 Acetaminophen (TYLenol 325MG TAB) 650 mg Q6H PRN PO MILD PAIN (1-3) 08/16/24 16:30 08/17/24 09:03 DC Acetaminophen (TYLenol 325MG TAB) 650 mg Q6H PRN PO TEMPERATURE GREATER THAN 101.5 08/16/24 16:30 09/15/24 16:29 08/22/24 04:15 650 MG Al Hydroxide/Mg Hydroxide (MAALox PLUS 30ML) 30 ml Q6H PRN PO INDIGESTION 08/16/24 16:30 09/15/24 16:29 Albumin Human 50 ml @ 100 mls/hr AD IV 08/19/24 01:30 08/19/24 01:21 DC Bumetanide (Bumex 1mg Vial) 1 mg BID IVP 08/21/24 11:00 09/20/24 10:59 08/24/24 08:05 1 MG Cefepime HCl (MAXipime 1 GM vial) 1 gm Q24H IVPB 08/22/24 18:00 09/01/24 17:59 08/23/24 18:18 1 GM Dextrose (D50w) 50 ml AD PRN IV HYPOGLYCEMIA PROTOCOL 08/16/24 16:30 09/15/24 16:29 Diphenhydramine HCl (BENAdryl INJ) 25 mg Q6H PRN IV SEVERE ITCHING/RASH 08/16/24 16:30 09/15/24 16:29 08/20/24 20:08 25 MG Doxycycline Hyclate 250 ml @ 125 mls/hr Q12H IV 08/18/24 09:00 08/28/24 08:59 08/24/24 08:05 125 MLS/HR Famotidine (Pepcid 20mg Vial) 20 mg HS IV 08/16/24 21:00 08/21/24 21:44 DC 08/21/24 20:52 20 MG Famotidine (Pepcid 20mg Vial) 20 mg HS PRN IV NAUSEA/VOMITING 08/16/24 16:30 08/17/24 09:03 DC Folic Acid (FOLic ACID 1 MG TABLET) 1 mg DAILY PO 08/22/24 12:30 08/22/24 12:25 DC Folic Acid (FOLic ACID 1 MG TABLET) 1 mg DAILY PO 08/22/24 15:00 09/21/24 14:59 08/24/24 08:05 1 MG Glucagon (Glucagon 1mg Kit) 1 mg AD PRN IM HYPOGLYCEMIA PROTOCOL 08/16/24 16:30 09/15/24 16:29 Guaifenesin/ Dextromethorphan (RobiTUSSin DM 200/20MG 10ML) 10 ml Q4H PRN PO COUGH 08/16/24 16:30 09/15/24 16:29 Heparin Sodium (Porcine) (HEParin 5,000 UNIT VIAL) *calculation based on ACTUAL B... AD PRN IV HEPARIN PROTOCOL 08/18/24 16:30 08/19/24 04:54 DC 08/18/24 16:21 6,000 UNIT Heparin Sodium (Porcine) (HEParin 5,000 UNIT VIAL) 5,000 unit BID SQ 08/16/24 21:00 08/18/24 07:05 DC 08/16/24 21:35 5,000 UNIT Heparin Sodium/ Dextrose 250 ml @ 0 mls/hr Q6H IV 08/18/24 16:30 08/19/24 06:01 DC 08/18/24 16:20 13.98 MLS/HR Home Med (Home Medication) (Meloxicam, Submicronized (Vivlodex... DAILY PO 08/18/24 09:00 08/18/24 07:05 DC Hydralazine HCl (APRESOLine 20MG INJ) 10 mg Q6H PRN IV For:SBP above 160;DBP above 90 08/16/24 16:30 09/15/24 16:29 Insulin Human Regular (humuLIN R 100 UNIT/ML 3ML) INSULIN SLIDING SCAL... ACHS SQ 08/16/24 16:30 08/20/24 15:55 DC Ketorolac Tromethamine (toRADol) 15 mg Q8H PRN IV MODERATE PAIN (4-6) 08/16/24 16:30 08/20/24 12:39 DC 08/18/24 19:15 15 MG Lactulose (Constulose 20gm/ 30ml Udcup) 20 gm BID PRN PO CONSTIPATION 08/16/24 16:30 09/15/24 16:29 Losartan Potassium (CozAAR 100MG TAB) 100 mg DAILY PO 08/18/24 09:00 08/17/24 13:09 DC Magnesium Sulfate 50 ml @ 0 mls/hr PROTOCOL PRN IV other 08/16/24 16:30 09/15/24 16:29 08/24/24 06:10 25 MLS/HR Midodrine (PROAMatine 5 MG TABLET) 5 mg TID PO 08/18/24 13:00 08/19/24 13:02 DC 08/19/24 08:32 5 MG Midodrine (PROAMatine 5 MG TABLET) 10 mg TID PRN PO SBP < 90 08/21/24 22:00 09/18/24 13:29 Midodrine (PROAMatine 5 MG TABLET) 20 mg TID PO 08/19/24 13:30 08/21/24 21:35 DC 08/21/24 08:33 20 MG Nitroglycerin (Nitrostat) 0.4 mg PROTOCOL PRN SL CHEST PAIN 08/16/24 16:30 09/15/24 16:29 Norepinephrine 250 ml @ 0 mls/hr PROTOCOL IV 08/19/24 03:00 08/22/24 07:20 DC 08/19/24 15:55 15.31 MLS/HR Ondansetron HCl (zoFRAN 4MG INJ) 4 mg Q6H PRN IV NAUSEA/VOMITING 08/16/24 16:30 09/15/24 16:29 08/24/24 07:00 4 MG Oseltamivir Phosphate (Tamiflu) 75 mg Q24H PO 08/20/24 21:00 08/25/24 20:59 08/23/24 20:44 75 MG Oxycodone/ Acetaminophen (perCOCET) 1 tab Q6H PRN PO SEVERE PAIN (7-10) 08/16/24 16:30 08/21/24 19:29 DC 08/16/24 23:04 1 TAB Pantoprazole Sodium (PROTonix 40MG TAB) 40 mg DAILY PO 08/22/24 09:00 09/21/24 08:59 08/24/24 08:05 40 MG Piperacillin Sod/ Tazobactam Sod 50 ml @ 12.5 mls/hr Q12H IV 08/21/24 17:00 08/22/24 17:46 DC 08/22/24 04:10 12.5 MLS/HR Piperacillin Sod/ Tazobactam Sod 50 ml @ 12.5 mls/hr ZOSY8 IV 08/16/24 21:00 08/21/24 10:27 DC 08/21/24 05:03 12.5 MLS/HR Potassium Chloride 100 ml @ 100 mls/hr AD PRN IV POTASSIUM PROTOCOL 08/16/24 16:30 09/15/24 16:29 08/17/24 05:28 100 MLS/HR Potassium Chloride (K-Dur 10meq Sr Tab) 10 meq AD PRN PO POTASSIUM PROTOCOL 08/17/24 09:30 09/15/24 16:29 08/24/24 12:16 10 MEQ Potassium Chloride (K-Dur/Klor-Con 20meq) 10 meq AD PRN PO POTASSIUM PROTOCOL 08/16/24 16:30 08/17/24 09:04 DC 08/17/24 08:12 10 MEQ Potassium Chloride (KCl 10% Elixir 20meq/15ml) 10 meq AD PRN PO POTASSIUM PROTOCOL 08/16/24 16:30 09/15/24 16:29 Pregabalin (LYRica 25MG) 50 mg BID PO 08/17/24 21:00 08/21/24 10:27 DC 08/21/24 08:33 50 MG Simethicone (Mylicon) 80 mg Q8H PRN PO GI GAS 08/19/24 21:00 09/18/24 20:59 08/19/24 21:43 80 MG Sodium Chloride 1,000 ml @ 120 mls/hr Q8H20M IV 08/16/24 16:30 08/20/24 12:38 DC 08/20/24 05:26 120 MLS/HR Trazodone HCl (DesyREL/OlepTRO) 100 mg HS PO 08/17/24 21:00 09/16/24 20:59 08/23/24 20:44 100 MG Vancomycin HCl 250 ml @ 125 mls/hr Q24H IV 08/16/24 17:00 08/18/24 08:48 DC 08/17/24 18:11 125 MLS/HR Vancomycin HCl (Vancomycin Protocol) 1 each PROTOCOL PRN IV VANCOMYCIN PROTOCOL 08/16/24 16:30 08/18/24 08:48 DC Vitamin B Complex (Vitamin B-12) 1,000 mcg DAILY PO 08/22/24 12:30 08/22/24 12:25 DC Vitamin B Complex (Vitamin B-12) 1,000 mcg DAILY PO 08/22/24 15:00 09/21/24 14:59 08/24/24 08:05 1,000 MCG Vitamin B Complex/ Vit C/Folic Acid (Nephrovite Tablet) 1 cap DAILY PO 08/23/24 09:00 08/22/24 15:38 DC Zolpidem Tartrate (AmbIEN) 5 mg HS PRN PO INSOMNIA 08/16/24 16:30 08/21/24 21:35 DC DIAGNOSTICS / RADIOLOGY: [ ] ASSESSMENT: ACUTE SEPSIS POA SEPTIC SHOCK GENERALIZED BODY WEAKNESS POA ACUTE KIDNEY INJURY POA URINARY RETENTION POSTOBSTRUCTIVE UROPATHY ACUTE DEHYDRATION POA ACUTE COMPLICATED CYSTITIS POA ELECTROLYTE IMBALANCE HYPONATREMIA NA 133, HYPOKALEMIA 3.3 HYPOCALCEMIA 7.8 POA UNCONTROLLED HYPERTENSION POA THROMBOCYTOPENIA POA HISTORY OF CATARACT HISTORY OF CHOLECYSTECTOMY HISTORY OF HYSTERECTOMY HISTORY OF KIDNEY STONES HISTORY OF HYDRONEPHROSIS RECENT INFLUENZA INFECTION THROMBOCYTOPENIA SEROLOGY TESTS POSITIVE FOR SPOTTED FEVER MILD LEFT HYDRONEPHROSIS MULTIPLE LEFT RENAL PELVIC STONES WITH THE LARGEST MEASURING 3 X 2.5 CM SMALL BILATERAL PLEURAL EFFUSION PANCREAS IS ENLARGED WITH THE PERIPANCREATIC FAT SUGGESTIVE OF ACUTE PANCREATITIS CERVICAL SPINE SPONDYLOSIS PLAN: The patient remains admitted to the medical floor Continue the patient on cefepime and doxycycline IV, continue to follow ID input and recommendation. GI panel 08/20/2024 is negative Continue Bumex 1 mg IV b.i.d.. Creatinine improving today at 2.2, discussed with the risk assessor, input noted and appreciated. Patient with a left-sided hydronephrosis, Urology consultation requested, case discussed, input noted and appreciated, outpatient follow up Continue to follow Hematology input and recommendation in terms of need for bone marrow biopsy during this admission. Peripancreatic fat stranding suggestive of acute pancreatitis, lipase slightly elevated at 80, continue to follow level in a.m.. NEURO: MINIMIZE CENTRAL ACTING MEDICATIONS POSSIBLE. FALL PRECAUTIONS. WELL LIGHTED ROOM THROUGH THE DAY AND MINIMIZE INTERRUPTIONS THROUGH THE NIGHT TO PREVENT ACUTE DELIRIUM. PULMONARY: SUPPLEMENTAL 02 NEEDED BIPAP NECESSARY, FOR RESPIRATORY DISTRESS TITRATE FIO2 TO KEEP SPO2 > OR = 90% DUONEBS AND CPT NEEDED IS HOURLY WHILE AWAKE FOR PULMONARY HYGIENE PRN OUT OF BED TO CHAIR TOLERATED MAINTAIN ASPIRATION PRECAUTIONS AT ALL TIMES CARDIOVASCULAR: FOLLOW HEMODYNAMICS. VITAL SIGNS PER FACILITY PROTOCOL GI & NUTRITION: CONTINUE NUTRITIONAL SUPPORT ASPIRATIONS PRECAUTIONS PROKINETIC AGENTS AND LAXATIVES NEEDED KIDNEYS & ELECTROLYTES: STRICT MONITORING OF INTAKE AND OUTPUT DAILY WEIGHTS AVOID NEPHROTOXIC AGENTS MONITOR ELECTROLYTES AND REPLACE NEEDED GOAL URINE OUTPUT OF 30ML/HR OR 0.5ML/KG/HR MEDICATIONS TO BE DOSED ACCORDING TO RENAL FUNCTION. AVOID CONTRAST IF POSSIBLE ENDOCRINE: MAINTAIN BLOOD GLUCOSE BETWEEN 100-180 AT ALL TIMES. INSULIN SLIDING SCALE FOR BLOOD GLUCOSE MANAGEMENT HYPOGLYCEMIA AND HYPERGLYCEMIA PROTOCOL IN PLACE INFECTIOUS DISEASE: TREND TEMPERATURE, WBC AND PROCALCITONIN LEVEL FOLLOW CULTURES, DEESCALATE ANTIBIOTICS SOON POSSIBLE. PANCULTURE IF NEW ONSET FEVER HEMATOLOGY & COAGULATION: MONITOR H&H. KEEP HGB > 7 TRANSFUSE 1 UNIT OF PRBC FOR HGB < 7 TRANSFUSE 1 PACK OF PLATELETS OF PLATELETS < 20, 000 WATCH FOR ANY SIGNS AND SYMPTOMS OF BLEEDING SKIN: PRESSURE ULCER PREVENTION PER FACILITY PROTOCOL SPECIALTY MATTRESS NEEDED ORTHO/REHAB CONTINUE PT/OT PRN: MEDICATIONS TYLENOL 650 MG PO EVERY 4 HRS FOR FEVER ZOFRAN 4 MG IV EVERY 6 HRS FOR N/V HYDRALAZINE 5 MG IV EVERY 4 HRS SYSTOLIC PRESSURE > 160 BOWEL REGIMENT: LACTULOSE 20 GM PO BID PRN CONSTIPATION SUPPORTIVE MEASURES: CONTINUE GI AND DVT PROPHYLAXIS DISPOSITION: PENDING IMPROVEMENT IN CLINICAL CONDITION ALL QUESTIONS ANSWERED TIME SPENT: > 35 MIN JUANITO PENNY MD August 24, 2024 12:34
--- NOTE | 2024-08-24 13:54 | PN ---
[facility] PROGRESS NOTE Date Patient Seen: August 24, 2024 Time of Visit: 1150 Supervising Physician: Dr. Ramirez Primary Care Physician: Harris Rankin Outpatient Specialists: [ ] Inpatient Consults: BIS PROBLEM LIST Septic shock requiring pressors POA resolved 2/2 from below Acute complicated cystitis Acute urinary retention status post Hobbs catheter insertion. Mild left hydronephrosis with multiple left renal pelvic stones with the largest measuring 3 x 2.[address] abdomen of 08/21/2024 Acute pancreatitis as per CT abdomen of 08/21/2024 Elevated D-dimer V/Q scan negative for PE. YULIA subtherapeutic from obstructive uropathy. Electrolyte imbalance. Hypertension. Acute Thrombocytopenia. Rule out systemic disease such as lupus, rheumatoid arthritis or vasculitis. Left ventricular ejection fraction 55-60% per echocardiogram 08/17/2024 Recent diagnosis of influenza, repeat serology was negative. INTERVAL HISTORY: 08/20/2024: At the time of my evaluation, the patient was lying in bed. The staff nurse reports no acute events overnight. Blood pressure macias, the major changes of concern. Laboratory data showed no changes of concern. Chest x-ray today showed small bilateral pleural effusion. Cultures are in progress. Patient on levophed and on p.o. midodrine. She is also on antibiotic therapy as ordered. No other complaint 08/22 patient was seen and examined at bedside with no family present. Patient is awake alert able answer simple questions appropriately. At time visit patient has no specific complaints. Patient noted to have worsening kidney function upon admission 1.2 this a.m. 2.8 at this time patient is currently pending evaluation from Nephrology's appreciate assistance we will follow their recommendations. Chest x-ray was reviewed by supervising physician and noted to have fine infiltrates with pulmonary edema we will continue to monitor patient's respiratory status closely. Patient's CT abdomen showing left hydronephrosis with left stone largest being x 2.5 cm and possible acute pancreatitis. 08/23 patient was seen and examined by bedside with family present. Patient is awake alert able to answer simple questions appropriately. At time of visit patient remains on room air is tolerating well. Patient denies any chest pain or shortness of breadth. Denies any nausea vomiting or abdominal pain. Patient currently pending evaluation from Urology we will follow recommendations. We will continue to monitor patient's closely. Patient to continue IV antibiotics. Dispo per primary team 08/24 patient was seen and examined by bedside with family present. Patient awake alerts has no specific complaints at time of visit. Remains hemodynamically stable. As per primary nurse no acute events to be reported. Patient to continue IV antibiotics. We will continue to monitor patient closely REVIEW OF SYSTEMS: 12 point ROS reviewed with patient. Pertinent positives mentioned above. Otherwise negative. PHYSICAL EXAM: GENERAL: alert, weak, awake oriented x 3 HEENT: EOMI, Sclera non icteric, moist mucosa NECK: Supple, no JVD, trachea midline LUNGS: Clear breath sounds bilaterally. No wheezes HEART: Regular rate and rhythm. Normal S1 and S2, without murmurs ABD: Abdomen soft, nontender. Bowel sounds present EXT: No clubbing cyanosis or edema NEURO: Alert and oriented to person, follows commands Vital Signs (last 8hr) Date Time Temp Pulse Resp B/P (MAP) Pulse Ox O2 Delivery O2 Flow Rate FiO2 08/24/24 12:00 97.5 82 20 135/69 97 Room Air 21 08/24/24 08:15 96 Room Air* 0 21 08/24/24 08:00 97.7 85 20 121/63 96 Room Air 21 LABS: Hematology Labs: Test 08/24/24 04:50 Range/Units White Blood Count 6.9 4.8-10.8 K/uL Red Blood Count 3.51 L 4.00-5.50 MIL/uL Hemoglobin 9.8 L 12.0-16.0 g/dL Hematocrit 29.1 L 36-48 % Mean Corpuscular Volume 82.9 79-99 fL Mean Corpuscular Hemoglobin 27.9 27.0-33.0 pg Mean Corpuscular Hemoglobin Concent 33.7 32.0-36.0 g/dL Red Cell Distribution Width 16.0 H 11.0-15.5 % Platelet Count 177 130-400 K/uL Mean Platelet Volume 10.6 H 7.5-10.5 fL Nucleated Red Blood Cells 0.0 0.0-0.19 % Chemistry Labs: Test 08/24/24 04:50 08/23/24 04:50 Range/Units Sodium Level 143 136-145 mmol/L Potassium Level 3.6 3.5-5.1 mmol/L Chloride Level 107 101-111 mmol/L Carbon Dioxide Level 27 21-32 mmol/L Blood Urea Nitrogen 32 H 7-18 mg/dL Creatinine 2.2 H 0.5-1.0 mg/dL Glomerular Filtration Rate Calc 24 >90 mL/min Random Glucose 96 70-105 mg/dL Total Calcium 8.1 L 8.5-10.1 mg/dL Phosphorus Level 5.0 H 2.5-4.9 mg/dL Magnesium Level 1.90 1.80-2.40 mg/dL Total Bilirubin 0.6 0.2-1.0 mg/dL Aspartate Amino Transf (AST/SGOT) 73 H 10-37 U/L Alanine Aminotransferase (ALT/SGPT) 61 # 12-78 U/L Alkaline Phosphatase 94 50-136 U/L Total Protein 6.3 6.0-8.3 g/dL Albumin 1.8 L 3.5-5.0 g/dL Amylase Level 55 25-115 U/L Lipase 80 H 16-77 U/L Uric Acid 6.2 2.6-7.2 mg/dL Ferritin 1251 H 15-150 ng/mL DIAGNOSTICS / RADIOLOGY RESULTS: na PLAN dose medications to renal function Follow up recommendations from Nephrology's monitor kidney function closely, follow hematology recommendations edwige [place] spotted fever testing pending results Continue with current IV antibiotics Continue to monitor respiratory status and maintain adequate oxygenation Keep O2 sats greater or equal to 90% As per urology complete her antibiotics follow up outpatient NEURO: Minimize central acting medications as possible. Maintain fall precautions, adequate lighting during the day PULMONARY: Supplemental 02 as needed. Maintain aspiration precautions at all times CARDIOVASCULAR: Follow hemodynamics. Vital signs per facility protocol GI & NUTRITION: Continue with nutritional support. Continue stool softeners and laxatives as needed. KIDNEYS & ELECTROLYTES: Strict monitoring of intake, output and overall fluid balance. Avoid nephrotoxic medications to the extent possible. Medications to be dosed according to renal function. Monitor electrolytes and replace as needed ENDOCRINE: Maintain blood glucose between 100-180 at all times. Hypoglycemia protocol in place INFECTIOUS DISEASE: Trend temperature, WBC and procalcitonin level Follow cultures, deescalate antibiotics as soon as possible. Panculture if new onset fever ONCOLOGY/HEMATOLOGY/COAGULATION: Monitor for s/s of bleeding Monitor hemoglobin, coagulation studies as needed SKIN: Pressure ulcer prevention per facility protocol Specialty mattress ORTHO/REHAB: Continue PT/OT Prophylaxis: Continue GI and DVT prophylaxis Code Status: Full Resuscitation Disposition: Per primary team Other: Case discussed with supervising physician plan of care agreed upon SHAHIDA POMPA PHARMACEUTICAL OFFICER August 24, 2024 13:53
--- NOTE | 2024-08-24 20:14 | PN ---
[PATIENT IS 63 YEARS OLD FEMALE WITH A PAST MEDICAL HISTORY OF HYPERTENSION, FLU, CATARACT, CHOLECYSTECTOMY, HYSTERECTOMY, WHO CAME TO EMERGENCY DEPARTMENT WITH A COMPLAINT OF DECREASED APPETITE, FEVER, GENERALIZED BODY WEAKNESS. PATIENT STATED THAT SHE WENT TO HER PCP AFTER SHE WAS DIAGNOSED WITH INFLUENZA ABOUT A WEEK AGO, WHERE SHE COMPLAINED ABOUT ABOVE-STATED COMPLAINTS AND SHE WAS SENT TO EMERGENCY DEPARTMENT FOR FURTHER EVALUATION/RECOMMENDATION. PATIENT DENIES ANY CHEST PAIN, NAUSEA, VOMITING, SHORTNESS OF BREATHS OR ANY OTHER SYMPTOMS OTHER THAN STATED ABOVE. ] Patient was admitted for sepsis with the patient was started on antibiotic treatment. This patient was found to have thrombocytopenia and anemia. There is no obvious bleeding. Blood cultures so far continue to be negative. Patient may be infection with typhus. Free light chain ratio was negative. PHYSICAL EXAM GENERAL APPEARANCE: The patient is awake, alert, and oriented, in no acute cardiopulmonary distress. NEUROLOGICAL: Cranial nerves II-XII grossly intact. Motor is 5/5 in bilateral upper and lower extremities proximal to distal. No sensory deficits. HEENT: Face is symmetric. Pupils are equal and reactive. Extraocular movements are intact. NECK: Supple. No JVD. No thyromegaly. No submental, submandibular, pre- /postauricular, occipital or supraclavicular lymphadenopathy. CHEST: Normal chest expansion. No Telemetry. LUNGS: Absence of any rales, rhonchi or any wheezing. CARDIOVASCULAR: Regular. S1 and S2 normal. No appreciable rubs, murmurs or gallops. ABDOMEN: Soft, nontender, and nondistended. There is no rebound, voluntary guarding, or rigidity. : Deferred. No Hobbs. EXTREMITIES: Non-edematous and not cyanotic. No clubbing. Good capillary refill. SKIN: No skin breakdown. Assessment 1. Anemia. Hemoglobin level 10.4 g/deciliter 2. Thrombocytopenia. Platelet count improved. 3. Hypertension 4. Possible atypical infection 5. Acute on chronic renal failure 6. History of hysterectomy 7. Possible systemic disease such as lupus, rheumatoid arthritis or vasculitis. Plan 1. This patient free light chain ratio within normal. Lab coming positive for possible typhus infection with the patient is responding well especially with adding doxycycline 2. There was hypersegmented neutrophils. This patient to Continue on folic acid 1 mg p.o. daily and vitamin B12 1000 mcg p.o. daily. 3. There is rouleaux phenomena. We will ask for SPEP, UPEP. If there is monoclonal protein we will do a bone marrow biopsy. 4. There is increased number of large glandular lymphocyte which could be due to leukemia or chronic disease or atypical infection. Will ask for flow cytometry of peripheral blood. If flow cytometry positive this patient will need bone marrow biopsy 5. This patient could have atypical infection. This patient may be should be on doxycycline part of her regimen for antibiotics. 6. Iron study within normal. There is no need for iron supplement at this time I will sign off this case at this time. If this patient discharged to follow-up with me in 3 weeks Vitals/Labs Vital Signs Date Time Temp Pulse Resp B/P (MAP) Pulse Ox O2 Delivery O2 Flow Rate FiO2 08/24/24 15:55 97.3 74 20 134/76 98 Room Air 21 08/24/24 08:15 0 Laboratory Tests 08/24/24 04:50 Medications Current Medications Sodium Chloride 2,448 ml @ 816 mls/hr ONCE ONCE IV Last administered on 08/16/24at 14:09; Start 08/16/24 at 14:00; Stop 08/16/24 at 16:59; Status DC Acetaminophen 1,000 mg ONCE ONCE PO Last administered on 08/16/24at 14:09; Start 08/16/24 at 14:00; Stop 08/16/24 at 14:01; Status DC Ceftriaxone Sodium 1 gm ONCE ONCE IVPB Last administered on 08/16/24at 16:48; Start 08/16/24 at 15:30; Stop 08/16/24 at 15:31; Status DC Dextrose 50 ml AD PRN IV; Start 08/16/24 at 16:30; Stop 09/15/24 at 16:29 Glucagon 1 mg AD PRN IM; Start 08/16/24 at 16:30; Stop 09/15/24 at 16:29 Insulin Human Regular INSULIN SLIDING SCAL... ACHS SQ; Start 08/16/24 at 16:30; Stop 08/20/24 at 15:55; Status DC Potassium Chloride 100 ml @ 100 mls/hr AD PRN IV Last administered on 08/17/24at 05:28; Start 08/16/24 at 16:30; Stop 09/15/24 at 16:29 Potassium Chloride 10 meq AD PRN PO; Start 08/16/24 at 16:30; Stop 09/15/24 at 16:29 Potassium Chloride 10 meq AD PRN PO Last administered on 08/17/24at 08:12; Start 08/16/24 at 16:30; Stop 08/17/24 at 09:04; Status DC Magnesium Sulfate 50 ml @ 0 mls/hr PROTOCOL PRN IV Last administered on 08/24/24at 06:10; Start 08/16/24 at 16:30; Stop 09/15/24 at 16:29 Diphenhydramine HCl 25 mg Q6H PRN IV Last administered on 08/20/24at 20:08; Start 08/16/24 at 16:30; Stop 09/15/24 at 16:29 Acetaminophen 650 mg Q6H PRN PO Last administered on 08/22/24at 04:15; Start 08/16/24 at 16:30; Stop 09/15/24 at 16:29 Acetaminophen 650 mg Q4H PRN PO; Start 08/16/24 at 16:30; Stop 09/15/24 at 16:29 Ondansetron HCl 4 mg Q6H PRN IV Last administered on 08/24/24at 07:00; Start 08/16/24 at 16:30; Stop 09/15/24 at 16:29 Zolpidem Tartrate 5 mg HS PRN PO; Start 08/16/24 at 16:30; Stop 08/21/24 at 21:35; Status DC Al Hydroxide/Mg Hydroxide 30 ml Q6H PRN PO; Start 08/16/24 at 16:30; Stop 09/15/24 at 16:29 Lactulose 20 gm BID PRN PO; Start 08/16/24 at 16:30; Stop 09/15/24 at 16:29 Nitroglycerin 0.4 mg PROTOCOL PRN SL; Start 08/16/24 at 16:30; Stop 09/15/24 at 16:29 Guaifenesin/ Dextromethorphan 10 ml Q4H PRN PO; Start 08/16/24 at 16:30; Stop 09/15/24 at 16:29 Famotidine 20 mg HS PRN IV; Start 08/16/24 at 16:30; Stop 08/17/24 at 09:03; Status DC Heparin Sodium (Porcine) 5,000 unit BID SQ Last administered on 08/16/24at 21:35; Start 08/16/24 at 21:00; Stop 08/18/24 at 07:05; Status DC Acetaminophen 650 mg Q6H PRN PO; Start 08/16/24 at 16:30; Stop 08/17/24 at 09:03; Status DC Ketorolac Tromethamine 15 mg Q8H PRN IV Last administered on 08/18/24at 19:15; Start 08/16/24 at 16:30; Stop 08/20/24 at 12:39; Status DC Oxycodone/ Acetaminophen 1 tab Q6H PRN PO Last administered on 08/16/24at 23:04; Start 08/16/24 at 16:30; Stop 08/21/24 at 19:29; Status DC Vancomycin HCl 1 each PROTOCOL PRN IV; Start 08/16/24 at 16:30; Stop 08/18/24 at 08:48; Status DC Piperacillin Sod/ Tazobactam Sod 50 ml @ 12.5 mls/hr [id number] IV Last administered on 08/21/24at 05:03; Start 08/16/24 at 21:00; Stop 08/21/24 at 10:27; Status DC Sodium Chloride 1,000 ml @ 120 mls/hr Q8H20M IV Last administered on 08/20/24at 05:26; Start 08/16/24 at 16:30; Stop 08/20/24 at 12:38; Status DC Hydralazine HCl 10 mg Q6H PRN IV; Start 08/16/24 at 16:30; Stop 09/15/24 at 16:29 Famotidine 20 mg HS IV Last administered on 08/21/24at 20:52; Start 08/16/24 at 21:00; Stop 08/21/24 at 21:44; Status DC Vancomycin HCl 250 ml @ 125 mls/hr Q24H IV Last administered on 08/17/24at 18:11; Start 08/16/24 at 17:00; Stop 08/18/24 at 08:48; Status DC Potassium Chloride 40 meq ONCE ONCE PO Last administered on 08/17/24at 13:27; Start 08/17/24 at 08:30; Stop 08/17/24 at 08:31; Status DC Potassium Chloride 40 meq ONCE ONCE PO; Start 08/17/24 at 11:00; Stop 08/17/24 at 11:01; Status DC Potassium Chloride 10 meq AD PRN PO Last administered on 08/24/24at 12:16; Start 08/17/24 at 09:30; Stop 09/15/24 at 16:29 Trazodone HCl 100 mg HS PO Last administered on 08/23/24at 20:44; Start 08/17/24 at 21:00; Stop 09/16/24 at 20:59 Home Med (Meloxicam, Submicronized (Vivlodex... DAILY PO; Start 08/18/24 at 09:00; Stop 08/18/24 at 07:05; Status DC Losartan Potassium 100 mg DAILY PO; Start 08/18/24 at 09:00; Stop 08/17/24 at 13:09; Status DC Pregabalin 50 mg BID PO Last administered on 08/21/24at 08:33; Start 08/17/24 at 21:00; Stop 08/21/24 at 10:27; Status DC Doxycycline Hyclate 250 ml @ 125 mls/hr Q12H IV Last administered on 08/24/24at 08:05; Start 08/18/24 at 09:00; Stop 08/28/24 at 08:59 Midodrine 5 mg TID PO Last administered on 08/19/24at 08:32; Start 08/18/24 at 13:00; Stop 08/19/24 at 13:02; Status DC Heparin Sodium (Porcine) *calculation based on ACTUAL B... AD PRN IV Last administered on 08/18/24at 16:21; Start 08/18/24 at 16:30; Stop 08/19/24 at 04:54; Status DC Heparin Sodium/ Dextrose 250 ml @ 0 mls/hr Q6H IV Last administered on 08/18/24at 16:20; Start 08/18/24 at 16:30; Stop 08/19/24 at 06:01; Status DC Albumin Human 50 ml @ 100 mls/hr AD IV; Start 08/19/24 at 01:30; Stop 08/19/24 at 01:21; Status DC Pharmacy Profile Note 1 each ONCE ONCE MISC; Start 08/19/24 at 01:30; Stop 08/19/24 at 01:31; Status DC Albumin Human 100 ml @ 100 mls/hr ONCE ONCE IV Last administered on 08/19/24at 01:26; Start 08/19/24 at 01:30; Stop 08/19/24 at 02:29; Status DC Norepinephrine 250 ml @ 0 mls/hr PROTOCOL IV Last administered on 08/19/24at 15:55; Start 08/19/24 at 03:00; Stop 08/22/24 at 07:20; Status DC Midodrine 20 mg TID PO Last administered on 08/21/24at 08:33; Start 08/19/24 at 13:30; Stop 08/21/24 at 21:35; Status DC Midodrine 5 mg STK-MED ONCE .ROUTE; Start 08/19/24 at 13:05; Stop 08/19/24 at 13:08; Status DC Simethicone 80 mg Q8H PRN PO Last administered on 08/19/24at 21:43; Start 08/19/24 at 21:00; Stop 09/18/24 at 20:59 Furosemide 40 mg ONCE ONCE IV Last administered on 08/20/24at 12:42; Start 08/20/24 at 13:00; Stop 08/20/24 at 13:01; Status DC Oseltamivir Phosphate 75 mg Q24H PO Last administered on 08/23/24at 20:44; Start 08/20/24 at 21:00; Stop 08/25/24 at 20:59 Pregabalin 25 mg DAILY ONCE PO Last administered on 08/22/24at 08:56; Start 08/22/24 at 09:00; Stop 08/22/24 at 09:01; Status DC Piperacillin Sod/ Tazobactam Sod 50 ml @ 12.5 mls/hr Q12H IV Last administered on 08/22/24at 04:10; Start 08/21/24 at 17:00; Stop 08/22/24 at 17:46; Status DC Bumetanide 1 mg BID IVP Last administered on 08/24/24at 08:05; Start 08/21/24 at 11:00; Stop 09/20/24 at 10:59 Folic Acid 1 mg DAILY PO Last administered on 08/24/24at 08:05; Start 08/22/24 at 15:00; Stop 09/21/24 at 14:59 Vitamin B Complex 1,000 mcg DAILY PO Last administered on 08/24/24at 08:05; Start 08/22/24 at 15:00; Stop 09/21/24 at 14:59 Midodrine 10 mg TID PRN PO; Start 08/21/24 at 22:00; Stop 09/18/24 at 13:29 Pantoprazole Sodium 40 mg DAILY PO Last administered on 08/24/24at 08:05; Start 08/22/24 at 09:00; Stop 09/21/24 at 08:59 Vitamin B Complex 1,000 mcg DAILY PO; Start 08/22/24 at 12:30; Stop 08/22/24 at 12:25; Status DC Folic Acid 1 mg DAILY PO; Start 08/22/24 at 12:30; Stop 08/22/24 at 12:25; Status DC Vitamin B Complex/ Vit C/Folic Acid 1 cap DAILY PO; Start 08/23/24 at 09:00; Stop 08/22/24 at 15:38; Status DC Cefepime HCl 1 gm Q24H IVPB Last administered on 08/24/24at 17:22; Start 08/22/24 at 18:00; Stop 09/01/24 at 17:59 GERALDO AYERS MD August 24, 2024 20:14
--- NOTE | 2024-08-24 21:23 | PN ---
INFECTIOUS DISEASE PROGRESS NOTE Date of Service: August 24, 2024 SUBJECTIVE: Patient was downgraded to medical surgical unit and was seen and examined at bedside in room 304. Patient is awake, alert and oriented. Patient's serology levels indicating possible spotted fever and typhus. The CT of cervical spine was negative. No fever, temperature is 97.7 and a WBC of 6.9. We will continue on cefepime and doxycycline. No other issues reported by nursing. PHYSICAL EXAM EYES: Anicteric. Pupils equal and reactive. HENT: No oral thrush seen, moist Oral mucosa. NECK: Supple, no JVD or thyromegaly. LUNGS: Good air entry. No rales, no rhonchi. Nonproductive cough. CARDIOVASCULAR: S1, S2 regular. No murmur heard. ABDOMEN: Soft, non tender, bowel sounds present, no organomegaly. CENTRAL NERVOUS SYSTEM: Awake, alert, oriented x 3. SKIN: No rashes, no swelling. Maculopapular rash. LYMPHATICS: No peripheral lymphadenopathy. MUSCULOSKELETAL: No joint swelling, erythema or tenderness. EXTREMITIES: No cyanosis or clubbing. BACK: No deformity, no pressure ulcer. GENITOURINARY: No dysuria or hematuria. Vital Sign (Last 12 Hours) 08/24/24 08/24/24 12:00 15:55 Temp 97.5 97.3 Pulse 82 74 Resp 20 20 B/P (MAP) 135/69 134/76 Pulse Ox 97 98 O2 Delivery Room Air Room Air FiO2 21 21 Intake & Output (last 24hrs) 08/23/24 08/23/24 08/24/24 15:00 23:00 07:00 Intake Total 250.0 ml 300.0 ml Output Total 900 ml 450 ml 2200 ml Balance -650.0 ml -450 ml -1900.0 ml LABS: Laboratory: Test 08/24/24 04:50 08/23/24 04:50 Range/Units White Blood Count 6.9 4.8-10.8 K/uL Red Blood Count 3.51 L 4.00-5.50 MIL/uL Hemoglobin 9.8 L 12.0-16.0 g/dL Hematocrit 29.1 L 36-48 % Mean Corpuscular Volume 82.9 79-99 fL Mean Corpuscular Hemoglobin 27.9 27.0-33.0 pg Mean Corpuscular Hemoglobin Concent 33.7 32.0-36.0 g/dL Red Cell Distribution Width 16.0 H 11.0-15.5 % Platelet Count 177 130-400 K/uL Mean Platelet Volume 10.6 H 7.5-10.5 fL Nucleated Red Blood Cells 0.0 0.0-0.19 % Sodium Level 143 136-145 mmol/L Potassium Level 3.6 3.5-5.1 mmol/L Chloride Level 107 101-111 mmol/L Carbon Dioxide Level 27 21-32 mmol/L Blood Urea Nitrogen 32 H 7-18 mg/dL Creatinine 2.2 H 0.5-1.0 mg/dL Glomerular Filtration Rate Calc 24 >90 mL/min Random Glucose 96 70-105 mg/dL Total Calcium 8.1 L 8.5-10.1 mg/dL Phosphorus Level 5.0 H 2.5-4.9 mg/dL Magnesium Level 1.90 1.80-2.40 mg/dL Total Bilirubin 0.6 0.2-1.0 mg/dL Aspartate Amino Transf (AST/SGOT) 73 H 10-37 U/L Alanine Aminotransferase (ALT/SGPT) 61 # 12-78 U/L Alkaline Phosphatase 94 50-136 U/L Total Protein 6.3 6.0-8.3 g/dL Albumin 1.8 L 3.5-5.0 g/dL Amylase Level 55 25-115 U/L Lipase 80 H 16-77 U/L Uric Acid 6.2 2.6-7.2 mg/dL Ferritin 1251 H 15-150 ng/mL ASSESSMENT: Possible spotted fever. Possible typhus. Urinary tract infection. Maculopapular rash. Recent viral Influenza infection as outpatient. Acute renal failure. Fibromyalgia. Hypertension. Debility. PLAN: Continue cefepime. Continue doxycycline. Continue Tamiflu. Continue GI prophylaxis. Glue Jointer Feeder following patient Nephrology has been consulted. Avoid nephrotoxic medications. Continue physical therapy. This case was reviewed and discussed with my supervising physician and the above assessment and plan was formulated and agreed upon. ATTESTATION BY PHYSICIAN I have seen and examined the patient. I reviewed the documentation, medical decision making, and treatment plan as noted by the mid-level provider above. I agree with the findings and plan of care. CRISELDA JACQUES MD, MIRTA L SUIT MAKER August 24, 2024 21:23
[2024-08-25] VITALS (8 sets, daily range): BP systolic 125–142; BP diastolic 59–74; PULSE 68–85; RESP 18–19; TEMP 97.5–98.1; O2SAT 95–96
[2024-08-25 05:18] LABS: BASOPHILS # (AUTO) 0.04 K/uL (0.00-0.20); BASOPHILS % (AUTO) 0.6 % (0.0-5.0); EOSINOPHILS # (AUTO) 0.06 K/uL (0.00-0.70); EOSINOPHILS % (AUTO) 0.9 % (0.0-8.0); HEMATOCRIT 30.6 % (36-48); IMMATURE GRANULOCYTE ABSOLUTE 0.13 K/uL (0-1); LYMPHOCYTES % (AUTO) 42.9 % (21.0-51.0); MEAN CORPUSCULAR HEMOGLOBIN 28.1 pg (27.0-33.0); MEAN CORPUSCULAR VOLUME 82.7 fL (79-99); MONOCYTES # (AUTO) 0.6 K/uL (0.1-1.0); MONOCYTES % (AUTO) 8.3 % (3.0-13.0); NEUTROPHILS # (AUTO) 3.2 K/uL (1.8-7.7); NEUTROPHILS % (AUTO) 45.4 % (40.0-77.0); PLATELET COUNT (AUTO) 209 K/uL (130-400); RED CELL DISTRIBUTION WIDTH 15.9 % (11.0-15.5)
[2024-08-25 05:36] LABS: BILIRUBIN,TOTAL 0.7 mg/dL (0.2-1.0); PHOSPHORUS 4.4 mg/dL (2.5-4.9); POTASSIUM 3.5 mmol/L (3.5-5.1); TOTAL PROTEIN, SERUM 6.9 g/dL (6.0-8.3)
--- NOTE | 2024-08-25 07:04 | PN ---
NEPHROLOGY NOTE SUBJECTIVE: The patient has multiple medical problems including renal failure and anemia. The patient has been treated for possible typhus. The patient has no fever, chills or rigors. The patient has [id number] renal failure, anemia, and thrombocytopenia. No other associated findings. No other aggravating or relieving factors. The patient does have impaired LFTs. The patient has underlying UTI, rash, recent influenza, renal failure, fibromyalgia, hypertension, and debility. All the other systemic review is unchanged. REVIEW OF SYSTEMS: CONSTITUTIONAL: With no fever, chills, or rigors. HEENT: With no headache, oral ulcers, sore throat, or difficulty swallowing. RESPIRATORY: With no cough, expectoration, hemoptysis or pleuritic pain. CARDIOVASCULAR: No orthopnea or PND. GASTROINTESTINAL: Negative for nausea, vomiting, or diarrhea reported. GENITOURINARY: Negative for dysuria or hematuria. DERMATOLOGICAL: No rashes, pruritus, or skin lesions. PHYSICAL EXAMINATION: GENERAL: Pale, no other distress. VITAL SIGNS: Blood pressure is 154/67, pulse 84, respiratory rate 20, afebrile. HEENT: Head is atraumatic. Pupils are round and reactive. Sclerae anicteric. Conjunctivae not pale. Oral mucosa is not dry. NECK: Without masses or bruits. Thyroid is palpable. Neck has no bruits. CHEST: Shows equal to thoracic percussion note being resonant in all areas. HEART: Regular rhythm. No rub. No S3, S4. No parasternal heave. ABDOMEN: No guarding or tenderness. Bowel sounds are normoactive. No free fluid. EXTREMITIES: With no edema. No cyanosis or clubbing. BACK: No CVA tenderness or back deformities. LYMPHATICS: With no lymph node swelling in neck or axillary area. LABORATORY DATA: Labs have been reviewed. The lab data has shown hemoglobin of 9.8, hematocrit is 28, platelets intermittently low. Old records reviewed. Creatinine elevated at 2.2. Low potassium. Elevated LFTs. PROBLEMS: * Acute renal failure. * Typhus with spotted fever. * Underlying hypertension. * Anemia. * Multiple comorbidities. * The patient has weakness, anemia * The patient was treated for sepsis and septic shock before. * Urinary retention and has Hobbs catheter. * Mild left hydronephrosis_ to be followed up by urologist. * Left electrolytes imbalance. * The patient has underlying other comorbidities, history of influenza. PLAN: * all labss and x-rays personally. Reviewed and interpreted * Follow up on blood pressure and electrolytes. * Urinalysis. * Broad-spectrum antibiotics including doxycycline continue. * Follow up on blood pressure and overall status. * Nonsteroidal drugs to be avoided. * Other nephrotoxics to be avoided. * Doses of medicine to be adjusted. * Nutritional support. * Avoid nonsteroidal drug and contrast. * All the old record, imaging studies and labs have been personally reviewed. We have discussed with the primary team in detail. Overall condition remained guarded. We will continue to monitor and we will follow up closely. I thank you for this challenging patient. Seen several times. TID: [id number] RECEIPT: [id number]
--- NOTE | 2024-08-25 09:46 | PN ---
[facility] PROGRESS NOTE Date of Service: August 25, 2024 Time of Service: 09:42 SUBJECTIVE: [ PATIENT IS 63 YEARS OLD FEMALE WITH A PAST MEDICAL HISTORY OF HYPERTENSION, FLU, CATARACT, CHOLECYSTECTOMY, HYSTERECTOMY, WHO CAME TO EMERGENCY DEPARTMENT WITH A COMPLAINT OF DECREASED APPETITE, FEVER, GENERALIZED BODY WEAKNESS. PATIENT STATED THAT SHE WENT TO HER PCP AFTER SHE WAS DIAGNOSED WITH INFLUENZA ABOUT A WEEK AGO, WHERE SHE COMPLAINED ABOUT ABOVE-STATED COMPLAINTS AND SHE WAS SENT TO EMERGENCY DEPARTMENT FOR FURTHER EVALUATION/RECOMMENDATION. PATIENT DENIES ANY CHEST PAIN, NAUSEA, VOMITING, SHORTNESS OF BREATHS OR ANY OTHER SYMPTOMS OTHER THAN STATED ABOVE. ] MOST RECENT VITAL SIGNS TEMPERATURE 97.9 ON ADMISSION IN ER WAS 102.9, PULSE 84 RESPIRATION 22 BLOOD PRESSURE 90/50 PATIENT IS ON ROOM AIR SATTING 93%. UA POSITIVE FOR LEUKOCYTOSIS. WBC 9.0 HEMATOCRIT 40.2 HEMOGLOBIN 13.9 PLATELETS 82. SODIUM 133 POTASSIUM 3.3 CO2 29 BUN 14 CREATININE 1.2 GFR 5 GLUCOS 106 LACTIC 1.8 CALCIUM 7.8 TROPONIN NEGATIVE X1. CHEST X-RAY SHOWED CLEAR LUNGS CARDIOMEGALY. 2D ECHO IS PENDING. PATIENT WILL BE ADMITTED UNDER HOSPITALIST CARE FOR FURTHER EVALUATION/RECOMMENDATION. PATIENT WAS PLACED ON VANCOMYCIN AND ZOSYN FOR THE SEPSIS. A.M. LABS. 08/17 patient was seen by nurse practitioner and physician during rounding in room 304. Urinalysis was positive on admission. Blood culture and urine cul ture pending at this moment. Patient continues to be on Zosyn and vancomycin. We will increase fluids from 100 mL/hour 220 mL/hour. Patient's A1c is 5.8. We will discontinue insulin sliding scale per protocol. Also patient's blood pressure has been on lower side. We will discontinue losartan. Home medication reconciled. 2D echo showed EF 55 to 60% normal diastolic function no pericardial effusion. Potassium today is 2.8. Patient received already two 20 mEq through IV potassium. Patient will also receive 40 mEq of potassium as well. We will continue to monitor patient in the meantime. A.m. labs. 08/18 at bedside, she had a low-grade fever overnight, this morning she is tachycardic. Urine and blood cultures have been no growth to date, platelets have decreased from 52 down to 37, AST mildly elevated, creatinine increased from 1.2 up to 1.5. Given that she is still having fevers on vancomycin and Zosyn she may have an atypical infection, we will order a murine typhus panel and start doxycycline. Discontinue vancomycin at this time. Infectious workup has been negative this time we will assess for possible underlying PE or DIC, we will order D-dimer, V/Q scan, fibrinogen, PT and PTT and follow up 08/19 patient seen at bedside, yesterday her blood pressure started to drop despite being on fluids and broad-spectrum antibiotics. She was also tachycardic. D-dimer was elevated as her platelets were low and she was assessed for DIC however fibrinogen was normal. A V/Q scan was done that did not show evidence of pulmonary embolism. She was moved to the ICU and started on pressor support. Creatinine increased from 1.5 up to 2.2 however she has been adequately perfused and she has not been receiving any nephrotoxic medications, bladder scan was ordered showing greater than 500 cc within the bladder concerning for postobstructive uropathy. Hobbs catheter was placed and approximately 800 cc drained immediately. She has swelling and bruising to the left upper extremity where the midline was placed, we will order a venous Doppler to rule out DVT. 08/20 patient is seen and examined, power chart reviewed, vital signs, laboratory tests and imaging tests reviewed. Discussed with the RN, patient off Levophed since earlier this morning. She is awake, following commands, alert oriented x3. Patient noted to have elevated D-dimer and thrombocytopenia, concern for DIC was raised, however fibrinogen was normal. A V/Q scan was negative for PE. The patient was upgraded to the ICU as the patient was getting tachycardic, with a hypotension. Patient had a maximum temperature 102.9 08/16/2024. Patient noted to have worsening renal function with a creatinine of 2.2 as of yesterday, bladder scan was done, showing greater than 500 cc of urine concerning for possible obstructive uropathy, Hobbs catheter inserted, proximally 800 cc was drained immediately. Today still elevated at 2.4, bicarbonate of 23. Patient is also noted to have some swollen and present to left upper extremity we will midline was placed, a venous Doppler of left upper extremity was done, no evidence of DVT. Doppler of both lower extremities also negative for DVT. Urine culture negative, blood culture negative. Patient had loose stools yesterday. at bedside. 08/21 remains hemodynamically stable, BP 109/52, afebrile, saturating normal on room air. During my visit the patient is sitting comfortable in the chair, eating lunch, Laboratory data, WBC 9.2, hemoglobin 10.9, hematocrit 31.6, platelet count of 94 (discussed with the patient. She has not been told about low platelet count in the past). Repeat urine culture 08/19/2024 no growth. Patient evaluated by ID, patient is here with a UTI, had: Papular rash, recent viral influenza infection treated as an outpatient, continue doxycycline, contin ue IV Zosyn, started on Tamiflu 75 mg p.o. b.i.d.. Obtain routine mountain and spotted fever IgG and IgM serology. Results of stool studies Patient noted to have thrombocytopenia, we will request Hematology consult. Patient is still looks mildly edematous, puffiness still the below both eyes, she is on Bumex 1 mg IV b.i.d., Hobbs catheter in place, we will continue with daily weight, strict monitoring of intake and output. Doppler of the legs negative for DVT. 08/22 patient is seen and examined at bedside, downgraded from the PCU to the medical floor, remains alert oriented x3, getting IV antibiotics, admitted 2-3 loose stools yesterday. Today blood pressure 135/59, afebrile, saturating normal on room air, denies nausea, no vomiting, no abdominal discomfort, she is still feels swollen. Currently on Bumex 1 mg IV b.i.d.. Hemoglobin 10.0, hematocrit 29.0, platelet count improving to 128 today. Creatinine worse at 2.8. Patient will remain admitted to the medical floor Continue the patient on antibiotics, continue to follow ID input and recommendation. Continue Bumex 1 mg IV b.i.d. Renal ultrasound requested Nephrology consultation requested as well Follow mountain and spotted fever IgG and IgM serology Hematology input noted and appreciated, start the patient on folic acid 1 mg p.o. daily and vitamin B12 1000 mcg p.o. daily. There is rule out phenomena, we will ask for SPEP, UPEP and free light chain, if there is monoclonal protein we will do bone marrow biopsy. WBC increased number of large granular lymphocyte which could be due to leukemia or chronic disease or atypical infection. We will ask for flow cytometry of peripheral blood, if flow cytometry positive this patient will need bone marrow biopsy. 08/23 patient is seen and examined at bedside, case discussed with the RN, patient is sitting comfortable in the chair, she remains alert oriented x3, both upper extremities looks less swollen compared to yesterday. Petechia rash both upper extremities. BP 127/64, afebrile, she is saturating normal on room air. Platelet count has normalized, today 149. Creatinine slightly better today at 2.6. CT of the abdomen reviewed, mild left hydronephrosis with multiple left renal pelvic stones with the largest measuring 3 x 2.5 cm, small bilateral pleural effusion, pancreas is enlarged with the peripancreatic fat stranding suggestive of acute pancreatitis in the proper clinical setting. The patient remains admitted to the medical floor Zosyn was changed to cefepime IV. Continue to follow ID input and recommend ation Follow mountain and spotted fever IgG and IgM serology GI panel 08/20/2024 is negative Continue Bumex 1 mg IV b.i.d.. Nephrology consulted, continue to follow input and recommendation Patient with a left-sided hydronephrosis, we will request Urology consult Continue to follow Hematology input and recommendation whether the patient will require bone marrow biopsy, continue to monitor platelet count Peripancreatic fat stranding suggestive of acute pancreatitis, we will order amylase and lipase level. 08/24 patient is seen and examined at bedside, overall the patient feels and looks better, less edematous, improvement on upper extremity rash noted. Had two BMs yesterday, but denies abdominal discomfort, tolerating diet. Patient was having mild hand tremor yesterday. BP 135/69, afebrile, saturating normal on room air. CBC with hemoglobin at 9.8, hematocrit 29.1, WBC 6.9, platelet count of 177. Sodium 143, potassium 3.6, BUN of 32, creatinine improving at 2.2. Magnesium 1.9. Lipase slightly better today at 80. Results of free light chains ratio within normal. Serology tests for spotted fever positive. The patient on cefepime and doxycycline IV. CT cervical spine no fracture, degenerative joint disease cervical spine spondylosis The patient remains admitted to the medical floor Continue the patient on cefepime and doxycycline IV, continue to follow ID input and recommendation. GI panel 08/20/2024 is negative Continue Bumex 1 mg IV b.i.d.. Creatinine improving today at 2.2, discussed with the fireman, input noted and appreciated. Patient with a left-sided hydronephrosis, Urology consultation requested, case discussed, input noted and appreciated, outpatient follow up Continue to follow Hematology input and recommendation in terms of need for bone marrow biopsy during this admission. Peripancreatic fat stranding suggestive of acute pancreatitis, lipase slightly elevated at 80, continue to follow level in a.m.. 08/25 patient remains admitted to the medical floor, blood pressure 127/63, afebrile, she is saturating normal on room air. Laboratory data with a hemoglobin 10.4, hematocrit 30.6, white blood cell count of 7.0, platelet count of 209. Sodium level 142, potassium 3.5, BUN of 28, creatinine continue to improve, today at 2.0. Initial creatinine upon admission 1.2 liver enzymes mildly elevated, with an AST of 84, ALT of 88, lipase of 80. Patient remains on cefepime 1 g IV daily, doxycycline IV q.12 hours, ID input noted and appreciated, possible spotted fever. Patient on Tamiflu 75 mg p.o. daily, mildly elevated liver enzymes, last dose will be today. Continue to monitor amylase and lipase level in a.m. during my visit the patient is alert and oriented x3, she feels and looks weak. Swollen to both upper extremity resolved, still noted with a mild petechial rash. Swollen to both lower extremities improving, still with mild petechial rash. WE WILL CONSULT CASE MANAGEMENT THE PATIENT COMPLAINING OF GENERALIZED WEAKNESS. MAY BENEFIT FROM REHAB. REVIEW OF SYSTEMS 12 point ROS negative unless noted in HPI PHYSICAL EXAM GENERAL APPEARANCE: The patient is awake, alert, and oriented, in no acute cardiopulmonary distress. NEUROLOGICAL: Cranial nerves II-XII grossly intact. Motor is 5/5 in bilateral upper and lower extremities proximal to distal. No sensory deficits. HEENT: Face is symmetric. Pupils are equal and reactive. Extraocular movements are intact. NECK: Supple. No JVD. No thyromegaly. No submental, submandibular, pre- /postauricular, occipital or supraclavicular lymphadenopathy. CHEST: Normal chest expansion. No Telemetry. LUNGS: Absence of any rales, rhonchi or any wheezing. CARDIOVASCULAR: Regular. S1 and S2 normal. No appreciable rubs, murmurs or gallops. ABDOMEN: Soft, nontender, and nondistended. There is no rebound, voluntary guarding, or rigidity. : Deferred. No Hobbs. EXTREMITIES: Swollen to both upper extremities resolved. Improvement in bilateral lower extremity swelling. SKIN: Improving petechial rash both upper and lower extremity Vital Signs (last 8hr) Date Time Temp Pulse Resp B/P (MAP) Pulse Ox O2 Delivery O2 Flow Rate FiO2 08/25/24 08:00 97.9 76 18 127/63 96 Room Air 21 08/25/24 07:46 96 Room Air* 0 21 08/25/24 04:00 97.7 68 18 142/65 100 Room Air LABS: Laboratory: Test 08/25/24 04:50 08/24/24 04:50 Range/Units White Blood Count 7.0 4.8-10.8 K/uL Red Blood Count 3.70 L 4.00-5.50 MIL/uL Hemoglobin 10.4 L 12.0-16.0 g/dL Hematocrit 30.6 L 36-48 % Mean Corpuscular Volume 82.7 79-99 fL Mean Corpuscular Hemoglobin 28.1 27.0-33.0 pg Mean Corpuscular Hemoglobin Concent 34.0 32.0-36.0 g/dL Red Cell Distribution Width 15.9 H 11.0-15.5 % Platelet Count 209 130-400 K/uL Mean Platelet Volume 10.3 7.5-10.5 fL Immature Granulocyte % (Auto) 1.9 H 0-1 % Neutrophils (%) (Auto) 45.4 40.0-77.0 % Lymphocytes (%) (Auto) 42.9 21.0-51.0 % Monocytes (%) (Auto) 8.3 3.0-13.0 % Eosinophils (%) (Auto) 0.9 0.0-8.0 % Basophils (%) (Auto) 0.6 0.0-5.0 % Neutrophils # (Auto) 3.2 1.8-7.7 K/uL Lymphocytes # (Auto) 3.0 1.0-4.8 K/uL Monocytes # (Auto) 0.6 0.1-1.0 K/uL Eosinophils # (Auto) 0.06 0.00-0.70 K/uL Basophils # (Auto) 0.04 0.00-0.20 K/uL Absolute Immature Granulocyte (auto 0.13 0-1 K/uL Nucleated Red Blood Cells 0.0 0.0-0.19 % Sodium Level 142 136-145 mmol/L Potassium Level 3.5 3.5-5.1 mmol/L Chloride Level 105 101-111 mmol/L Carbon Dioxide Level 30 21-32 mmol/L Blood Urea Nitrogen 28 H 7-18 mg/dL Creatinine 2.0 H 0.5-1.0 mg/dL Glomerular Filtration Rate Calc 27 >90 mL/min Random Glucose 97 70-105 mg/dL Total Calcium 8.1 L 8.5-10.1 mg/dL Phosphorus Level 4.4 2.5-4.9 mg/dL Magnesium Level 2.00 1.80-2.40 mg/dL Total Bilirubin 0.7 0.2-1.0 mg/dL Aspartate Amino Transf (AST/SGOT) 84 H 10-37 U/L Alanine Aminotransferase (ALT/SGPT) 88 #H 12-78 U/L Alkaline Phosphatase 102 50-136 U/L Total Protein 6.9 6.0-8.3 g/dL Albumin 2.0 L 3.5-5.0 g/dL Amylase Level 55 25-115 U/L Lipase 80 H 16-77 U/L Current Medications Medications (Trade) Dose Ordered Sig/Amy Route PRN Reason Start Time Stop Time Status Last Admin Dose Admin Acetaminophen (TYLenol 325MG TAB) 650 mg Q4H PRN PO MILD PAIN (1-3) 08/16/24 16:30 09/15/24 16:29 Acetaminophen (TYLenol 325MG TAB) 650 mg Q6H PRN PO MILD PAIN (1-3) 08/16/24 16:30 08/17/24 09:03 DC Acetaminophen (TYLenol 325MG TAB) 650 mg Q6H PRN PO TEMPERATURE GREATER THAN 101.5 08/16/24 16:30 09/15/24 16:29 08/22/24 04:15 650 MG Al Hydroxide/Mg Hydroxide (MAALox PLUS 30ML) 30 ml Q6H PRN PO INDIGESTION 08/16/24 16:30 09/15/24 16:29 Albumin Human 50 ml @ 100 mls/hr AD IV 08/19/24 01:30 08/19/24 01:21 DC Bumetanide (Bumex 1mg Vial) 1 mg BID IVP 08/21/24 11:00 09/20/24 10:59 08/25/24 07:42 1 MG Cefepime HCl (MAXipime 1 GM vial) 1 gm Q24H IVPB 08/22/24 18:00 09/01/24 17:59 08/24/24 17:22 1 GM Dextrose (D50w) 50 ml AD PRN IV HYPOGLYCEMIA PROTOCOL 08/16/24 16:30 09/15/24 16:29 Diphenhydramine HCl (BENAdryl INJ) 25 mg Q6H PRN IV SEVERE ITCHING/RASH 08/16/24 16:30 09/15/24 16:29 08/20/24 20:08 25 MG Doxycycline Hyclate 250 ml @ 125 mls/hr Q12H IV 08/18/24 09:00 08/28/24 08:59 08/25/24 07:42 125 MLS/HR Famotidine (Pepcid 20mg Vial) 20 mg HS IV 08/16/24 21:00 08/21/24 21:44 DC 08/21/24 20:52 20 MG Famotidine (Pepcid 20mg Vial) 20 mg HS PRN IV NAUSEA/VOMITING 08/16/24 16:30 08/17/24 09:03 DC Folic Acid (FOLic ACID 1 MG TABLET) 1 mg DAILY PO 08/22/24 12:30 08/22/24 12:25 DC Folic Acid (FOLic ACID 1 MG TABLET) 1 mg DAILY PO 08/22/24 15:00 09/21/24 14:59 08/25/24 07:42 1 MG Glucagon (Glucagon 1mg Kit) 1 mg AD PRN IM HYPOGLYCEMIA PROTOCOL 08/16/24 16:30 09/15/24 16:29 Guaifenesin/ Dextromethorphan (RobiTUSSin DM 200/20MG 10ML) 10 ml Q4H PRN PO COUGH 08/16/24 16:30 09/15/24 16:29 Heparin Sodium (Porcine) (HEParin 5,000 UNIT VIAL) *calculation based on ACTUAL B... AD PRN IV HEPARIN PROTOCOL 08/18/24 16:30 08/19/24 04:54 DC 08/18/24 16:21 6,000 UNIT Heparin Sodium (Porcine) (HEParin 5,000 UNIT VIAL) 5,000 unit BID SQ 08/16/24 21:00 08/18/24 07:05 DC 08/16/24 21:35 5,000 UNIT Heparin Sodium/ Dextrose 250 ml @ 0 mls/hr Q6H IV 08/18/24 16:30 08/19/24 06:01 DC 08/18/24 16:20 13.98 MLS/HR Home Med (Home Medication) (Meloxicam, Submicronized (Vivlodex... DAILY PO 08/18/24 09:00 08/18/24 07:05 DC Hydralazine HCl (APRESOLine 20MG INJ) 10 mg Q6H PRN IV For:SBP above 160;DBP above 90 08/16/24 16:30 09/15/24 16:29 Insulin Human Regular (humuLIN R 100 UNIT/ML 3ML) INSULIN SLIDING SCAL... ACHS SQ 08/16/24 16:30 08/20/24 15:55 DC Ketorolac Tromethamine (toRADol) 15 mg Q8H PRN IV MODERATE PAIN (4-6) 08/16/24 16:30 08/20/24 12:39 DC 08/18/24 19:15 15 MG Lactulose (Constulose 20gm/ 30ml Udcup) 20 gm BID PRN PO CONSTIPATION 08/16/24 16:30 09/15/24 16:29 Losartan Potassium (CozAAR 100MG TAB) 100 mg DAILY PO 08/18/24 09:00 08/17/24 13:09 DC Magnesium Sulfate 50 ml @ 0 mls/hr PROTOCOL PRN IV other 08/16/24 16:30 09/15/24 16:29 08/24/24 06:10 25 MLS/HR Midodrine (PROAMatine 5 MG TABLET) 5 mg TID PO 08/18/24 13:00 08/19/24 13:02 DC 08/19/24 08:32 5 MG Midodrine (PROAMatine 5 MG TABLET) 10 mg TID PRN PO SBP < 90 08/21/24 22:00 09/18/24 13:29 Midodrine (PROAMatine 5 MG TABLET) 20 mg TID PO 08/19/24 13:30 08/21/24 21:35 DC 08/21/24 08:33 20 MG Nitroglycerin (Nitrostat) 0.4 mg PROTOCOL PRN SL CHEST PAIN 08/16/24 16:30 09/15/24 16:29 Norepinephrine 250 ml @ 0 mls/hr PROTOCOL IV 08/19/24 03:00 08/22/24 07:20 DC 08/19/24 15:55 15.31 MLS/HR Ondansetron HCl (zoFRAN 4MG INJ) 4 mg Q6H PRN IV NAUSEA/VOMITING 08/16/24 16:30 09/15/24 16:29 08/25/24 01:21 4 MG Oseltamivir Phosphate (Tamiflu) 75 mg Q24H PO 08/20/24 21:00 08/25/24 20:59 08/24/24 20:57 75 MG Oxycodone/ Acetaminophen (perCOCET) 1 tab Q6H PRN PO SEVERE PAIN (7-10) 08/16/24 16:30 08/21/24 19:29 DC 08/16/24 23:04 1 TAB Pantoprazole Sodium (PROTonix 40MG TAB) 40 mg DAILY PO 08/22/24 09:00 09/21/24 08:59 08/25/24 07:42 40 MG Piperacillin Sod/ Tazobactam Sod 50 ml @ 12.5 mls/hr Q12H IV 08/21/24 17:00 08/22/24 17:46 DC 08/22/24 04:10 12.5 MLS/HR Piperacillin Sod/ Tazobactam Sod 50 ml @ 12.5 mls/hr ZOSY8 IV 08/16/24 21:00 08/21/24 10:27 DC 08/21/24 05:03 12.5 MLS/HR Potassium Chloride 100 ml @ 100 mls/hr AD PRN IV POTASSIUM PROTOCOL 08/16/24 16:30 09/15/24 16:29 08/17/24 05:28 100 MLS/HR Potassium Chloride (K-Dur 10meq Sr Tab) 10 meq AD PRN PO POTASSIUM PROTOCOL 08/17/24 09:30 09/15/24 16:29 08/25/24 08:24 10 MEQ Potassium Chloride (K-Dur/Klor-Con 20meq) 10 meq AD PRN PO POTASSIUM PROTOCOL 08/16/24 16:30 08/17/24 09:04 DC 08/17/24 08:12 10 MEQ Potassium Chloride (KCl 10% Elixir 20meq/15ml) 10 meq AD PRN PO POTASSIUM PROTOCOL 08/16/24 16:30 09/15/24 16:29 Pregabalin (LYRica 25MG) 50 mg BID PO 08/17/24 21:00 08/21/24 10:27 DC 08/21/24 08:33 50 MG Simethicone (Mylicon) 80 mg Q8H PRN PO GI GAS 08/19/24 21:00 09/18/24 20:59 08/19/24 21:43 80 MG Sodium Chloride 1,000 ml @ 120 mls/hr Q8H20M IV 08/16/24 16:30 08/20/24 12:38 DC 08/20/24 05:26 120 MLS/HR Trazodone HCl (DesyREL/OlepTRO) 100 mg HS PO 08/17/24 21:00 09/16/24 20:59 08/24/24 20:57 100 MG Vancomycin HCl 250 ml @ 125 mls/hr Q24H IV 08/16/24 17:00 08/18/24 08:48 DC 08/17/24 18:11 125 MLS/HR Vancomycin HCl (Vancomycin Protocol) 1 each PROTOCOL PRN IV VANCOMYCIN PROTOCOL 08/16/24 16:30 08/18/24 08:48 DC Vitamin B Complex (Vitamin B-12) 1,000 mcg DAILY PO 08/22/24 12:30 08/22/24 12:25 DC Vitamin B Complex (Vitamin B-12) 1,000 mcg DAILY PO 08/22/24 15:00 09/21/24 14:59 08/25/24 07:42 1,000 MCG Vitamin B Complex/ Vit C/Folic Acid (Nephrovite Tablet) 1 cap DAILY PO 08/23/24 09:00 08/22/24 15:38 DC Zolpidem Tartrate (AmbIEN) 5 mg HS PRN PO INSOMNIA 08/16/24 16:30 08/21/24 21:35 DC DIAGNOSTICS / RADIOLOGY: [ ] ASSESSMENT: ACUTE SEPSIS POA SEPTIC SHOCK GENERALIZED BODY WEAKNESS POA ACUTE KIDNEY INJURY POA URINARY RETENTION POSTOBSTRUCTIVE UROPATHY ACUTE DEHYDRATION POA ACUTE COMPLICATED CYSTITIS POA ELECTROLYTE IMBALANCE HYPONATREMIA NA 133, HYPOKALEMIA 3.3 HYPOCALCEMIA 7.8 POA UNCONTROLLED HYPERTENSION POA THROMBOCYTOPENIA POA HISTORY OF CATARACT HISTORY OF CHOLECYSTECTOMY HISTORY OF HYSTERECTOMY HISTORY OF KIDNEY STONES HISTORY OF HYDRONEPHROSIS RECENT INFLUENZA INFECTION THROMBOCYTOPENIA SEROLOGY TESTS POSITIVE FOR SPOTTED FEVER MILD LEFT HYDRONEPHROSIS MULTIPLE LEFT RENAL PELVIC STONES WITH THE LARGEST MEASURING 3 X 2.5 CM SMALL BILATERAL PLEURAL EFFUSION PANCREAS IS ENLARGED WITH THE PERIPANCREATIC FAT SUGGESTIVE OF ACUTE PANCREATITIS CERVICAL SPINE SPONDYLOSIS GENERALIZED WEAKNESS PLAN: The patient remains admitted to the medical floor Continue the patient on cefepime and doxycycline IV, continue to follow ID input and recommendation. GI panel 08/20/2024 is negative Continue Bumex 1 mg IV b.i.d.. Creatinine improving today at 2.0, discussed with the fireman, input noted and appreciated. Patient with a left-sided hydronephrosis, Urology consultation requested, case discussed, input noted and appreciated, outpatient follow up Continue to follow Hematology input and recommendation in terms of need for bone marrow biopsy during this admission. Peripancreatic fat stranding suggestive of acute pancreatitis, lipase slightly e levated at 80, continue to follow level in a.m.. Patient on Tamiflu 75 mg p.o. daily, mildly elevated liver enzymes, last dose will be today, continue to monitor. Consultation with case management requested, patient may benefit from inpatient rehab. NEURO: MINIMIZE CENTRAL ACTING MEDICATIONS POSSIBLE. FALL PRECAUTIONS. WELL LIGHTED ROOM THROUGH THE DAY AND MINIMIZE INTERRUPTIONS THROUGH THE NIGHT TO PREVENT ACUTE DELIRIUM. PULMONARY: SUPPLEMENTAL 02 NEEDED BIPAP NECESSARY, FOR RESPIRATORY DISTRESS TITRATE FIO2 TO KEEP SPO2 > OR = 90% DUONEBS AND CPT NEEDED IS HOURLY WHILE AWAKE FOR PULMONARY HYGIENE PRN OUT OF BED TO CHAIR TOLERATED MAINTAIN ASPIRATION PRECAUTIONS AT ALL TIMES CARDIOVASCULAR: FOLLOW HEMODYNAMICS. VITAL SIGNS PER FACILITY PROTOCOL GI & NUTRITION: CONTINUE NUTRITIONAL SUPPORT ASPIRATIONS PRECAUTIONS PROKINETIC AGENTS AND LAXATIVES NEEDED KIDNEYS & ELECTROLYTES: STRICT MONITORING OF INTAKE AND OUTPUT DAILY WEIGHTS AVOID NEPHROTOXIC AGENTS MONITOR ELECTROLYTES AND REPLACE NEEDED GOAL URINE OUTPUT OF 30ML/HR OR 0.5ML/KG/HR MEDICATIONS TO BE DOSED ACCORDING TO RENAL FUNCTION. AVOID CONTRAST IF POSSIBLE ENDOCRINE: MAINTAIN BLOOD GLUCOSE BETWEEN 100-180 AT ALL TIMES. INSULIN SLIDING SCALE FOR BLOOD GLUCOSE MANAGEMENT HYPOGLYCEMIA AND HYPERGLYCEMIA PROTOCOL IN PLACE INFECTIOUS DISEASE: TREND TEMPERATURE, WBC AND PROCALCITONIN LEVEL FOLLOW CULTURES, DEESCALATE ANTIBIOTICS SOON POSSIBLE. PANCULTURE IF NEW ONSET FEVER HEMATOLOGY & COAGULATION: MONITOR H&H. KEEP HGB > 7 TRANSFUSE 1 UNIT OF PRBC FOR HGB < 7 TRANSFUSE 1 PACK OF PLATELETS OF PLATELETS < 20, 000 WATCH FOR ANY SIGNS AND SYMPTOMS OF BLEEDING SKIN: PRESSURE ULCER PREVENTION PER FACILITY PROTOCOL SPECIALTY MATTRESS NEEDED ORTHO/REHAB CONTINUE PT/OT PRN: MEDICATIONS TYLENOL 650 MG PO EVERY 4 HRS FOR FEVER ZOFRAN 4 MG IV EVERY 6 HRS FOR N/V HYDRALAZINE 5 MG IV EVERY 4 HRS SYSTOLIC PRESSURE > 160 BOWEL REGIMENT: LACTULOSE 20 GM PO BID PRN CONSTIPATION SUPPORTIVE MEASURES: CONTINUE GI AND DVT PROPHYLAXIS DISPOSITION: PENDING IMPROVEMENT IN CLINICAL CONDITION ALL QUESTIONS ANSWERED TIME SPENT: > 35 MIN JUANITO PENNY MD August 25, 2024 09:46
[2024-08-25 10:09] LABS: AMYLASE 67 U/L (25-115)
--- NOTE | 2024-08-25 14:54 | PN ---
FOLLOWUP PROGRESS NOTE SUBJECTIVE: A 63-year-old male who has had a prolonged hospital course. The patient with a history of diabetes mellitus and hypertension. She initially presented to the hospital with underlying respiratory distress. The patient was found to have underlying typhus and remains on doxycycline. The patient's renal function has improved overnight and she is being seen as a followup visit for all of the above. REVIEW OF SYSTEMS: CONSTITUTIONAL: She is feeling improved. HEENT: No change in vision. No change in hearing. CARDIOVASCULAR: There is no chest pain or palpitations. PULMONARY: Shortness of breath is improved. GASTROINTESTINAL: She is tolerating a diet. MUSCULOSKELETAL: Complaints of weakness. PHYSICAL EXAMINATION: VITAL SIGNS: Blood pressure is 141/68, pulse in the 70s, afebrile. GENERAL: Chronically ill female, lying in bed on the medical floor. HEENT: Head is atraumatic. Pupils are equal, roving to light. Oropharynx is without exudate. Nares clear. NECK: There is no JVP. No thyromegaly. CARDIOVASCULAR: Regular. There is no S3 or S4 gallop. LUNGS: Coarse with equal thoracic movement. ABDOMEN: Nondistended and nontender. EXTREMITIES: Reveal no clubbing, no cyanosis. NEUROLOGICAL: She is awake. She is alert. LABORATORY DATA: Hemoglobin 10, hematocrit 30, white count 7,000. BUN 28, creatinine 2, potassium 3.5. IMPRESSION: * Acute on chronic renal dysfunction. * History of the typhus. * Electrolyte abnormalities. * Anemia. PLAN: The patient's creatinine continues to slowly improve. The patient's potassium has been aggressively repleted. The patient remains on doxycycline for the typhus and will continue to follow closely. The patient is encouraged with her therapy and will follow while in the hospital. TID: [id number] RECEIPT: [id number]
--- NOTE | 2024-08-25 15:52 | PN ---
[facility] PROGRESS NOTE Date Patient Seen: August 25, 2024 Time of Visit: 1153 Supervising Physician: Dr. Chao Primary Care Physician: Harris Rankin Outpatient Specialists: [ ] Inpatient Consults: BIS PROBLEM LIST Septic shock requiring pressors POA resolved 2/2 from below Acute complicated cystitis Acute urinary retention status post Hobbs catheter insertion. Mild left hydronephrosis with multiple left renal pelvic stones with the largest measuring 3 x 2.[address] abdomen of 08/21/2024 Acute pancreatitis as per CT abdomen of 08/21/2024 Elevated D-dimer V/Q scan negative for PE. YULIA subtherapeutic from obstructive uropathy. Electrolyte imbalance. Hypertension. Acute Thrombocytopenia. Rule out systemic disease such as lupus, rheumatoid arthritis or vasculitis. Left ventricular ejection fraction 55-60% per echocardiogram 08/17/2024 Recent diagnosis of influenza, repeat serology was negative. INTERVAL HISTORY: 08/20/2024: At the time of my evaluation, the patient was lying in bed. The staff nurse reports no acute events overnight. Blood pressure macias, the major changes of concern. Laboratory data showed no changes of concern. Chest x-ray today showed small bilateral pleural effusion. Cultures are in progress. Patient on levophed and on p.o. midodrine. She is also on antibiotic therapy as ordered. No other complaint 08/22 patient was seen and examined at bedside with no family present. Patient is awake alert able answer simple questions appropriately. At time visit patient has no specific complaints. Patient noted to have worsening kidney function upon admission 1.2 this a.m. 2.8 at this time patient is currently pending evaluation from Nephrology's appreciate assistance we will follow their recommendations. Chest x-ray was reviewed by supervising physician and noted to have fine infiltrates with pulmonary edema we will continue to monitor patient's respiratory status closely. Patient's CT abdomen showing left hydronephrosis with left stone largest being x 2.5 cm and possible acute pancreatitis. 08/23 patient was seen and examined by bedside with family present. Patient is awake alert able to answer simple questions appropriately. At time of visit patient remains on room air is tolerating well. Patient denies any chest pain or shortness of breadth. Denies any nausea vomiting or abdominal pain. Patient currently pending evaluation from Urology we will follow recommendations. We will continue to monitor patient's closely. Patient to continue IV antibiotics. Dispo per primary team 08/24 patient was seen and examined by bedside with family present. Patient awake alerts has no specific complaints at time of visit. Remains hemodynamically stable. As per primary nurse no acute events to be reported. Patient to continue IV antibiotics. We will continue to monitor patient closely 08/25 patient was seen and examined by bedside with family present. At time of visit patient has no specific complaints. Has remained hemodynamically stable. Continues to tolerate p.o. diet. Is having bowel movements. Case management w orking on SNF placement. As per primary nurse no acute events to be reported. Serum creatinine level noted to be trending down REVIEW OF SYSTEMS: 12 point ROS reviewed with patient. Pertinent positives mentioned above. O therwise negative. PHYSICAL EXAM: GENERAL: alert, weak, awake oriented x 3 HEENT: EOMI, Sclera non icteric, moist mucosa NECK: Supple, no JVD, trachea midline LUNGS: Clear breath sounds bilaterally. No wheezes HEART: Regular rate and rhythm. Normal S1 and S2, without murmurs ABD: Abdomen soft, nontender. Bowel sounds present EXT: No clubbing cyanosis or edema NEURO: Alert and oriented to person, follows commands Vital Signs (last 8hr) Date Time Temp Pulse Resp B/P (MAP) Pulse Ox O2 Delivery O2 Flow Rate FiO2 08/25/24 11:47 97.7 76 19 141/68 99 Room Air 21 08/25/24 08:00 97.9 76 18 127/63 96 Room Air 21 LABS: Hematology Labs: Test 08/25/24 04:50 Range/Units White Blood Count 7.0 4.8-10.8 K/uL Red Blood Count 3.70 L 4.00-5.50 MIL/uL Hemoglobin 10.4 L 12.0-16.0 g/dL Hematocrit 30.6 L 36-48 % Mean Corpuscular Volume 82.7 79-99 fL Mean Corpuscular Hemoglobin 28.1 27.0-33.0 pg Mean Corpuscular Hemoglobin Concent 34.0 32.0-36.0 g/dL Red Cell Distribution Width 15.9 H 11.0-15.5 % Platelet Count 209 130-400 K/uL Mean Platelet Volume 10.3 7.5-10.5 fL Immature Granulocyte % (Auto) 1.9 H 0-1 % Neutrophils (%) (Auto) 45.4 40.0-77.0 % Lymphocytes (%) (Auto) 42.9 21.0-51.0 % Monocytes (%) (Auto) 8.3 3.0-13.0 % Eosinophils (%) (Auto) 0.9 0.0-8.0 % Basophils (%) (Auto) 0.6 0.0-5.0 % Neutrophils # (Auto) 3.2 1.8-7.7 K/uL Lymphocytes # (Auto) 3.0 1.0-4.8 K/uL Monocytes # (Auto) 0.6 0.1-1.0 K/uL Eosinophils # (Auto) 0.06 0.00-0.70 K/uL Basophils # (Auto) 0.04 0.00-0.20 K/uL Absolute Immature Granulocyte (auto 0.13 0-1 K/uL Nucleated Red Blood Cells 0.0 0.0-0.19 % Chemistry Labs: Test 08/25/24 04:50 Range/Units Sodium Level 142 136-145 mmol/L Potassium Level 3.5 3.5-5.1 mmol/L Chloride Level 105 101-111 mmol/L Carbon Dioxide Level 30 21-32 mmol/L Blood Urea Nitrogen 28 H 7-18 mg/dL Creatinine 2.0 H 0.5-1.0 mg/dL Glomerular Filtration Rate Calc 27 >90 mL/min Random Glucose 97 70-105 mg/dL Total Calcium 8.1 L 8.5-10.1 mg/dL Phosphorus Level 4.4 2.5-4.9 mg/dL Magnesium Level 2.00 1.80-2.40 mg/dL Total Bilirubin 0.7 0.2-1.0 mg/dL Aspartate Amino Transf (AST/SGOT) 84 H 10-37 U/L Alanine Aminotransferase (ALT/SGPT) 88 #H 12-78 U/L Alkaline Phosphatase 102 50-136 U/L Total Protein 6.9 6.0-8.3 g/dL Albumin 2.0 L 3.5-5.0 g/dL Amylase Level 67 # 25-115 U/L Lipase 93 H 16-77 U/L DIAGNOSTICS / RADIOLOGY RESULTS: na PLAN dose medications to renal function Follow up recommendations from Nephrology's monitor kidney function closely, follow hematology recommendations edwige mountain spotted fever testing pending results Continue with current IV antibiotics Continue to monitor respiratory status and maintain adequate oxygenation Keep O2 sats greater or equal to 90% As per urology complete her antibiotics follow up outpatient NEURO: Minimize central acting medications as possible. Maintain fall precautions, adequate lighting during the day PULMONARY: Supplemental 02 as needed. Maintain aspiration precautions at all times CARDIOVASCULAR: Follow hemodynamics. Vital signs per facility protocol GI & NUTRITION: Continue with nutritional support. Continue stool softeners and laxatives as needed. KIDNEYS & ELECTROLYTES: Strict monitoring of intake, output and overall fluid balance. Avoid nephrotoxic medications to the extent possible. Medications to be dosed according to renal function. Monitor electrolytes and replace as needed ENDOCRINE: Maintain blood glucose between 100-180 at all times. Hypoglycemia protocol in place INFECTIOUS DISEASE: Trend temperature, WBC and procalcitonin level Follow cultures, deescalate antibiotics as soon as possible. Panculture if new onset fever ONCOLOGY/HEMATOLOGY/COAGULATION: Monitor for s/s of bleeding Monitor hemoglobin, coagulation studies as needed SKIN: Pressure ulcer prevention per facility protocol Specialty mattress ORTHO/REHAB: Continue PT/OT Prophylaxis: Continue GI and DVT prophylaxis Code Status: Full Resuscitation Disposition: Per primary team Other: Case discussed with supervising physician plan of care agreed upon SHAHIDA POMPA August 25, 2024 15:52
--- NOTE | 2024-08-25 16:14 | NUR ---
DCP/SNF Met w pt this afternoon to discuss Md order for Rehab dt weakness. JOSEY/PC obtained for [facility]. Clinical/Referral/PASRR faxed to [facility]. Pt is aware will require ins auth.
[2024-08-26] VITALS: BP 122/67; PULSE 77; RESP 20; TEMP 97.8
[2024-08-26 04:00] VITALS: BP 128/54; PULSE 72; RESP 18; TEMP 97.8
[2024-08-26 04:46] LABS: MEAN CORPUSCULAR HEMOGLOBIN 28.3 pg (27.0-33.0); MEAN CORPUSCULAR HGB CONC 34.5 g/dL (32.0-36.0); RED BLOOD CELL COUNT(AUTO) 3.78 MIL/uL (4.00-5.50); RED CELL DISTRIBUTION WIDTH 15.4 % (11.0-15.5); WHITE BLOOD COUNT (AUTO) 6.9 K/uL (4.8-10.8)
[2024-08-26 05:02] LABS: ALBUMIN 2.2 g/dL (3.5-5.0); BILIRUBIN,TOTAL 0.7 mg/dL (0.2-1.0); CREATININE 1.9 mg/dL (0.5-1.0); MAGNESIUM 1.7 mg/dL (1.80-2.40); POTASSIUM 3.3 mmol/L (3.5-5.1); TOTAL PROTEIN, SERUM 7.3 g/dL (6.0-8.3)
[2024-08-26 08:00] VITALS: BP 146/70; PULSE 82; RESP 20; TEMP 97.9; O2SAT 95
--- NOTE | 2024-08-26 10:45 | PN ---
[facility] PROGRESS NOTE Date of Service: August 26, 2024 Time of Service: 10:40 SUBJECTIVE: [ PATIENT IS 63 YEARS OLD FEMALE WITH A PAST MEDICAL HISTORY OF HYPERTENSION, FLU, CATARACT, CHOLECYSTECTOMY, HYSTERECTOMY, WHO CAME TO EMERGENCY DEPARTMENT WITH A COMPLAINT OF DECREASED APPETITE, FEVER, GENERALIZED BODY WEAKNESS. PATIENT STATED THAT SHE WENT TO HER PCP AFTER SHE WAS DIAGNOSED WITH INFLUENZA ABOUT A WEEK AGO, WHERE SHE COMPLAINED ABOUT ABOVE-STATED COMPLAINTS AND SHE WAS SENT TO EMERGENCY DEPARTMENT FOR FURTHER EVALUATION/RECOMMENDATION. PATIENT DENIES ANY CHEST PAIN, NAUSEA, VOMITING, SHORTNESS OF BREATHS OR ANY OTHER SYMPTOMS OTHER THAN STATED ABOVE. ] MOST RECENT VITAL SIGNS TEMPERATURE 97.9 ON ADMISSION IN ER WAS 102.9, PULSE 84 RESPIRATION 22 BLOOD PRESSURE 90/50 PATIENT IS ON ROOM AIR SATTING 93%. UA POSITIVE FOR LEUKOCYTOSIS. WBC 9.0 HEMATOCRIT 40.2 HEMOGLOBIN 13.9 PLATELETS 82. SODIUM 133 POTASSIUM 3.3 CO2 29 BUN 14 CREATININE 1.2 GFR 5 GLUCOS 106 LACTIC 1.8 CALCIUM 7.8 TROPONIN NEGATIVE X1. CHEST X-RAY SHOWED CLEAR LUNGS CARDIOMEGALY. 2D ECHO IS PENDING. PATIENT WILL BE ADMITTED UNDER HOSPITALIST CARE FOR FURTHER EVALUATION/RECOMMENDATION. PATIENT WAS PLACED ON VANCOMYCIN AND ZOSYN FOR THE SEPSIS. A.M. LABS. 08/17 patient was seen by nurse practitioner and physician during rounding in room 304. Urinalysis was positive on admission. Blood culture and urine cul ture pending at this moment. Patient continues to be on Zosyn and vancomycin. We will increase fluids from 100 mL/hour 220 mL/hour. Patient's A1c is 5.8. We will discontinue insulin sliding scale per protocol. Also patient's blood pressure has been on lower side. We will discontinue losartan. Home medication reconciled. 2D echo showed EF 55 to 60% normal diastolic function no pericardial effusion. Potassium today is 2.8. Patient received already two 20 mEq through IV potassium. Patient will also receive 40 mEq of potassium as well. We will continue to monitor patient in the meantime. A.m. labs. 08/18 at bedside, she had a low-grade fever overnight, this morning she is tachycardic. Urine and blood cultures have been no growth to date, platelets have decreased from 52 down to 37, AST mildly elevated, creatinine increased from 1.2 up to 1.5. Given that she is still having fevers on vancomycin and Zosyn she may have an atypical infection, we will order a murine typhus panel and start doxycycline. Discontinue vancomycin at this time. Infectious workup has been negative this time we will assess for possible underlying PE or DIC, we will order D-dimer, V/Q scan, fibrinogen, PT and PTT and follow up 08/19 patient seen at bedside, yesterday her blood pressure started to drop despite being on fluids and broad-spectrum antibiotics. She was also tachycardic. D-dimer was elevated as her platelets were low and she was assessed for DIC however fibrinogen was normal. A V/Q scan was done that did not show evidence of pulmonary embolism. She was moved to the ICU and started on pressor support. Creatinine increased from 1.5 up to 2.2 however she has been adequately perfused and she has not been receiving any nephrotoxic medications, bladder scan was ordered showing greater than 500 cc within the bladder concerning for postobstructive uropathy. Hobbs catheter was placed and approximately 800 cc drained immediately. She has swelling and bruising to the left upper extremity where the midline was placed, we will order a venous Doppler to rule out DVT. 08/20 patient is seen and examined, power chart reviewed, vital signs, laboratory tests and imaging tests reviewed. Discussed with the RN, patient off Levophed since earlier this morning. She is awake, following commands, alert oriented x3. Patient noted to have elevated D-dimer and thrombocytopenia, concern for DIC was raised, however fibrinogen was normal. A V/Q scan was negative for PE. The patient was upgraded to the ICU as the patient was getting tachycardic, with a hypotension. Patient had a maximum temperature 102.9 08/16/2024. Patient noted to have worsening renal function with a creatinine of 2.2 as of yesterday, bladder scan was done, showing greater than 500 cc of urine concerning for possible obstructive uropathy, Hobbs catheter inserted, proximally 800 cc was drained immediately. Today still elevated at 2.4, bicarbonate of 23. Patient is also noted to have some swollen and present to left upper extremity we will midline was placed, a venous Doppler of left upper extremity was done, no evidence of DVT. Doppler of both lower extremities also negative for DVT. Urine culture negative, blood culture negative. Patient had loose stools yesterday. at bedside. 08/21 remains hemodynamically stable, BP 109/52, afebrile, saturating normal on room air. During my visit the patient is sitting comfortable in the chair, eating lunch, Laboratory data, WBC 9.2, hemoglobin 10.9, hematocrit 31.6, platelet count of 94 (discussed with the patient. She has not been told about low platelet count in the past). Repeat urine culture 08/19/2024 no growth. Patient evaluated by ID, patient is here with a UTI, had: Papular rash, recent viral influenza infection treated as an outpatient, continue doxycycline, contin ue IV Zosyn, started on Tamiflu 75 mg p.o. b.i.d.. Obtain routine mountain and spotted fever IgG and IgM serology. Results of stool studies Patient noted to have thrombocytopenia, we will request Hematology consult. Patient is still looks mildly edematous, puffiness still the below both eyes, she is on Bumex 1 mg IV b.i.d., Hobbs catheter in place, we will continue with daily weight, strict monitoring of intake and output. Doppler of the legs negative for DVT. 08/22 patient is seen and examined at bedside, downgraded from the PCU to the medical floor, remains alert oriented x3, getting IV antibiotics, admitted 2-3 loose stools yesterday. Today blood pressure 135/59, afebrile, saturating normal on room air, denies nausea, no vomiting, no abdominal discomfort, she is still feels swollen. Currently on Bumex 1 mg IV b.i.d.. Hemoglobin 10.0, hematocrit 29.0, platelet count improving to 128 today. Creatinine worse at 2.8. Patient will remain admitted to the medical floor Continue the patient on antibiotics, continue to follow ID input and recommendation. Continue Bumex 1 mg IV b.i.d. Renal ultrasound requested Nephrology consultation requested as well Follow mountain and spotted fever IgG and IgM serology Hematology input noted and appreciated, start the patient on folic acid 1 mg p.o. daily and vitamin B12 1000 mcg p.o. daily. There is rule out phenomena, we will ask for SPEP, UPEP and free light chain, if there is monoclonal protein we will do bone marrow biopsy. WBC increased number of large granular lymphocyte which could be due to leukemia or chronic disease or atypical infection. We will ask for flow cytometry of peripheral blood, if flow cytometry positive this patient will need bone marrow biopsy. 08/23 patient is seen and examined at bedside, case discussed with the RN, patient is sitting comfortable in the chair, she remains alert oriented x3, both upper extremities looks less swollen compared to yesterday. Petechia rash both upper extremities. BP 127/64, afebrile, she is saturating normal on room air. Platelet count has normalized, today 149. Creatinine slightly better today at 2.6. CT of the abdomen reviewed, mild left hydronephrosis with multiple left renal pelvic stones with the largest measuring 3 x 2.5 cm, small bilateral pleural effusion, pancreas is enlarged with the peripancreatic fat stranding suggestive of acute pancreatitis in the proper clinical setting. The patient remains admitted to the medical floor Zosyn was changed to cefepime IV. Continue to follow ID input and recommend ation Follow mountain and spotted fever IgG and IgM serology GI panel 08/20/2024 is negative Continue Bumex 1 mg IV b.i.d.. Nephrology consulted, continue to follow input and recommendation Patient with a left-sided hydronephrosis, we will request Urology consult Continue to follow Hematology input and recommendation whether the patient will require bone marrow biopsy, continue to monitor platelet count Peripancreatic fat stranding suggestive of acute pancreatitis, we will order amylase and lipase level. 08/24 patient is seen and examined at bedside, overall the patient feels and looks better, less edematous, improvement on upper extremity rash noted. Had two BMs yesterday, but denies abdominal discomfort, tolerating diet. Patient was having mild hand tremor yesterday. BP 135/69, afebrile, saturating normal on room air. CBC with hemoglobin at 9.8, hematocrit 29.1, WBC 6.9, platelet count of 177. Sodium 143, potassium 3.6, BUN of 32, creatinine improving at 2.2. Magnesium 1.9. Lipase slightly better today at 80. Results of free light chains ratio within normal. Serology tests for spotted fever positive. The patient on cefepime and doxycycline IV. CT cervical spine no fracture, degenerative joint disease cervical spine spondylosis The patient remains admitted to the medical floor Continue the patient on cefepime and doxycycline IV, continue to follow ID input and recommendation. GI panel 08/20/2024 is negative Continue Bumex 1 mg IV b.i.d.. Creatinine improving today at 2.2, discussed with the customer service advisor, input noted and appreciated. Patient with a left-sided hydronephrosis, Urology consultation requested, case discussed, input noted and appreciated, outpatient follow up Continue to follow Hematology input and recommendation in terms of need for bone marrow biopsy during this admission. Peripancreatic fat stranding suggestive of acute pancreatitis, lipase slightly elevated at 80, continue to follow level in a.m.. 08/25 patient remains admitted to the medical floor, blood pressure 127/63, afebrile, she is saturating normal on room air. Laboratory data with a hemoglobin 10.4, hematocrit 30.6, white blood cell count of 7.0, platelet count of 209. Sodium level 142, potassium 3.5, BUN of 28, creatinine continue to improve, today at 2.0. Initial creatinine upon admission 1.2 liver enzymes mildly elevated, with an AST of 84, ALT of 88, lipase of 80. Patient remains on cefepime 1 g IV daily, doxycycline IV q.12 hours, ID input noted and appreciated, possible spotted fever. Patient on Tamiflu 75 mg p.o. daily, mildly elevated liver enzymes, last dose will be today. Continue to monitor amylase and lipase level in a.m. during my visit the patient is alert and oriented x3, she feels and looks weak. Swollen to both upper extremity resolved, still noted with a mild petechial rash. Swollen to both lower extremities improving, still with mild petechial rash. WE WILL CONSULT CASE MANAGEMENT THE PATIENT COMPLAINING OF GENERALIZED WEAKNESS. MAY BENEFIT FROM REHAB. 08/26 patient initially admitted to the ICU secondary to septic shock. Patient with outpatient influenza positive, completed five days of Tamiflu. patient is seen and examined, comfortably in bed, alert oriented x3 remains hemodynamically stable, afebrile, saturating normal on room air. Swollen to both lower extremities resolved, petechial rash improving to both upper extremities. Swollen to both lower extremities improving, petechial rash to both lower extremities also improving. Creatinine level slowly improving 1.9. Patient it is needed on Tamiflu 75 mg p.o. daily while in the hospital, mildly elevated li xavi enzymes, last dose 08/25/2024, liver enzymes today slowly improving. Due to swell to both upper and lower extremities patient started on Bumex 1 mg IV b.i.d., developed worsening renal function, now improving, CT of the abdomen showing mild left hydronephrosis with renal stone, the patient has seen Urology Dr. Mcdermott as an outpatient, who evaluated the patient during this admission, recommended to follow up as an outpatient upon discharge. CT abdomen also with a mild peripancreatic fat stranding, lipase level minimally elevated, slowly improving. Overall the patient condition continues to improved, serology test for spotted fever positive. The patient on doxycycline IV, ID on the case. Patient with generalized weakness, PT consulted, case management to evaluate for discharge plan to rehab. REVIEW OF SYSTEMS 12 point ROS negative unless noted in HPI PHYSICAL EXAM GENERAL APPEARANCE: The patient is awake, alert, and oriented, in no acute cardiopulmonary distress. NEUROLOGICAL: Cranial nerves II-XII grossly intact. Motor is 5/5 in bilateral upper and lower extremities proximal to distal. No sensory deficits. HEENT: Face is symmetric. Pupils are equal and reactive. Extraocular movements are intact. NECK: Supple. No JVD. No thyromegaly. No submental, submandibular, pre-/postauricular, occipital or supraclavicular lymphadenopathy. CHEST: Normal chest expansion. No Telemetry. LUNGS: Absence of any rales, rhonchi or any wheezing. CARDIOVASCULAR: Regular. S1 and S2 normal. No appreciable rubs, murmurs or gallops. ABDOMEN: Soft, nontender, and nondistended. There is no rebound, voluntary guarding, or rigidity. : Deferred. No Hobbs. EXTREMITIES: Swollen to both upper extremities resolved. Improvement in bilateral lower extremity swelling. SKIN: Improving petechial rash both upper and lower extremity Vital Signs (last 8hr) Date Time Temp Pulse Resp B/P (MAP) Pulse Ox O2 Delivery O2 Flow Rate FiO2 08/26/24 08:00 97.9 82 20 146/70 95 Room Air 21 08/26/24 04:00 97.9 72 18 128/54 93 Room Air LABS: Laboratory: Test 08/26/24 04:31 08/25/24 04:50 Range/Units White Blood Count 6.9 4.8-10.8 K/uL Red Blood Count 3.78 L 4.00-5.50 MIL/uL Hemoglobin 10.7 L 12.0-16.0 g/dL Hematocrit 31.0 L 36-48 % Mean Corpuscular Volume 82.0 79-99 fL Mean Corpuscular Hemoglobin 28.3 27.0-33.0 pg Mean Corpuscular Hemoglobin Concent 34.5 32.0-36.0 g/dL Red Cell Distribution Width 15.4 11.0-15.5 % Platelet Count 230 130-400 K/uL Mean Platelet Volume 9.9 7.5-10.5 fL Nucleated Red Blood Cells 0.0 0.0-0.19 % Sodium Level 140 136-145 mmol/L Potassium Level 3.3 L 3.5-5.1 mmol/L Chloride Level 101 101-111 mmol/L Carbon Dioxide Level 34 H 21-32 mmol/L Blood Urea Nitrogen 27 H 7-18 mg/dL Creatinine 1.9 H 0.5-1.0 mg/dL Glomerular Filtration Rate Calc 29 >90 mL/min Random Glucose 94 70-105 mg/dL Total Calcium 8.3 L 8.5-10.1 mg/dL Magnesium Level 1.70 L 1.80-2.40 mg/dL Total Bilirubin 0.7 0.2-1.0 mg/dL Aspartate Amino Transf (AST/SGOT) 64 H 10-37 U/L Alanine Aminotransferase (ALT/SGPT) 82 H 12-78 U/L Alkaline Phosphatase 98 50-136 U/L Total Protein 7.3 6.0-8.3 g/dL Albumin 2.2 L 3.5-5.0 g/dL Amylase Level 72 25-115 U/L Lipase 84 H 16-77 U/L Immature Granulocyte % (Auto) 1.9 H 0-1 % Neutrophils (%) (Auto) 45.4 40.0-77.0 % Lymphocytes (%) (Auto) 42.9 21.0-51.0 % Monocytes (%) (Auto) 8.3 3.0-13.0 % Eosinophils (%) (Auto) 0.9 0.0-8.0 % Basophils (%) (Auto) 0.6 0.0-5.0 % Neutrophils # (Auto) 3.2 1.8-7.7 K/uL Lymphocytes # (Auto) 3.0 1.0-4.8 K/uL Monocytes # (Auto) 0.6 0.1-1.0 K/uL Eosinophils # (Auto) 0.06 0.00-0.70 K/uL Basophils # (Auto) 0.04 0.00-0.20 K/uL Absolute Immature Granulocyte (auto 0.13 0-1 K/uL Phosphorus Level 4.4 2.5-4.9 mg/dL Current Medications Medications (Trade) Dose Ordered Sig/Amy Route PRN Reason Start Time Stop Time Status Last Admin Dose Admin Acetaminophen (TYLenol 325MG TAB) 650 mg Q4H PRN PO MILD PAIN (1-3) 08/16/24 16:30 09/15/24 16:29 Acetaminophen (TYLenol 325MG TAB) 650 mg Q6H PRN PO MILD PAIN (1-3) 08/16/24 16:30 08/17/24 09:03 DC Acetaminophen (TYLenol 325MG TAB) 650 mg Q6H PRN PO TEMPERATURE GREATER THAN 101.5 08/16/24 16:30 09/15/24 16:29 08/22/24 04:15 650 MG Al Hydroxide/Mg Hydroxide (MAALox PLUS 30ML) 30 ml Q6H PRN PO INDIGESTION 08/16/24 16:30 09/15/24 16:29 Albumin Human 50 ml @ 100 mls/hr AD IV 08/19/24 01:30 08/19/24 01:21 DC Bumetanide (Bumex 1mg Vial) 1 mg BID IVP 08/21/24 11:00 09/20/24 10:59 08/26/24 09:57 1 MG Cefepime HCl (MAXipime 1 GM vial) 1 gm Q24H IVPB 08/22/24 18:00 09/01/24 17:59 08/25/24 17:29 1 GM Dextrose (D50w) 50 ml AD PRN IV HYPOGLYCEMIA PROTOCOL 08/16/24 16:30 09/15/24 16:29 Diphenhydramine HCl (BENAdryl INJ) 25 mg Q6H PRN IV SEVERE ITCHING/RASH 08/16/24 16:30 09/15/24 16:29 08/20/24 20:08 25 MG Doxycycline Hyclate 250 ml @ 125 mls/hr Q12H IV 08/18/24 09:00 08/28/24 08:59 08/26/24 09:57 125 MLS/HR Famotidine (Pepcid 20mg Vial) 20 mg HS IV 08/16/24 21:00 08/21/24 21:44 DC 08/21/24 20:52 20 MG Famotidine (Pepcid 20mg Vial) 20 mg HS PRN IV NAUSEA/VOMITING 08/16/24 16:30 08/17/24 09:03 DC Folic Acid (FOLic ACID 1 MG TABLET) 1 mg DAILY PO 08/22/24 12:30 08/22/24 12:25 DC Folic Acid (FOLic ACID 1 MG TABLET) 1 mg DAILY PO 08/22/24 15:00 09/21/24 14:59 08/26/24 09:56 1 MG Glucagon (Glucagon 1mg Kit) 1 mg AD PRN IM HYPOGLYCEMIA PROTOCOL 08/16/24 16:30 09/15/24 16:29 Guaifenesin/ Dextromethorphan (RobiTUSSin DM 200/20MG 10ML) 10 ml Q4H PRN PO COUGH 08/16/24 16:30 09/15/24 16:29 Heparin Sodium (Porcine) (HEParin 5,000 UNIT VIAL) *calculation based on ACTUAL B... AD PRN IV HEPARIN PROTOCOL 08/18/24 16:30 08/19/24 04:54 DC 08/18/24 16:21 6,000 UNIT Heparin Sodium (Porcine) (HEParin 5,000 UNIT VIAL) 5,000 unit BID SQ 08/16/24 21:00 08/18/24 07:05 DC 08/16/24 21:35 5,000 UNIT Heparin Sodium/ Dextrose 250 ml @ 0 mls/hr Q6H IV 08/18/24 16:30 08/19/24 06:01 DC 08/18/24 16:20 13.98 MLS/HR Home Med (Home Medication) (Meloxicam, Submicronized (Vivlodex... DAILY PO 08/18/24 09:00 08/18/24 07:05 DC Hydralazine HCl (APRESOLine 20MG INJ) 10 mg Q6H PRN IV For:SBP above 160;DBP above 90 08/16/24 16:30 09/15/24 16:29 Insulin Human Regular (humuLIN R 100 UNIT/ML 3ML) INSULIN SLIDING SCAL... ACHS SQ 08/16/24 16:30 08/20/24 15:55 DC Ketorolac Tromethamine (toRADol) 15 mg Q8H PRN IV MODERATE PAIN (4-6) 08/16/24 16:30 08/20/24 12:39 DC 08/18/24 19:15 15 MG Lactulose (Constulose 20gm/ 30ml Udcup) 20 gm BID PRN PO CONSTIPATION 08/16/24 16:30 09/15/24 16:29 Losartan Potassium (CozAAR 100MG TAB) 100 mg DAILY PO 08/18/24 09:00 08/17/24 13:09 DC Magnesium Sulfate 50 ml @ 0 mls/hr PROTOCOL PRN IV other 08/16/24 16:30 09/15/24 16:29 08/26/24 06:55 25 MLS/HR Midodrine (PROAMatine 5 MG TABLET) 5 mg TID PO 08/18/24 13:00 08/19/24 13:02 DC 08/19/24 08:32 5 MG Midodrine (PROAMatine 5 MG TABLET) 10 mg TID PRN PO SBP < 90 08/21/24 22:00 09/18/24 13:29 Midodrine (PROAMatine 5 MG TABLET) 20 mg TID PO 08/19/24 13:30 08/21/24 21:35 DC 08/21/24 08:33 20 MG Nitroglycerin (Nitrostat) 0.4 mg PROTOCOL PRN SL CHEST PAIN 08/16/24 16:30 09/15/24 16:29 Norepinephrine 250 ml @ 0 mls/hr PROTOCOL IV 08/19/24 03:00 08/22/24 07:20 DC 08/19/24 15:55 15.31 MLS/HR Ondansetron HCl (zoFRAN 4MG INJ) 4 mg Q6H PRN IV NAUSEA/VOMITING 08/16/24 16:30 09/15/24 16:29 08/25/24 18:46 4 MG Oseltamivir Phosphate (Tamiflu) 75 mg Q24H PO 08/20/24 21:00 08/25/24 20:59 DC 08/24/24 20:57 75 MG Oxycodone/ Acetaminophen (perCOCET) 1 tab Q6H PRN PO SEVERE PAIN (7-10) 08/16/24 16:30 08/21/24 19:29 DC 08/16/24 23:04 1 TAB Pantoprazole Sodium (PROTonix 40MG TAB) 40 mg DAILY PO 08/22/24 09:00 09/21/24 08:59 08/26/24 09:56 40 MG Piperacillin Sod/ Tazobactam Sod 50 ml @ 12.5 mls/hr Q12H IV 08/21/24 17:00 08/22/24 17:46 DC 08/22/24 04:10 12.5 MLS/HR Piperacillin Sod/ Tazobactam Sod 50 ml @ 12.5 mls/hr ZOSY8 IV 08/16/24 21:00 08/21/24 10:27 DC 08/21/24 05:03 12.5 MLS/HR Potassium Chloride 100 ml @ 100 mls/hr AD PRN IV POTASSIUM PROTOCOL 08/16/24 16:30 09/15/24 16:29 08/17/24 05:28 100 MLS/HR Potassium Chloride (K-Dur 10meq Sr Tab) 10 meq AD PRN PO POTASSIUM PROTOCOL 08/17/24 09:30 09/15/24 16:29 08/26/24 09:56 10 MEQ Potassium Chloride (K-Dur/Klor-Con 20meq) 10 meq AD PRN PO POTASSIUM PROTOCOL 08/16/24 16:30 08/17/24 09:04 DC 08/17/24 08:12 10 MEQ Potassium Chloride (KCl 10% Elixir 20meq/15ml) 10 meq AD PRN PO POTASSIUM PROTOCOL 08/16/24 16:30 09/15/24 16:29 Pregabalin (LYRica 25MG) 50 mg BID PO 08/17/24 21:00 08/21/24 10:27 DC 08/21/24 08:33 50 MG Simethicone (Mylicon) 80 mg Q8H PRN PO GI GAS 08/19/24 21:00 09/18/24 20:59 08/19/24 21:43 80 MG Sodium Chloride 1,000 ml @ 120 mls/hr Q8H20M IV 08/16/24 16:30 08/20/24 12:38 DC 08/20/24 05:26 120 MLS/HR Trazodone HCl (DesyREL/OlepTRO) 100 mg HS PO 08/17/24 21:00 09/16/24 20:59 08/25/24 20:31 100 MG Vancomycin HCl 250 ml @ 125 mls/hr Q24H IV 08/16/24 17:00 08/18/24 08:48 DC 08/17/24 18:11 125 MLS/HR Vancomycin HCl (Vancomycin Protocol) 1 each PROTOCOL PRN IV VANCOMYCIN PROTOCOL 08/16/24 16:30 08/18/24 08:48 DC Vitamin B Complex (Vitamin B-12) 1,000 mcg DAILY PO 08/22/24 12:30 08/22/24 12:25 DC Vitamin B Complex (Vitamin B-12) 1,000 mcg DAILY PO 08/22/24 15:00 09/21/24 14:59 08/26/24 09:56 1,000 MCG Vitamin B Complex/ Vit C/Folic Acid (Nephrovite Tablet) 1 cap DAILY PO 08/23/24 09:00 08/22/24 15:38 DC Zolpidem Tartrate (AmbIEN) 5 mg HS PRN PO INSOMNIA 08/16/24 16:30 08/21/24 21:35 DC DIAGNOSTICS / RADIOLOGY: [ ] ASSESSMENT: ACUTE SEPSIS POA SEPTIC SHOCK GENERALIZED BODY WEAKNESS POA ACUTE KIDNEY INJURY POA URINARY RETENTION POSTOBSTRUCTIVE UROPATHY ACUTE DEHYDRATION POA ACUTE COMPLICATED CYSTITIS POA ELECTROLYTE IMBALANCE HYPONATREMIA NA 133, HYPOKALEMIA 3.3 HYPOCALCEMIA 7.8 POA UNCONTROLLED HYPERTENSION POA THROMBOCYTOPENIA POA HISTORY OF CATARACT HISTORY OF CHOLECYSTECTOMY HISTORY OF HYSTERECTOMY HISTORY OF KIDNEY STONES HISTORY OF HYDRONEPHROSIS RECENT INFLUENZA INFECTION THROMBOCYTOPENIA SEROLOGY TESTS POSITIVE FOR SPOTTED FEVER MILD LEFT HYDRONEPHROSIS MULTIPLE LEFT RENAL PELVIC STONES WITH THE LARGEST MEASURING 3 X 2.5 CM SMALL BILATERAL PLEURAL EFFUSION PANCREAS IS ENLARGED WITH THE PERIPANCREATIC FAT SUGGESTIVE OF ACUTE PANCREA TITIS CERVICAL SPINE SPONDYLOSIS GENERALIZED WEAKNESS PLAN: The patient remains admitted to the medical floor Continue the patient on cefepime and doxycycline IV, continue to follow ID input and recommendation. GI panel 08/20/2024 is negative Continue Bumex 1 mg IV b.i.d.. Creatinine improving today at 2.0, discussed with the customer service advisor, input noted and appreciated. Patient with a left-sided hydronephrosis, Urology consultation requested, case discussed, input noted and appreciated, outpatient follow up Continue to follow Hematology input and recommendation in terms of need for bone marrow biopsy during this admission. Peripancreatic fat stranding suggestive of acute pancreatitis, lipase slightly elevated at 80, continue to follow level in a.m.. Patient on Tamiflu 75 mg p.o. daily, mildly elevated liver enzymes, last dose will be today, continue to monitor. Consultation with case management requested, patient may benefit from inpatient rehab. NEURO: MINIMIZE CENTRAL ACTING MEDICATIONS POSSIBLE. FALL PRECAUTIONS. WELL LIGHTED ROOM THROUGH THE DAY AND MINIMIZE INTERRUPTIONS THROUGH THE NIGHT TO PREVENT ACUTE DELIRIUM. PULMONARY: SUPPLEMENTAL 02 NEEDED BIPAP NECESSARY, FOR RESPIRATORY DISTRESS TITRATE FIO2 TO KEEP SPO2 > OR = 90% DUONEBS AND CPT NEEDED IS HOURLY WHILE AWAKE FOR PULMONARY HYGIENE PRN OUT OF BED TO CHAIR TOLERATED MAINTAIN ASPIRATION PRECAUTIONS AT ALL TIMES CARDIOVASCULAR: FOLLOW HEMODYNAMICS. VITAL SIGNS PER FACILITY PROTOCOL GI & NUTRITION: CONTINUE NUTRITIONAL SUPPORT ASPIRATIONS PRECAUTIONS PROKINETIC AGENTS AND LAXATIVES NEEDED KIDNEYS & ELECTROLYTES: STRICT MONITORING OF INTAKE AND OUTPUT DAILY WEIGHTS AVOID NEPHROTOXIC AGENTS MONITOR ELECTROLYTES AND REPLACE NEEDED GOAL URINE OUTPUT OF 30ML/HR OR 0.5ML/KG/HR MEDICATIONS TO BE DOSED ACCORDING TO RENAL FUNCTION. AVOID CONTRAST IF POSSIBLE ENDOCRINE: MAINTAIN BLOOD GLUCOSE BETWEEN 100-180 AT ALL TIMES. INSULIN SLIDING SCALE FOR BLOOD GLUCOSE MANAGEMENT HYPOGLYCEMIA AND HYPERGLYCEMIA PROTOCOL IN PLACE INFECTIOUS DISEASE: TREND TEMPERATURE, WBC AND PROCALCITONIN LEVEL FOLLOW CULTURES, DEESCALATE ANTIBIOTICS SOON POSSIBLE. PANCULTURE IF NEW ONSET FEVER HEMATOLOGY & COAGULATION: MONITOR H&H. KEEP HGB > 7 TRANSFUSE 1 UNIT OF PRBC FOR HGB < 7 TRANSFUSE 1 PACK OF PLATELETS OF PLATELETS < 20, 000 WATCH FOR ANY SIGNS AND SYMPTOMS OF BLEEDING SKIN: PRESSURE ULCER PREVENTION PER FACILITY PROTOCOL SPECIALTY MATTRESS NEEDED ORTHO/REHAB CONTINUE PT/OT PRN: MEDICATIONS TYLENOL 650 MG PO EVERY 4 HRS FOR FEVER ZOFRAN 4 MG IV EVERY 6 HRS FOR N/V HYDRALAZINE 5 MG IV EVERY 4 HRS SYSTOLIC PRESSURE > 160 BOWEL REGIMENT: LACTULOSE 20 GM PO BID PRN CONSTIPATION SUPPORTIVE MEASURES: CONTINUE GI AND DVT PROPHYLAXIS DISPOSITION: PENDING IMPROVEMENT IN CLINICAL CONDITION ALL QUESTIONS ANSWERED TIME SPENT: > 35 MIN JUANITO PENNY MD August 26, 2024 10:45
[2024-08-26 11:55] VITALS: BP 129/75; PULSE 81; RESP 19; TEMP 98.2
[2024-08-26] MEDS: PoTASSium chloRIDE 20MEQ ER 20 MEQ ERTAB PO ONE (12:22)
--- NOTE | 2024-08-26 15:28 | HMCIMG ---
PORTABLE CHEST RADIOGRAPH INDICATION: FLUID OVERLOAD? COMPARISON: 08/20/2024 FINDINGS: Heart size is normal. The pulmonary vascularity and ann appear normal. No abnormal pulmonary parenchymal opacity or consolidation identified. No significant pleural effusion noted. No pneumothorax detected. IMPRESSION: No radiographic evidence for any acute cardiopulmonary process.
--- NOTE | 2024-08-26 15:42 | PN ---
FOLLOWUP PROGRESS NOTE SUBJECTIVE: A 63-year-old female being seen as a followup visit. The patient has had a prolonged hospital course. She has a history of diabetes mellitus and hypertension. The patient with underlying respiratory distress. The patient's workup is consistent with typhus, remains on doxycycline. The patient's renal function continues to slowly improve and she is being seen as a followup visit for all of the above. REVIEW OF SYSTEMS: CONSTITUTIONAL: She is feeling improved. HEENT: No change in vision. No change in hearing. CARDIOVASCULAR: There is no current chest pain or palpitations. PULMONARY: Shortness of breath is improved. GASTROINTESTINAL: The patient is tolerating a diet. MUSCULOSKELETAL: Complaints of weakness. PHYSICAL EXAMINATION: VITAL SIGNS: Blood pressure 146/70, pulse in the 80s, afebrile. GENERAL: Chronically ill female, lying in bed on medical floor. HEENT: Head is atraumatic. Pupils are equal, roving to light. Oropharynx is without exudate. Nares clear. NECK: There is no JVP. There is no thyromegaly. No masses. CARDIOVASCULAR: Regular. There is no S3 or S4 gallop. LUNGS: Coarse with equal thoracic movement. ABDOMEN: Soft, nondistended, and nontender. EXTREMITIES: No clubbing, no cyanosis. NEUROLOGICAL: She is awake. She is alert. She is oriented. LABORATORY DATA: Sodium 145, potassium 3.3, BUN 27, creatinine 1.9. Hemoglobin 10, hematocrit 31. IMPRESSION: * Acute renal failure. * Diabetes mellitus. * Hypertension. * History of typhus. PLAN: The patient's renal function continues to slowly improve. She does remain on the antibiotics. The patient's blood pressure is under adequate control. The patient complained of significant debilitation and is being set up for transfer to rehab. We will continue to follow closely. All labs can be repeated in the morning. TID: [id number] RECEIPT: [id number]
[2024-08-26 16:00] VITALS: BP 144/76; PULSE 82; RESP 20; TEMP 97.9
[2024-08-26 20:00] VITALS: BP 152/82; PULSE 77; RESP 17; TEMP 98.2
[2024-08-26] MEDS: BUMETANIDE 1 MG TAB PO SCH (20:29)
--- NOTE | 2024-08-26 21:17 | PN ---
INFECTIOUS DISEASE FOLLOWUP NOTE DATE OF SERVICE: 08/26/2024 SUBJECTIVE: The patient is seen and examined at bedside today. The patient has no fever, no chills. No nausea. No vomiting. No abdominal pain. Appetite is improving. Denies depression or suicidal ideation. No heat or cold intolerance. No palpitations. No orthopnea. No dysuria or urinary frequency. PHYSICAL EXAMINATION: VITAL SIGNS: Temperature today is 97.6. EYES: No icterus. Pupils equal and reactive. HENT: No oral thrush seen. Moist oral mucosa. NECK: Supple. No JVD or thyromegaly. LUNGS: Good air entry. No rales. No rhonchi. CARDIOVASCULAR: S1 and S2 regular. No murmur heard. ABDOMEN: Soft, nontender. Bowel sound is present. CENTRAL NERVOUS SYSTEM: Awake, alert and oriented x 3. No focal deficits. SKIN: No rashes. No itchiness. LYMPHATIC: No peripheral lymphadenopathy. BACK: No deformity or pressure ulcer. HEMATOLOGIC: No bleeding or petechial lesion seen. MUSCULOSKELETAL: No joint swelling, erythema or tenderness. ASSESSMENT: A 63-year-old female who is generally admitted with fever and chills. Current problems include: * Septic shock, resolved. * ____ infection. * Viral influenza infection. * ____. * Hypertension. * History of fibromyalgia. * Obesity. PLAN: * Continue doxycycline. * Continue nutritional support. * Continue pain management. * Continue antihypertensive. * Continue GI prophylaxis. * Monitor renal function. * Monitor electrolytes. TID: [id number] RECEIPT: [id number]
--- NOTE | 2024-08-26 22:53 | PN ---
[facility] PROGRESS NOTE Date Patient Seen: August 26, 2024 Time of Visit: 22:45 Supervising Physician: Robert Chao MD Primary Care Physician: Harris Rankin Outpatient Specialists: [ ] Inpatient Consults: BIS PROBLEM LIST Acute complicated cystitis, resolving Acute urinary retention status post Hobbs catheter insertion. Mild left hydronephrosis with multiple left renal pelvic stones with the largest measuring 3 x 2.[address] abdomen of 08/21/2024 Acute pancreatitis as per CT abdomen of 08/21/2024 Elevated D-dimer V/Q scan negative for PE. YULIA on CKD subtherapeutic from obstructive uropathy. Electrolyte imbalance, resolved Hypertension. Acute Thrombocytopenia, 2/2 sepsis resolved Rule out systemic disease such as lupus, rheumatoid arthritis or vasculitis. Left ventricular ejection fraction 55-60% per echocardiogram 08/17/2024 serology test for spotted fever positive on Doxy Recent diagnosis of influenza, repeat serology was negative. INTERVAL HISTORY: patient was seen and examined by bedside with family present. Pt has no complains, denies and sob, or chest pain. Has remained hemodynamically stable. Continues to tolerate p.o. diet. Is having bowel movements. Case management working on SNF placement. As per primary nurse no acute events to be reported. Serum creatinine level noted to be trending down. On behalf of [facility] thank you for given us the opportunity to participate in the care of this patient. From pulmonary standpoint patient is stable at this time. We will sign off. Please reach to us should the need arise. On behalf of [facility] we are thankful for your team to let us participate in the care of this patient. We will be available if assistance in pulmonary critical care needed. REVIEW OF SYSTEMS: General: No malaise or fever. Neurological: No fainting episodes or seizures. HEENT: No nasal congestion or nasal secretion. Respiratory: No cough, shortness of breath, or wheezing Cardiac: No chest pain or palpitations. Gastrointestinal: No vomiting or diarrhea. Genitourinary: No dysuria hematuria. Skin: No rashes or lesions. Hematological: No bruises or bleeding. Musculoskeletal: No joint pains or arthralgias. Psychiatric: No depression or panic attacks. PHYSICAL EXAM: GENERAL: alert, weak, awake oriented x 3 HEENT: EOMI, Sclera non icteric, moist mucosa NECK: Supple, no JVD, trachea midline LUNGS: Clear breath sounds bilaterally. No wheezes HEART: Regular rate and rhythm. Normal S1 and S2, without murmurs ABD: Abdomen soft, nontender. Bowel sounds present EXT: No clubbing cyanosis or edema NEURO: Alert and oriented to person, follows commands Vital Signs (last 8hr) Date Time Temp Pulse Resp B/P (MAP) Pulse Ox O2 Delivery O2 Flow Rate FiO2 08/26/24 20:37 Room Air* 0 21 08/26/24 20:00 98.2 77 17 152/82 98 Room Air 21 08/26/24 16:00 97.9 82 20 144/76 99 Room Air 21 LABS: Hematology Labs: Test 08/26/24 04:31 08/25/24 04:50 Range/Units White Blood Count 6.9 4.8-10.8 K/uL Red Blood Count 3.78 L 4.00-5.50 MIL/uL Hemoglobin 10.7 L 12.0-16.0 g/dL Hematocrit 31.0 L 36-48 % Mean Corpuscular Volume 82.0 79-99 fL Mean Corpuscular Hemoglobin 28.3 27.0-33.0 pg Mean Corpuscular Hemoglobin Concent 34.5 32.0-36.0 g/dL Red Cell Distribution Width 15.4 11.0-15.5 % Platelet Count 230 130-400 K/uL Mean Platelet Volume 9.9 7.5-10.5 fL Nucleated Red Blood Cells 0.0 0.0-0.19 % Immature Granulocyte % (Auto) 1.9 H 0-1 % Neutrophils (%) (Auto) 45.4 40.0-77.0 % Lymphocytes (%) (Auto) 42.9 21.0-51.0 % Monocytes (%) (Auto) 8.3 3.0-13.0 % Eosinophils (%) (Auto) 0.9 0.0-8.0 % Basophils (%) (Auto) 0.6 0.0-5.0 % Neutrophils # (Auto) 3.2 1.8-7.7 K/uL Lymphocytes # (Auto) 3.0 1.0-4.8 K/uL Monocytes # (Auto) 0.6 0.1-1.0 K/uL Eosinophils # (Auto) 0.06 0.00-0.70 K/uL Basophils # (Auto) 0.04 0.00-0.20 K/uL Absolute Immature Granulocyte (auto 0.13 0-1 K/uL Chemistry Labs: Test 08/26/24 04:31 08/25/24 04:50 Range/Units Sodium Level 140 136-145 mmol/L Potassium Level 3.3 L 3.5-5.1 mmol/L Chloride Level 101 101-111 mmol/L Carbon Dioxide Level 34 H 21-32 mmol/L Blood Urea Nitrogen 27 H 7-18 mg/dL Creatinine 1.9 H 0.5-1.0 mg/dL Glomerular Filtration Rate Calc 29 >90 mL/min Random Glucose 94 70-105 mg/dL Total Calcium 8.3 L 8.5-10.1 mg/dL Magnesium Level 1.70 L 1.80-2.40 mg/dL Total Bilirubin 0.7 0.2-1.0 mg/dL Aspartate Amino Transf (AST/SGOT) 64 H 10-37 U/L Alanine Aminotransferase (ALT/SGPT) 82 H 12-78 U/L Alkaline Phosphatase 98 50-136 U/L Total Protein 7.3 6.0-8.3 g/dL Albumin 2.2 L 3.5-5.0 g/dL Amylase Level 72 25-115 U/L Lipase 84 H 16-77 U/L Phosphorus Level 4.4 2.5-4.9 mg/dL DIAGNOSTICS / RADIOLOGY RESULTS: ATIENT: ANTHONY CAAL MR#: [id number] : 1960 SEX: F AGE: 63 LOCATION: [facility] ORDER 1205 STATUS: ADM IN REPORT#: [id number] SERVICE 1203 REASON: FLUID OVERLOAD? ORDERING PHYSICIAN: KALEIGH CEJA PROCEDURE: CXR1VW - CHEST 1VW PORTABLE CHEST RADIOGRAPH INDICATION: FLUID OVERLOAD? COMPARISON: 08/20/2024 FINDINGS: Heart size is normal. The pulmonary vascularity and ann appear normal. No abnormal pulmonary parenchymal opacity or consolidation identified. No significant pleural effusion noted. No pneumothorax detected. IMPRESSION: No radiographic evidence for any acute cardiopulmonary process. DICTATED BY: QUENTIN PALACIOS MD DATE: 08/26/241524 ELECTRONICALLY SIGNED BY: QUENTIN PALACIOS MD DATE: 08/26/24 1528 [ ] PLAN dose medications to renal function Follow up recommendations from Nephrology's monitor kidney function closely, follow hematology recommendations Continue with current IV antibiotics Continue to monitor respiratory status and maintain adequate oxygenation Keep O2 sats greater or equal to 90% As per urology complete her antibiotics follow up outpatient NEURO: Minimize central acting medications as possible. Maintain fall precautions, adequate lighting during the day PULMONARY: Supplemental 02 as needed. Maintain aspiration precautions at all times CARDIOVASCULAR: Follow hemodynamics. Vital signs per facility protocol GI & NUTRITION: Continue with nutritional support. Continue stool softeners and laxatives as needed. KIDNEYS & ELECTROLYTES: Strict monitoring of intake, output and overall fluid balance. Avoid nephrotoxic medications to the extent possible. Medications to be dosed according to renal function. Monitor electrolytes and replace as needed ENDOCRINE: Maintain blood glucose between 100-180 at all times. Hypoglycemia protocol in place INFECTIOUS DISEASE: Trend temperature, WBC and procalcitonin level Follow cultures, deescalate antibiotics as soon as possible. Panculture if new onset fever ONCOLOGY/HEMATOLOGY/COAGULATION: Monitor for s/s of bleeding Monitor hemoglobin, coagulation studies as needed SKIN: Pressure ulcer prevention per facility protocol Specialty mattress ORTHO/REHAB: Continue PT/OT Prophylaxis: Continue GI and DVT prophylaxis Code Status: Full Resuscitation Disposition: Per primary team Other: Case discussed with supervising physician plan of care agreed upon ATTESTATION BY PHYSICIAN I have evaluated the patient chart, medical records, and spoke with appropriate staff. I reviewed the documentation, medical decision making, and treatment plan as noted by the mid-level provider above. I agree with the findings and plan of care. Robert Chao MD, [facility] August 26, 2024 22:52
--- NOTE | 2024-08-26 23:05 | PN ---
INFECTIOUS DISEASE FOLLOWUP NOTE DATE OF SERVICE: 08/25/2024 SUBJECTIVE: The patient is seen and examined on bedside. The patient has no fever, no chills. No nausea or vomiting. Appetite is good. Rashes are resolving. No dysuria or urinary frequency. . PHYSICAL EXAMINATION: VITAL SIGNS: Temperature today 97.9. EYES: No icterus. Pupils equal and reactive. HENT: No oral thrush seen. Moist oral mucosa. NECK: Supple. No JVD or thyromegaly. LUNGS: Good air entry. No rales. No rhonchi. CARDIOVASCULAR: S1, S2 regular. No murmur heard. ABDOMEN: Full, soft, nontender. Bowel sound is present. CENTRAL NERVOUS SYSTEM: Awake, alert and oriented x 3. No focal deficits. SKIN: Rashes are resolving. LYMPHATIC: No peripheral lymphadenopathy. BACK: No deformity, no pressure ulcer. ASSESSMENT: A 63-year-old female admitted with fever, rashes, weakness. CURRENT PROBLEMS: Include: * . * Viral influenza infection. * . * Hypertension. * Renal failure. * Debility. PLAN: * Continue physical therapy. * Continue doxycycline. * Continue nutritional support. * Continue DVT prophylaxis. * Monitor electrolytes. * Continue . TID: [id number] RECEIPT: [id number]
[2024-08-27] VITALS (7 sets, daily range): BP systolic 118–144; BP diastolic 62–76; PULSE 79–92; RESP 16–18; TEMP 97.8–98.4; O2SAT 96–97
[2024-08-27 04:29] LABS: HEMATOCRIT 32.8 % (36-48); MEAN CORPUSCULAR HEMOGLOBIN 28.1 pg (27.0-33.0); MEAN CORPUSCULAR HGB CONC 33.5 g/dL (32.0-36.0); MEAN CORPUSCULAR VOLUME 83.7 fL (79-99); RED BLOOD CELL COUNT(AUTO) 3.92 MIL/uL (4.00-5.50); RED CELL DISTRIBUTION WIDTH 15.5 % (11.0-15.5); WHITE BLOOD COUNT (AUTO) 7.7 K/uL (4.8-10.8)
[2024-08-27 04:50] LABS: ALBUMIN 2.3 g/dL (3.5-5.0); BILIRUBIN,TOTAL 0.8 mg/dL (0.2-1.0); CREATININE 1.7 mg/dL (0.5-1.0); POTASSIUM 3.4 mmol/L (3.5-5.1); TOTAL PROTEIN, SERUM 7.7 g/dL (6.0-8.3)
--- NOTE | 2024-08-27 17:15 | PN ---
[facility] PROGRESS NOTE Date of Service: August 27, 2024 Time of Service: 17:06 SUBJECTIVE: [ PATIENT IS 63 YEARS OLD FEMALE WITH A PAST MEDICAL HISTORY OF HYPERTENSION, FLU, CATARACT, CHOLECYSTECTOMY, HYSTERECTOMY, WHO CAME TO EMERGENCY DEPARTMENT WITH A COMPLAINT OF DECREASED APPETITE, FEVER, GENERALIZED BODY WEAKNESS. PATIENT STATED THAT SHE WENT TO HER PCP AFTER SHE WAS DIAGNOSED WITH INFLUENZA ABOUT A WEEK AGO, WHERE SHE COMPLAINED ABOUT ABOVE-STATED COMPLAINTS AND SHE WAS SENT TO EMERGENCY DEPARTMENT FOR FURTHER EVALUATION/RECOMMENDATION. PATIENT DENIES ANY CHEST PAIN, NAUSEA, VOMITING, SHORTNESS OF BREATHS OR ANY OTHER SYMPTOMS OTHER THAN STATED ABOVE. ] MOST RECENT VITAL SIGNS TEMPERATURE 97.9 ON ADMISSION IN ER WAS 102.9, PULSE 84 RESPIRATION 22 BLOOD PRESSURE 90/50 PATIENT IS ON ROOM AIR SATTING 93%. UA POSITIVE FOR LEUKOCYTOSIS. WBC 9.0 HEMATOCRIT 40.2 HEMOGLOBIN 13.9 PLATELETS 82. SODIUM 133 POTASSIUM 3.3 CO2 29 BUN 14 CREATININE 1.2 GFR 5 GLUCOS 106 LACTIC 1.8 CALCIUM 7.8 TROPONIN NEGATIVE X1. CHEST X-RAY SHOWED CLEAR LUNGS CARDIOMEGALY. 2D ECHO IS PENDING. PATIENT WILL BE ADMITTED UNDER HOSPITALIST CARE FOR FURTHER EVALUATION/RECOMMENDATION. PATIENT WAS PLACED ON VANCOMYCIN AND ZOSYN FOR THE SEPSIS. A.M. LABS. 08/17 patient was seen by nurse practitioner and physician during rounding in room 304. Urinalysis was positive on admission. Blood culture and urine cul ture pending at this moment. Patient continues to be on Zosyn and vancomycin. We will increase fluids from 100 mL/hour 220 mL/hour. Patient's A1c is 5.8. We will discontinue insulin sliding scale per protocol. Also patient's blood pressure has been on lower side. We will discontinue losartan. Home medication reconciled. 2D echo showed EF 55 to 60% normal diastolic function no pericardial effusion. Potassium today is 2.8. Patient received already two 20 mEq through IV potassium. Patient will also receive 40 mEq of potassium as well. We will continue to monitor patient in the meantime. A.m. labs. 08/18 at bedside, she had a low-grade fever overnight, this morning she is tachycardic. Urine and blood cultures have been no growth to date, platelets have decreased from 52 down to 37, AST mildly elevated, creatinine increased from 1.2 up to 1.5. Given that she is still having fevers on vancomycin and Zosyn she may have an atypical infection, we will order a murine typhus panel and start doxycycline. Discontinue vancomycin at this time. Infectious workup has been negative this time we will assess for possible underlying PE or DIC, we will order D-dimer, V/Q scan, fibrinogen, PT and PTT and follow up 08/19 patient seen at bedside, yesterday her blood pressure started to drop despite being on fluids and broad-spectrum antibiotics. She was also tachycardic. D-dimer was elevated as her platelets were low and she was assessed for DIC however fibrinogen was normal. A V/Q scan was done that did not show evidence of pulmonary embolism. She was moved to the ICU and started on pressor support. Creatinine increased from 1.5 up to 2.2 however she has been adequately perfused and she has not been receiving any nephrotoxic medications, bladder scan was ordered showing greater than 500 cc within the bladder concerning for postobstructive uropathy. Hobbs catheter was placed and approximately 800 cc drained immediately. She has swelling and bruising to the left upper extremity where the midline was placed, we will order a venous Doppler to rule out DVT. 08/20 patient is seen and examined, power chart reviewed, vital signs, laboratory tests and imaging tests reviewed. Discussed with the RN, patient off Levophed since earlier this morning. She is awake, following commands, alert oriented x3. Patient noted to have elevated D-dimer and thrombocytopenia, concern for DIC was raised, however fibrinogen was normal. A V/Q scan was negative for PE. The patient was upgraded to the ICU as the patient was getting tachycardic, with a hypotension. Patient had a maximum temperature 102.9 08/16/2024. Patient noted to have worsening renal function with a creatinine of 2.2 as of yesterday, bladder scan was done, showing greater than 500 cc of urine concerning for possible obstructive uropathy, Hobbs catheter inserted, proximally 800 cc was drained immediately. Today still elevated at 2.4, bicarbonate of 23. Patient is also noted to have some swollen and present to left upper extremity we will midline was placed, a venous Doppler of left upper extremity was done, no evidence of DVT. Doppler of both lower extremities also negative for DVT. Urine culture negative, blood culture negative. Patient had loose stools yesterday. at bedside. 08/21 remains hemodynamically stable, BP 109/52, afebrile, saturating normal on room air. During my visit the patient is sitting comfortable in the chair, eating lunch, Laboratory data, WBC 9.2, hemoglobin 10.9, hematocrit 31.6, platelet count of 94 (discussed with the patient. She has not been told about low platelet count in the past). Repeat urine culture 08/19/2024 no growth. Patient evaluated by ID, patient is here with a UTI, had: Papular rash, recent viral influenza infection treated as an outpatient, continue doxycycline, contin ue IV Zosyn, started on Tamiflu 75 mg p.o. b.i.d.. Obtain routine mountain and spotted fever IgG and IgM serology. Results of stool studies Patient noted to have thrombocytopenia, we will request Hematology consult. Patient is still looks mildly edematous, puffiness still the below both eyes, she is on Bumex 1 mg IV b.i.d., Hobbs catheter in place, we will continue with daily weight, strict monitoring of intake and output. Doppler of the legs negative for DVT. 08/22 patient is seen and examined at bedside, downgraded from the PCU to the medical floor, remains alert oriented x3, getting IV antibiotics, admitted 2-3 loose stools yesterday. Today blood pressure 135/59, afebrile, saturating normal on room air, denies nausea, no vomiting, no abdominal discomfort, she is still feels swollen. Currently on Bumex 1 mg IV b.i.d.. Hemoglobin 10.0, hematocrit 29.0, platelet count improving to 128 today. Creatinine worse at 2.8. Patient will remain admitted to the medical floor Continue the patient on antibiotics, continue to follow ID input and recommendation. Continue Bumex 1 mg IV b.i.d. Renal ultrasound requested Nephrology consultation requested as well Follow mountain and spotted fever IgG and IgM serology Hematology input noted and appreciated, start the patient on folic acid 1 mg p.o. daily and vitamin B12 1000 mcg p.o. daily. There is rule out phenomena, we will ask for SPEP, UPEP and free light chain, if there is monoclonal protein we will do bone marrow biopsy. WBC increased number of large granular lymphocyte which could be due to leukemia or chronic disease or atypical infection. We will ask for flow cytometry of peripheral blood, if flow cytometry positive this patient will need bone marrow biopsy. 08/23 patient is seen and examined at bedside, case discussed with the RN, patient is sitting comfortable in the chair, she remains alert oriented x3, both upper extremities looks less swollen compared to yesterday. Petechia rash both upper extremities. BP 127/64, afebrile, she is saturating normal on room air. Platelet count has normalized, today 149. Creatinine slightly better today at 2.6. CT of the abdomen reviewed, mild left hydronephrosis with multiple left renal pelvic stones with the largest measuring 3 x 2.5 cm, small bilateral pleural effusion, pancreas is enlarged with the peripancreatic fat stranding suggestive of acute pancreatitis in the proper clinical setting. The patient remains admitted to the medical floor Zosyn was changed to cefepime IV. Continue to follow ID input and recommend ation Follow mountain and spotted fever IgG and IgM serology GI panel 08/20/2024 is negative Continue Bumex 1 mg IV b.i.d.. Nephrology consulted, continue to follow input and recommendation Patient with a left-sided hydronephrosis, we will request Urology consult Continue to follow Hematology input and recommendation whether the patient will require bone marrow biopsy, continue to monitor platelet count Peripancreatic fat stranding suggestive of acute pancreatitis, we will order amylase and lipase level. 08/24 patient is seen and examined at bedside, overall the patient feels and looks better, less edematous, improvement on upper extremity rash noted. Had two BMs yesterday, but denies abdominal discomfort, tolerating diet. Patient was having mild hand tremor yesterday. BP 135/69, afebrile, saturating normal on room air. CBC with hemoglobin at 9.8, hematocrit 29.1, WBC 6.9, platelet count of 177. Sodium 143, potassium 3.6, BUN of 32, creatinine improving at 2.2. Magnesium 1.9. Lipase slightly better today at 80. Results of free light chains ratio within normal. Serology tests for spotted fever positive. The patient on cefepime and doxycycline IV. CT cervical spine no fracture, degenerative joint disease cervical spine spondylosis The patient remains admitted to the medical floor Continue the patient on cefepime and doxycycline IV, continue to follow ID input and recommendation. GI panel 08/20/2024 is negative Continue Bumex 1 mg IV b.i.d.. Creatinine improving today at 2.2, discussed with the breeder hen service technician, input noted and appreciated. Patient with a left-sided hydronephrosis, Urology consultation requested, case discussed, input noted and appreciated, outpatient follow up Continue to follow Hematology input and recommendation in terms of need for bone marrow biopsy during this admission. Peripancreatic fat stranding suggestive of acute pancreatitis, lipase slightly elevated at 80, continue to follow level in a.m.. 08/25 patient remains admitted to the medical floor, blood pressure 127/63, afebrile, she is saturating normal on room air. Laboratory data with a hemoglobin 10.4, hematocrit 30.6, white blood cell count of 7.0, platelet count of 209. Sodium level 142, potassium 3.5, BUN of 28, creatinine continue to improve, today at 2.0. Initial creatinine upon admission 1.2 liver enzymes mildly elevated, with an AST of 84, ALT of 88, lipase of 80. Patient remains on cefepime 1 g IV daily, doxycycline IV q.12 hours, ID input noted and appreciated, possible spotted fever. Patient on Tamiflu 75 mg p.o. daily, mildly elevated liver enzymes, last dose will be today. Continue to monitor amylase and lipase level in a.m. during my visit the patient is alert and oriented x3, she feels and looks weak. Swollen to both upper extremity resolved, still noted with a mild petechial rash. Swollen to both lower extremities improving, still with mild petechial rash. WE WILL CONSULT CASE MANAGEMENT THE PATIENT COMPLAINING OF GENERALIZED WEAKNESS. MAY BENEFIT FROM REHAB. 08/26 patient initially admitted to the ICU secondary to septic shock. Patient with outpatient influenza positive, completed five days of Tamiflu. patient is seen and examined, comfortably in bed, alert oriented x3 remains hemodynamically stable, afebrile, saturating normal on room air. Swollen to both lower extremities resolved, petechial rash improving to both upper extremities. Swollen to both lower extremities improving, petechial rash to both lower extremities also improving. Creatinine level slowly improving 1.9. Patient it is needed on Tamiflu 75 mg p.o. daily while in the hospital, mildly elevated li xavi enzymes, last dose 08/25/2024, liver enzymes today slowly improving. Due to swell to both upper and lower extremities patient started on Bumex 1 mg IV b.i.d., developed worsening renal function, now improving, CT of the abdomen showing mild left hydronephrosis with renal stone, the patient has seen Urology Dr. Mcdermott as an outpatient, who evaluated the patient during this admission, recommended to follow up as an outpatient upon discharge. CT abdomen also with a mild peripancreatic fat stranding, lipase level minimally elevated, slowly improving. Overall the patient condition continues to improved, serology test for spotted fever positive. The patient on doxycycline IV, ID on the case. Patient with generalized weakness, PT consulted, case management to evaluate for discharge plan to rehab. 08/27 patient seen at bedside, no acute events overnight. Patient with no complaints today, pending placement to rehab, we will follow up with case man arturo. REVIEW OF SYSTEMS 12 point ROS negative unless noted in HPI PHYSICAL EXAM GENERAL APPEARANCE: The patient is awake, alert, and oriented, in no acute cardiopulmonary distress. NEUROLOGICAL: Cranial nerves II-XII grossly intact. Motor is 5/5 in bilateral upper and lower extremities proximal to distal. No sensory deficits. HEENT: Face is symmetric. Pupils are equal and reactive. Extraocular movements are intact. NECK: Supple. No JVD. No thyromegaly. No submental, submandibular, pre- /postauricular, occipital or supraclavicular lymphadenopathy. CHEST: Normal chest expansion. No Telemetry. LUNGS: Absence of any rales, rhonchi or any wheezing. CARDIOVASCULAR: Regular. S1 and S2 normal. No appreciable rubs, murmurs or gallops. ABDOMEN: Soft, nontender, and nondistended. There is no rebound, voluntary guarding, or rigidity. : Deferred. No Hobbs. EXTREMITIES: Swollen to both upper extremities resolved. Improvement in bilateral lower extremity swelling. SKIN: Improving petechial rash both upper and lower extremity Vital Signs (last 8hr) Date Time Temp Pulse Resp B/P (MAP) Pulse Ox O2 Delivery O2 Flow Rate FiO2 08/27/24 15:16 98.1 82 18 138/76 94 Room Air 08/27/24 11:27 97.9 84 18 118/62 95 Room Air LABS: Laboratory: Test 08/27/24 04:12 08/26/24 04:31 Range/Units White Blood Count 7.7 4.8-10.8 K/uL Red Blood Count 3.92 L 4.00-5.50 MIL/uL Hemoglobin 11.0 L 12.0-16.0 g/dL Hematocrit 32.8 L 36-48 % Mean Corpuscular Volume 83.7 79-99 fL Mean Corpuscular Hemoglobin 28.1 27.0-33.0 pg Mean Corpuscular Hemoglobin Concent 33.5 32.0-36.0 g/dL Red Cell Distribution Width 15.5 11.0-15.5 % Platelet Count 243 130-400 K/uL Mean Platelet Volume 9.8 7.5-10.5 fL Nucleated Red Blood Cells 0.0 0.0-0.19 % Sodium Level 141 136-145 mmol/L Potassium Level 3.4 L 3.5-5.1 mmol/L Chloride Level 100 L 101-111 mmol/L Carbon Dioxide Level 35 H 21-32 mmol/L Blood Urea Nitrogen 28 H 7-18 mg/dL Creatinine 1.7 H 0.5-1.0 mg/dL Glomerular Filtration Rate Calc 33 >90 mL/min Random Glucose 102 70-105 mg/dL Total Calcium 8.5 8.5-10.1 mg/dL Magnesium Level 2.00 1.80-2.40 mg/dL Total Bilirubin 0.8 0.2-1.0 mg/dL Aspartate Amino Transf (AST/SGOT) 46 H 10-37 U/L Alanine Aminotransferase (ALT/SGPT) 63 # 12-78 U/L Alkaline Phosphatase 101 50-136 U/L Total Protein 7.7 6.0-8.3 g/dL Albumin 2.3 L 3.5-5.0 g/dL Amylase Level 72 25-115 U/L Lipase 84 H 16-77 U/L Current Medications Medications (Trade) Dose Ordered Sig/May Route PRN Reason Start Time Stop Time Status Last Admin Dose Admin Acetaminophen (TYLenol 325MG TAB) 650 mg Q4H PRN PO MILD PAIN (1-3) 08/16/24 16:30 09/15/24 16:29 Acetaminophen (TYLenol 325MG TAB) 650 mg Q6H PRN PO MILD PAIN (1-3) 08/16/24 16:30 08/17/24 09:03 DC Acetaminophen (TYLenol 325MG TAB) 650 mg Q6H PRN PO TEMPERATURE GREATER THAN 101.5 08/16/24 16:30 09/15/24 16:29 08/22/24 04:15 650 MG Al Hydroxide/Mg Hydroxide (MAALox PLUS 30ML) 30 ml Q6H PRN PO INDIGESTION 08/16/24 16:30 09/15/24 16:29 Albumin Human 50 ml @ 100 mls/hr AD IV 08/19/24 01:30 08/19/24 01:21 DC Bumetanide (Bumex 1mg Tab) 1 mg BID PO 08/26/24 21:00 09/25/24 20:59 08/27/24 09:00 1 MG Bumetanide (Bumex 1mg Vial) 1 mg BID IVP 08/21/24 11:00 08/26/24 12:06 DC 08/26/24 09:57 1 MG Cefepime HCl (MAXipime 1 GM vial) 1 gm Q24H IVPB 08/22/24 18:00 09/01/24 17:59 08/26/24 17:33 1 GM Dextrose (D50w) 50 ml AD PRN IV HYPOGLYCEMIA PROTOCOL 08/16/24 16:30 09/15/24 16:29 Diphenhydramine HCl (BENAdryl INJ) 25 mg Q6H PRN IV SEVERE ITCHING/RASH 08/16/24 16:30 09/15/24 16:29 08/20/24 20:08 25 MG Doxycycline Hyclate 250 ml @ 125 mls/hr Q12H IV 08/18/24 09:00 08/27/24 11:59 DC 08/27/24 09:01 125 MLS/HR Famotidine (Pepcid 20mg Vial) 20 mg HS IV 08/16/24 21:00 08/21/24 21:44 DC 08/21/24 20:52 20 MG Famotidine (Pepcid 20mg Vial) 20 mg HS PRN IV NAUSEA/VOMITING 08/16/24 16:30 08/17/24 09:03 DC Folic Acid (FOLic ACID 1 MG TABLET) 1 mg DAILY PO 08/22/24 12:30 08/22/24 12:25 DC Folic Acid (FOLic ACID 1 MG TABLET) 1 mg DAILY PO 08/22/24 15:00 09/21/24 14:59 08/27/24 09:00 1 MG Glucagon (Glucagon 1mg Kit) 1 mg AD PRN IM HYPOGLYCEMIA PROTOCOL 08/16/24 16:30 09/15/24 16:29 Guaifenesin/ Dextromethorphan (RobiTUSSin DM 200/20MG 10ML) 10 ml Q4H PRN PO COUGH 08/16/24 16:30 09/15/24 16:29 Heparin Sodium (Porcine) (HEParin 5,000 UNIT VIAL) *calculation based on ACTUAL B... AD PRN IV HEPARIN PROTOCOL 08/18/24 16:30 08/19/24 04:54 DC 08/18/24 16:21 6,000 UNIT Heparin Sodium (Porcine) (HEParin 5,000 UNIT VIAL) 5,000 unit BID SQ 08/16/24 21:00 08/18/24 07:05 DC 08/16/24 21:35 5,000 UNIT Heparin Sodium/ Dextrose 250 ml @ 0 mls/hr Q6H IV 08/18/24 16:30 08/19/24 06:01 DC 08/18/24 16:20 13.98 MLS/HR Home Med (Home Medication) (Meloxicam, Submicronized (Vivlodex... DAILY PO 08/18/24 09:00 08/18/24 07:05 DC Hydralazine HCl (APRESOLine 20MG INJ) 10 mg Q6H PRN IV For:SBP above 160;DBP above 90 08/16/24 16:30 09/15/24 16:29 Insulin Human Regular (humuLIN R 100 UNIT/ML 3ML) INSULIN SLIDING SCAL... ACHS SQ 08/16/24 16:30 08/20/24 15:55 DC Ketorolac Tromethamine (toRADol) 15 mg Q8H PRN IV MODERATE PAIN (4-6) 08/16/24 16:30 08/20/24 12:39 DC 08/18/24 19:15 15 MG Lactulose (Constulose 20gm/ 30ml Udcup) 20 gm BID PRN PO CONSTIPATION 08/16/24 16:30 09/15/24 16:29 Losartan Potassium (CozAAR 100MG TAB) 100 mg DAILY PO 08/18/24 09:00 08/17/24 13:09 DC Magnesium Sulfate 50 ml @ 0 mls/hr PROTOCOL IV 08/26/24 11:00 09/25/24 10:59 Magnesium Sulfate 50 ml @ 0 mls/hr PROTOCOL PRN IV other 08/16/24 16:30 08/26/24 10:47 DC 08/26/24 06:55 25 MLS/HR Midodrine (PROAMatine 5 MG TABLET) 5 mg TID PO 08/18/24 13:00 08/19/24 13:02 DC 08/19/24 08:32 5 MG Midodrine (PROAMatine 5 MG TABLET) 10 mg TID PRN PO SBP < 90 08/21/24 22:00 09/18/24 13:29 Midodrine (PROAMatine 5 MG TABLET) 20 mg TID PO 08/19/24 13:30 08/21/24 21:35 DC 08/21/24 08:33 20 MG Nitroglycerin (Nitrostat) 0.4 mg PROTOCOL PRN SL CHEST PAIN 08/16/24 16:30 09/15/24 16:29 Norepinephrine 250 ml @ 0 mls/hr PROTOCOL IV 08/19/24 03:00 08/22/24 07:20 DC 08/19/24 15:55 15.31 MLS/HR Ondansetron HCl (zoFRAN 4MG INJ) 4 mg Q6H PRN IV NAUSEA/VOMITING 08/16/24 16:30 09/15/24 16:29 08/27/24 11:41 4 MG Oseltamivir Phosphate (Tamiflu) 75 mg Q24H PO 08/20/24 21:00 08/25/24 20:59 DC 08/24/24 20:57 75 MG Oxycodone/ Acetaminophen (perCOCET) 1 tab Q6H PRN PO SEVERE PAIN (7-10) 08/16/24 16:30 08/21/24 19:29 DC 08/16/24 23:04 1 TAB Pantoprazole Sodium (PROTonix 40MG TAB) 40 mg DAILY PO 08/22/24 09:00 09/21/24 08:59 08/27/24 09:00 40 MG Piperacillin Sod/ Tazobactam Sod 50 ml @ 12.5 mls/hr Q12H IV 08/21/24 17:00 08/22/24 17:46 DC 08/22/24 04:10 12.5 MLS/HR Piperacillin Sod/ Tazobactam Sod 50 ml @ 12.5 mls/hr ZOSY8 IV 08/16/24 21:00 08/21/24 10:27 DC 08/21/24 05:03 12.5 MLS/HR Potassium Chloride 100 ml @ 100 mls/hr AD PRN IV POTASSIUM PROTOCOL 08/16/24 16:30 09/15/24 16:29 08/17/24 05:28 100 MLS/HR Potassium Chloride (K-Dur 10meq Sr Tab) 10 meq AD PRN PO POTASSIUM PROTOCOL 08/17/24 09:30 09/15/24 16:29 08/27/24 09:01 10 MEQ Potassium Chloride (K-Dur/Klor-Con 20meq) 10 meq AD PRN PO POTASSIUM PROTOCOL 08/16/24 16:30 08/17/24 09:04 DC 08/17/24 08:12 10 MEQ Potassium Chloride (KCl 10% Elixir 20meq/15ml) 10 meq AD PRN PO POTASSIUM PROTOCOL 08/16/24 16:30 09/15/24 16:29 Pregabalin (LYRica 25MG) 50 mg BID PO 08/17/24 21:00 08/21/24 10:27 DC 08/21/24 08:33 50 MG Simethicone (Mylicon) 80 mg Q8H PRN PO GI GAS 08/19/24 21:00 09/18/24 20:59 08/19/24 21:43 80 MG Sodium Chloride 1,000 ml @ 120 mls/hr Q8H20M IV 08/16/24 16:30 08/20/24 12:38 DC 08/20/24 05:26 120 MLS/HR Trazodone HCl (DesyREL/OlepTRO) 100 mg HS PO 08/17/24 21:00 09/16/24 20:59 08/26/24 20:29 100 MG Vancomycin HCl 250 ml @ 125 mls/hr Q24H IV 08/16/24 17:00 08/18/24 08:48 DC 08/17/24 18:11 125 MLS/HR Vancomycin HCl (Vancomycin Protocol) 1 each PROTOCOL PRN IV VANCOMYCIN PROTOCOL 08/16/24 16:30 08/18/24 08:48 DC Vitamin B Complex (Vitamin B-12) 1,000 mcg DAILY PO 08/22/24 12:30 08/22/24 12:25 DC Vitamin B Complex (Vitamin B-12) 1,000 mcg DAILY PO 08/22/24 15:00 09/21/24 14:59 08/27/24 09:01 1,000 MCG Vitamin B Complex/ Vit C/Folic Acid (Nephrovite Tablet) 1 cap DAILY PO 08/23/24 09:00 08/22/24 15:38 DC Zolpidem Tartrate (AmbIEN) 5 mg HS PRN PO INSOMNIA 08/16/24 16:30 08/21/24 21:35 DC DIAGNOSTICS / RADIOLOGY: [ ] ASSESSMENT: ACUTE SEPSIS POA SEPTIC SHOCK GENERALIZED BODY WEAKNESS POA ACUTE KIDNEY INJURY POA URINARY RETENTION POSTOBSTRUCTIVE UROPATHY ACUTE DEHYDRATION POA ACUTE COMPLICATED CYSTITIS POA ELECTROLYTE IMBALANCE HYPONATREMIA NA 133, HYPOKALEMIA 3.3 HYPOCALCEMIA 7.8 POA UNCONTROLLED HYPERTENSION POA THROMBOCYTOPENIA POA HISTORY OF CATARACT HISTORY OF CHOLECYSTECTOMY HISTORY OF HYSTERECTOMY HISTORY OF KIDNEY STONES HISTORY OF HYDRONEPHROSIS RECENT INFLUENZA INFECTION THROMBOCYTOPENIA SEROLOGY TESTS POSITIVE FOR SPOTTED FEVER MILD LEFT HYDRONEPHROSIS MULTIPLE LEFT RENAL PELVIC STONES WITH THE LARGEST MEASURING 3 X 2.5 CM SMALL BILATERAL PLEURAL EFFUSION PANCREAS IS ENLARGED WITH THE PERIPANCREATIC FAT SUGGESTIVE OF ACUTE PANCREATITIS CERVICAL SPINE SPONDYLOSIS GENERALIZED WEAKNESS PLAN: The patient remains admitted to the medical floor Continue the patient on cefepime and doxycycline IV, continue to follow ID input and recommendation. GI panel 08/20/2024 is negative Continue Bumex 1 mg IV b.i.d.. Creatinine improving today at 2.0, discussed with the breeder hen service technician, input noted and appreciated. Patient with a left-sided hydronephrosis, Urology consultation requested, case discussed, input noted and appreciated, outpatient follow up Continue to follow Hematology input and recommendation in terms of need for bone marrow biopsy during this admission. Peripancreatic fat stranding suggestive of acute pancreatitis, lipase slightly elevated at 80, continue to follow level in a.m.. Patient on Tamiflu 75 mg p.o. daily, mildly elevated liver enzymes, last dose will be today, continue to monitor. Consultation with case management requested, patient may benefit from inpatient rehab. NEURO: MINIMIZE CENTRAL ACTING MEDICATIONS POSSIBLE. FALL PRECAUTIONS. WELL LIGHTED ROOM THROUGH THE DAY AND MINIMIZE INTERRUPTIONS THROUGH THE NIGHT TO PREVENT ACUTE DELIRIUM. PULMONARY: SUPPLEMENTAL 02 NEEDED BIPAP NECESSARY, FOR RESPIRATORY DISTRESS TITRATE FIO2 TO KEEP SPO2 > OR = 90% DUONEBS AND CPT NEEDED IS HOURLY WHILE AWAKE FOR PULMONARY HYGIENE PRN OUT OF BED TO CHAIR TOLERATED MAINTAIN ASPIRATION PRECAUTIONS AT ALL TIMES CARDIOVASCULAR: FOLLOW HEMODYNAMICS. VITAL SIGNS PER FACILITY PROTOCOL GI & NUTRITION: CONTINUE NUTRITIONAL SUPPORT ASPIRATIONS PRECAUTIONS PROKINETIC AGENTS AND LAXATIVES NEEDED KIDNEYS & ELECTROLYTES: STRICT MONITORING OF INTAKE AND OUTPUT DAILY WEIGHTS AVOID NEPHROTOXIC AGENTS MONITOR ELECTROLYTES AND REPLACE NEEDED GOAL URINE OUTPUT OF 30ML/HR OR 0.5ML/KG/HR MEDICATIONS TO BE DOSED ACCORDING TO RENAL FUNCTION. AVOID CONTRAST IF POSSIBLE ENDOCRINE: MAINTAIN BLOOD GLUCOSE BETWEEN 100-180 AT ALL TIMES. INSULIN SLIDING SCALE FOR BLOOD GLUCOSE MANAGEMENT HYPOGLYCEMIA AND HYPERGLYCEMIA PROTOCOL IN PLACE INFECTIOUS DISEASE: TREND TEMPERATURE, WBC AND PROCALCITONIN LEVEL FOLLOW CULTURES, DEESCALATE ANTIBIOTICS SOON POSSIBLE. PANCULTURE IF NEW ONSET FEVER HEMATOLOGY & COAGULATION: MONITOR H&H. KEEP HGB > 7 TRANSFUSE 1 UNIT OF PRBC FOR HGB < 7 TRANSFUSE 1 PACK OF PLATELETS OF PLATELETS < 20, 000 WATCH FOR ANY SIGNS AND SYMPTOMS OF BLEEDING SKIN: PRESSURE ULCER PREVENTION PER FACILITY PROTOCOL SPECIALTY MATTRESS NEEDED ORTHO/REHAB CONTINUE PT/OT PRN: MEDICATIONS TYLENOL 650 MG PO EVERY 4 HRS FOR FEVER ZOFRAN 4 MG IV EVERY 6 HRS FOR N/V HYDRALAZINE 5 MG IV EVERY 4 HRS SYSTOLIC PRESSURE > 160 BOWEL REGIMENT: LACTULOSE 20 GM PO BID PRN CONSTIPATION SUPPORTIVE MEASURES: CONTINUE GI AND DVT PROPHYLAXIS DISPOSITION: PENDING IMPROVEMENT IN CLINICAL CONDITION ALL QUESTIONS ANSWERED TIME SPENT: > 35 MIN CARY GARVIN MD August 27, 2024 17:15
--- NOTE | 2024-08-27 17:44 | PN ---
INFECTIOUS DISEASE PROGRESS NOTE Date of Service: August 27, 2024 SUBJECTIVE: Patient was downgraded to medical surgical unit and was seen and examined at bedside in room 304. Patient is awake, alert and sitting up to the bedside chair. No fever this morning, temperature is 98.1. Patient did reported having a lot of nausea. No dyspnea observed. Renal function improving, BUN is 28 and creatinine of 1.7. We will continue on cefepime and doxycycline. No other issues reported by nursing. PHYSICAL EXAM EYES: Anicteric. Pupils equal and reactive. HENT: No oral thrush seen, moist Oral mucosa. NECK: Supple, no JVD or thyromegaly. LUNGS: Good air entry. No rales, no rhonchi. Nonproductive cough. CARDIOVASCULAR: S1, S2 regular. No murmur heard. ABDOMEN: Soft, non tender, bowel sounds present, no organomegaly. CENTRAL NERVOUS SYSTEM: Awake, alert, oriented x 3. SKIN: No rashes, no swelling. Maculopapular rash. LYMPHATICS: No peripheral lymphadenopathy. MUSCULOSKELETAL: No joint swelling, erythema or tenderness. EXTREMITIES: No cyanosis or clubbing. BACK: No deformity, no pressure ulcer. GENITOURINARY: No dysuria or hematuria. Vital Sign (Last 12 Hours) 08/27/24 08/27/24 08/27/24 08/27/24 07:31 08:00 11:27 15:16 Temp 98.1 97.9 98.1 Pulse 81 84 82 Resp 18 18 18 B/P (MAP) 132/67 118/62 138/76 Pulse Ox 96 96 95 94 O2 Delivery Room Air Room Air* Room Air Room Air O2 Flow Rate 0 FiO2 21 Intake & Output (last 24hrs) 08/26/24 08/26/24 08/27/24 15:00 23:00 07:00 Intake Total 1100 ml 500 ml 250.0 ml Output Total 1575 ml 400 ml 1200 ml Balance -475 ml 100 ml -950.0 ml LABS: Laboratory: Test 08/27/24 04:12 08/26/24 04:31 Range/Units White Blood Count 7.7 4.8-10.8 K/uL Red Blood Count 3.92 L 4.00-5.50 MIL/uL Hemoglobin 11.0 L 12.0-16.0 g/dL Hematocrit 32.8 L 36-48 % Mean Corpuscular Volume 83.7 79-99 fL Mean Corpuscular Hemoglobin 28.1 27.0-33.0 pg Mean Corpuscular Hemoglobin Concent 33.5 32.0-36.0 g/dL Red Cell Distribution Width 15.5 11.0-15.5 % Platelet Count 243 130-400 K/uL Mean Platelet Volume 9.8 7.5-10.5 fL Nucleated Red Blood Cells 0.0 0.0-0.19 % Sodium Level 141 136-145 mmol/L Potassium Level 3.4 L 3.5-5.1 mmol/L Chloride Level 100 L 101-111 mmol/L Carbon Dioxide Level 35 H 21-32 mmol/L Blood Urea Nitrogen 28 H 7-18 mg/dL Creatinine 1.7 H 0.5-1.0 mg/dL Glomerular Filtration Rate Calc 33 >90 mL/min Random Glucose 102 70-105 mg/dL Total Calcium 8.5 8.5-10.1 mg/dL Magnesium Level 2.00 1.80-2.40 mg/dL Total Bilirubin 0.8 0.2-1.0 mg/dL Aspartate Amino Transf (AST/SGOT) 46 H 10-37 U/L Alanine Aminotransferase (ALT/SGPT) 63 # 12-78 U/L Alkaline Phosphatase 101 50-136 U/L Total Protein 7.7 6.0-8.3 g/dL Albumin 2.3 L 3.5-5.0 g/dL Amylase Level 72 25-115 U/L Lipase 84 H 16-77 U/L ASSESSMENT: Possible spotted fever. Possible typhus. Septic shock. Urinary tract infection. Maculopapular rash. Recent viral Influenza infection as outpatient. Acute renal failure. Fibromyalgia. Hypertension. PLAN: Continue cefepime. Continue doxycycline. Completed Tamiflu. Continue GI prophylaxis. Research Biostatistician following patient Nephrology following patient.. Avoid nephrotoxic medications. This case was reviewed and discussed with my supervising physician and the above assessment and plan was formulated and agreed upon. ATTESTATION BY PHYSICIAN I have seen and examined the patient. I reviewed the documentation, medical decision making, and treatment plan as noted by the mid-level provider above. I agree with the findings and plan of care. CRISELDA JACQUES MD, [facility] August 27, 2024 17:44
--- NOTE | 2024-08-27 20:17 | PN ---
FOLLOWUP PROGRESS NOTE SUBJECTIVE: A 63-year-old female, presented to the hospital with significant pyuria. The patient was started on broad-spectrum antibiotics. The patient has had acute on chronic renal dysfunction. The patient's creatinine is much improved, and the patient is being seen as a followup visit for all of the above. The patient was noted to have underlying nephrolithiasis. REVIEW OF SYSTEMS: CONSTITUTIONAL: She is feeling improved since admission. HEENT: No change in vision. No change in hearing. CARDIOVASCULAR: There is no current chest pain or palpitations. PULMONARY: She denies any shortness of breath. GASTROINTESTINAL: She is tolerating a diet. MUSCULOSKELETAL: Complains of weakness. PHYSICAL EXAMINATION: VITAL SIGNS: Blood pressure is 118/62, pulse in the 80s, afebrile. GENERAL: Chronically ill female, lying in bed on the medical floor. HEENT: Head is atraumatic. Pupils are equal, roving to light. Oropharynx is without exudate. Nares clear. NECK: There is no JVP. There is no thyromegaly. No mass. CARDIOVASCULAR: Regular. There is no S3 or S4 gallop. LUNGS: Coarse with equal thoracic movement. ABDOMEN: Soft, nondistended, and nontender. EXTREMITIES: Reveal no clubbing, no cyanosis. NEUROLOGICAL: She is awake. She is alert. LABORATORY DATA: Sodium 141, potassium 3.4, BUN 28, creatinine 1.7, bicarbonate 35. IMPRESSION: * Acute on chronic renal failure. * Nephrolithiasis. * Diabetes mellitus. * Hypertension. PLAN: The patient's creatinine continues to slowly improve. Female who has had a prolonged hospital course. The patient initially presented and found to have underlying acute renal failure. The patient's creatinine continues to slowly improve. The patient with underlying respiratory distress. She was found to have underlying typhus and remains on the antibiotics and the patient is being seen as a followup visit for all of the above. TID: [id number] RECEIPT: [id number]
[2024-08-28] VITALS (8 sets, daily range): BP systolic 117–140; BP diastolic 52–72; PULSE 81–92; RESP 17–18; TEMP 97.5–98; O2SAT 94–97
[2024-08-28 07:21] LABS: MAGNESIUM 1.8 mg/dL (1.80-2.40); POTASSIUM 3.6 mmol/L (3.5-5.1)
--- NOTE | 2024-08-28 12:17 | PN ---
[facility] PROGRESS NOTE Date of Service: August 28, 2024 Time of Service: 12:16 SUBJECTIVE: [ PATIENT IS 63 YEARS OLD FEMALE WITH A PAST MEDICAL HISTORY OF HYPERTENSION, FLU, CATARACT, CHOLECYSTECTOMY, HYSTERECTOMY, WHO CAME TO EMERGENCY DEPARTMENT WITH A COMPLAINT OF DECREASED APPETITE, FEVER, GENERALIZED BODY WEAKNESS. PATIENT STATED THAT SHE WENT TO HER PCP AFTER SHE WAS DIAGNOSED WITH INFLUENZA ABOUT A WEEK AGO, WHERE SHE COMPLAINED ABOUT ABOVE-STATED COMPLAINTS AND SHE WAS SENT TO EMERGENCY DEPARTMENT FOR FURTHER EVALUATION/RECOMMENDATION. PATIENT DENIES ANY CHEST PAIN, NAUSEA, VOMITING, SHORTNESS OF BREATHS OR ANY OTHER SYMPTOMS OTHER THAN STATED ABOVE. ] MOST RECENT VITAL SIGNS TEMPERATURE 97.9 ON ADMISSION IN ER WAS 102.9, PULSE 84 RESPIRATION 22 BLOOD PRESSURE 90/50 PATIENT IS ON ROOM AIR SATTING 93%. UA POSITIVE FOR LEUKOCYTOSIS. WBC 9.0 HEMATOCRIT 40.2 HEMOGLOBIN 13.9 PLATELETS 82. SODIUM 133 POTASSIUM 3.3 CO2 29 BUN 14 CREATININE 1.2 GFR 5 GLUCOS 106 LACTIC 1.8 CALCIUM 7.8 TROPONIN NEGATIVE X1. CHEST X-RAY SHOWED CLEAR LUNGS CARDIOMEGALY. 2D ECHO IS PENDING. PATIENT WILL BE ADMITTED UNDER HOSPITALIST CARE FOR FURTHER EVALUATION/RECOMMENDATION. PATIENT WAS PLACED ON VANCOMYCIN AND ZOSYN FOR THE SEPSIS. A.M. LABS. 08/17 patient was seen by nurse practitioner and physician during rounding in room 304. Urinalysis was positive on admission. Blood culture and urine cul ture pending at this moment. Patient continues to be on Zosyn and vancomycin. We will increase fluids from 100 mL/hour 220 mL/hour. Patient's A1c is 5.8. We will discontinue insulin sliding scale per protocol. Also patient's blood pressure has been on lower side. We will discontinue losartan. Home medication reconciled. 2D echo showed EF 55 to 60% normal diastolic function no pericardial effusion. Potassium today is 2.8. Patient received already two 20 mEq through IV potassium. Patient will also receive 40 mEq of potassium as well. We will continue to monitor patient in the meantime. A.m. labs. 08/18 at bedside, she had a low-grade fever overnight, this morning she is tachycardic. Urine and blood cultures have been no growth to date, platelets have decreased from 52 down to 37, AST mildly elevated, creatinine increased from 1.2 up to 1.5. Given that she is still having fevers on vancomycin and Zosyn she may have an atypical infection, we will order a murine typhus panel and start doxycycline. Discontinue vancomycin at this time. Infectious workup has been negative this time we will assess for possible underlying PE or DIC, we will order D-dimer, V/Q scan, fibrinogen, PT and PTT and follow up 08/19 patient seen at bedside, yesterday her blood pressure started to drop despite being on fluids and broad-spectrum antibiotics. She was also tachycardic. D-dimer was elevated as her platelets were low and she was assessed for DIC however fibrinogen was normal. A V/Q scan was done that did not show evidence of pulmonary embolism. She was moved to the ICU and started on pressor support. Creatinine increased from 1.5 up to 2.2 however she has been adequately perfused and she has not been receiving any nephrotoxic medications, bladder scan was ordered showing greater than 500 cc within the bladder concerning for postobstructive uropathy. Hobbs catheter was placed and approximately 800 cc drained immediately. She has swelling and bruising to the left upper extremity where the midline was placed, we will order a venous Doppler to rule out DVT. 08/20 patient is seen and examined, power chart reviewed, vital signs, laboratory tests and imaging tests reviewed. Discussed with the RN, patient off Levophed since earlier this morning. She is awake, following commands, alert oriented x3. Patient noted to have elevated D-dimer and thrombocytopenia, concern for DIC was raised, however fibrinogen was normal. A V/Q scan was negative for PE. The patient was upgraded to the ICU as the patient was getting tachycardic, with a hypotension. Patient had a maximum temperature 102.9 08/16/2024. Patient noted to have worsening renal function with a creatinine of 2.2 as of yesterday, bladder scan was done, showing greater than 500 cc of urine concerning for possible obstructive uropathy, Hobbs catheter inserted, proximally 800 cc was drained immediately. Today still elevated at 2.4, bicarbonate of 23. Patient is also noted to have some swollen and present to left upper extremity we will midline was placed, a venous Doppler of left upper extremity was done, no evidence of DVT. Doppler of both lower extremities also negative for DVT. Urine culture negative, blood culture negative. Patient had loose stools yesterday. at bedside. 08/21 remains hemodynamically stable, BP 109/52, afebrile, saturating normal on room air. During my visit the patient is sitting comfortable in the chair, eating lunch, Laboratory data, WBC 9.2, hemoglobin 10.9, hematocrit 31.6, platelet count of 94 (discussed with the patient. She has not been told about low platelet count in the past). Repeat urine culture 08/19/2024 no growth. Patient evaluated by ID, patient is here with a UTI, had: Papular rash, recent viral influenza infection treated as an outpatient, continue doxycycline, contin ue IV Zosyn, started on Tamiflu 75 mg p.o. b.i.d.. Obtain routine mountain and spotted fever IgG and IgM serology. Results of stool studies Patient noted to have thrombocytopenia, we will request Hematology consult. Patient is still looks mildly edematous, puffiness still the below both eyes, she is on Bumex 1 mg IV b.i.d., Hobbs catheter in place, we will continue with daily weight, strict monitoring of intake and output. Doppler of the legs negative for DVT. 08/22 patient is seen and examined at bedside, downgraded from the PCU to the medical floor, remains alert oriented x3, getting IV antibiotics, admitted 2-3 loose stools yesterday. Today blood pressure 135/59, afebrile, saturating normal on room air, denies nausea, no vomiting, no abdominal discomfort, she is still feels swollen. Currently on Bumex 1 mg IV b.i.d.. Hemoglobin 10.0, hematocrit 29.0, platelet count improving to 128 today. Creatinine worse at 2.8. Patient will remain admitted to the medical floor Continue the patient on antibiotics, continue to follow ID input and recommendation. Continue Bumex 1 mg IV b.i.d. Renal ultrasound requested Nephrology consultation requested as well Follow mountain and spotted fever IgG and IgM serology Hematology input noted and appreciated, start the patient on folic acid 1 mg p.o. daily and vitamin B12 1000 mcg p.o. daily. There is rule out phenomena, we will ask for SPEP, UPEP and free light chain, if there is monoclonal protein we will do bone marrow biopsy. WBC increased number of large granular lymphocyte which could be due to leukemia or chronic disease or atypical infection. We will ask for flow cytometry of peripheral blood, if flow cytometry positive this patient will need bone marrow biopsy. 08/23 patient is seen and examined at bedside, case discussed with the RN, patient is sitting comfortable in the chair, she remains alert oriented x3, both upper extremities looks less swollen compared to yesterday. Petechia rash both upper extremities. BP 127/64, afebrile, she is saturating normal on room air. Platelet count has normalized, today 149. Creatinine slightly better today at 2.6. CT of the abdomen reviewed, mild left hydronephrosis with multiple left renal pelvic stones with the largest measuring 3 x 2.5 cm, small bilateral pleural effusion, pancreas is enlarged with the peripancreatic fat stranding suggestive of acute pancreatitis in the proper clinical setting. The patient remains admitted to the medical floor Zosyn was changed to cefepime IV. Continue to follow ID input and recommend ation Follow mountain and spotted fever IgG and IgM serology GI panel 08/20/2024 is negative Continue Bumex 1 mg IV b.i.d.. Nephrology consulted, continue to follow input and recommendation Patient with a left-sided hydronephrosis, we will request Urology consult Continue to follow Hematology input and recommendation whether the patient will require bone marrow biopsy, continue to monitor platelet count Peripancreatic fat stranding suggestive of acute pancreatitis, we will order amylase and lipase level. 08/24 patient is seen and examined at bedside, overall the patient feels and looks better, less edematous, improvement on upper extremity rash noted. Had two BMs yesterday, but denies abdominal discomfort, tolerating diet. Patient was having mild hand tremor yesterday. BP 135/69, afebrile, saturating normal on room air. CBC with hemoglobin at 9.8, hematocrit 29.1, WBC 6.9, platelet count of 177. Sodium 143, potassium 3.6, BUN of 32, creatinine improving at 2.2. Magnesium 1.9. Lipase slightly better today at 80. Results of free light chains ratio within normal. Serology tests for spotted fever positive. The patient on cefepime and doxycycline IV. CT cervical spine no fracture, degenerative joint disease cervical spine spondylosis The patient remains admitted to the medical floor Continue the patient on cefepime and doxycycline IV, continue to follow ID input and recommendation. GI panel 08/20/2024 is negative Continue Bumex 1 mg IV b.i.d.. Creatinine improving today at 2.2, discussed with the cake washer, input noted and appreciated. Patient with a left-sided hydronephrosis, Urology consultation requested, case discussed, input noted and appreciated, outpatient follow up Continue to follow Hematology input and recommendation in terms of need for bone marrow biopsy during this admission. Peripancreatic fat stranding suggestive of acute pancreatitis, lipase slightly elevated at 80, continue to follow level in a.m.. 08/25 patient remains admitted to the medical floor, blood pressure 127/63, afebrile, she is saturating normal on room air. Laboratory data with a hemoglobin 10.4, hematocrit 30.6, white blood cell count of 7.0, platelet count of 209. Sodium level 142, potassium 3.5, BUN of 28, creatinine continue to improve, today at 2.0. Initial creatinine upon admission 1.2 liver enzymes mildly elevated, with an AST of 84, ALT of 88, lipase of 80. Patient remains on cefepime 1 g IV daily, doxycycline IV q.12 hours, ID input noted and appreciated, possible spotted fever. Patient on Tamiflu 75 mg p.o. daily, mildly elevated liver enzymes, last dose will be today. Continue to monitor amylase and lipase level in a.m. during my visit the patient is alert and oriented x3, she feels and looks weak. Swollen to both upper extremity resolved, still noted with a mild petechial rash. Swollen to both lower extremities improving, still with mild petechial rash. WE WILL CONSULT CASE MANAGEMENT THE PATIENT COMPLAINING OF GENERALIZED WEAKNESS. MAY BENEFIT FROM REHAB. 08/26 patient initially admitted to the ICU secondary to septic shock. Patient with outpatient influenza positive, completed five days of Tamiflu. patient is seen and examined, comfortably in bed, alert oriented x3 remains hemodynamically stable, afebrile, saturating normal on room air. Swollen to both lower extremities resolved, petechial rash improving to both upper extremities. Swollen to both lower extremities improving, petechial rash to both lower extremities also improving. Creatinine level slowly improving 1.9. Patient it is needed on Tamiflu 75 mg p.o. daily while in the hospital, mildly elevated li xavi enzymes, last dose 08/25/2024, liver enzymes today slowly improving. Due to swell to both upper and lower extremities patient started on Bumex 1 mg IV b.i.d., developed worsening renal function, now improving, CT of the abdomen showing mild left hydronephrosis with renal stone, the patient has seen Urology Dr. Mcdermott as an outpatient, who evaluated the patient during this admission, recommended to follow up as an outpatient upon discharge. CT abdomen also with a mild peripancreatic fat stranding, lipase level minimally elevated, slowly improving. Overall the patient condition continues to improved, serology test for spotted fever positive. The patient on doxycycline IV, ID on the case. Patient with generalized weakness, PT consulted, case management to evaluate for discharge plan to rehab. 08/27 patient seen at bedside, no acute events overnight. Patient with no complaints today, pending placement to rehab, we will follow up with case man agezachary. 08/28 patient seen at bedside, no acute events overnight. Patient with no complaints today, pending placement to rehab, we will follow up with case management. She has been hemodynamically stable, lab holiday today REVIEW OF SYSTEMS 12 point ROS negative unless noted in HPI PHYSICAL EXAM GENERAL APPEARANCE: The patient is awake, alert, and oriented, in no acute cardiopulmonary distress. NEUROLOGICAL: Cranial nerves II-XII grossly intact. Motor is 5/5 in bilateral upper and lower extremities proximal to distal. No sensory deficits. HEENT: Face is symmetric. Pupils are equal and reactive. Extraocular movements are intact. NECK: Supple. No JVD. No thyromegaly. No submental, submandibular, pre-/posta uricular, occipital or supraclavicular lymphadenopathy. CHEST: Normal chest expansion. No Telemetry. LUNGS: Absence of any rales, rhonchi or any wheezing. CARDIOVASCULAR: Regular. S1 and S2 normal. No appreciable rubs, murmurs or gallops. ABDOMEN: Soft, nontender, and nondistended. There is no rebound, voluntary guarding, or rigidity. : Deferred. No Hobbs. EXTREMITIES: Swollen to both upper extremities resolved. Improvement in bilateral lower extremity swelling. SKIN: Improving petechial rash both upper and lower extremity Vital Signs (last 8hr) Date Time Temp Pulse Resp B/P (MAP) Pulse Ox O2 Delivery O2 Flow Rate FiO2 08/28/24 08:00 98.1 85 17 120/67 97 Room Air LABS: Laboratory: Test 08/28/24 07:08 08/27/24 04:12 Range/Units Potassium Level 3.6 3.5-5.1 mmol/L Magnesium Level 1.80 1.80-2.40 mg/dL White Blood Count 7.7 4.8-10.8 K/uL Red Blood Count 3.92 L 4.00-5.50 MIL/uL Hemoglobin 11.0 L 12.0-16.0 g/dL Hematocrit 32.8 L 36-48 % Mean Corpuscular Volume 83.7 79-99 fL Mean Corpuscular Hemoglobin 28.1 27.0-33.0 pg Mean Corpuscular Hemoglobin Concent 33.5 32.0-36.0 g/dL Red Cell Distribution Width 15.5 11.0-15.5 % Platelet Count 243 130-400 K/uL Mean Platelet Volume 9.8 7.5-10.5 fL Nucleated Red Blood Cells 0.0 0.0-0.19 % Sodium Level 141 136-145 mmol/L Chloride Level 100 L 101-111 mmol/L Carbon Dioxide Level 35 H 21-32 mmol/L Blood Urea Nitrogen 28 H 7-18 mg/dL Creatinine 1.7 H 0.5-1.0 mg/dL Glomerular Filtration Rate Calc 33 >90 mL/min Random Glucose 102 70-105 mg/dL Total Calcium 8.5 8.5-10.1 mg/dL Total Bilirubin 0.8 0.2-1.0 mg/dL Aspartate Amino Transf (AST/SGOT) 46 H 10-37 U/L Alanine Aminotransferase (ALT/SGPT) 63 # 12-78 U/L Alkaline Phosphatase 101 50-136 U/L Total Protein 7.7 6.0-8.3 g/dL Albumin 2.3 L 3.5-5.0 g/dL Current Medications Medications (Trade) Dose Ordered Sig/Amy Route PRN Reason Start Time Stop Time Status Last Admin Dose Admin Acetaminophen (TYLenol 325MG TAB) 650 mg Q4H PRN PO MILD PAIN (1-3) 08/16/24 16:30 09/15/24 16:29 Acetaminophen (TYLenol 325MG TAB) 650 mg Q6H PRN PO MILD PAIN (1-3) 08/16/24 16:30 08/17/24 09:03 DC Acetaminophen (TYLenol 325MG TAB) 650 mg Q6H PRN PO TEMPERATURE GREATER THAN 101.5 08/16/24 16:30 09/15/24 16:29 08/22/24 04:15 650 MG Al Hydroxide/Mg Hydroxide (MAALox PLUS 30ML) 30 ml Q6H PRN PO INDIGESTION 08/16/24 16:30 09/15/24 16:29 Albumin Human 50 ml @ 100 mls/hr AD IV 08/19/24 01:30 08/19/24 01:21 DC Bumetanide (Bumex 1mg Tab) 1 mg BID PO 08/26/24 21:00 09/25/24 20:59 08/28/24 09:55 1 MG Bumetanide (Bumex 1mg Vial) 1 mg BID IVP 08/21/24 11:00 08/26/24 12:06 DC 08/26/24 09:57 1 MG Cefepime HCl (MAXipime 1 GM vial) 1 gm Q24H IVPB 08/22/24 18:00 09/01/24 17:59 08/27/24 18:51 1 GM Dextrose (D50w) 50 ml AD PRN IV HYPOGLYCEMIA PROTOCOL 08/16/24 16:30 09/15/24 16:29 Diphenhydramine HCl (BENAdryl INJ) 25 mg Q6H PRN IV SEVERE ITCHING/RASH 08/16/24 16:30 09/15/24 16:29 08/20/24 20:08 25 MG Doxycycline Hyclate 250 ml @ 125 mls/hr Q12H IV 08/18/24 09:00 08/27/24 11:59 DC 08/27/24 09:01 125 MLS/HR Famotidine (Pepcid 20mg Vial) 20 mg HS IV 08/16/24 21:00 08/21/24 21:44 DC 08/21/24 20:52 20 MG Famotidine (Pepcid 20mg Vial) 20 mg HS PRN IV NAUSEA/VOMITING 08/16/24 16:30 08/17/24 09:03 DC Folic Acid (FOLic ACID 1 MG TABLET) 1 mg DAILY PO 08/22/24 12:30 08/22/24 12:25 DC Folic Acid (FOLic ACID 1 MG TABLET) 1 mg DAILY PO 08/22/24 15:00 09/21/24 14:59 08/28/24 09:57 1 MG Glucagon (Glucagon 1mg Kit) 1 mg AD PRN IM HYPOGLYCEMIA PROTOCOL 08/16/24 16:30 09/15/24 16:29 Guaifenesin/ Dextromethorphan (RobiTUSSin DM 200/20MG 10ML) 10 ml Q4H PRN PO COUGH 08/16/24 16:30 09/15/24 16:29 Heparin Sodium (Porcine) (HEParin 5,000 UNIT VIAL) *calculation based on ACTUAL B... AD PRN IV HEPARIN PROTOCOL 08/18/24 16:30 08/19/24 04:54 DC 08/18/24 16:21 6,000 UNIT Heparin Sodium (Porcine) (HEParin 5,000 UNIT VIAL) 5,000 unit BID SQ 08/16/24 21:00 08/18/24 07:05 DC 08/16/24 21:35 5,000 UNIT Heparin Sodium/ Dextrose 250 ml @ 0 mls/hr Q6H IV 08/18/24 16:30 08/19/24 06:01 DC 08/18/24 16:20 13.98 MLS/HR Home Med (Home Medication) (Meloxicam, Submicronized (Vivlodex... DAILY PO 08/18/24 09:00 08/18/24 07:05 DC Hydralazine HCl (APRESOLine 20MG INJ) 10 mg Q6H PRN IV For:SBP above 160;DBP above 90 08/16/24 16:30 09/15/24 16:29 Insulin Human Regular (humuLIN R 100 UNIT/ML 3ML) INSULIN SLIDING SCAL... ACHS SQ 08/16/24 16:30 08/20/24 15:55 DC Ketorolac Tromethamine (toRADol) 15 mg Q8H PRN IV MODERATE PAIN (4-6) 08/16/24 16:30 08/20/24 12:39 DC 08/18/24 19:15 15 MG Lactulose (Constulose 20gm/ 30ml Udcup) 20 gm BID PRN PO CONSTIPATION 08/16/24 16:30 09/15/24 16:29 Losartan Potassium (CozAAR 100MG TAB) 100 mg DAILY PO 08/18/24 09:00 08/17/24 13:09 DC Magnesium Sulfate 50 ml @ 0 mls/hr PROTOCOL IV 08/26/24 11:00 09/25/24 10:59 Magnesium Sulfate 50 ml @ 0 mls/hr PROTOCOL PRN IV other 08/16/24 16:30 08/26/24 10:47 DC 08/26/24 06:55 25 MLS/HR Midodrine (PROAMatine 5 MG TABLET) 5 mg TID PO 08/18/24 13:00 08/19/24 13:02 DC 08/19/24 08:32 5 MG Midodrine (PROAMatine 5 MG TABLET) 10 mg TID PRN PO SBP < 90 08/21/24 22:00 09/18/24 13:29 Midodrine (PROAMatine 5 MG TABLET) 20 mg TID PO 08/19/24 13:30 08/21/24 21:35 DC 08/21/24 08:33 20 MG Nitroglycerin (Nitrostat) 0.4 mg PROTOCOL PRN SL CHEST PAIN 08/16/24 16:30 09/15/24 16:29 Norepinephrine 250 ml @ 0 mls/hr PROTOCOL IV 08/19/24 03:00 08/22/24 07:20 DC 08/19/24 15:55 15.31 MLS/HR Ondansetron HCl (zoFRAN 4MG INJ) 4 mg Q6H PRN IV NAUSEA/VOMITING 08/16/24 16:30 09/15/24 16:29 08/28/24 09:57 4 MG Oseltamivir Phosphate (Tamiflu) 75 mg Q24H PO 08/20/24 21:00 08/25/24 20:59 DC 08/24/24 20:57 75 MG Oxycodone/ Acetaminophen (perCOCET) 1 tab Q6H PRN PO SEVERE PAIN (7-10) 08/16/24 16:30 08/21/24 19:29 DC 08/16/24 23:04 1 TAB Pantoprazole Sodium (PROTonix 40MG TAB) 40 mg DAILY PO 08/22/24 09:00 09/21/24 08:59 08/28/24 09:57 40 MG Piperacillin Sod/ Tazobactam Sod 50 ml @ 12.5 mls/hr Q12H IV 08/21/24 17:00 08/22/24 17:46 DC 08/22/24 04:10 12.5 MLS/HR Piperacillin Sod/ Tazobactam Sod 50 ml @ 12.5 mls/hr ZOSY8 IV 08/16/24 21:00 08/21/24 10:27 DC 08/21/24 05:03 12.5 MLS/HR Potassium Chloride 100 ml @ 100 mls/hr AD PRN IV POTASSIUM PROTOCOL 08/16/24 16:30 09/15/24 16:29 08/17/24 05:28 100 MLS/HR Potassium Chloride (K-Dur 10meq Sr Tab) 10 meq AD PRN PO POTASSIUM PROTOCOL 08/17/24 09:30 09/15/24 16:29 08/27/24 09:01 10 MEQ Potassium Chloride (K-Dur/Klor-Con 20meq) 10 meq AD PRN PO POTASSIUM PROTOCOL 08/16/24 16:30 08/17/24 09:04 DC 08/17/24 08:12 10 MEQ Potassium Chloride (KCl 10% Elixir 20meq/15ml) 10 meq AD PRN PO POTASSIUM PROTOCOL 08/16/24 16:30 09/15/24 16:29 Pregabalin (LYRica 25MG) 50 mg BID PO 08/17/24 21:00 08/21/24 10:27 DC 08/21/24 08:33 50 MG Simethicone (Mylicon) 80 mg Q8H PRN PO GI GAS 08/19/24 21:00 09/18/24 20:59 08/19/24 21:43 80 MG Sodium Chloride 1,000 ml @ 120 mls/hr Q8H20M IV 08/16/24 16:30 08/20/24 12:38 DC 08/20/24 05:26 120 MLS/HR Trazodone HCl (DesyREL/OlepTRO) 100 mg HS PO 08/17/24 21:00 09/16/24 20:59 08/27/24 21:33 100 MG Vancomycin HCl 250 ml @ 125 mls/hr Q24H IV 08/16/24 17:00 08/18/24 08:48 DC 08/17/24 18:11 125 MLS/HR Vancomycin HCl (Vancomycin Protocol) 1 each PROTOCOL PRN IV VANCOMYCIN PROTOCOL 08/16/24 16:30 08/18/24 08:48 DC Vitamin B Complex (Vitamin B-12) 1,000 mcg DAILY PO 08/22/24 12:30 08/22/24 12:25 DC Vitamin B Complex (Vitamin B-12) 1,000 mcg DAILY PO 08/22/24 15:00 09/21/24 14:59 08/28/24 09:57 1,000 MCG Vitamin B Complex/ Vit C/Folic Acid (Nephrovite Tablet) 1 cap DAILY PO 08/23/24 09:00 08/22/24 15:38 DC Zolpidem Tartrate (AmbIEN) 5 mg HS PRN PO INSOMNIA 08/16/24 16:30 08/21/24 21:35 DC DIAGNOSTICS / RADIOLOGY: [ ] ASSESSMENT: ACUTE SEPSIS POA SEPTIC SHOCK GENERALIZED BODY WEAKNESS POA ACUTE KIDNEY INJURY POA URINARY RETENTION POSTOBSTRUCTIVE UROPATHY ACUTE DEHYDRATION POA ACUTE COMPLICATED CYSTITIS POA ELECTROLYTE IMBALANCE HYPONATREMIA NA 133, HYPOKALEMIA 3.3 HYPOCALCEMIA 7.8 POA UNCONTROLLED HYPERTENSION POA THROMBOCYTOPENIA POA HISTORY OF CATARACT HISTORY OF CHOLECYSTECTOMY HISTORY OF HYSTERECTOMY HISTORY OF KIDNEY STONES HISTORY OF HYDRONEPHROSIS RECENT INFLUENZA INFECTION THROMBOCYTOPENIA SEROLOGY TESTS POSITIVE FOR SPOTTED FEVER MILD LEFT HYDRONEPHROSIS MULTIPLE LEFT RENAL PELVIC STONES WITH THE LARGEST MEASURING 3 X 2.5 CM SMALL BILATERAL PLEURAL EFFUSION PANCREAS IS ENLARGED WITH THE PERIPANCREATIC FAT SUGGESTIVE OF ACUTE PANCREATITIS CERVICAL SPINE SPONDYLOSIS GENERALIZED WEAKNESS PLAN: The patient remains admitted to the medical floor Continue the patient on cefepime and doxycycline IV, continue to follow ID input and recommendation. GI panel 08/20/2024 is negative Continue Bumex 1 mg IV b.i.d.. Creatinine improving today at 2.0, discussed with the cake washer, input noted and appreciated. Patient with a left-sided hydronephrosis, Urology consultation requested, case discussed, input noted and appreciated, outpatient follow up Continue to follow Hematology input and recommendation in terms of need for bone marrow biopsy during this admission. Peripancreatic fat stranding suggestive of acute pancreatitis, lipase slightly elevated at 80, continue to follow level in a.m.. Patient on Tamiflu 75 mg p.o. daily, mildly elevated liver enzymes, last dose will be today, continue to monitor. Consultation with case management requested, patient may benefit from inpatient rehab. NEURO: MINIMIZE CENTRAL ACTING MEDICATIONS POSSIBLE. FALL PRECAUTIONS. WELL LIGHTED ROOM THROUGH THE DAY AND MINIMIZE INTERRUPTIONS THROUGH THE NIGHT TO PREVENT ACUTE DELIRIUM. PULMONARY: SUPPLEMENTAL 02 NEEDED BIPAP NECESSARY, FOR RESPIRATORY DISTRESS TITRATE FIO2 TO KEEP SPO2 > OR = 90% DUONEBS AND CPT NEEDED IS HOURLY WHILE AWAKE FOR PULMONARY HYGIENE PRN OUT OF BED TO CHAIR TOLERATED MAINTAIN ASPIRATION PRECAUTIONS AT ALL TIMES CARDIOVASCULAR: FOLLOW HEMODYNAMICS. VITAL SIGNS PER FACILITY PROTOCOL GI & NUTRITION: CONTINUE NUTRITIONAL SUPPORT ASPIRATIONS PRECAUTIONS PROKINETIC AGENTS AND LAXATIVES NEEDED KIDNEYS & ELECTROLYTES: STRICT MONITORING OF INTAKE AND OUTPUT DAILY WEIGHTS AVOID NEPHROTOXIC AGENTS MONITOR ELECTROLYTES AND REPLACE NEEDED GOAL URINE OUTPUT OF 30ML/HR OR 0.5ML/KG/HR MEDICATIONS TO BE DOSED ACCORDING TO RENAL FUNCTION. AVOID CONTRAST IF POSSIBLE ENDOCRINE: MAINTAIN BLOOD GLUCOSE BETWEEN 100-180 AT ALL TIMES. INSULIN SLIDING SCALE FOR BLOOD GLUCOSE MANAGEMENT HYPOGLYCEMIA AND HYPERGLYCEMIA PROTOCOL IN PLACE INFECTIOUS DISEASE: TREND TEMPERATURE, WBC AND PROCALCITONIN LEVEL FOLLOW CULTURES, DEESCALATE ANTIBIOTICS SOON POSSIBLE. PANCULTURE IF NEW ONSET FEVER HEMATOLOGY & COAGULATION: MONITOR H&H. KEEP HGB > 7 TRANSFUSE 1 UNIT OF PRBC FOR HGB < 7 TRANSFUSE 1 PACK OF PLATELETS OF PLATELETS < 20, 000 WATCH FOR ANY SIGNS AND SYMPTOMS OF BLEEDING SKIN: PRESSURE ULCER PREVENTION PER FACILITY PROTOCOL SPECIALTY MATTRESS NEEDED ORTHO/REHAB CONTINUE PT/OT PRN: MEDICATIONS TYLENOL 650 MG PO EVERY 4 HRS FOR FEVER ZOFRAN 4 MG IV EVERY 6 HRS FOR N/V HYDRALAZINE 5 MG IV EVERY 4 HRS SYSTOLIC PRESSURE > 160 BOWEL REGIMENT: LACTULOSE 20 GM PO BID PRN CONSTIPATION SUPPORTIVE MEASURES: CONTINUE GI AND DVT PROPHYLAXIS DISPOSITION: PENDING IMPROVEMENT IN CLINICAL CONDITION ALL QUESTIONS ANSWERED TIME SPENT: > 35 MIN CARY GARVIN MD August 28, 2024 12:17
[2024-08-28] MEDS: PROCHLORPERAZINE 10MG/2ML INJ IV PRN (17:01)
--- NOTE | 2024-08-28 23:44 | PN ---
NEPHROLOGY NOTE SUBJECTIVE: This patient has sepsis, UTI, treated for typhus with no fever, chills, or rigors. No cough, expectoration or hemoptysis. No associated findings. No other aggravating or alleviating factors. The patient is generally weak. The patient has some nausea present. All the other systemic review is unchanged. PHYSICAL EXAMINATION: GENERAL: Pale, no other distress or deformities. Lying in bed. VITAL SIGNS: Blood pressure is 120/67, pulse 85, respiratory rate is 17. HEENT: Head is atraumatic, normocephalic. Pupils are round and reactive to light. Sclerae are anicteric. Conjunctivae not pale. Oral mucosa is not dry. NECK: Supple. No masses or bruits. Thyroid is palpable. Neck has no bruits. CHEST: Shows equal thoracic percussion note being resonant in all areas. HEART: Regular rhythm. No rub. No S3, S4. No parasternal heave. LABORATORY DATA: We have reviewed the available labs in detail with creatinine of 1.7. The patient has labs and old records reviewed. PROBLEMS: * Acute renal failure. * Sepsis. * Suspected spotted fever. * The patient has hydronephrosis on the left side. * Previous urinary retention. * UTI. * Electrolyte problems. * Previous history of kidney stones. PLAN: The patient has been treated with doxycycline before. The patient will follow up with the urologist also. Continues on gentle diuresis. The patient is treated for influenza also. Continued monitoring of renal function, electrolyte, urine output and overall status. Nonsteroidal drugs to be avoided and we will continue to follow up. Condition is guarded and seen several times. Thank you very much for this patient. TID: [id number] RECEIPT: [id number]
--- NOTE | 2024-08-28 23:49 | PN ---
INFECTIOUS DISEASE PROGRESS NOTE Date of Service: August 28, 2024 SUBJECTIVE: Patient was downgraded to medical surgical unit and was seen and examined at bedside in room 304. Patient is awake, alert and oriented. Patient is afebrile, temperature is 97.9. Patient continues with nausea and vomiting. The maculopapular body rash is clearing. Case management working on SNF placement. Continues on cefepime and doxycycline. PHYSICAL EXAM EYES: Anicteric. Pupils equal and reactive. HENT: No oral thrush seen, moist Oral mucosa. NECK: Supple, no JVD or thyromegaly. LUNGS: Good air entry. No rales, no rhonchi. Nonproductive cough. CARDIOVASCULAR: S1, S2 regular. No murmur heard. ABDOMEN: Soft, non tender, bowel sounds present, no organomegaly. CENTRAL NERVOUS SYSTEM: Awake, alert, oriented x 3. SKIN: No rashes, no swelling. Maculopapular rash. LYMPHATICS: No peripheral lymphadenopathy. MUSCULOSKELETAL: No joint swelling, erythema or tenderness. EXTREMITIES: No cyanosis or clubbing. BACK: No deformity, no pressure ulcer. GENITOURINARY: No dysuria or hematuria. Vital Sign (Last 12 Hours) 08/28/24 08/28/24 08/28/24 08/28/24 12:00 16:00 21:03 23:39 Temp 97.9 97.9 98.1 97.5 Pulse 81 83 82 92 Resp 18 17 18 18 B/P (MAP) 123/52 124/72 137/65 131/58 Pulse Ox 94 97 94 93 O2 Delivery Room Air Room Air Room Air Room Air Intake & Output (last 24hrs) 08/27/24 08/27/24 08/28/24 15:00 23:00 07:00 Intake Total 550 ml 490.0 ml Output Total 700 ml 1400 ml 1400 ml Balance -150 ml -910.0 ml -1400 ml LABS: Laboratory: Test 08/28/24 07:08 08/27/24 04:12 Range/Units Potassium Level 3.6 3.5-5.1 mmol/L Magnesium Level 1.80 1.80-2.40 mg/dL White Blood Count 7.7 4.8-10.8 K/uL Red Blood Count 3.92 L 4.00-5.50 MIL/uL Hemoglobin 11.0 L 12.0-16.0 g/dL Hematocrit 32.8 L 36-48 % Mean Corpuscular Volume 83.7 79-99 fL Mean Corpuscular Hemoglobin 28.1 27.0-33.0 pg Mean Corpuscular Hemoglobin Concent 33.5 32.0-36.0 g/dL Red Cell Distribution Width 15.5 11.0-15.5 % Platelet Count 243 130-400 K/uL Mean Platelet Volume 9.8 7.5-10.5 fL Nucleated Red Blood Cells 0.0 0.0-0.19 % Sodium Level 141 136-145 mmol/L Chloride Level 100 L 101-111 mmol/L Carbon Dioxide Level 35 H 21-32 mmol/L Blood Urea Nitrogen 28 H 7-18 mg/dL Creatinine 1.7 H 0.5-1.0 mg/dL Glomerular Filtration Rate Calc 33 >90 mL/min Random Glucose 102 70-105 mg/dL Total Calcium 8.5 8.5-10.1 mg/dL Total Bilirubin 0.8 0.2-1.0 mg/dL Aspartate Amino Transf (AST/SGOT) 46 H 10-37 U/L Alanine Aminotransferase (ALT/SGPT) 63 # 12-78 U/L Alkaline Phosphatase 101 50-136 U/L Total Protein 7.7 6.0-8.3 g/dL Albumin 2.3 L 3.5-5.0 g/dL ASSESSMENT: Possible spotted fever. Possible typhus. Septic shock. Urinary tract infection. Maculopapular rash. Recent viral Influenza infection as outpatient. Acute renal failure. Fibromyalgia. Hypertension. Nausea and vomiting. PLAN: Continue cefepime. Continue doxycycline. Tamiflu completed. Continue GI prophylaxis. Continue antiemetics. [facility] Supervisor following patient Nephrology following patient.. Avoid nephrotoxic medications. Case management working on SNF placement This case was reviewed and discussed with my supervising physician and the above assessment and plan was formulated and agreed upon. ATTESTATION BY PHYSICIAN I have seen and examined the patient. I reviewed the documentation, medical deci grazyna making, and treatment plan as noted by the mid-level provider above. I agree with the findings and plan of care. CRISELDA JACQUES MD, MIRTA L [facility] August 28, 2024 23:49
[2024-08-29 04:44] VITALS: BP 106/58; PULSE 92; RESP 17; TEMP 98
[2024-08-29 05:04] LABS: HEMATOCRIT 37.1 % (36-48); MEAN CORPUSCULAR HEMOGLOBIN 28.1 pg (27.0-33.0); MEAN CORPUSCULAR HGB CONC 33.4 g/dL (32.0-36.0); MEAN CORPUSCULAR VOLUME 83.9 fL (79-99); RED BLOOD CELL COUNT(AUTO) 4.42 MIL/uL (4.00-5.50); RED CELL DISTRIBUTION WIDTH 15.9 % (11.0-15.5); WHITE BLOOD COUNT (AUTO) 7.4 K/uL (4.8-10.8)
[2024-08-29 05:25] LABS: ALBUMIN 2.6 g/dL (3.5-5.0); BILIRUBIN,TOTAL 0.9 mg/dL (0.2-1.0); MAGNESIUM 1.8 mg/dL (1.80-2.40); POTASSIUM 3.4 mmol/L (3.5-5.1); TOTAL PROTEIN, SERUM 8.4 g/dL (6.0-8.3)
[2024-08-29] MEDS: PoTASSium chl 10% ELIXIR 20MEQ 20 MEQ/15 ML UDCUP PO PRN (06:28)
[2024-08-29] MEDS: MAGNESIUM 2GM PREMIX 50ML 50 ML IV SCH (07:45)
[2024-08-29 07:50] VITALS: BP 108/65; PULSE 91; RESP 19; TEMP 97.8
[2024-08-29 08:37] VITALS: O2SAT 97
[2024-08-29 12:00] VITALS: BP 116/67; PULSE 91; RESP 19; TEMP 97.8
--- NOTE | 2024-08-29 15:01 | PN ---
INFECTIOUS DISEASE PROGRESS NOTE Date of Service: August 29, 2024 SUBJECTIVE: Patient was downgraded to medical surgical unit and was seen and examined at bedside in room 304. Patient is awake, alert and oriented x 3. Patient has been approved to [facility] and being discharged today. Will discontinue cefepime and doxycycline. We will remove the Hobbs catheter and the midline. Patient is afebrile, temperature is 97.9. No antibiotics needed on discharge. PHYSICAL EXAM EYES: Anicteric. Pupils equal and reactive. HENT: No oral thrush seen, moist Oral mucosa. NECK: Supple, no JVD or thyromegaly. LUNGS: Good air entry. No rales, no rhonchi. Nonproductive cough, resolved. CARDIOVASCULAR: S1, S2 regular. No murmur heard. ABDOMEN: Soft, non tender, bowel sounds present, no organomegaly. CENTRAL NERVOUS SYSTEM: Awake, alert, oriented x 3. SKIN: No rashes, no swelling. Maculopapular rash, clearing. LYMPHATICS: No peripheral lymphadenopathy. MUSCULOSKELETAL: No joint swelling, erythema or tenderness. EXTREMITIES: No cyanosis or clubbing. BACK: No deformity, no pressure ulcer. GENITOURINARY: No dysuria or hematuria. Vital Sign (Last 12 Hours) 08/29/24 08/29/24 08/29/24 08/29/24 04:44 07:50 08:37 12:00 Temp 98.1 97.9 97.9 Pulse 92 91 91 Resp 17 19 19 B/P (MAP) 106/58 108/65 116/67 Pulse Ox 93 97 97 90 O2 Delivery Room Air Room Air Room Air* Room Air O2 Flow Rate 0 FiO2 21 21 Intake & Output (last 24hrs) 08/28/24 08/28/24 08/29/24 15:00 23:00 07:00 Intake Total 680.0 ml Output Total 1650 ml 700 ml Balance -970.0 ml -700 ml LABS: Laboratory: Test 08/29/24 04:39 Range/Units White Blood Count 7.4 4.8-10.8 K/uL Red Blood Count 4.42 4.00-5.50 MIL/uL Hemoglobin 12.4 12.0-16.0 g/dL Hematocrit 37.1 36-48 % Mean Corpuscular Volume 83.9 79-99 fL Mean Corpuscular Hemoglobin 28.1 27.0-33.0 pg Mean Corpuscular Hemoglobin Concent 33.4 32.0-36.0 g/dL Red Cell Distribution Width 15.9 H 11.0-15.5 % Platelet Count 312 # 130-400 K/uL Mean Platelet Volume 10.4 7.5-10.5 fL Nucleated Red Blood Cells 0.0 0.0-0.19 % Sodium Level 136 136-145 mmol/L Potassium Level 3.4 L 3.5-5.1 mmol/L Chloride Level 95 L 101-111 mmol/L Carbon Dioxide Level 34 H 21-32 mmol/L Blood Urea Nitrogen 36 H 7-18 mg/dL Creatinine 2.0 H 0.5-1.0 mg/dL Glomerular Filtration Rate Calc 27 >90 mL/min Random Glucose 124 H 70-105 mg/dL Total Calcium 8.9 8.5-10.1 mg/dL Magnesium Level 1.80 1.80-2.40 mg/dL Total Bilirubin 0.9 0.2-1.0 mg/dL Aspartate Amino Transf (AST/SGOT) 30 10-37 U/L Alanine Aminotransferase (ALT/SGPT) 42 12-78 U/L Alkaline Phosphatase 117 50-136 U/L Total Protein 8.4 H 6.0-8.3 g/dL Albumin 2.6 L 3.5-5.0 g/dL ASSESSMENT: Possible spotted fever. Possible typhus. Septic shock. Urinary tract infection. Maculopapular rash. Recent viral Influenza infection as outpatient. Acute renal failure. Fibromyalgia. Hypertension. Nausea and vomiting, resolved. PLAN: Discontinue cefepime. Discontinue doxycycline. Discontinue Hobbs catheter. Remove midline. Tamiflu completed. Patient has been approved to [facility]. No antibiotics needed on discharge. This case was reviewed and discussed with my supervising physician and the above assessment and plan was formulated and agreed upon. ATTESTATION BY PHYSICIAN I have seen and examined the patient. I reviewed the documentation, medical decision making, and treatment plan as noted by the mid-level provider above. I agree with the findings and plan of care. CRISELDA JACQUES MD, MIRTA L [facility] August 29, 2024 15:01
--- NOTE | 2024-08-29 15:29 | PN ---
NEPHROLOGY PROGRESS NOTE Date/Time Patient Seen: August 29, 2024 SUBJECTIVE: This is a 63-year-old female with a past medical history of hypertension, cataract, recent influenza. She presented to emergency room with complaints of decreased appetite, fever, generalized body weakness. She has been in the hospital for several days She continues on antibiotics, Tamiflu and Bumex. Blood cultures has been negative CT of the abdomen and pelvis was noted. She was noted to have elevated BUN/creatinine We have been consulted for renal failure. Renal function and electrolytes are stable. Continues on diuretics Case management coordinating LTAC placement She was seen in the medical floor, in no acute distress. No family at the bedside Prognosis remains guarded REVIEW OF SYSTEMS: GENERAL: Positive for generalized weakness and edema NEUROLOGIC: Negative for any blurry vision, blind spots, double vision, facial asymmetry, dysphagia, dysarthria, hemiparesis, hemisensory deficits, vertigo, ataxia. HEENT: Negative for any head trauma, neck trauma, neck stiffness, photophobia, phonophobia, sinusitis, rhinitis. CARDIAC: Negative for any chest pain, dyspnea on exertion, paroxysmal nocturnal dyspnea, peripheral edema. PULMONARY: Negative for any shortness of breath, wheezing, COPD, or TB exposure. GASTROINTESTINAL: Negative for any abdominal pain, nausea, vomiting, bright red blood per rectum, melena. GENITOURINARY: Negative for any dysuria, hematuria, incontinence. INTEGUMENTARY: Negative for any rashes, cuts, insect bites. RHEUMATOLOGIC: Negative for any joint pains, photosensitive rashes, history of vasculitis or kidney problems. HEMATOLOGIC: Negative for any abnormal bruising, frequent infections or bleeding. Vital Signs (last 8hr) Date Time Temp Pulse Resp B/P (MAP) Pulse Ox O2 Delivery O2 Flow Rate FiO2 08/29/24 12:00 97.9 91 19 116/67 90 Room Air 08/29/24 08:37 97 Room Air* 0 21 08/29/24 07:50 97.9 91 19 108/65 97 Room Air 21 PHYSICAL EXAM: GENERAL: Alert and oriented x 3. No acute distress. Well-nourished. EYES: EOMI. Anicteric. HENT: Moist mucous membranes. No scleral icterus. No cervical lymphadenopathy. LUNGS: Clear to auscultation bilaterally. No accessory muscle use. CARDIOVASCULAR: Regular rate and rhythm. No murmur. No JVD. ABDOMEN: Soft, non-tender and non-distended. No palpable masses. EXTREMITIES: 2+ edema. Non-tender. SKIN: No rashes or lesions. Warm. NEUROLOGIC: No focal neurological deficits. CN II-XII grossly intact, but not individually tested. PSYCHIATRIC: Cooperative. Appropriate mood and affect. Current Medications Medications (Trade) Dose Ordered Sig/Amy Route Start Time Stop Time Status Last Admin Dose Admin Albumin Human 50 ml @ 100 mls/hr AD IV 08/19/24 01:30 08/19/24 01:21 DC Bumetanide (Bumex 1mg Tab) 1 mg BID PO 08/26/24 21:00 09/25/24 20:59 08/29/24 08:32 1 MG Bumetanide (Bumex 1mg Vial) 1 mg BID IVP 08/21/24 11:00 08/26/24 12:06 DC 08/26/24 09:57 1 MG Cefepime HCl (MAXipime 1 GM vial) 1 gm Q24H IVPB 08/22/24 18:00 09/01/24 17:59 08/28/24 17:02 1 GM Doxycycline Hyclate 250 ml @ 125 mls/hr Q12H IV 08/18/24 09:00 08/27/24 11:59 DC 08/27/24 09:01 125 MLS/HR Famotidine (Pepcid 20mg Vial) 20 mg HS IV 08/16/24 21:00 08/21/24 21:44 DC 08/21/24 20:52 20 MG Folic Acid (FOLic ACID 1 MG TABLET) 1 mg DAILY PO 08/22/24 12:30 08/22/24 12:25 DC Folic Acid (FOLic ACID 1 MG TABLET) 1 mg DAILY PO 08/22/24 15:00 09/21/24 14:59 08/29/24 08:32 1 MG Heparin Sodium (Porcine) (HEParin 5,000 UNIT VIAL) 5,000 unit BID SQ 08/16/24 21:00 08/18/24 07:05 DC 08/16/24 21:35 5,000 UNIT Heparin Sodium/ Dextrose 250 ml @ 0 mls/hr Q6H IV 08/18/24 16:30 08/19/24 06:01 DC 08/18/24 16:20 13.98 MLS/HR Home Med (Home Medication) (Meloxicam, Submicronized (Vivlodex... DAILY PO 08/18/24 09:00 08/18/24 07:05 DC Insulin Human Regular (humuLIN R 100 UNIT/ML 3ML) INSULIN SLIDING SCAL... ACHS SQ 08/16/24 16:30 08/20/24 15:55 DC Losartan Potassium (CozAAR 100MG TAB) 100 mg DAILY PO 08/18/24 09:00 08/17/24 13:09 DC Magnesium Sulfate 50 ml @ 0 mls/hr PROTOCOL IV 08/26/24 11:00 09/25/24 10:59 08/29/24 07:45 10 MLS/HR Midodrine (PROAMatine 5 MG TABLET) 5 mg TID PO 08/18/24 13:00 08/19/24 13:02 DC 08/19/24 08:32 5 MG Midodrine (PROAMatine 5 MG TABLET) 20 mg TID PO 08/19/24 13:30 08/21/24 21:35 DC 08/21/24 08:33 20 MG Norepinephrine 250 ml @ 0 mls/hr PROTOCOL IV 08/19/24 03:00 08/22/24 07:20 DC 08/19/24 15:55 15.31 MLS/HR Oseltamivir Phosphate (Tamiflu) 75 mg Q24H PO 08/20/24 21:00 08/25/24 20:59 DC 08/24/24 20:57 75 MG Pantoprazole Sodium (PROTonix 40MG TAB) 40 mg DAILY PO 08/22/24 09:00 09/21/24 08:59 08/29/24 08:32 40 MG Piperacillin Sod/ Tazobactam Sod 50 ml @ 12.5 mls/hr Q12H IV 08/21/24 17:00 08/22/24 17:46 DC 08/22/24 04:10 12.5 MLS/HR Piperacillin Sod/ Tazobactam Sod 50 ml @ 12.5 mls/hr ZOSY8 IV 08/16/24 21:00 08/21/24 10:27 DC 08/21/24 05:03 12.5 MLS/HR Pregabalin (LYRica 25MG) 50 mg BID PO 08/17/24 21:00 08/21/24 10:27 DC 08/21/24 08:33 50 MG Sodium Chloride 1,000 ml @ 120 mls/hr Q8H20M IV 08/16/24 16:30 08/20/24 12:38 DC 08/20/24 05:26 120 MLS/HR Trazodone HCl (DesyREL/OlepTRO) 100 mg HS PO 08/17/24 21:00 09/16/24 20:59 08/28/24 21:13 100 MG Vancomycin HCl 250 ml @ 125 mls/hr Q24H IV 08/16/24 17:00 08/18/24 08:48 DC 08/17/24 18:11 125 MLS/HR Vitamin B Complex (Vitamin B-12) 1,000 mcg DAILY PO 08/22/24 12:30 08/22/24 12:25 DC Vitamin B Complex (Vitamin B-12) 1,000 mcg DAILY PO 08/22/24 15:00 09/21/24 14:59 08/29/24 08:32 1,000 MCG Vitamin B Complex/ Vit C/Folic Acid (Nephrovite Tablet) 1 cap DAILY PO 08/23/24 09:00 08/22/24 15:38 DC LABORATORY: [ ] Hematology Labs: Test 08/29/24 04:39 Range/Units White Blood Count 7.4 4.8-10.8 K/uL Red Blood Count 4.42 4.00-5.50 MIL/uL Hemoglobin 12.4 12.0-16.0 g/dL Hematocrit 37.1 36-48 % Mean Corpuscular Volume 83.9 79-99 fL Mean Corpuscular Hemoglobin 28.1 27.0-33.0 pg Mean Corpuscular Hemoglobin Concent 33.4 32.0-36.0 g/dL Red Cell Distribution Width 15.9 H 11.0-15.5 % Platelet Count 312 # 130-400 K/uL Mean Platelet Volume 10.4 7.5-10.5 fL Nucleated Red Blood Cells 0.0 0.0-0.19 % Chemistry Labs: Test 08/29/24 04:39 Range/Units Sodium Level 136 136-145 mmol/L Potassium Level 3.4 L 3.5-5.1 mmol/L Chloride Level 95 L 101-111 mmol/L Carbon Dioxide Level 34 H 21-32 mmol/L Blood Urea Nitrogen 36 H 7-18 mg/dL Creatinine 2.0 H 0.5-1.0 mg/dL Glomerular Filtration Rate Calc 27 >90 mL/min Random Glucose 124 H 70-105 mg/dL Total Calcium 8.9 8.5-10.1 mg/dL Magnesium Level 1.80 1.80-2.40 mg/dL Total Bilirubin 0.9 0.2-1.0 mg/dL Aspartate Amino Transf (AST/SGOT) 30 10-37 U/L Alanine Aminotransferase (ALT/SGPT) 42 12-78 U/L Alkaline Phosphatase 117 50-136 U/L Total Protein 8.4 H 6.0-8.3 g/dL Albumin 2.6 L 3.5-5.0 g/dL DIAGNOSTICS / RADIOLOGY: REASON: FLUID OVERLOAD? ORDERING PHYSICIAN: KALEIGH CEJA PROCEDURE: CXR1VW - CHEST 1VW PORTABLE CHEST RADIOGRAPH INDICATION: FLUID OVERLOAD? COMPARISON: 08/20/2024 FINDINGS: Heart size is normal. The pulmonary vascularity and ann appear normal. No abnormal pulmonary parenchymal opacity or consolidation identified. No significant pleural effusion noted. No pneumothorax detected. IMPRESSION: No radiographic evidence for any acute cardiopulmonary process. DICTATED BY: QUENTIN PALACIOS MD DATE: 08/26/24 1525 REASON: TREMOR TO UPPER EXTREMITIES ORDERING PHYSICIAN: CRISELDA JACQUES MD PROCEDURE: C SPIN WO - CT CERVICAL SPINE W/O CONTRAST CT CERVICAL SPINE W/O CONTRAST HISTORY: Tremor to the upper extremity COMPARISON: None TECHNIQUE: Multiple sequential axial images of the cervical spine were obtained including post processing sagittal and coronal reconstruction images. Patient was not given contrast through intravenous route. FINDINGS: There are degenerative changes of the cervical spine spondylosis. Disc space narrowing is seen at the C5-6 level with spondylosis. There is straightening of normal lordotic cervical curvature which may be related to muscle spasm or positioning. There is no loss of vertebral height. Evaluation for disc and cord pathology is limited with CT study. No evidence of fracture or dislocation is seen. IMPRESSION: 1. No fracture is seen. 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 CT was performed with one or more following dose reduction techniques: automated exposure control, adjustment of the mA and kv according to patient's size, or use of a iterative reconstruction technique. DICTATED BY: CALIXTO HUGHES MD DATE: 08/23/24 1438 REASON: YULIA ORDERING PHYSICIAN: KALEIGH CEJA PROCEDURE: ABD PEL WO - CT ABDOMEN/PELVIS W/O CONTRAST CT ABDOMEN/PELVIS W/O CONTRAST HISTORY: Acute renal insufficiency COMPARISON: 05/26/2023 TECHNIQUE: Multiple sequential axial images of the abdomen and pelvis were obtained from the dome of the diaphragm through symphysis pubis. Patient was not given contrast through intravenous route. Oral contrast was not given. FINDINGS: Mild bilateral pleural effusions are seen. There is no evidence of parenchymal disease or pulmonary nodule of the visualized lower lungs. Degenerative changes of the thoracolumbar spine are present. The heart is not enlarged. Liver measures 15 cm. Postcholecystectomy changes are seen. Pancreas is enlarged with peripancreatic fat stranding suggestive of acute pancreatitis in a proper clinical setting. Colonic distention is also seen. There is diverticulosis. The liver, spleen, adrenal glands are unremarkable. No hydronephrosis is seen on the right. There is mild left hydronephrosis with multiple left renal pelvic stones with the largest measuring 3 x 2.5 cm. Fecal material is seen in the colon. There are normal size retroperitoneal and mesenteric lymph nodes. No ascites is seen. No CT evidence of acute appendicitis is seen. Pelvic sidewalls are symmetric bilaterally. Bladder is poorly distended with Hobbs catheter. IMPRESSION: 1. There is mild left hydronephrosis with multiple left renal pelvic stones with the largest measuring 3 x 2.5 cm. Small bilateral pleural effusions. 2. Pancreas is enlarged with peripancreatic fat stranding suggestive of acute pancreatitis in a proper clinical setting. Colonic distention is also seen. There is diverticulosis. CT was performed with one or more following dose reduction techniques: automated exposure control, adjustment of the mA and kv according to patient's size, or use of a iterative reconstruction technique. DICTATED BY: CALIXTO HUGHES MD DATE: 08/22/24 1005 REASON: SOB ORDERING PHYSICIAN: REYMUNDO WALKER NP PROCEDURE: CXR1VW - CHEST 1VW Exam Type: CHEST 1VW Clinical Information: SOB Comparison: None Findings and impression: Cardiomegaly. Small bilateral pleural effusions. Lungs clear of infiltrates. DICTATED BY: LAURA BARRAZA MD DATE: 08/20/24 1431 REASON: elevated d-dimer ORDERING PHYSICIAN: REYMUNDO WALKER NP PROCEDURE: VENOUS FRANSISCO - US VENOUS DOPPLER BILATERAL ULTRASOUND VENOUS DOPPLER, BILATERAL LOWER EXTREMITIES INDICATION: Bilateral lower extremity pain and swelling TECHNIQUE: Routine grayscale and color Doppler ultrasound of the bilateral lower extremity veins performed. COMPARISON: No priors. FINDINGS: The demonstrated veins of the bilateral lower extremity including the common femoral vein, femoral vein, and popliteal vein are associated with normal compressibility, augmentation, and flow. Normal respiratory variation was identified. No evidence for echogenic intraluminal thrombus formation. IMPRESSION: No sonographic evidence for deep venous thrombosis within the bilateral lower extremity veins. DICTATED BY: QUENTIN PALACIOS MD DATE: 08/19/24 1127 REASON: left arm swelling ORDERING PHYSICIAN: CARY GARVIN MD PROCEDURE: VENOUS UNI - US VENOUS DOPPLER UNILATERAL ULTRASOUND VENOUS DOPPLER LEFT UPPER EXTREMITY INDICATION: Swelling. TECHNIQUE: Routine grayscale and color and spectral Doppler ultrasound of the left upper extremity veins performed in real-time, and images subsequently made available for review. COMPARISON: None FINDINGS: PICC is present. Normal compression, vascular antegrade flow, respiratory variation and spectral waveforms identified within the left internal jugular vein, subclavian vein, axillary vein, brachial vein, cephalic vein, and basilic vein. No evidence for an intraluminal thrombus. No soft tissue abnormalities demonstrated. IMPRESSION: No evidence for left upper extremity venous thrombosis. DICTATED BY: QUENTIN PALACIOS MD DATE: 08/19/24 1126 REASON: abdominal discomfort ORDERING PHYSICIAN: CARY GARVIN MD PROCEDURE: ABDOMEN - US ABDOMINAL COMPLETE ULTRASOUND ABDOMEN COMPLETE INDICATION: Abdominal Pain COMPARISON: None. FINDINGS: The liver is normal in size and increased in echogenicity; no focal lesion demonstrated. Main portal vein is patent, and normal direction of vascular flow demonstrated. The common bile duct caliber measures 5.0 mm. Gallbladder is surgically absent. The spleen is normal in size and echotexture. The spleen measures 11.1 cm. Pancreas is obscured by overlying bowel gas. The right kidney measures 10.4 x 5.1 x 4.5 cm,and is normal in echogenicity, without evidence for hydronephrosis or shadowing stones. The left kidney measures 11.4 x 5.8 x 4.1 cm,and is normal in echogenicity, without evidence for hydronephrosis. Multiple subcentimeter nonobstructing calculi within the left kidney, largest of which measures up to 1.8 cm. Visible portions of the abdominal aorta are within normal limits. Visible portions of the inferior vena cava are within normal limits. No free fluid demonstrated. IMPRESSION: Limitations as reported. Nonobstructing left nephrolithiasis. DICTATED BY: QUENTIN PALACIOS MD DATE: 08/19/24 1128 REASON: Rule out PE ORDERING PHYSICIAN: CARY GARVIN MD PROCEDURE: PULM VQ - NM PULMONARY/LUNG VQ SCAN NM PULMONARY/LUNG VQ SCAN HISTORY: Pulmonary embolism COMPARISON: None TECHNIQUE: Ventilation study was performed with 6.5 mCi of Xenon gas through inhalation route. Perfusion lung imaging study was performed with 4.5 mCi of technetium macroaggregated through intravenous route. FINDINGS: There is no evidence of segmental or subsegmental perfusion defect. Nonsegmental perfusion defects are also present. IMPRESSION: 1. Normal ventilation perfusion lung imaging study. DICTATED BY: CALIXTO HUGHES MD DATE: 08/18/242053 REASON: shortness of breath ORDERING PHYSICIAN: CARY GARVIN MD PROCEDURE: CXR1VW - CHEST 1VW PORTABLE CHEST RADIOGRAPH INDICATION: shortness of breath COMPARISON: 08/16/2024 FINDINGS: clinical research monitor leads overlie the field of view. Heart size is normal. Mild calcific plaque is present along the aortic arch reyes. The pulmonary vascularity and ann appear normal. No abnormal pulmonary parenchymal opacity or consolidation identified. No significant pleural effusion noted. No pneumothorax detected. IMPRESSION: No radiographic evidence for any acute cardiopulmonary process. DICTATED BY: QUENTIN PALACIOS MD DATE: 08/18/24920 REASON: chf ORDERING PHYSICIAN: LETY JOHNSON APRN PROCEDURE: ECHO [facility] - ECHO 2-D COMPLETE APPROVED REPORT EXAM: Two-dimensional and M-mode echocardiogram with Doppler and color Doppler. INDICATION ICD: Congestive heart failure 2D Dimensions RVDd 2.8 cm LVEF(%) 58.8 (>50%) LVED Vol(simp.) 52.0 mL IVSd 0.8 (0.7-1.1cm) FS(%) 31 % LVES Vol(simp.) 22.0 mL LVDd 4.4 (3.8-5.6cm) LA (2D) 3.4 (1.6-4.0cm) LVEF(%, simp.) 58 % PWd 0.8 (0.7-1.1cm) Ao Root(2D) 2.8 (2.0-3.7cm) LA ESV INDEX (BP) 17.84 mL/m2 IVSs 0.8 cm LVOT diam 2.0 (1.8-2.4cm) LVDs 3.0 (2.5-4.0cm) IVC diam 1.2 cm PWs 1.1 cm Deformation Strain Apical 4 -22.5 % Apical 2 -18.2 % Apical 3 -18.5 % Global Strain -19.8 % M-Mode Dimensions EPSS 0.5 cm LA (MM) 3.3 (1.6-4.0cm) Ao Root(MM) 3.1 (2.0-3.7cm) Aortic Valve AoV Vmax 1.4 m/s Ao Peak GR 7.4 mmHg LVOT Vmax 1.3 m/s AoV VTI 0.3 m Ao Mean GR 3.8 mmHg LVOT VTI 0.23 m BIB[place]NA (VMAX) 2.82 cm2 B[place] (VTI) 2.3 cm2 Mitral Valve MV E Vmax 76.1 cm/s DECEL Time 222 ms MV A Vmax 66.8 cm/s P 1/2 T 66 ms E/A ratio 1.1 MVA (PHT) 3.3 cm2 TDI E/E' Medial 9.3 E/E' Lateral 6.6 Medial E' Peak V 8.14 cm/s Lateral E' Peak V 11.46 cm/s Pulmonary Valve PV Vmax 0.7 m/s PV VTI 0.12 m PV Mean GR 1.3 mmHg PV Peak GR 2.2 mmHg PI End Ree. Stefano 110.0 cm/s Tricuspid Valve TR Vmax 1.6 m/s RAP (EST) 3 mmHg RVSP 13.8 mmHg TR Peak GR 10.8 mmHg Left Ventricle The left ventricle is normal size. There is normal left ventricular wall thickness. LVEF is 55-60%. The left ventricular diastolic function is normal. Right Ventricle The right ventricle is normal size. The right ventricular systolic function is normal. Atria The left atrium size is normal. The right atrium size is normal. Aortic Valve The aortic valve is normal in structure. No aortic regurgitation is present. There is no aortic valvular stenosis. Mitral Valve The mitral valve is normal in structure. There is no mitral valve regurgitation noted. There is no mitral valve stenosis. Tricuspid Valve The tricuspid valve is normal in structure. There is trace of tricuspid valve regurgitation noted. Pulmonic Valve The pulmonary valve is normal in structure. There is no pulmonic valvular re gurgitation. Great Vessels The aortic root is normal in size. The IVC is normal in size and collapses >50% with inspiration. Pericardium There is no pericardial effusion. Other Information Quality : Adequate Conclusion The left ventricle is normal size. LVEF is 55-60%. The left ventricular diastolic function is normal. The right ventricle is normal size. The right ventricular systolic function is normal. The left atrium size is normal. The right atrium size is normal. No valvular pathology. There is no pericardial effusion. DICTATED BY: IGOR MOSQUEDA MD DATE: 08/17/24 0744 REASON: SOB ORDERING PHYSICIAN: CARLOS SHAW MD PROCEDURE: CXR1VW - CHEST 1VW Exam Type: CHEST 1VW Clinical Information: SOB Comparison: None Findings: The lungs are clear of infiltrates. The heart is enlarged. Bony and soft tissue structures of the chest wall are unremarkable. IMPRESSION: Cardiomegaly. Clear lungs. DICTATED BY: LAURA BARRAZA MD DATE: 08/16/24 1458 ASSESSMENT: Acute on chronic renal failure Acute sepsis Septic shock Generalized body weakness Urinary retention Postobstructive uropathy Acute dehydration Acute complicated cystitis Electrolyte imbalance Uncontrolled hypertension Thrombocytopenia History of kidney stones History of hydronephrosis Recent influenza infection PLAN: Labs, diagnostic, radiologic exams reviewed and interpreted by myself and supervising physician. We have reviewed external records in detail Case management coordinating LTAC placement. From Nephrology standpoint, patient may be discharged Follow up in the renal clinic in 2-3 weeks. Follow up with the Urology post discharge BiPAP as necessary, for respiratory distress Monitor blood pressure adjust medication doses as needed Avoid hypotensive episodes May use Dilaudid 0.5 mg IV every 6 hours as needed for severe pain Monitor blood sugars Strict intake, output, and daily weight should be monitored Please renally adjust medications Avoid nephrotoxic and nonsteroidal drugs Avoid contrast if possible Will continue to monitor renal function, anemia, electrolytes Treatment plan discussed with patient Questions were answered We have discussed with the other team physicians in detail about the care plan We will continue to monitor the patient closely ATTESTATION BY PHYSICIAN I have seen and examined the patient. I reviewed the documentation, medical decision making, and treatment plan as noted by the mid-level provider above. I agree with the findings and plan of care. EVAN TEIXEIRA MD, [facility] August 29, 2024 15:29
[2024-08-29 16:00] VITALS: BP 120/70; PULSE 90; RESP 19; TEMP 98.5
--- NOTE | 2024-08-29 16:58 | NUR ---
SPOKE WITH ALY FITZGERALD FROM [facility] AND GAVE REPORT FOR PATIENT. PENDING [facility] FACILITY TRANSPORT TO ARRIVE AND TRANSFER PATIENT.
--- NOTE | 2024-08-29 17:53 | NUR ---
DISCHARGE VAN TRANSPORT FROM [facility] ARRIVED TO UNIT. PATIENT PICKED UP AND TRANSFERRED TO [facility] VIA FACILITY VAN.
== END 2024-08-29 17:55 | DRG 871 ==
LOC: EDH 13:35 → EDHIP 16:05 → 3AH 21:38 → 2CH 08-19 03:23 → 3AH 08-21 12:50
PROVIDERS: ADMIT Internal Medicine; ATTEND Internal Medicine
PROC: 05HC33Z Insertion of Infusion Device into Left Basilic Vein, Percutaneous Approach (ICD-10-PCS; principal; 2024-08-18)
PROC: B54NZZA Ultrasonography of Left Upper Extremity Veins, Guidance (ICD-10-PCS; 2024-08-18)
DX: A41.9 Sepsis, unspecified organism (principal); K85.90 Acute pancreatitis without necrosis or infection, unspecified; R65.21 Severe sepsis with septic shock; E87.1 Hypo-osmolality and hyponatremia; N17.9 Acute kidney failure, unspecified; I13.0 Hypertensive heart and chronic kidney disease with heart failure and stage 1 through stage 4 chronic kidney disease, or unspecified chronic kidney disease; N13.6 Pyonephrosis; A77.9 Spotted fever, unspecified; D69.6 Thrombocytopenia, unspecified; E83.51 Hypocalcemia; E86.0 Dehydration; E87.6 Hypokalemia; D64.9 Anemia, unspecified; E11.22 Type 2 diabetes mellitus with diabetic chronic kidney disease; S40.022A Contusion of left upper arm, initial encounter; X58.XXXA Exposure to other specified factors, initial encounter; E66.9 Obesity, unspecified; I50.9 Heart failure, unspecified; K57.30 Diverticulosis of large intestine without perforation or abscess without bleeding; N18.9 Chronic kidney disease, unspecified; Z91.199 Patient's noncompliance with other medical treatment and regimen due to unspecified reason; Z86.711 Personal history of pulmonary embolism; Z87.442 Personal history of urinary calculi; Z90.49 Acquired absence of other specified parts of digestive tract; Z90.710 Acquired absence of both cervix and uterus; Y93.89 Activity, other specified; Y92.89 Other specified places as the place of occurrence of the external cause; Y99.8 Other external cause status; Z68.31 Body mass index [BMI] 31.0-31.9, adult
CPT/HCPCS: 36415; 36556; 36600; 71045; 72125; 74176; 76700; 78582; 80048; 80053; 80076; 81001; 82140; 82150; 82435; 82550; 82570; 82728; 82803; 82947; 82948; 83036; 83521; 83540; 83550; 83605; 83690; 83735; 83880; 84100; 84132; 84145; 84295; 84300; 84443; 84484; 84540; 84550; 85018; 85025; 85027; 85060; 85378; 85384; 85610; 85730; 86038; 86160; 86215; 86235; 86334; 86701; 86757; 87040; 87046; 87086; 87177; 87390; 87426; 87507; 87804; 87880; 88184; 88185; 88189; 93005; 93306; 93356; 93970; 93971; 96365; 99285; A9540; A9558; C1894; G0378; J0692; J0696; J0780; J1200; J1644; J1885; J1938; J2405; J2543; J3475; J3480; J3490; J7030; P9046; 3370; C1750